=== PATIENT | female | born 1940 | race Caucasian/White ===

== ENCOUNTER 2017-01-23 13:41 | Inpatient (IN) | payer MEDICARE, OTHER ==
[~2017-01-23] VITALS: Ht 160 cm; Wt 97.1 kg
[~2017-01-23 13:41] MED LIST: ALPR0.254 PO; ALPR0.5T PO; ASPI81TA2 PO; ATOR20TA58 PO; BUDE10.2 IH; DILT240C2 PO; DILT240C66 PO; DOCU-27 PO; DONE5TAB33 PO; DOXY100C2 PO; FLUT9.9S NS; FURO20TA3 PO; FURO40TA4 PO; GABA-586 PO; INSU100I13 SQ; INSU100V31 SQ; LEVO500T38 PO; LEVO500T8 PO; LOSA50TA6 PO; MIRT15TA PO; MULT1TAB52 PO; OXYC30TA PO; PANT40TA5 PO; POLY17PO5 PO; POTA10TA10 PO; PROAIR HFA8.5 GM INH; RISP0.5T3 PO; RISP1TAB3 PO; SERT50TA PO; SERT50TA8 PO; TRAZ50TA15 PO; VITA100C8 PO; cogentin PO
--- NOTE | 2017-01-23 15:09 | RAD ---
Portable chest, 01/23/2017: History: Fall Comparison is made to a study from 01/04/2017. The heart is mildly enlarged. The pulmonary vascularity is prominent.. There is now mild parahilar infiltrate on the right. No pleural fluid is seen. The bony structures are unremarkable. IMPRESSION: Mild right parahilar infiltrate most likely representing pulmonary edema due to congestive heart failure. Pneumonia is less likely.
--- NOTE | 2017-01-23 15:10 | EKG ---
[facility] [address] [place] [address] Test Date: 2017-01-23 Test Time: 14:23:25 Pat Name: OZZIE GALEAS Department: Room: Gender: F Education Spec: : 1940 Requested By: ZO BROWN Order Number: [id number] Reading MD: Jaci Alcazar Measurements Intervals [place] Rate: 111 P: 54 WV: 174 QRS: 52 QRSD: 84 T: 87 QT: 306 QTc: 419 Interpretive Statements SINUS TACHYCARDIA QRS(T) CONTOUR ABNORMALITY CONSISTENT WITH SEPTAL INFARCT PROBABLY OLD Electronically Signed On 01-25-2017 20:22:24 CUTTER INSPECTOR by Jaci Alcazar
[2017-01-23] MEDS ORDERED: IV NORMAL SALINE 1000ML BAG 1,000 ML IV ONE (15:15)
[2017-01-23 15:26] LABS: BILIRUBIN,URINE SMALL (NEG); GLUCOSE,URINE NEGATIVE (NEG); NITRITE,URINE NEGATIVE (NEG); PH,URINE 5.5; PROTEIN,URINE NEGATIVE (NEG-TRACE); UROBILINOGEN,URINE 0.2 mg/dL (0.2 mg/dL)
--- NOTE | 2017-01-23 15:33 | EKG ---
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
--- NOTE | 2017-01-23 15:33 | RAD ---
PQRS Compliance Statement: One or more of the following individualized dose reduction techniques were utilized for this examination: 1. Automated exposure control 2. Adjustment of the mA and/or kV according to patient size 3. Use of iterative reconstruction technique CT of the head without contrast, 01/23/2017: History: Fall, altered mental status Comparison is made to a study from 11/21/2016. There are mild unchanged deep white matter lucencies compatible with chronic ischemic change. The ventricles are within normal limits in size for the patient's age. There is no shift of the midline structures. There is no evidence of acute intracranial hemorrhage or mass effect. There is mild mucosal thickening in the right maxillary sinus. IMPRESSION: No acute intracranial abnormality is detected. CT of the cervical spine without contrast, 01/23/2017: Noncontrast scans were obtained with multiplanar reconstructions produced. No acute fracture or dislocation is identified. There is moderate disc space narrowing and marginal spurring at multiple levels in the mid and lower cervical spine. There are moderate hypertrophic degenerative changes involving multiple facet joints bilaterally. The combination of findings is causing borderline narrowing of the central spinal canal at several levels. There is also moderate foraminal encroachment at several levels. There is calcific plaquing at the carotid bifurcations. IMPRESSION: 1. Moderate multilevel degenerative change. 2. No acute bony abnormality is detected.
[2017-01-23 15:34] LABS: BARBITURATES NEG (NEG); BENZODIAZEPINES NEG (NEG); CANNABINOIDS NEG (NEG); COCAINE NEG (NEG); METHADONE NEG (NEG); OPIATES POS (NEG); PHENCYCLIDINE NEG (NEG)
[2017-01-23 15:38] LABS: ETHANOL, URINE NEG (NEG)
[2017-01-23 15:42] LABS: BACTERIA,URINE FEW /HPF (0-FEW); RBC,URINE OCC /HPF (0-2); SQUAMOUS EPITHELIAL CELL,UR MOD /LPF; WBC,URINE >40 /HPF (0-4)
[2017-01-23 15:46] LABS: BASO % 0 % (0-3); EOS % 0 % (0-3); HEMATOCRIT 35.4 % (36.0-47.0); HEMOGLOBIN 11.2 g/dL (12.0-15.5); LYMPH # 0.3 x10^3/uL (1.0-4.8); LYMPH % 3 % (24-48); MEAN CORPUSCULAR HEMOGLOBIN 31 pg (25-35); MEAN CORPUSCULAR HGB CONC 32 g/dL (31-37); MEAN CORPUSCULAR VOLUME 97 fL (79-100); MONO % 9 % (0-9); NEUT % 89 % (31-73); PLATELET COUNT 141 x10^3/uL (140-400); RED BLOOD COUNT 3.65 x10^6/uL (3.50-5.40); RED CELL DISTRIBUTION WIDTH 17.7 % (11.5-14.5)
[2017-01-23 15:53] LABS: HCO3 ABG 27 mmol/L (21-28); PCO2 ABG 49 mmHg (35-46); PH ABG 7.36 (7.35-7.45); PO2 ABG 67 mmHg (65-108); SAT O2 ABG 91 % (92-99)
[2017-01-23 15:55] LABS: INR 1.3 (0.8-1.1); PROTHROMBIN TIME PATIENT 15.8 SEC (11.7-14.0)
[2017-01-23 16:06] LABS: CALCIUM 8.5 mg/dL (8.5-10.1); CREATININE 1.9 mg/dL (0.6-1.0); GFR 25.6; POTASSIUM 5.3 mmol/L (3.5-5.1)
[2017-01-23 16:12] LABS: ALBUMIN 3.1 g/dL (3.4-5.0); ALBUMIN/GLOBULIN RATIO 0.7 (1.0-1.7); TOTAL BILIRUBIN 0.4 mg/dL (0.2-1.0); TOTAL PROTEIN 7.3 g/dL (6.4-8.2)
[2017-01-23 16:20] LABS: CKMB INDEX 1.3 % (0-4); CKMB MASS 3.8 ng/mL (0.0-3.6)
[2017-01-23 16:32] LABS: OBC FLU VALID
[2017-01-23 16:48] LABS: ANISOCYTOSIS SLIGHT; OVALOCYTES FEW; PLT ESTIMATE ADEQUATE (ADEQUATE); POLYCHROMASIA SLIGHT
--- NOTE | 2017-01-23 16:57 | RAD ---
PQRS Compliance Statement: One or more of the following individualized dose reduction techniques were utilized for this examination: 1. Automated exposure control 2. Adjustment of the mA and/or kV according to patient size 3. Use of iterative reconstruction technique CT of the abdomen and pelvis without contrast, 01/23/2017: History: Fall, pain Noncontrast scans were obtained as requested. The heart is enlarged. There are small bilateral pleural effusions. There is mild basilar atelectasis/infiltrate, more so on the right. There are multiple streak artifacts on these scans. The unopacified liver is unremarkable. There is a small radiopacity along the posterior wall of the gallbladder compatible with a gallstone. The pancreas is atrophic. The spleen is of normal size. There is bilateral renal cortical scarring. There is no evidence of hydronephrosis. Both adrenal glands are mildly enlarged. They are of low density. The findings suggests adrenal hyperplasia versus small bilateral adenomas. There is moderate aortoiliac calcific plaquing without evidence of aneurysm. No abdominal or pelvic adenopathy is seen. There are serpiginous vascular structures, probably representing varices, in the prepubic soft tissues. There is a calcification in the left iliac vein. These dilated veins may represent collateral veins due to chronic left iliac venous occlusion. Several sigmoid diverticula are present without evidence of paracolonic inflammation. The small bowel loops are not dilated. No free air is identified in the abdomen or pelvis. There appears to be a trace amount of interloop fluid in the anterior aspect of the pelvis and along the anterior aspect of the liver. Several old rib fractures are noted on the lower right. Moderate multilevel degenerative change is present in the spine. There is a moderate vertebral compression fracture at T9. Sclerotic change within the vertebral body suggests that this is probably old. IMPRESSION: 1. Mild bibasilar atelectasis/infiltrate with a trace amount of bilateral pleural fluid. 2. Tiny amount of free fluid in the abdomen and pelvis. 3. Cholelithiasis. 4. Sigmoid diverticulosis. 5. Anterior pubic region collateral veins in a pattern suggesting chronic left iliac venous occlusion. 6. T9 vertebral compression fracture which is probably old.
[2017-01-23] MEDS ORDERED: FUROSEMIDE 40 MG/4 ML VIAL IVP ONE (17:45)
[2017-01-23] MEDS ORDERED: AZITHRMYCN 500MG IVPB FOR OMNI 250 ML IV ONE (18:00)
[2017-01-23] MEDS ORDERED: CEFTRIAXONE 1GM IVPB FOR OMNI 50 ML IV ONE (18:00)
[2017-01-23 18:31] LABS: MAGNESIUM 2.7 mg/dL (1.8-2.4)
[2017-01-23 18:40] LABS: CHOLESTEROL/HDL RATIO 1.8
[2017-01-23] MEDS ORDERED: LORAZEPAM 2 MG/ML VIAL IV ONE (18:45)
--- NOTE | 2017-01-23 19:47 | PDOC2 ---
YOVANNY WOLFE MEAT PROCESS WORKER 01/23/171946: CARDIAC CONSULT DATE OF CONSULT Date of Consult DATE: 01/23/17 TIME: 1715 REASON FOR CONSULT Reason for Consult: Elevated troponin, CHF REFERRING PHYSICIAN Referring Physician: Miko SOURCE Source: Chart review, Patient (poor historian) HISTORY OF PRESENT ILLNESS HISTORY OF PRESENT ILLNESS This is a 76 yo female admitted for fall and SOA. Initially pt was noted to be confused and after bipap placement, her orientation is better. Pt is currently unreliable with the details of events since she is currently exhausted and presently using a bipap. She was noted to be pale and dusky upon arrival in ED. Currently pt is drowsy but oriented and able to provide me with answers answerable with yes/no. Denies any CP, palpitations. Unable to tell me any dizzy spells in relation to her fall. Unable to note how much opiods she has consumed in the last 24 hours as well as adequacy of her hydration. Family is not available and unable to attest compliance to her medications. She fell at home with no traumatic injuries. There was no notation of passing out. She did get admitted on 08/2016 with fall and CHF. MPI was considered as well but failed to f/u. No notable fever, chills, recent diarrhea or vomiting. PAST MEDICAL HISTORY Past Medical History Cardiovascular: HTN, Hyperlipidemia, CHF, valvular insufficiency Pulmonary: COPD CENTRAL NERVOUS SYSTEM: Dementia GI: Constipation Heme/Onc: Anemia NOS, DVT Hepatobiliary: No pertinent hx Psych: Anxiety Musculoskeletal: low back pain, Osteoarthritis Rheumatologic: No pertinent hx Infectious disease: No pertinent hx ENT: No pertinent hx Renal/: Urinary Incontinence, CKD3 Endocrine: Diabetes (2) Dermatology: No pertinent hx PAST SURGICAL HISTORY Past Surgical History: Hysterectomy FAMILY HISTORY Family History: Coronary Artery Disease (father) SOCIAL HISTORY Smoke: No (quit/ hx of 50 pk/yr) ALCOHOL: none Drugs: None Lives: with Family CURRENT MEDICATIONS CURRENT MEDICATIONS Current Medications Medications (Trade) Dose Ordered Sig/Talita Route PRN Reason Start Time Stop Time Status Last Admin Dose Admin Lorazepam (Ativan) 0.5 mg 1X ONCE IV 01/23/17 18:45 01/23/17 18:46 01/23/17 18:42 ALLERGIES ALLERGIES: Coded Allergies: Penicillins (Verified Allergy, Intermediate, AMS, 09/10/16) aripiprazole (Verified Adverse Reaction, Mild, agitation, 10/28/16) bupropion (Verified Adverse Reaction, Mild, headache, 10/28/16) metformin (Verified Adverse Reaction, Mild, diarrhea, 10/28/16) ROS Review of System limited, pt exhausted, bipap currently in place PHYSICAL EXAM General: Oriented X3, Cooperative, moderate distress HEENT: Atraumatic, Mucous membr. moist/pink Lungs: Other (diminished throughout, bibasilar crackles) Heart: Regular rate, Normal S1, Normal S2, Other (distant heart sounds unable to appreciate idue to bipap as well; S3) Abdomen: Soft, No tenderness Extremities: No cyanosis, Other (2-3+ bilateral LE pitting edema) Skin: No breakdown, No significant lesion Neuro: Sensation intact, Other (utilized closed communication yes/no due to bipap use) Psych/Mental Status: Other (drowsy) MUSCULOSKELETAL: Osteoarthritic changes both hands VITALS VITALS Vital Signs Date Time Temp Pulse Resp B/P Pulse Ox O2 Delivery O2 Flow Rate FiO2 01/23/17 18:31 Nasal Cannula 5.0 01/23/17 17:19 92 01/23/17 17:15 104 28 147/87 01/23/17 13:41 99.4 99.4 LABS Lab: Laboratory Tests Test 01/23/17 15:18 01/23/17 15:35 01/23/17 15:40 01/23/17 15:53 Urine Collection Type Unknown Urine Color Yellow Urine Clarity Clear Urine pH 5.5 Urine Specific [place] 1.020 Urine Protein Negativemg/dL (NEG-TRACE) Urine Glucose (UA) Negativemg/dL (NEG) Urine Ketones (Stick) Negativemg/dL (NEG) Urine Blood Negative (NEG) Urine Nitrite Negative (NEG) Urine Bilirubin Small (NEG) Urine Urobilinogen Dipstick 0.2mg/dL (0.2 mg/dL) Urine Leukocyte Esterase Moderate (NEG) Urine RBC Occ/HPF (0-2) Urine WBC >40/HPF (0-4) Urine Squamous Epithelial Cells Mod/LPF Urine Bacteria Few/HPF (0-FEW) Urine Opiates Screen Pos (NEG) Urine Methadone Screen Neg (NEG) Urine Barbiturates Neg (NEG) Urine Phencyclidine Screen Neg (NEG) Urine Amphetamine/Methamphetamine Neg (NEG) Urine Benzodiazepines Screen Neg (NEG) Urine Cocaine Screen Neg (NEG) Urine Cannabinoids Screen Neg (NEG) Urine Ethyl Alcohol Neg (NEG) White Blood Count 10.0x10^3/uL (4.0-11.0) Red Blood Count 3.65x10^6/uL (3.50-5.40) Hemoglobin 11.2g/dL (12.0-15.5) Hematocrit 35.4% (36.0-47.0) Mean Corpuscular Volume 97fL (79-100) Mean Corpuscular Hemoglobin 31pg (25-35) Mean Corpuscular Hemoglobin Concent 32g/dL (31-37) Red Cell Distribution Width 17.7% (11.5-14.5) Platelet Count 141x10^3/uL (140-400) Neutrophils (%) (Auto) 89% (31-73) Lymphocytes (%) (Auto) 3% (24-48) Monocytes (%) (Auto) 9% (0-9) Eosinophils (%) (Auto) 0% (0-3) Basophils (%) (Auto) 0% (0-3) Neutrophils # (Auto) 8.9x10^3uL (1.8-7.7) Lymphocytes # (Auto) 0.3x10^3/uL (1.0-4.8) Monocytes # (Auto) 0.9x10^3/uL (0.0-1.1) Eosinophils # (Auto) 0.0x10^3/uL (0.0-0.7) Basophils # (Auto) 0.0x10^3/uL (0.0-0.2) Segmented Neutrophils % 74% (35-66) Band Neutrophils % 21% (0-9) Monocytes % 5% (0-10) Platelet Estimate Adequate (ADEQUATE) Large Platelets Occ Polychromasia Slight Basophilic Stippling Present Anisocytosis Slight Ovalocytes Few Prothrombin Time 15.8SEC (11.7-14.0) Prothromb Time International Ratio 1.3 (0.8-1.1) Activated Partial Thromboplast Time 50SEC (24-38) Sodium Level 137mmol/L (136-145) Potassium Level 5.3mmol/L (3.5-5.1) Chloride Level 100mmol/L (98-107) Carbon Dioxide Level 32mmol/L (21-32) Anion Gap 5 (6-14) Blood Urea Nitrogen 43mg/dL (7-20) Creatinine 1.9mg/dL (0.6-1.0) Estimated GFR (Cockcroft-Gault) 25.6 BUN/Creatinine Ratio 23 (6-20) Glucose Level 211mg/dL (70-99) Lactic Acid Level 1.6mmol/L (0.4-2.0) Calcium Level 8.5mg/dL (8.5-10.1) Magnesium Level 2.7mg/dL (1.8-2.4) Total Bilirubin 0.4mg/dL (0.2-1.0) Aspartate Amino Transf (AST/SGOT) 56U/L (15-37) Alanine Aminotransferase (ALT/SGPT) 44U/L (14-59) Alkaline Phosphatase 79U/L (46-116) Creatine Kinase 300U/L (26-192) Creatine Kinase MB (Mass) 3.8ng/mL (0.0-3.6) Creatine Kinase MB Relative Index 1.3% (0-4) Myoglobin 473ng/mL (9-82) Troponin I Quantitative 0.470ng/mL (0.000-0.055) LH-Vxn-I-Type Natriuretic Peptide 51235eq/mL (0-449) Total Protein 7.3g/dL (6.4-8.2) Albumin 3.1g/dL (3.4-5.0) Albumin/Globulin Ratio 0.7 (1.0-1.7) Triglycerides Level 42mg/dL (0-150) Cholesterol Level 113mg/dL (0-200) LDL Cholesterol, Calculated 41mg/dL (0-100) VLDL Cholesterol, Calculated 8mg/dL (0-40) HDL Cholesterol 64mg/dL (40-60) Cholesterol/HDL Ratio 1.8 Thyroid Stimulating Hormone (TSH) 0.453uIU/mL (0.358-3.74) O2 Saturation 91% (92-99) Arterial Blood pH 7.36 (7.35-7.45) Arterial Blood pCO2 at Patient Temp 49mmHg (35-46) Arterial Blood pO2 at Patient Temp 67mmHg (65-108) Arterial Blood HCO3 27mmol/L (21-28) Arterial Blood Base Excess 1mmol/L (-3-3) FiO2 6 lpm nc Influenza Type A Antigen Negative (NEGATIVE) Influenza Type B Antigen Negative (NEGATIVE) ECHOCARDIOGRAM ECHOCARDIOGRAM <Conclusion> The Left Ventricle is borderline dilated. Left ventricle systolic function is normal. The Ejection Fraction is 50-55%. There is no significant aortic valvular stenosis. Doppler and Color Flow revealed no significant aortic regurgitation. Doppler and Color Flow revealed trace mitral valve regurgitation. Doppler and Color Flow revealed mild tricuspid regurgitation. The PA pressure was estimated at 40 mmHg. DATE: 09/11/16 1603 ASSESSMENT/PLAN ASSESSMENT/PLAN 1. Mechanical nontraumatic fall with rhabdomyolysis (multiple falls in the past) : unknown for any syncopal episode or symptoms 2. Metabolic/hypoxic encephalopathy: unknown quantity of opioid/benzo used in the last 24 hours 3. Acute respiratory failure with underlying COPD: opioid contributing 4. MADDY on CKD3 with mild hyperkalemia 5. Acute on chronic diastolic CHF: likely induced by hypoxia and renal insufficiency 6. Elevated troponin: 0.4 initial. EKG sinus tach with no acute changes. CP free. Suspect demand mediated with above conditions 7. HTN: controlled 8. DM2/HLP: controlled 9. Hx of dementia: evaluated by neuro 10/2016 10. Chronic pain with chronic opioid use. 11. Debility Recommendations 1. TSH, lipid panel, Mg, continue to trend troponin 2. TTE 3. Currently on bipap 4. Lasix IV, Continue with IV maintenance therapy 5. Appears to have difficult IV access, PICC? 6. Continue with secondary prevention 7. Will need to discuss with pt regarding aggressive measures vs conservative measures. 8. Multiple hospitalizations with recurrent falls, dementia, multiple chronic conditions, recommend palliative consult to address #7 9. Once above is addressed and pending results of TTE, will consider for ischemic workup in the form of MPI, likely as an outpt. 10. Recommend renal and pulmonary consult. Defer to PCP Problems: LINDA RM MD 01/24/17 1451: CARDIAC CONSULT ALLERGIES ALLERGIES: Coded Allergies: Penicillins (Verified Allergy, Intermediate, AMS, 09/10/16) aripiprazole (Verified Adverse Reaction, Mild, agitation, 10/28/16) bupropion (Verified Adverse Reaction, Mild, headache, 10/28/16) metformin (Verified Adverse Reaction, Mild, diarrhea, 10/28/16) ASSESSMENT/PLAN ASSESSMENT/PLAN Patient seen and examined. Agree with CHORAL TEACHER's assessment and plan. Patient admitted s/p mechanical fall without any syncope. Acute on chronic diastolic heart failure better compensated with diuresis. Mental status improved since admission. Slight troponin level elevation probably secondary to demand ischemia. Recent 2-D echo showed normal LV systolic function. We will consider ischemic workup in the form of stress test as an outpatient. Thank you for your consultation. Problems: YOVANNY WOLFE APRN Jan 23, 2017 19:47 LINDA RM MD Jan 24, 2017 14:51
[2017-01-23 19:50] VITALS: BP 114/67
[2017-01-23] MEDS ORDERED: ALBUTEROL SULFATE 2.5 MG/3 ML NEBU. NEB PRN (20:30)
[2017-01-23] MEDS: GABAPENTIN 300 MG CAPSULE. PO SCH (21:00)
[2017-01-23] MEDS: risperiDONE 1 MG TABLET. PO SCH (21:00)
[2017-01-23] MEDS: ATORVASTATIN CALCIUM 20 MG TABLET PO SCH (21:00)
[2017-01-23] MEDS: MIRTAZAPINE 15 MG TABLET PO SCH (21:00)
[2017-01-23] MEDS: traZODone 50 MG TABLET. PO SCH (21:00)
[2017-01-23] MEDS: DOCUSATE SODIUM 100 MG CAPSULE PO SCH (21:00)
[2017-01-23] MEDS: ALPRAZOLAM 0.5 MG TABLET PO SCH (21:00)
--- NOTE | 2017-01-23 22:08 | ED.ADGEN ---
Past Medical History Past Medical History: Bronchitis, CHF, COPD, Dementia, Diabetes-Type II, High Cholesterol, Hypertension, Renal Disease, Other Additional Past Medical Histor: resp failure; AMS; pulmonary edema; right knee pain Past Surgical History: Hysterectomy Additional Past Surgical Histo: pt unable to Alcohol Use: None Drug Use: None Adult General Chief Complaint Chief Complaint: ALTERED MENTAL STATUS HPI HPI Patient is a 76 year old [woman, history of CHF, COPD, type 2 diabetes mellitus , hypertension, obesity, who presents emergency department via EMS with report of being found lying on the floor by her daughter. C-collar was placed upon arrival to the emergency department, patient noted to be altered, which is answering some questions appropriate, she is slow to respond. Is complaining of pain in her abdomen, denies any chest pain, complaining of some shortness of breath. Patient's daughter is not present in the emergency department, report is available through EMS. No other information provided at this time. Does not have a medication list. Patient noted be hypoxic, in the low 80s on room air, placed on oxygen by EMS, increase to 6 L nasal cannula upon arrival to the ED. Oxygen saturation is in the mid 90s. Patient is noted to have some increased work of breathing. Patient's mentation is improving after administration of oxygen per EMS. Review of Systems Review of Systems Constitutional: Denies fever or chills. [] Eyes: Denies change in visual acuity. [] HENT: Denies nasal congestion or sore throat. [] Respiratory: Complaining of shortness of breath. Cardiovascular: Denies chest pain or edema. [] GI: Denies nausea, vomiting, bloody stools or diarrhea. [Abdominal pain.] : Denies dysuria. [] Musculoskeletal: Denies back pain or joint pain. [] Integument: Denies rash. [] Neurologic: Denies headache, focal weakness or sensory changes. [] Endocrine: Denies polyuria or polydipsia. [] Lymphatic: Denies swollen glands. [] Psychiatric: Denies depression or anxiety. [] Current Medications Current Medications Current Medications Medications (Trade) Dose Ordered Sig/Talita Start Time Stop Time Status Last Admin Dose Admin Sodium Chloride (Iv Sodium Chloride 0.9% 1000ml Bag) 1,000 ml @ 100 mls/hr 1X ONCE 01/23/17 15:15 2/25/17 01:14 01/23/17 15:32 100 MLS/HR Allergies Allergies Allergies Coded Allergies Type Severity Reaction Last Updated Verified Penicillins Allergy Intermediate AMS 09/10/16 Yes aripiprazole Adverse Reaction Mild agitation 10/28/16 Yes bupropion Adverse Reaction Mild headache 10/28/16 Yes metformin Adverse Reaction Mild diarrhea 10/28/16 Yes Physical Exam Physical Exam Constitutional: Well developed, well nourished, ill in appearance, mild respiratory distress, patient is pale, lips are mildly cyanotic. HENT: Normocephalic, atraumatic, bilateral external ears normal, oropharynx moist, no oral exudates, nose normal. [] Eyes: PERRLA, EOMI, conjunctiva normal, no discharge. [] Neck: Normal range of motion, no tenderness, supple, no stridor. [] Cardiovascular:Heart rate regular rhythm, no murmur, S1, S2, tachycardic, no rubs or gallops. Soft heart sounds. [] Lungs & Thorax: Coarse breath sounds noted bilaterally, patient is in mild respiratory distress. Abdomen: Bowel sounds normal, soft, tenderness to palpation suprapubically, and in the lower quadrants, no rebound rigidity or guarding, no masses, no pulsatile masses. [] Skin: Warm, dry, no erythema, no rash. [] Back: No tenderness, no CVA tenderness. [] Extremities: No tenderness, no cyanosis, no clubbing, ROM intact, no edema. Negative Homans sign. [] Neurologic: Awake and alert, is answering questions appropriately although she is slow to respond,, normal motor function, normal sensory function, no focal deficits noted. [] Psychologic: Affect normal, judgement normal, mood normal. [] Current Patient Data Vital Signs Vital Signs Date Time Temp Pulse Resp B/P Pulse Ox O2 Delivery O2 Flow Rate FiO2 01/23/17 17:19 92 BiPAP/CPAP 01/23/17 17:15 104 28 147/87 6 01/23/17 13:41 99.4 99.4 Lab Values Laboratory Tests Test 01/23/17 15:18 01/23/17 15:35 01/23/17 15:40 01/23/17 15:53 Urine Collection Type Unknown Urine Color Yellow Urine Clarity Clear Urine pH 5.5 Urine Specific Hermon 1.020 Urine Protein Negativemg/dL (NEG-TRACE) Urine Glucose (UA) Negativemg/dL (NEG) Urine Ketones (Stick) Negativemg/dL (NEG) Urine Blood Negative (NEG) Urine Nitrite Negative (NEG) Urine Bilirubin Small (NEG) Urine Urobilinogen Dipstick 0.2mg/dL (0.2 mg/dL) Urine Leukocyte Esterase Moderate (NEG) Urine RBC Occ/HPF (0-2) Urine WBC >40/HPF (0-4) Urine Squamous Epithelial Cells Mod/LPF Urine Bacteria Few/HPF (0-FEW) Urine Opiates Screen Pos (NEG) Urine Methadone Screen Neg (NEG) Urine Barbiturates Neg (NEG) Urine Phencyclidine Screen Neg (NEG) Urine Amphetamine/Methamphetamine Neg (NEG) Urine Benzodiazepines Screen Neg (NEG) Urine Cocaine Screen Neg (NEG) Urine Cannabinoids Screen Neg (NEG) Urine Ethyl Alcohol Neg (NEG) White Blood Count 10.0x10^3/uL (4.0-11.0) Red Blood Count 3.65x10^6/uL (3.50-5.40) Hemoglobin 11.2g/dL (12.0-15.5) L Hematocrit 35.4% (36.0-47.0) L Mean Corpuscular Volume 97fL (79-100) Mean Corpuscular Hemoglobin 31pg (25-35) Mean Corpuscular Hemoglobin Concent 32g/dL (31-37) Red Cell Distribution Width 17.7% (11.5-14.5) H Platelet Count 141x10^3/uL (140-400) Neutrophils (%) (Auto) 89% (31-73) H Lymphocytes (%) (Auto) 3% (24-48) L Monocytes (%) (Auto) 9% (0-9) Eosinophils (%) (Auto) 0% (0-3) Basophils (%) (Auto) 0% (0-3) Neutrophils # (Auto) 8.9x10^3uL (1.8-7.7) H Lymphocytes # (Auto) 0.3x10^3/uL (1.0-4.8) L Monocytes # (Auto) 0.9x10^3/uL (0.0-1.1) Eosinophils # (Auto) 0.0x10^3/uL (0.0-0.7) Basophils # (Auto) 0.0x10^3/uL (0.0-0.2) Segmented Neutrophils % 74% (35-66) H Band Neutrophils % 21% (0-9) H Monocytes % 5% (0-10) Platelet Estimate Adequate (ADEQUATE) Large Platelets Occ Polychromasia Slight Basophilic Stippling Present Anisocytosis Slight Ovalocytes Few Prothrombin Time 15.8SEC (11.7-14.0) H Prothrombin Time INR 1.3 (0.8-1.1) H PTT 50SEC (24-38) H Sodium Level 137mmol/L (136-145) Potassium Level 5.3mmol/L (3.5-5.1) H Chloride Level 100mmol/L (98-107) Carbon Dioxide Level 32mmol/L (21-32) Anion Gap 5 (6-14) L Blood Urea Nitrogen 43mg/dL (7-20) H Creatinine 1.9mg/dL (0.6-1.0) H Estimated GFR (Cockcroft-Gault) 25.6 BUN/Creatinine Ratio 23 (6-20) H Glucose Level 211mg/dL (70-99) H Lactic Acid Level 1.6mmol/L (0.4-2.0) Calcium Level 8.5mg/dL (8.5-10.1) Magnesium Level 2.7mg/dL (1.8-2.4) H Total Bilirubin 0.4mg/dL (0.2-1.0) Aspartate Amino Transferase (AST) 56U/L (15-37) H Alanine Aminotransferase (ALT) 44U/L (14-59) Alkaline Phosphatase 79U/L (46-116) Creatine Kinase 300U/L (26-192) H Creatine Kinase MB (Mass) 3.8ng/mL (0.0-3.6) H Creatine Kinase MB Relative Index 1.3% (0-4) Myoglobin 473ng/mL (9-82) H Troponin I Quantitative 0.470ng/mL (0.000-0.055) VB-Omm-U-Type Natriuretic Peptide 67235gn/mL (0-449) H Total Protein 7.3g/dL (6.4-8.2) Albumin 3.1g/dL (3.4-5.0) L Albumin/Globulin Ratio 0.7 (1.0-1.7) L Triglycerides Level 42mg/dL (0-150) Cholesterol Level 113mg/dL (0-200) LDL Cholesterol, Calculated 41mg/dL (0-100) VLDL Cholesterol, Calculated 8mg/dL (0-40) HDL Cholesterol 64mg/dL (40-60) H Cholesterol/HDL Ratio 1.8 Thyroid Stimulating Hormone (TSH) 0.453uIU/mL (0.358-3.74) O2 Saturation 91% (92-99) L Arterial Blood pH 7.36 (7.35-7.45) Arterial Blood pCO2 at Patient Temp 49mmHg (35-46) H Arterial Blood pO2 at Patient Temp 67mmHg (65-108) Arterial Blood HCO3 27mmol/L (21-28) Arterial Blood Base Excess 1mmol/L (-3-3) FiO2 6 lpm nc Influenza Type A Antigen Negative (NEGATIVE) Influenza Type B Antigen Negative (NEGATIVE) Laboratory Tests 01/23/17 15:35 Laboratory Tests 01/23/17 15:35 EKG EKG EC: Sinus tachycardia, heart rate 108 beats/minute, QTC of 416, CO 176, QRS of 86, upright axis, contour normality is noted in the inferior anterior septal leads, does not meet STEMI criteria. As interpreted by me. [] Radiology/Procedures Radiology/Procedures [] [facility] [address], [place] [id number] IMAGING REPORT Signed PATIENT: OZZIE GALEAS ACCOUNT: [id number] : 1940 LOCATION: ER AGE: 76 SEX: F EXAM STATUS: PRE ER ORD. PHYSICIAN: ZO BROWN DO REASON: fall/AMS 11 PROCEDURE: CHEST AP ONLY Portable chest, 01/23/2017: History: Fall Comparison is made to a study from 01/04/2017. The heart is mildly enlarged. The pulmonary vascularity is prominent.. There is now mild parahilar infiltrate on the right. No pleural fluid is seen. The bony structures are unremarkable. IMPRESSION: Mild right parahilar infiltrate most likely representing pulmonary edema due to congestive heart failure. Pneumonia is less likely. DICTATED and SIGNED BY: ABBIE ROJAS MD DATE: 01/23/17 8331 CC: MONAE RUBIO; ZO BROWN DO ~ Course & Med Decision Making Course & Med Decision Making Pertinent Labs and Imaging studies reviewed. (See chart for details) Patient ill-appearing upon arrival, noted to be hypoxic and cyanotic, oxygen increased, patient's mentation improved, she is answering questions appropriately she is slow to respond. Collar placed as stated due to unclear etiology of being found down, with concern for potential injury, CT scan of the head and neck are unremarkable, c-collar was cleared in the ED without issue. Chest x-ray revealed evidence of cardiomegaly and pulmonary edema consistent with CHF, we are attempting to gather additional information patient's family so far been unsuccessful. ABG revealed CO2 of 49, oxygen of 91, pH of 7.35. Patient was initiated on BiPAP, as difficulty remained in maintaining her oxygen saturation, patient tolerating BiPAP, oxygen saturation in the mid 90s, heart rate is improving. Noted to have an elevated troponin, with a proBNP greater than 16,000. Consultation was called by 2 cardiology, Jeffy Elizalde for cardiology evaluate the patient in the ED. Will initiate diuresis, patient received 40 Lasix IV, BiPAP will also assist with fluid shift. CT of abdomen and pelvis did not reveal any evidence of acutely concerning abdominal findings , patient with urine noted to have 40 WBCs, some bacteria, no nitrates noted. However with constellation of symptoms, leukocytosis, we'll cover urine and possible pneumonia, although I believe that this is primarily a CHF exacerbation with hypoxia. Patient's influenza swabs were negative. As above discussed with Dr. Horn of internal medicine, patient accepted to her service as a full admission to the ICU. Dragon Disclaimer Dragon Disclaimer This electronic medical record was generated, in whole or in part, using a voice recognition dictation system. Departure Impression: Primary Impression: CHF (congestive heart failure) Additional Impressions: Hypoxia Urinary tract infection Altered mental status Encephalopathy acute Disposition: 09 ADMITTED INPATIENT Admitting Physician: Other Condition: IMPROVED Problem Qualifiers Primary Impression: CHF (congestive heart failure) Congestive heart failure type: unspecified congestive heart failure type Congestive heart failure chronicity: unspecified congestive heart failure chronicity Qualified Code: I50.9 - Heart failure, unspecified Additional Impressions: Urinary tract infection Urinary tract infection type: acute cystitis Hematuria presence: without hematuria Qualified Code: N30.00 - Acute cystitis without hematuria Altered mental status Altered mental status type: unspecified Qualified Code: R41.82 - Altered mental status, unspecified OZ BROWN DO Jan 23, 2017 22:08
--- NOTE | 2017-01-23 22:33 | ACF ---
Admission Forms Criteria HEART FAILURE Clinical Indications for Admission to Inpatient Care (Place 'X' for any and all applicable criteria): Admission is indicated by ANY ONE of the following(1)(2)(3)(4): [ ]I. Severe electrolyte abnormalities requiring inpatient care(9) [ ]II. Hemodynamic instability [ ]III. Anasarca [ ]IV. Acute cardiac ischemia causing or associated with failure (Also use Angina or Myocardial Infarction as appropriate) [ ]V. Cardiac arrhythmias of immediate concern [ ]. Precipitating cause for acute decompensation (eg, pneumonia, pulmonary embolism) requires inpatient care [X]VII. Pulmonary edema that is very severe (eg, mechanical ventilation needed, imminent or likely, need for 100% oxygen to keep oxygen saturation above 90%) [X]VIII. Inpatient admission required rather than observation care (Also use Heart Failure: Observation Care as appropriate) because of ANY ONE of the following: [ ]a) Pulmonary edema that is severe or worsening as indicated by ALL of the following: [ ]i) New need for oxygen therapy to keep oxygen saturation above 90% (or increased FiO2 need from baseline) [ ]ii) Has not improved sufficiently with emergency department or observation care IV diuretics or other heart failure treatments[C] [ ]b) Cognitive impairment that is severe or persistent [ ]c) Increased creatinine (new on laboratory test) with reduction of more than 50% in estimated glomerular filtration rate from baseline. [ ]d) Acute renal insufficiency (progressively (ongoing) rising creatinine (known from past laboratory test) with reduction of more than 25% in estimated glomerular filtration rate from baseline) [ ]e) Acute peripheral ischemia (eg, pulseless, cool, mottled, or cyanotic extremity) [X]f) Acute renal failure [ ]g) Supplemental O2 or respiratory treatment for >24 hr that are performable only in acute inpatient setting [ ]h) Pulmonary artery catheter monitoring [ ]i) Other condition, treatment or monitoring requiring inpatient admission [ ]IX. Contraindications and/or Inappropriate clinical situations for Observational Care in patients with Heart Failure, when ANY ONE of the following is required: [ ]a) Patient with High risk of cardiac embolism (e.g, patients with previous cardiac embolism, LVEF < 40%, age >75 and patients with prosthetic valve) 18 [ ]b) Patient with Moderate risk including DM patient, CAD and patient aged 65-75 [ ]c) Patient with any change in cardiac biomarker especially troponin should be managed as high risk in an inpatient setting 19 [ ]d) Physician judgement irrespective of ECG and other diagnostic findings 20 [ ]e) Patients with hyponatremia have high risk for mortality and require more extensive care and length of stay 21 [ ]f) Need for large volume diuresis 21 [ ]g) Presence of renal insufficiency or hypotension limiting speed of diuresis 21 [ ]h) Acute cardiac Ischemia in the elderly 21 [ ]i) Patients with a 30 day risk of mortality based on a multidimensional prognostic index (MPI) [J,]21 [ ]X. General contraindications and/or Inappropriate clinical situations for Observational Care in patients with Heart Failure, when ANY ONE of the following is required: [ ]a) Prediction of prolongation of LOS based on ANY ONE of the following may be considered as a contraindication for observational care 2, 3, 4, 5, 6, 7, 8 , 9, 10, 11 [ ]i) Age > 65 yrs. [ ]ii) Patient arriving by ambulance [ ]iii) Patient with high acuity [ ]iv) Patient requiring vital sign monitoring [ ]v) Patient on IV medication [ ]b) Systolic blood pressures 180mmHg 3,12 [ ]c) Patient with altered mental status including delirium and other alteration of consciousness, (3) [ ]d) Patient whose discharge disposition will be to a intermediate home or rehabilitation home should not be managed in Emergency Department Observation Unit. CMS rule requires 3 days hospital stay before such placement.3,13 [ ]e) Patient with failure to thrive due to broad array of etiologies 3,16,17 [ ]f) Inability to ambulate 3,14 Extended stay beyond goal length of stay may be needed for(1)(3)(21)(25): [ ]a) Cardiac ischemia, confirmed or suspected as precipitant [ ]b) Cardiogenic shock or refractory pulmonary edema [ ]c) Acute kidney injury or renal failure [ ]d) Respiratory failure (eg, need for noninvasive or invasive mechanical ventilation) (23) [ ]e) Concomitant pneumonia or significant electrolyte abnormality (eg, severe hyponatremia) [ ]f) Newly diagnosed (new onset) atrial fibrillation [ ]g) Stage IV chronic kidney disease (estimated glomerular filtration rate of less than 30 mL/min/1.73m2 (0.50 mL/sec/1.73m2), and not previously on chronic dialysis The original [facility] content created by [facility] has been revised. The portions of the content which have been revised are identified through the use of italic text or in bold, and [facility] has neither reviewed nor approved the modified material. All other unmodified content is copyright [facility]. Please see references footnoted in the original [facility] edition 2016 Admission Criteria Met?: Yes ANN SANTOS Jan 23, 2017 22:33
--- NOTE | 2017-01-23 23:33 | HP ---
ADMIT DATE: 01/23/2017 CHIEF COMPLAINT: Found down, hypoxia. HISTORY OF PRESENT ILLNESS: The patient is a 76-year-old woman who was found by her daughter lying on the floor at home. She apparently was dusky. EMS was called and she was noted to be significantly hypoxic. In the Emergency Room, she was started on BiPAP with some improvement. Mental status initially had been quite confused. This improved somewhat with BiPAP, but currently the patient is very fatigued, almost somnolent and unable to give details of the events. She, however, denies any chest pain, palpitations. The circumstances of her fall are unknown. PAST MEDICAL HISTORY: CAD, CHF, hypertension, hyperlipidemia, valvular insufficiency, history of DVT, CKD, diabetes mellitus, osteoarthritis, dementia, anemia. FAMILY HISTORY: CAD in father. SOCIAL HISTORY: Lives by herself. Quit smoking after accumulating [id number] history. No alcohol or drug use. ALLERGIES: PENICILLIN, ARIPIPRAZOLE, BUPROPION AND METFORMIN. MEDICATIONS: MAR reconciled with home medications. REVIEW OF SYSTEMS: Positive as per HPI. The patient is unable to relay further details on the rest of organ system review due to BiPAP. PHYSICAL EXAMINATION: VITAL SIGNS: From today show a blood pressure of 128/58, heart rate at 98, respiratory rate at 28, on BiPAP, satting 99%, temperature is 101.9. GENERAL: This is a morbidly obese 76-year-old woman, lethargic on BiPAP, responding with head nods or shaking briefly, falling asleep easily. HEENT: Shows no scleral icterus. NECK: Supple. LUNGS: Fairly clear bilaterally. HEART: Has regular rate and rhythm, slightly tachy. ABDOMEN: Obese, positive bowel sounds, organs could not be palpated. EXTREMITIES: Show trace edema in the ankles. SKIN: Warm, soft and dry without any rash. LABORATORY DATA: CBC with a WBC of 10.0, hemoglobin 11.2, platelets of 141. Differential with 89% neutrophils, which on manual diff split up as 74% segmented and 21% bands. Other pertinent labs show a CK of 300, MB of 3.8 and myoglobin of 473. Initial troponin 0.47 with a proBNP of 16,000+. BUN and creatinine of 43 and 1.9. Electrolytes with a potassium of 5.3, anion gap of 5. Lactate at 1.6. UA with greater than 40 wbc's and a few bacteria. Coags with an INR of 1.3. Serologies for flu A and B are negative. IMAGING STUDIES: Chest x-ray shows mild right perihilar infiltrate, most likely representing pulmonary edema due to congestive heart failure. Pneumonia is less likely. Also had an abdominal CT, which showed essentially no acute abnormalities in the abdomen or pelvis. Does have a T9 old vertebral compression fracture. ASSESSMENT AND PLAN: The patient is a 76-year-old woman with a known coronary artery disease, congestive heart failure, found down with hypoxia, labs and chest x-ray consistent with congestive heart failure. In addition, she appears to be septic, which is most likely secondary to urinary tract infection. 1. For congestive heart failure, she has been given IV Lasix in the Emergency Room. We will continue close monitoring of I's and O's. We will also continue BiPAP for the time being. May require further IV administrations of diuretic. Cardiac consult has been requested. 2. Urinary tract infection. Has been empirically started to be treated with ceftriaxone. We will await culture and sensitivities for narrowing antibiotic spectrum. 3. Although she is somewhat tachycardic at this point, she is maintaining blood pressure well. Although sepsis protocol could be involved, we will try and avoid IV fluids given her underlying congestive heart failure. Monitor closely. 4. The patient carries multiple chronic health issues as well including diabetes, chronic obstructive pulmonary disease, dementia for which all her home medications will be continued. There appears no acute issue from these conditions. KIKO VAZQUEZ MD DR: UR/nts JOB#: [id number] / [id number] MONAE Fuller MD
[2017-01-23 23:40] VITALS: BP 120/60
[2017-01-24 03:00] VITALS: BP 113/68
[2017-01-24] MEDS: BUDESONIDE 0.5 MG/2 ML NEBU NEB SCH ×2 (07:49→20:59)
[2017-01-24] MEDS: ALBUTEROL SULFATE 2.5 MG/3 ML NEBU. NEB SCH ×4 (07:49→20:58)
[2017-01-24 08:00] VITALS: BP 119/49
[2017-01-24] MEDS: ASPIRIN ENTERIC COATED 81 MG TABLET.DR. PO SCH (08:00)
[2017-01-24] MEDS: POTASSIUM CHLORIDE 20 MEQ TABLET.ER. PO SCH (08:00)
[2017-01-24] MEDS: FLUTICASONE 50MCG/NASAL SPRAY 16GM BOTTLE. NS SCH (09:00)
[2017-01-24] MEDS: ALPRAZOLAM 0.5 MG TABLET PO SCH ×3 (09:00→21:00)
[2017-01-24] MEDS: PANTOPRAZOLE 40 MG TABLET. PO SCH (09:20)
[2017-01-24] MEDS: SERTRALINE 50 MG TABLET. PO SCH (09:20)
[2017-01-24] MEDS: DILTIAZEM HCL 240 MG CAP.ER.24H PO SCH (09:21)
[2017-01-24] MEDS: DOCUSATE SODIUM 100 MG CAPSULE PO SCH ×2 (09:21→22:21)
[2017-01-24] MEDS: MULTIVITAMIN with MINERAL TABLET. PO SCH (09:21)
[2017-01-24] MEDS: FUROSEMIDE 40 MG TABLET PO SCH (09:21)
[2017-01-24] MEDS: GABAPENTIN 300 MG CAPSULE. PO SCH ×3 (09:21→22:21)
[2017-01-24] MEDS: risperiDONE 1 MG TABLET. PO SCH ×2 (09:21→22:21)
[2017-01-24] MEDS: ASPIRIN 81 MG TAB.CHEW PO SCH (09:21)
[2017-01-24] MEDS: LOSARTAN POTASSIUM 50 MG TABLET. PO SCH (09:22)
--- NOTE | 2017-01-24 10:59 | PDOC ---
PROGRESS NOTES Chief Complaint Chief Complaint CAD CHF Hypoxia Sepsis UTI DM COPD Dementia History of Present Illness History of Present Illness Pt pleasant A little confused VSS DW RN Vitals Vitals Vital Signs Date Time Temp Pulse Resp B/P Pulse Ox O2 Delivery O2 Flow Rate FiO2 01/24/17 09:22 89 119/49 01/24/17 08:00 Nasal Cannula 3.0 01/24/17 08:00 99.0 16 98 99.0 Physical Exam General: Cooperative, mild distress Heart: Regular rate, Normal S1, Normal S2, Other (distant heart sounds unable to appreciate idue to bipap as well; S3) Lungs: Clear Abdomen: Soft, No tenderness Extremities: No cyanosis, Other (2-3+ bilateral LE pitting edema) Skin: No breakdown, No significant lesion Labs LABS Laboratory Tests Test 01/23/17 15:18 01/23/17 15:35 01/23/17 15:40 01/23/17 15:53 Urine Collection Type Unknown Urine Color Yellow Urine Clarity Clear Urine pH 5.5 Urine Specific [place] 1.020 Urine Protein Negativemg/dL (NEG-TRACE) Urine Glucose (UA) Negativemg/dL (NEG) Urine Ketones (Stick) Negativemg/dL (NEG) Urine Blood Negative (NEG) Urine Nitrite Negative (NEG) Urine Bilirubin Small (NEG) Urine Urobilinogen Dipstick 0.2mg/dL (0.2 mg/dL) Urine Leukocyte Esterase Moderate (NEG) Urine RBC Occ/HPF (0-2) Urine WBC >40/HPF (0-4) Urine Squamous Epithelial Cells Mod/LPF Urine Bacteria Few/HPF (0-FEW) Urine Opiates Screen Pos (NEG) Urine Methadone Screen Neg (NEG) Urine Barbiturates Neg (NEG) Urine Phencyclidine Screen Neg (NEG) Urine Amphetamine/Methamphetamine Neg (NEG) Urine Benzodiazepines Screen Neg (NEG) Urine Cocaine Screen Neg (NEG) Urine Cannabinoids Screen Neg (NEG) Urine Ethyl Alcohol Neg (NEG) White Blood Count 10.0x10^3/uL (4.0-11.0) Red Blood Count 3.65x10^6/uL (3.50-5.40) Hemoglobin 11.2g/dL (12.0-15.5) Hematocrit 35.4% (36.0-47.0) Mean Corpuscular Volume 97fL (79-100) Mean Corpuscular Hemoglobin 31pg (25-35) Mean Corpuscular Hemoglobin Concent 32g/dL (31-37) Red Cell Distribution Width 17.7% (11.5-14.5) Platelet Count 141x10^3/uL (140-400) Neutrophils (%) (Auto) 89% (31-73) Lymphocytes (%) (Auto) 3% (24-48) Monocytes (%) (Auto) 9% (0-9) Eosinophils (%) (Auto) 0% (0-3) Basophils (%) (Auto) 0% (0-3) Neutrophils # (Auto) 8.9x10^3uL (1.8-7.7) Lymphocytes # (Auto) 0.3x10^3/uL (1.0-4.8) Monocytes # (Auto) 0.9x10^3/uL (0.0-1.1) Eosinophils # (Auto) 0.0x10^3/uL (0.0-0.7) Basophils # (Auto) 0.0x10^3/uL (0.0-0.2) Segmented Neutrophils % 74% (35-66) Band Neutrophils % 21% (0-9) Monocytes % 5% (0-10) Platelet Estimate Adequate (ADEQUATE) Large Platelets Occ Polychromasia Slight Basophilic Stippling Present Anisocytosis Slight Ovalocytes Few Prothrombin Time 15.8SEC (11.7-14.0) Prothromb Time International Ratio 1.3 (0.8-1.1) Activated Partial Thromboplast Time 50SEC (24-38) Sodium Level 137mmol/L (136-145) Potassium Level 5.3mmol/L (3.5-5.1) Chloride Level 100mmol/L (98-107) Carbon Dioxide Level 32mmol/L (21-32) Anion Gap 5 (6-14) Blood Urea Nitrogen 43mg/dL (7-20) Creatinine 1.9mg/dL (0.6-1.0) Estimated GFR (Cockcroft-Gault) 25.6 BUN/Creatinine Ratio 23 (6-20) Glucose Level 211mg/dL (70-99) Lactic Acid Level 1.6mmol/L (0.4-2.0) Calcium Level 8.5mg/dL (8.5-10.1) Magnesium Level 2.7mg/dL (1.8-2.4) Total Bilirubin 0.4mg/dL (0.2-1.0) Aspartate Amino Transf (AST/SGOT) 56U/L (15-37) Alanine Aminotransferase (ALT/SGPT) 44U/L (14-59) Alkaline Phosphatase 79U/L (46-116) Creatine Kinase 300U/L (26-192) Creatine Kinase MB (Mass) 3.8ng/mL (0.0-3.6) Creatine Kinase MB Relative Index 1.3% (0-4) Myoglobin 473ng/mL (9-82) Troponin I Quantitative 0.470ng/mL (0.000-0.055) IO-Lky-R-Type Natriuretic Peptide 08602dm/mL (0-449) Total Protein 7.3g/dL (6.4-8.2) Albumin 3.1g/dL (3.4-5.0) Albumin/Globulin Ratio 0.7 (1.0-1.7) Triglycerides Level 42mg/dL (0-150) Cholesterol Level 113mg/dL (0-200) LDL Cholesterol, Calculated 41mg/dL (0-100) VLDL Cholesterol, Calculated 8mg/dL (0-40) HDL Cholesterol 64mg/dL (40-60) Cholesterol/HDL Ratio 1.8 Thyroid Stimulating Hormone (TSH) 0.453uIU/mL (0.358-3.74) O2 Saturation 91% (92-99) Arterial Blood pH 7.36 (7.35-7.45) Arterial Blood pCO2 at Patient Temp 49mmHg (35-46) Arterial Blood pO2 at Patient Temp 67mmHg (65-108) Arterial Blood HCO3 27mmol/L (21-28) Arterial Blood Base Excess 1mmol/L (-3-3) FiO2 6 lpm nc Influenza Type A Antigen Negative (NEGATIVE) Influenza Type B Antigen Negative (NEGATIVE) Test 01/24/17 09:18 Glucose (Fingerstick) 136mg/dL (70-99) Review of Systems Review of Systems unreliable Assessment and Plan Assessmemt and Plan Problems Medical Problems: (1) Altered mental status Status: Acute (2) CHF (congestive heart failure) Status: Acute (3) CHF exacerbation Status: Acute (4) Encephalopathy acute Status: Acute (5) Hypoxia Status: Acute (6) Urinary tract infection Status: Acute CAD CHF Hypoxia Sepsis UTI DM COPD Dementia Plan Diurses IV Antibx Recheck labs PTOT Home meds SNU eval Problems: Comment Review of Relevant I have reviewed the following items juan (where applicable) has been applied. Labs Laboratory Tests Test 01/23/17 15:18 01/23/17 15:35 01/23/17 15:40 01/23/17 15:53 Urine Collection Type Unknown Urine Color Yellow Urine Clarity Clear Urine pH 5.5 Urine Specific [place] 1.020 Urine Protein Negativemg/dL (NEG-TRACE) Urine Glucose (UA) Negativemg/dL (NEG) Urine Ketones (Stick) Negativemg/dL (NEG) Urine Blood Negative (NEG) Urine Nitrite Negative (NEG) Urine Bilirubin Small (NEG) Urine Urobilinogen Dipstick 0.2mg/dL (0.2 mg/dL) Urine Leukocyte Esterase Moderate (NEG) Urine RBC Occ/HPF (0-2) Urine WBC >40/HPF (0-4) Urine Squamous Epithelial Cells Mod/LPF Urine Bacteria Few/HPF (0-FEW) Urine Opiates Screen Pos (NEG) Urine Methadone Screen Neg (NEG) Urine Barbiturates Neg (NEG) Urine Phencyclidine Screen Neg (NEG) Urine Amphetamine/Methamphetamine Neg (NEG) Urine Benzodiazepines Screen Neg (NEG) Urine Cocaine Screen Neg (NEG) Urine Cannabinoids Screen Neg (NEG) Urine Ethyl Alcohol Neg (NEG) White Blood Count 10.0x10^3/uL (4.0-11.0) Red Blood Count 3.65x10^6/uL (3.50-5.40) Hemoglobin 11.2g/dL (12.0-15.5) Hematocrit 35.4% (36.0-47.0) Mean Corpuscular Volume 97fL (79-100) Mean Corpuscular Hemoglobin 31pg (25-35) Mean Corpuscular Hemoglobin Concent 32g/dL (31-37) Red Cell Distribution Width 17.7% (11.5-14.5) Platelet Count 141x10^3/uL (140-400) Neutrophils (%) (Auto) 89% (31-73) Lymphocytes (%) (Auto) 3% (24-48) Monocytes (%) (Auto) 9% (0-9) Eosinophils (%) (Auto) 0% (0-3) Basophils (%) (Auto) 0% (0-3) Neutrophils # (Auto) 8.9x10^3uL (1.8-7.7) Lymphocytes # (Auto) 0.3x10^3/uL (1.0-4.8) Monocytes # (Auto) 0.9x10^3/uL (0.0-1.1) Eosinophils # (Auto) 0.0x10^3/uL (0.0-0.7) Basophils # (Auto) 0.0x10^3/uL (0.0-0.2) Segmented Neutrophils % 74% (35-66) Band Neutrophils % 21% (0-9) Monocytes % 5% (0-10) Platelet Estimate Adequate (ADEQUATE) Large Platelets Occ Polychromasia Slight Basophilic Stippling Present Anisocytosis Slight Ovalocytes Few Prothrombin Time 15.8SEC (11.7-14.0) Prothromb Time International Ratio 1.3 (0.8-1.1) Activated Partial Thromboplast Time 50SEC (24-38) Sodium Level 137mmol/L (136-145) Potassium Level 5.3mmol/L (3.5-5.1) Chloride Level 100mmol/L (98-107) Carbon Dioxide Level 32mmol/L (21-32) Anion Gap 5 (6-14) Blood Urea Nitrogen 43mg/dL (7-20) Creatinine 1.9mg/dL (0.6-1.0) Estimated GFR (Cockcroft-Gault) 25.6 BUN/Creatinine Ratio 23 (6-20) Glucose Level 211mg/dL (70-99) Lactic Acid Level 1.6mmol/L (0.4-2.0) Calcium Level 8.5mg/dL (8.5-10.1) Magnesium Level 2.7mg/dL (1.8-2.4) Total Bilirubin 0.4mg/dL (0.2-1.0) Aspartate Amino Transf (AST/SGOT) 56U/L (15-37) Alanine Aminotransferase (ALT/SGPT) 44U/L (14-59) Alkaline Phosphatase 79U/L (46-116) Creatine Kinase 300U/L (26-192) Creatine Kinase MB (Mass) 3.8ng/mL (0.0-3.6) Creatine Kinase MB Relative Index 1.3% (0-4) Myoglobin 473ng/mL (9-82) Troponin I Quantitative 0.470ng/mL (0.000-0.055) DG-Kbh-P-Type Natriuretic Peptide 50972hq/mL (0-449) Total Protein 7.3g/dL (6.4-8.2) Albumin 3.1g/dL (3.4-5.0) Albumin/Globulin Ratio 0.7 (1.0-1.7) Triglycerides Level 42mg/dL (0-150) Cholesterol Level 113mg/dL (0-200) LDL Cholesterol, Calculated 41mg/dL (0-100) VLDL Cholesterol, Calculated 8mg/dL (0-40) HDL Cholesterol 64mg/dL (40-60) Cholesterol/HDL Ratio 1.8 Thyroid Stimulating Hormone (TSH) 0.453uIU/mL (0.358-3.74) O2 Saturation 91% (92-99) Arterial Blood pH 7.36 (7.35-7.45) Arterial Blood pCO2 at Patient Temp 49mmHg (35-46) Arterial Blood pO2 at Patient Temp 67mmHg (65-108) Arterial Blood HCO3 27mmol/L (21-28) Arterial Blood Base Excess 1mmol/L (-3-3) FiO2 6 lpm nc Influenza Type A Antigen Negative (NEGATIVE) Influenza Type B Antigen Negative (NEGATIVE) Test 01/24/17 09:18 Glucose (Fingerstick) 136mg/dL (70-99) Laboratory Tests Test 01/23/17 15:18 01/23/17 15:35 01/23/17 15:40 01/23/17 15:53 Urine Collection Type Unknown Urine Color Yellow Urine Clarity Clear Urine pH 5.5 Urine Specific [place] 1.020 Urine Protein Negativemg/dL (NEG-TRACE) Urine Glucose (UA) Negativemg/dL (NEG) Urine Ketones (Stick) Negativemg/dL (NEG) Urine Blood Negative (NEG) Urine Nitrite Negative (NEG) Urine Bilirubin Small (NEG) Urine Urobilinogen Dipstick 0.2mg/dL (0.2 mg/dL) Urine Leukocyte Esterase Moderate (NEG) Urine RBC Occ/HPF (0-2) Urine WBC >40/HPF (0-4) Urine Squamous Epithelial Cells Mod/LPF Urine Bacteria Few/HPF (0-FEW) Urine Opiates Screen Pos (NEG) Urine Methadone Screen Neg (NEG) Urine Barbiturates Neg (NEG) Urine Phencyclidine Screen Neg (NEG) Urine Amphetamine/Methamphetamine Neg (NEG) Urine Benzodiazepines Screen Neg (NEG) Urine Cocaine Screen Neg (NEG) Urine Cannabinoids Screen Neg (NEG) Urine Ethyl Alcohol Neg (NEG) White Blood Count 10.0x10^3/uL (4.0-11.0) Red Blood Count 3.65x10^6/uL (3.50-5.40) Hemoglobin 11.2g/dL (12.0-15.5) Hematocrit 35.4% (36.0-47.0) Mean Corpuscular Volume 97fL (79-100) Mean Corpuscular Hemoglobin 31pg (25-35) Mean Corpuscular Hemoglobin Concent 32g/dL (31-37) Red Cell Distribution Width 17.7% (11.5-14.5) Platelet Count 141x10^3/uL (140-400) Neutrophils (%) (Auto) 89% (31-73) Lymphocytes (%) (Auto) 3% (24-48) Monocytes (%) (Auto) 9% (0-9) Eosinophils (%) (Auto) 0% (0-3) Basophils (%) (Auto) 0% (0-3) Neutrophils # (Auto) 8.9x10^3uL (1.8-7.7) Lymphocytes # (Auto) 0.3x10^3/uL (1.0-4.8) Monocytes # (Auto) 0.9x10^3/uL (0.0-1.1) Eosinophils # (Auto) 0.0x10^3/uL (0.0-0.7) Basophils # (Auto) 0.0x10^3/uL (0.0-0.2) Segmented Neutrophils % 74% (35-66) Band Neutrophils % 21% (0-9) Monocytes % 5% (0-10) Platelet Estimate Adequate (ADEQUATE) Large Platelets Occ Polychromasia Slight Basophilic Stippling Present Anisocytosis Slight Ovalocytes Few Prothrombin Time 15.8SEC (11.7-14.0) Prothromb Time International Ratio 1.3 (0.8-1.1) Activated Partial Thromboplast Time 50SEC (24-38) Sodium Level 137mmol/L (136-145) Potassium Level 5.3mmol/L (3.5-5.1) Chloride Level 100mmol/L (98-107) Carbon Dioxide Level 32mmol/L (21-32) Anion Gap 5 (6-14) Blood Urea Nitrogen 43mg/dL (7-20) Creatinine 1.9mg/dL (0.6-1.0) Estimated GFR (Cockcroft-Gault) 25.6 BUN/Creatinine Ratio 23 (6-20) Glucose Level 211mg/dL (70-99) Lactic Acid Level 1.6mmol/L (0.4-2.0) Calcium Level 8.5mg/dL (8.5-10.1) Magnesium Level 2.7mg/dL (1.8-2.4) Total Bilirubin 0.4mg/dL (0.2-1.0) Aspartate Amino Transf (AST/SGOT) 56U/L (15-37) Alanine Aminotransferase (ALT/SGPT) 44U/L (14-59) Alkaline Phosphatase 79U/L (46-116) Creatine Kinase 300U/L (26-192) Creatine Kinase MB (Mass) 3.8ng/mL (0.0-3.6) Creatine Kinase MB Relative Index 1.3% (0-4) Myoglobin 473ng/mL (9-82) Troponin I Quantitative 0.470ng/mL (0.000-0.055) MZ-Vrs-C-Type Natriuretic Peptide 36090ju/mL (0-449) Total Protein 7.3g/dL (6.4-8.2) Albumin 3.1g/dL (3.4-5.0) Albumin/Globulin Ratio 0.7 (1.0-1.7) Triglycerides Level 42mg/dL (0-150) Cholesterol Level 113mg/dL (0-200) LDL Cholesterol, Calculated 41mg/dL (0-100) VLDL Cholesterol, Calculated 8mg/dL (0-40) HDL Cholesterol 64mg/dL (40-60) Cholesterol/HDL Ratio 1.8 Thyroid Stimulating Hormone (TSH) 0.453uIU/mL (0.358-3.74) O2 Saturation 91% (92-99) Arterial Blood pH 7.36 (7.35-7.45) Arterial Blood pCO2 at Patient Temp 49mmHg (35-46) Arterial Blood pO2 at Patient Temp 67mmHg (65-108) Arterial Blood HCO3 27mmol/L (21-28) Arterial Blood Base Excess 1mmol/L (-3-3) FiO2 6 lpm nc Influenza Type A Antigen Negative (NEGATIVE) Influenza Type B Antigen Negative (NEGATIVE) Test 01/24/17 09:18 Glucose (Fingerstick) 136mg/dL (70-99) Medications Current Medications Sodium Chloride (Iv Sodium Chloride 0.9% 1000ml Bag) 1,000 ml @ 100 mls/hr 1X ONCE IV Last administered on 01/23/17 15:32; Start 01/23/17 at 15:15; Stop at 01:14; Status DC Furosemide 40 mg 40 mg 1X ONCE IVP Last administered on 01/23/17 19:10; Start 01/23/17 at 17:45; Stop 01/23/17 at 17:46; Status DC Ceftriaxone Sodium 1 gm/ Sodium Chloride 100 ml @ 200 mls/hr Q24H IV ; Start at 18:00 Azithromycin 500 mg/Sodium Chloride 250 ml @ 250 mls/hr Q24H IV ; Start at 18:00; Stop 01/26/17 at 17:59 Azithromycin 250 ml @ 250 mls/hr 1X ONCE IV Last administered on 01/23/17 21 :39; Start 01/23/17 at 18:00; Stop 01/23/17 at 18:59; Status DC Ceftriaxone Sodium (Rocephin 1gm Ivpb For Omni) 50 ml @ 100 mls/hr 1X ONCE IV Last administered on 01/23/17 19:03; Start 01/23/17 at 18:00; Stop 01/23/17 at 18:29; Status DC Lorazepam (Ativan) 0.5 mg 1X ONCE IV Last administered on 01/23/17 18:42; Start 01/23/17 at 18:45; Stop 01/23/17 at 18:46; Status DC Aspirin (Ecotrin) 81 mg DAILYWBKFT PO ; Start 01/24/17 at 08:00 Alprazolam (Xanax) 0.5 mg TID PO ; Start 01/23/17 at 21:00 Aspirin (Children'S Aspirin) 81 mg DAILY08 PO Last administered on 01/24/17 09 :21; Start 01/24/17 at 08:00 Atorvastatin Calcium (Lipitor) 20 mg QHS PO ; Start 01/23/17 at 21:00 Diltiazem HCl (Cardizem 24hr Cd) 240 mg DAILY PO Last administered on 09:21; Start 01/24/17 at 09:00 Docusate Sodium (Colace) 100 mg BID PO Last administered on 01/24/17 09:21; Start 01/23/17 at 21:00 Furosemide (Lasix) 40 mg DAILY PO Last administered on 01/24/17 09:21; Start 01/24/17 at 09:00 Gabapentin (Neurontin) 300 mg TID PO Last administered on 01/24/17 09:21; Start 01/23/17 at 21:00 Losartan Potassium (Cozaar) 50 mg DAILY PO Last administered on 01/24/17 09:22 ; Start 01/24/17 at 09:00 Mirtazapine (Remeron) 15 mg QHS PO ; Start 01/23/17 at 21:00 Pantoprazole Sodium (Protonix) 40 mg DAILY07 PO Last administered on 01/24/17 09:20; Start 01/24/17 at 07:00 Sertraline HCl (Zoloft) 50 mg DAILY PO Last administered on 01/24/17 09:20; Start 01/24/17 at 09:00 Trazodone HCl (Desyrel) 50 mg QHS PO ; Start 01/23/17 at 21:00 Albuterol Sulfate (Ventolin Neb Soln) 2.5 mg PRN Q6HRS PRN NEB SOA; Start 01/23 at 20:30 Budesonide (Pulmicort) 0.5 mg RTBID NEB Last administered on 01/24/17 07:49; Start 01/24/17 at 08:00 Fluticasone Propionate (Flonase) 2 spray DAILY NS ; Start 01/24/17 at 09:00 Multivitamins/ Calcium (Thera M Plus) 1 tab DAILY PO Last administered on 09:21; Start 01/24/17 at 09:00 Potassium Chloride (Klor-Con) 20 meq DAILYWBKFT PO ; Start 01/24/17 at 08:00 Risperidone (Risperdal) 0.5 mg BID PO Last administered on 01/24/17 09:21; Start 01/23/17 at 21:00 Albuterol Sulfate (Ventolin Neb Soln) 2.5 mg RTQID NEB Last administered on 07:49; Start 01/24/17 at 08:00 Active Scripts Active Reported Levofloxacin 500 Mg Tablet 1 Tab PO DAILY Xanax (Alprazolam) 0.5 Mg Tablet 1 Tab PO TID Vitamin E (Vitamin E (Dl,Tocopheryl Acet)) 100 Unit Capsule 400 Unit PO Symbicort 160-4.5 Mcg Inhaler (Budesonide/Formoterol Fumarate) 10.2 Gm Hfa.aer.ad 2 Puff IH BID Risperidone 0.5 Mg Tablet 1 Tab PO BID Potassium Chloride 10 Meq Tablet.er 20 Meq PO DAILY Multivitamins (Multivitamin) 1 Each Tablet 1 Tab PO DAILY Remeron (Mirtazapine) 15 Mg Tablet 1 Tab PO QHS Lantus Solostar (Insulin Glargine,Hum.rec.anlog) 100 Unit/1 Ml Insuln.pen 40 Unit SQ QHS Gabapentin 300 Mg Capsule 300 Mg PO TID Furosemide 40 Mg Tablet 1 Tab PO DAILY Flonase Allergy Relief (Fluticasone Propionate) 9.9 Ml [place].susp 2 Sprays NS DAILY Colace (Docusate Sodium) 100 Mg Capsule 1 Cap PO BID Cartia Xt (Diltiazem Hcl) 240 Mg Cap.er.24h 240 Mg PO Aspirin 81 Mg Tab.chew 1 Tab PO DAILY Proair Hfa Inhaler (Albuterol Sulfate) 8.5 Gm Hfa.aer.ad 1 Puff INH PRN Q6HRS PRN Atorvastatin Calcium 20 Mg Tablet 1 Tab PO DAILY Trazodone Hcl 50 Mg Tablet 1 Tab PO QHS Pantoprazole Sodium 40 Mg Tablet.dr 1 Tab PO DAILY Sertraline Hcl 50 Mg Tablet 50 Mg PO DAILY Losartan Potassium 50 Mg Tablet 50 Mg PO DAILY Oxycodone Hcl 30 Mg Tablet 2 Tab PO TID Vitals/I & O Vital Sign - Last 24 Hours 01/23/17 01/23/17 01/23/17 01/23/17 13:41 14:00 14:30 15:00 Temp 99.4 99.4 Pulse 111 110 106 111 Resp B/P 142/50 142/50 140/60 148/55 Pulse Ox 85 92 94 93 O2 Delivery Room Air Nasal Cannula Nasal Cannula Nasal Cannula O2 Flow Rate 6 6 6 01/23/17 01/23/17 01/23/17 01/23/17 16:21 16:51 17:15 17:19 Pulse 100 102 104 Resp B/P 134/73 137/61 147/87 Pulse Ox 95 89 83 92 O2 Delivery Nasal Cannula Nasal Cannula Nasal Cannula BiPAP/CPAP O2 Flow Rate 6 6 6 01/23/17 01/23/17 01/23/17 01/23/17 18:15 18:31 19:05 19:15 Temp 101.9 101.9 Pulse 120 98 Resp B/P 133/98 128/58 Pulse Ox 98 100 99 O2 Delivery BiPAP/CPAP Nasal Cannula BiPAP/CPAP BiPAP/CPAP O2 Flow Rate 5.0 01/23/17 01/23/17 01/23/17 01/23/17 19:50 19:50 20:06 21:25 Temp 100.8 100.8 Pulse 101 Resp B/P 114/67 Pulse Ox 100 100 100 O2 Delivery BiPAP/CPAP Bi-pap BiPAP/CPAP BiPAP/CPAP 01/23/17 01/23/17 01/24/17 01/24/17 23:40 23:48 01:15 03:00 Temp 99.5 99.8 99.5 99.8 Pulse 100 98 Resp B/P 120/60 113/68 Pulse Ox 100 100 99 99 O2 Delivery BiPAP/CPAP BiPAP/CPAP BiPAP/CPAP BiPAP/CPAP 01/24/17 01/24/17 01/24/17 01/24/17 03:24 05:10 07:45 08:00 Temp 99.0 99.0 Pulse 86 Resp 16 B/P 119/49 Pulse Ox 100 100 99 98 O2 Delivery BiPAP/CPAP BiPAP/CPAP Nasal Cannula High Flow Nasal Cannula O2 Flow Rate 4.0 3.0 01/24/17 01/24/17 01/24/17 08:00 09:21 09:22 Pulse 89 89 B/P 119/49 119/49 O2 Delivery Nasal Cannula O2 Flow Rate 3.0 Intake and Output 01/23/17 01/23/17 01/24/17 15:00 23:00 07:00 Intake Total 60 ml Output Total 1250 ml Balance -1190 ml ABDULAZIZ KELSEY III DO Jan 24, 2017 10:58
--- NOTE | 2017-01-24 12:32 | EKG ---
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 RI6.01 Unconfirmed report Compared to ECG 01/04/2017 13:03:59 Sinus rhythm no longer present Electronically Signed On 02-02-2017 10:01:33 PATIENT SERVICES CLERK by Tong Garber
[2017-01-24] MEDS: OXYCODONE IR 30 MG TABLET. PO SCH ×2 (16:22→21:00)
[2017-01-24 19:10] VITALS: BP 111/51
[2017-01-24] MEDS: CEFTRIAXONE SODIUM 1 GM in IV NORMAL SALINE 100ML 100 ML IV SCH (19:25)
[2017-01-24] MEDS: AZITHROMYCIN 500 MG in IV NORMAL SALINE 250ML 250 ML IV SCH (20:44)
[2017-01-24] MEDS: traZODone 50 MG TABLET. PO SCH (21:00)
[2017-01-24] MEDS: MIRTAZAPINE 15 MG TABLET PO SCH (22:20)
[2017-01-24] MEDS: ATORVASTATIN CALCIUM 20 MG TABLET PO SCH (22:20)
[2017-01-24] MEDS: INSULIN DETEMIR 300 UNITS/3 ML INSULN.PEN. SQ SCH (22:32)
[2017-01-24 23:19] VITALS: BP 151/65
[2017-01-25] VITALS (7 sets, daily range): BP systolic 116–167; BP diastolic 45–146
[2017-01-25 05:06] LABS: BASO % 1 % (0-3); EOS % 0 % (0-3); HEMATOCRIT 33.6 % (36.0-47.0); HEMOGLOBIN 10.4 g/dL (12.0-15.5); LYMPH # 0.8 x10^3/uL (1.0-4.8); LYMPH % 14 % (24-48); MEAN CORPUSCULAR HEMOGLOBIN 31 pg (25-35); MEAN CORPUSCULAR HGB CONC 31 g/dL (31-37); MEAN CORPUSCULAR VOLUME 98 fL (79-100); MONO % 14 % (0-9); NEUT % 71 % (31-73); PLATELET COUNT 121 x10^3/uL (140-400); RED BLOOD COUNT 3.41 x10^6/uL (3.50-5.40); RED CELL DISTRIBUTION WIDTH 18.4 % (11.5-14.5); WHITE BLOOD COUNT 5.3 x10^3/uL (4.0-11.0)
[2017-01-25 05:21] LABS: CALCIUM 8.2 mg/dL (8.5-10.1); CREATININE 1.4 mg/dL (0.6-1.0); GFR 36.5
[2017-01-25] MEDS: PANTOPRAZOLE 40 MG TABLET. PO SCH (06:11)
[2017-01-25 07:21] LABS: ANISOCYTOSIS SLIGHT; PLT ESTIMATE DECREASED (ADEQUATE)
[2017-01-25 07:23] LABS: HYPOCHROMIA PRESENT; TOXIC GRANULATION PRESENT; TOXIC VACUOLATION PRESENT
[2017-01-25] MEDS: ASPIRIN ENTERIC COATED 81 MG TABLET.DR. PO SCH (08:00)
[2017-01-25] MEDS: ASPIRIN 81 MG TAB.CHEW PO SCH (08:07)
[2017-01-25] MEDS: FUROSEMIDE 40 MG TABLET PO SCH (08:08)
[2017-01-25] MEDS: OXYCODONE IR 30 MG TABLET. PO SCH (08:08)
[2017-01-25] MEDS: DOCUSATE SODIUM 100 MG CAPSULE PO SCH ×2 (08:08→21:01)
[2017-01-25] MEDS: MULTIVITAMIN with MINERAL TABLET. PO SCH (08:08)
[2017-01-25] MEDS: risperiDONE 1 MG TABLET. PO SCH ×2 (08:08→21:00)
[2017-01-25] MEDS: SERTRALINE 50 MG TABLET. PO SCH (08:08)
[2017-01-25] MEDS: GABAPENTIN 300 MG CAPSULE. PO SCH ×3 (08:09→21:00)
[2017-01-25] MEDS: ALPRAZOLAM 0.5 MG TABLET PO SCH (08:09)
[2017-01-25] MEDS: POTASSIUM CHLORIDE 20 MEQ TABLET.ER. PO SCH (08:09)
[2017-01-25] MEDS: DILTIAZEM HCL 240 MG CAP.ER.24H PO SCH (08:09)
[2017-01-25] MEDS: LOSARTAN POTASSIUM 50 MG TABLET. PO SCH (08:10)
[2017-01-25] MEDS: ALBUTEROL SULFATE 2.5 MG/3 ML NEBU. NEB SCH ×4 (08:19→20:24)
[2017-01-25] MEDS: BUDESONIDE 0.5 MG/2 ML NEBU NEB SCH ×2 (08:19→20:24)
[2017-01-25] MEDS: FLUTICASONE 50MCG/NASAL SPRAY 16GM BOTTLE. NS SCH (09:00)
--- NOTE | 2017-01-25 11:19 | PDOC ---
PROGRESS NOTES Chief Complaint Chief Complaint Acute hypoxic respir distress s/p fall ASSESSMENT AND PLAN: 1. CHF exacerbation: diastolic. 2. COPD exacerbation: off BiPAP. on azithro for bronchitis 3. Troponin leak: most likely secondary to above. cardiology following 4. CAD: continue home meds 5. MADDY: prob cardiogenic. improving with diuresis (_2L so far). 6. CKD: suspect close to, or at, baseline currently. monitor 7. UTI : cult NGTD so far. on empiric ceftriax 8. DM: fair control with levemir and ISS. 9. HTN: well controlled on home meds 10. HLD: on statin with good lipid profile 11. Dementia: s/p eval in 10/2016 12. Depression: on mult meds. cont home regimen 13. Encephalopathy: acute, metabolic/hypoxic, ? toxic component from opiods. 14. Chronic pain syndrome: high dose narcotic. wean to lower dose 15. Debility/FTT: prob will needs SNF rehab Vitals Vitals Vital Signs Date Time Temp Pulse Resp B/P Pulse Ox O2 Delivery O2 Flow Rate FiO2 01/25/17 09:35 Nasal Cannula 3.0 01/25/17 08:21 100 01/25/17 08:19 98.1 80 24 167/146 98.1 Physical Exam General: Cooperative, No acute distress, Other (suspect sedated, very sleepy) Heart: Regular rate, Other (distant heart sounds unable to appreciate idue to bipap as well; S3) Lungs: Clear Abdomen: Normal bowel sounds, Soft, No tenderness Extremities: No cyanosis, No edema Skin: No breakdown Labs LABS Laboratory Tests Test 01/24/17 21:14 01/25/17 03:45 01/25/17 07:29 Glucose (Fingerstick) 242mg/dL (70-99) 133mg/dL (70-99) White Blood Count 5.3x10^3/uL (4.0-11.0) Red Blood Count 3.41x10^6/uL (3.50-5.40) Hemoglobin 10.4g/dL (12.0-15.5) Hematocrit 33.6% (36.0-47.0) Mean Corpuscular Volume 98fL (79-100) Mean Corpuscular Hemoglobin 31pg (25-35) Mean Corpuscular Hemoglobin Concent 31g/dL (31-37) Red Cell Distribution Width 18.4% (11.5-14.5) Platelet Count 121x10^3/uL (140-400) Neutrophils (%) (Auto) 71% (31-73) Lymphocytes (%) (Auto) 14% (24-48) Monocytes (%) (Auto) 14% (0-9) Eosinophils (%) (Auto) 0% (0-3) Basophils (%) (Auto) 1% (0-3) Neutrophils # (Auto) 3.7x10^3uL (1.8-7.7) Lymphocytes # (Auto) 0.8x10^3/uL (1.0-4.8) Monocytes # (Auto) 0.8x10^3/uL (0.0-1.1) Eosinophils # (Auto) 0.0x10^3/uL (0.0-0.7) Basophils # (Auto) 0.0x10^3/uL (0.0-0.2) Segmented Neutrophils % 49% (35-66) Band Neutrophils % 33% (0-9) Lymphocytes % 12% (24-48) Monocytes % 6% (0-10) Toxic Granulation Present Toxic Vacuolation Present Platelet Estimate Decreased (ADEQUATE) Hypochromasia Present Anisocytosis Slight Sodium Level 142mmol/L (136-145) Potassium Level 5.0mmol/L (3.5-5.1) Chloride Level 105mmol/L (98-107) Carbon Dioxide Level 35mmol/L (21-32) Anion Gap 2 (6-14) Blood Urea Nitrogen 41mg/dL (7-20) Creatinine 1.4mg/dL (0.6-1.0) Estimated GFR (Cockcroft-Gault) 36.5 Glucose Level 212mg/dL (70-99) Calcium Level 8.2mg/dL (8.5-10.1) Review of Systems Review of Systems sliping in chair. grunting only to questions KIKO VAZQUEZ MD Jan 25, 2017 11:19
[2017-01-25] MEDS: OXYCODONE IR 5 MG TABLET. PO SCH ×2 (13:06→21:53)
[2017-01-25] MEDS: HEPARIN PF for SUB-Q USE 5,000 UNIT/0.5 ML VIAL. SQ SCH ×2 (13:21→22:00)
--- NOTE | 2017-01-25 15:12 | CARD ---
APPROVED REPORT EXAM: Two-dimensional and M-mode echocardiogram with Doppler and color Doppler. Other Information Quality : GoodHR: 76bpm Rhythm : NSR INDICATION CHF, Elevated troponins 2D DIMENSIONS RVDd2.0 (2.9-3.5cm)Left Atrium(2D)5.1 (1.6-4.0cm) IVSd0.9 (0.7-1.1cm)Aortic Root(2D)2.9 (2.0-3.7cm) LVDd5.1 (3.9-5.9cm)LVOT Diameter2.4 (1.8-2.4cm) PWd1.0 (0.7-1.1cm)LVDs3.5 (2.5-4.0cm) FS (%) 31.2 %SV73.4 ml LVEF(%)58.6 (>50%) Aortic Valve AoV Peak Fox.230.5cm/sAoV VTI55.4cm AO Peak GR.21.2mmHgLVOT VTI 23.85cm AO Mean GR.13mmHg Mitral Valve MV E Auytvzbw654.6cm/sMV E Peak Gr.6mmHg MV DECEL [id number] A Ogpqgrhc306.2cm/s MV E Mean Gr.2mmHgE/A Ratio1.2 MV A [id number] TDI Lateral E' P. V9.40cm/sMedial E' P. V6.50cm/s E/Lateral E'12.8E/Medial E'18.6 Tricuspid Valve TR P. [id number]/sRAP [id number] TR Peak Gr.42mmHg Pulmonary Vein S1 Ahuliqlc59.3cm/sS2 Wtuqaiqx91.06cm/s D2 Gjwhtdxv05.1cm/sPVa yhnjulrj02oolv LEFT VENTRICLE The left ventricle is normal size. There is normal left ventricular wall thickness. The left ventricu lar systolic function is normal. The Ejection Fraction is 55-60%. There is normal LV segmental wall m otion. RIGHT VENTRICLE The right ventricle is normal size. There is normal right ventricular wall thickness. The right ventr icular systolic function is normal. ATRIA The left atrium is mildly dilated. The right atrium size is normal. The interatrial septum is intact with no evidence for an atrial septal defect or patent foramen ovale as noted on 2-D or Doppler imagi ng. AORTIC VALVE The aortic valve is moderately sclerotic. Doppler and Color Flow revealed no significant aortic regur gitation. There is no significant aortic valve stenosis. MITRAL VALVE Mitral annular calcification is moderate. The mitral valve leaflets are thickened. There is no eviden ce of mitral valve prolapse. There is no mitral valve stenosis. Doppler and Color Flow revealed trace mitral regurgitation. TRICUSPID VALVE Doppler and Color Flow revealed mild tricuspid regurgitation. The pulmonary artery systolic pressure is estimated at 47 mmHg. There is moderate pulmonary hypertension. PULMONIC VALVE The pulmonary valve is normal in structure and function. Doppler and Color Flow revealed no pulmonic valvular regurgitation. There is no pulmonic valvular stenosis. GREAT VESSELS The aortic root is normal in size. The ascending aorta is normal in size. The pulmonary artery is nor mal. The IVC collapses <50% with inspiration. PERICARDIAL EFFUSION There is no evidence of significant pericardial effusion. Critical Notification Critical Value: No <Conclusion> The left ventricular systolic function is normal. The Ejection Fraction is 55-60%. There is normal LV segmental wall motion. The left atrium is mildly dilated. Trace mitral regurgitation. Mild tricuspid regurgitation. The pulmonary artery systolic pressure is estimated at 47 mmHg. There is moderate pulmonary hypertension. There is no evidence of significant pericardial effusion.
[2017-01-25] MEDS: CEFTRIAXONE SODIUM 1 GM in IV NORMAL SALINE 100ML 100 ML IV SCH (17:14)
[2017-01-25] MEDS: AZITHROMYCIN 500 MG in IV NORMAL SALINE 250ML 250 ML IV SCH (18:04)
[2017-01-25] MEDS: ATORVASTATIN CALCIUM 20 MG TABLET PO SCH (20:59)
[2017-01-25] MEDS ORDERED: INSULIN DETEMIR 300 UNITS/3 ML INSULN.PEN. SQ SCH (21:00)
[2017-01-25] MEDS: traZODone 50 MG TABLET. PO SCH (21:00)
[2017-01-25] MEDS: MIRTAZAPINE 15 MG TABLET PO SCH (21:00)
[2017-01-25] MEDS: INSULIN DETEMIR 300 UNITS/3 ML INSULN.PEN. SQ SCH (21:59)
[2017-01-26 03:45] VITALS: BP 166/67
[2017-01-26 05:24] LABS: BASO % 1 % (0-3); EOS % 1 % (0-3); HEMATOCRIT 33.9 % (36.0-47.0); HEMOGLOBIN 10.8 g/dL (12.0-15.5); LYMPH # 1.2 x10^3/uL (1.0-4.8); LYMPH % 22 % (24-48); MEAN CORPUSCULAR HEMOGLOBIN 30 pg (25-35); MEAN CORPUSCULAR HGB CONC 32 g/dL (31-37); MEAN CORPUSCULAR VOLUME 96 fL (79-100); MONO % 16 % (0-9); NEUT % 61 % (31-73); PLATELET COUNT 138 x10^3/uL (140-400); RED BLOOD COUNT 3.54 x10^6/uL (3.50-5.40); RED CELL DISTRIBUTION WIDTH 18.1 % (11.5-14.5); WHITE BLOOD COUNT 5.4 x10^3/uL (4.0-11.0)
[2017-01-26 05:49] LABS: CALCIUM 8.2 mg/dL (8.5-10.1); CREATININE 1.8 mg/dL (0.6-1.0); GFR 27.3
[2017-01-26 05:52] LABS: POTASSIUM 5.2 mmol/L (3.5-5.1)
[2017-01-26] MEDS: PANTOPRAZOLE 40 MG TABLET. PO SCH (06:13)
[2017-01-26] MEDS: HEPARIN PF for SUB-Q USE 5,000 UNIT/0.5 ML VIAL. SQ SCH ×3 (06:19→22:00)
[2017-01-26] MEDS: ALBUTEROL SULFATE 2.5 MG/3 ML NEBU. NEB SCH ×4 (07:09→19:32)
[2017-01-26] MEDS: BUDESONIDE 0.5 MG/2 ML NEBU NEB SCH ×2 (07:09→19:32)
[2017-01-26 07:30] VITALS: BP 128/50
[2017-01-26] MEDS: ASPIRIN 81 MG TAB.CHEW PO SCH (08:00)
[2017-01-26] MEDS: OXYCODONE IR 5 MG TABLET. PO SCH ×3 (08:03→21:00)
[2017-01-26] MEDS: LOSARTAN POTASSIUM 50 MG TABLET. PO SCH (08:04)
[2017-01-26] MEDS: MULTIVITAMIN with MINERAL TABLET. PO SCH (08:04)
[2017-01-26] MEDS: GABAPENTIN 300 MG CAPSULE. PO SCH ×3 (08:04→21:00)
[2017-01-26] MEDS: SERTRALINE 50 MG TABLET. PO SCH (08:04)
[2017-01-26] MEDS: risperiDONE 1 MG TABLET. PO SCH ×2 (08:05→21:00)
[2017-01-26] MEDS: DILTIAZEM HCL 240 MG CAP.ER.24H PO SCH (08:05)
[2017-01-26] MEDS: POTASSIUM CHLORIDE 20 MEQ TABLET.ER. PO SCH (08:05)
[2017-01-26] MEDS: DOCUSATE SODIUM 100 MG CAPSULE PO SCH ×2 (08:06→21:00)
[2017-01-26] MEDS: FUROSEMIDE 40 MG TABLET PO SCH (08:06)
[2017-01-26] MEDS: ASPIRIN ENTERIC COATED 81 MG TABLET.DR. PO SCH (08:08)
[2017-01-26] MEDS: FLUTICASONE 50MCG/NASAL SPRAY 16GM BOTTLE. NS SCH (09:47)
[2017-01-26 11:12] VITALS: BP 126/51
[2017-01-26 11:52] LABS: HCO3 ABG 35 mmol/L (21-28); PH ABG 7.31 (7.35-7.45); PO2 ABG 92 mmHg (65-108); SAT O2 ABG 96 % (92-99)
--- NOTE | 2017-01-26 11:56 | PDOC ---
CARDIO Progress Notes Date and Time Date of Service 01/26/2017 Time of Evaluation 1130 Subjective Subjective: No Chest Pain, No Palpitations, No Dizziness, Other (drowsy) Vitals Vitals Vital Signs Date Time Temp Pulse Resp B/P Pulse Ox O2 Delivery O2 Flow Rate FiO2 01/26/17 11:22 90 Nasal Cannula 4.0 01/26/17 11:12 97.4 75 18 126/51 97.4 Weight Weight [ ] Input and Output Intake and Output Intake and Output 01/26/17 07:00 Intake Total 668 ml Balance 668 ml Intake Oral 618 ml IV Total 50 ml Laboratory Labs Laboratory Tests Test 01/25/17 11:56 01/25/17 17:00 01/25/17 21:40 01/26/17 04:20 Glucose (Fingerstick) 185mg/dL (70-99) 184mg/dL (70-99) 160mg/dL (70-99) White Blood Count 5.4x10^3/uL (4.0-11.0) Red Blood Count 3.54x10^6/uL (3.50-5.40) Hemoglobin 10.8g/dL (12.0-15.5) Hematocrit 33.9% (36.0-47.0) Mean Corpuscular Volume 96fL (79-100) Mean Corpuscular Hemoglobin 30pg (25-35) Mean Corpuscular Hemoglobin Concent 32g/dL (31-37) Red Cell Distribution Width 18.1% (11.5-14.5) Platelet Count 138x10^3/uL (140-400) Neutrophils (%) (Auto) 61% (31-73) Lymphocytes (%) (Auto) 22% (24-48) Monocytes (%) (Auto) 16% (0-9) Eosinophils (%) (Auto) 1% (0-3) Basophils (%) (Auto) 1% (0-3) Neutrophils # (Auto) 3.3x10^3uL (1.8-7.7) Lymphocytes # (Auto) 1.2x10^3/uL (1.0-4.8) Monocytes # (Auto) 0.8x10^3/uL (0.0-1.1) Eosinophils # (Auto) 0.0x10^3/uL (0.0-0.7) Basophils # (Auto) 0.0x10^3/uL (0.0-0.2) Sodium Level 143mmol/L (136-145) Potassium Level 5.2mmol/L (3.5-5.1) Chloride Level 104mmol/L (98-107) Carbon Dioxide Level 34mmol/L (21-32) Anion Gap 5 (6-14) Blood Urea Nitrogen 45mg/dL (7-20) Creatinine 1.8mg/dL (0.6-1.0) Estimated GFR (Cockcroft-Gault) 27.3 Glucose Level 142mg/dL (70-99) Calcium Level 8.2mg/dL (8.5-10.1) Test 01/26/17 07:26 Glucose (Fingerstick) 135mg/dL (70-99) Microbiology Micro Microbiology 01/23/17 Urine Culture - Final, Complete 01/23/17 Urine Culture Result 1 (DEJA) - Final, Complete Physical Exam HEENT: Neck Supple W Full Motion Chest: Symmetric LUNGS: Other (diffuse crackles; currently on venturi mask; tachypnea) Heart: S1S2, RRR (no signnificant ectopies), murmurs (2/6 systolic murmur to LLS border) Abdomen: Soft N/T Extremities: No Calf Tenderness Neurology: oriented, follow commands, other (drowsy) Assessment Assessment 1. Mechanical nontraumatic fall with rhabdomyolysis (multiple falls in the past) 2. Hypoxic encephalopathy: currently drowsy, tachypneic. opioid use 3. Acute respiratory failure with underlying COPD 4. MADDY on CKD3 with mild hyperkalemia- noted for poor oral hydration 5. Acute on chronic diastolic CHF: likely induced by hypoxia and renal insufficiency. TTE with preserved EF and normal wall motion 6. Elevated troponin: Troponin 0.47. CP free. Suspect demand mediated with above conditions 7. HTN: controlled 8. DM2/HLP: controlled 9. Hx of dementia: evaluated by neuro 10/2016 10. Chronic pain with chronic opioid use. 11. Debility Recommendations 1. Will consider for outpt MPI, no further cardiac workup at this time 2. ABG, PCXR, consult pulmonary 3. Will replace bipap 4. Defer to PCP regarding renal dysfunction 5. Continue with secondary prevention 6. Will need to discuss with pt regarding aggressive measures vs conservative measures. 7. Multiple hospitalizations with recurrent falls, dementia, multiple chronic conditions, recommend palliative consult to address #6 8. Recommend renal consult. Defer to PCP YOVANNY WOLFE APRN Jan 26, 2017 11:56
[2017-01-26 12:01] LABS: PCO2 ABG 71 mmHg (35-46)
--- NOTE | 2017-01-26 13:11 | PDOC ---
PROGRESS NOTES Chief Complaint Chief Complaint Acute hypoxic respir distress s/p fall ASSESSMENT AND PLAN: 1. CHF exacerbation: diastolic. 2. COPD exacerbation: off BiPAP. on azithro for bronchitis 3. Troponin leak: most likely secondary to above. cardiology following 4. CAD: continue home meds 5. MADDY: prob cardiogenic. improving with diuresis (_2L so far). 6. CKD: suspect close to, or at, baseline currently. monitor 7. UTI : cult NGTD so far. on empiric ceftriax 8. DM: fair control with levemir and ISS. 9. HTN: well controlled on home meds 10. HLD: on statin with good lipid profile 11. Dementia: s/p eval in 10/2016 12. Depression: on mult meds. cont home regimen 13. Encephalopathy: acute, metabolic/hypoxic, ? toxic component from opiods. 14. Chronic pain syndrome: high dose narcotic. wean to lower dose 15. Debility/FTT: prob will needs SNF rehab History of Present Illness History of Present Illness Known to me, matilda admits in the past for falls and pain meds causing confusion, drowsiness Very weak, has been to SNU in the past\ cREA 1.8 - around her baseline - on lasix for diastolic heart failure [facility] notes reviewed, planned for ischemic work up as OP PLAn: for SNU consult Otherwise ready for dc on PO lasix and home pain meds Vitals Vitals Vital Signs Date Time Temp Pulse Resp B/P Pulse Ox O2 Delivery O2 Flow Rate FiO2 01/26/17 11:22 90 Nasal Cannula 4.0 01/26/17 11:12 97.4 75 18 126/51 97.4 Physical Exam General: Cooperative, No acute distress, Other (suspect sedated, very sleepy) Heart: Regular rate, Other (distant heart sounds unable to appreciate idue to bipap as well; S3) Lungs: Clear Abdomen: Normal bowel sounds, Soft, No tenderness Extremities: No cyanosis, No edema Skin: No breakdown Labs LABS Laboratory Tests Test 01/25/17 17:00 01/25/17 21:40 01/26/17 04:20 01/26/17 07:26 Glucose (Fingerstick) 184mg/dL (70-99) 160mg/dL (70-99) 135mg/dL (70-99) White Blood Count 5.4x10^3/uL (4.0-11.0) Red Blood Count 3.54x10^6/uL (3.50-5.40) Hemoglobin 10.8g/dL (12.0-15.5) Hematocrit 33.9% (36.0-47.0) Mean Corpuscular Volume 96fL (79-100) Mean Corpuscular Hemoglobin 30pg (25-35) Mean Corpuscular Hemoglobin Concent 32g/dL (31-37) Red Cell Distribution Width 18.1% (11.5-14.5) Platelet Count 138x10^3/uL (140-400) Neutrophils (%) (Auto) 61% (31-73) Lymphocytes (%) (Auto) 22% (24-48) Monocytes (%) (Auto) 16% (0-9) Eosinophils (%) (Auto) 1% (0-3) Basophils (%) (Auto) 1% (0-3) Neutrophils # (Auto) 3.3x10^3uL (1.8-7.7) Lymphocytes # (Auto) 1.2x10^3/uL (1.0-4.8) Monocytes # (Auto) 0.8x10^3/uL (0.0-1.1) Eosinophils # (Auto) 0.0x10^3/uL (0.0-0.7) Basophils # (Auto) 0.0x10^3/uL (0.0-0.2) Sodium Level 143mmol/L (136-145) Potassium Level 5.2mmol/L (3.5-5.1) Chloride Level 104mmol/L (98-107) Carbon Dioxide Level 34mmol/L (21-32) Anion Gap 5 (6-14) Blood Urea Nitrogen 45mg/dL (7-20) Creatinine 1.8mg/dL (0.6-1.0) Estimated GFR (Cockcroft-Gault) 27.3 Glucose Level 142mg/dL (70-99) Calcium Level 8.2mg/dL (8.5-10.1) Test 01/26/17 11:15 01/26/17 11:59 O2 Saturation 96% (92-99) Arterial Blood pH 7.31 (7.35-7.45) Arterial Blood pCO2 at Patient Temp 71mmHg (35-46) Arterial Blood pO2 at Patient Temp 92mmHg (65-108) Arterial Blood HCO3 35mmol/L (21-28) Arterial Blood Base Excess 6mmol/L (-3-3) Glucose (Fingerstick) 188mg/dL (70-99) Review of Systems Review of Systems limited, dementia, drowsiness Assessment and Plan Assessmemt and Plan Problems Medical Problems: (1) Altered mental status Status: Acute (2) CHF (congestive heart failure) Status: Acute (3) CHF exacerbation Status: Acute (4) Encephalopathy acute Status: Acute (5) Hypoxia Status: Acute (6) Urinary tract infection Status: Acute Problems: Comment Review of Relevant I have reviewed the following items juan (where applicable) has been applied. Labs Laboratory Tests Test 01/24/17 21:14 01/25/17 03:45 01/25/17 07:29 01/25/17 11:56 Glucose (Fingerstick) 242mg/dL (70-99) 133mg/dL (70-99) 185mg/dL (70-99) White Blood Count 5.3x10^3/uL (4.0-11.0) Red Blood Count 3.41x10^6/uL (3.50-5.40) Hemoglobin 10.4g/dL (12.0-15.5) Hematocrit 33.6% (36.0-47.0) Mean Corpuscular Volume 98fL (79-100) Mean Corpuscular Hemoglobin 31pg (25-35) Mean Corpuscular Hemoglobin Concent 31g/dL (31-37) Red Cell Distribution Width 18.4% (11.5-14.5) Platelet Count 121x10^3/uL (140-400) Neutrophils (%) (Auto) 71% (31-73) Lymphocytes (%) (Auto) 14% (24-48) Monocytes (%) (Auto) 14% (0-9) Eosinophils (%) (Auto) 0% (0-3) Basophils (%) (Auto) 1% (0-3) Neutrophils # (Auto) 3.7x10^3uL (1.8-7.7) Lymphocytes # (Auto) 0.8x10^3/uL (1.0-4.8) Monocytes # (Auto) 0.8x10^3/uL (0.0-1.1) Eosinophils # (Auto) 0.0x10^3/uL (0.0-0.7) Basophils # (Auto) 0.0x10^3/uL (0.0-0.2) Segmented Neutrophils % 49% (35-66) Band Neutrophils % 33% (0-9) Lymphocytes % 12% (24-48) Monocytes % 6% (0-10) Toxic Granulation Present Toxic Vacuolation Present Platelet Estimate Decreased (ADEQUATE) Hypochromasia Present Anisocytosis Slight Sodium Level 142mmol/L (136-145) Potassium Level 5.0mmol/L (3.5-5.1) Chloride Level 105mmol/L (98-107) Carbon Dioxide Level 35mmol/L (21-32) Anion Gap 2 (6-14) Blood Urea Nitrogen 41mg/dL (7-20) Creatinine 1.4mg/dL (0.6-1.0) Estimated GFR (Cockcroft-Gault) 36.5 Glucose Level 212mg/dL (70-99) Calcium Level 8.2mg/dL (8.5-10.1) Test 01/25/17 17:00 01/25/17 21:40 01/26/17 04:20 01/26/17 07:26 Glucose (Fingerstick) 184mg/dL (70-99) 160mg/dL (70-99) 135mg/dL (70-99) White Blood Count 5.4x10^3/uL (4.0-11.0) Red Blood Count 3.54x10^6/uL (3.50-5.40) Hemoglobin 10.8g/dL (12.0-15.5) Hematocrit 33.9% (36.0-47.0) Mean Corpuscular Volume 96fL (79-100) Mean Corpuscular Hemoglobin 30pg (25-35) Mean Corpuscular Hemoglobin Concent 32g/dL (31-37) Red Cell Distribution Width 18.1% (11.5-14.5) Platelet Count 138x10^3/uL (140-400) Neutrophils (%) (Auto) 61% (31-73) Lymphocytes (%) (Auto) 22% (24-48) Monocytes (%) (Auto) 16% (0-9) Eosinophils (%) (Auto) 1% (0-3) Basophils (%) (Auto) 1% (0-3) Neutrophils # (Auto) 3.3x10^3uL (1.8-7.7) Lymphocytes # (Auto) 1.2x10^3/uL (1.0-4.8) Monocytes # (Auto) 0.8x10^3/uL (0.0-1.1) Eosinophils # (Auto) 0.0x10^3/uL (0.0-0.7) Basophils # (Auto) 0.0x10^3/uL (0.0-0.2) Sodium Level 143mmol/L (136-145) Potassium Level 5.2mmol/L (3.5-5.1) Chloride Level 104mmol/L (98-107) Carbon Dioxide Level 34mmol/L (21-32) Anion Gap 5 (6-14) Blood Urea Nitrogen 45mg/dL (7-20) Creatinine 1.8mg/dL (0.6-1.0) Estimated GFR (Cockcroft-Gault) 27.3 Glucose Level 142mg/dL (70-99) Calcium Level 8.2mg/dL (8.5-10.1) Test 01/26/17 11:15 01/26/17 11:59 O2 Saturation 96% (92-99) Arterial Blood pH 7.31 (7.35-7.45) Arterial Blood pCO2 at Patient Temp 71mmHg (35-46) Arterial Blood pO2 at Patient Temp 92mmHg (65-108) Arterial Blood HCO3 35mmol/L (21-28) Arterial Blood Base Excess 6mmol/L (-3-3) Glucose (Fingerstick) 188mg/dL (70-99) Laboratory Tests Test 01/25/17 17:00 01/25/17 21:40 01/26/17 04:20 01/26/17 07:26 Glucose (Fingerstick) 184mg/dL (70-99) 160mg/dL (70-99) 135mg/dL (70-99) White Blood Count 5.4x10^3/uL (4.0-11.0) Red Blood Count 3.54x10^6/uL (3.50-5.40) Hemoglobin 10.8g/dL (12.0-15.5) Hematocrit 33.9% (36.0-47.0) Mean Corpuscular Volume 96fL (79-100) Mean Corpuscular Hemoglobin 30pg (25-35) Mean Corpuscular Hemoglobin Concent 32g/dL (31-37) Red Cell Distribution Width 18.1% (11.5-14.5) Platelet Count 138x10^3/uL (140-400) Neutrophils (%) (Auto) 61% (31-73) Lymphocytes (%) (Auto) 22% (24-48) Monocytes (%) (Auto) 16% (0-9) Eosinophils (%) (Auto) 1% (0-3) Basophils (%) (Auto) 1% (0-3) Neutrophils # (Auto) 3.3x10^3uL (1.8-7.7) Lymphocytes # (Auto) 1.2x10^3/uL (1.0-4.8) Monocytes # (Auto) 0.8x10^3/uL (0.0-1.1) Eosinophils # (Auto) 0.0x10^3/uL (0.0-0.7) Basophils # (Auto) 0.0x10^3/uL (0.0-0.2) Sodium Level 143mmol/L (136-145) Potassium Level 5.2mmol/L (3.5-5.1) Chloride Level 104mmol/L (98-107) Carbon Dioxide Level 34mmol/L (21-32) Anion Gap 5 (6-14) Blood Urea Nitrogen 45mg/dL (7-20) Creatinine 1.8mg/dL (0.6-1.0) Estimated GFR (Cockcroft-Gault) 27.3 Glucose Level 142mg/dL (70-99) Calcium Level 8.2mg/dL (8.5-10.1) Test 01/26/17 11:15 01/26/17 11:59 O2 Saturation 96% (92-99) Arterial Blood pH 7.31 (7.35-7.45) Arterial Blood pCO2 at Patient Temp 71mmHg (35-46) Arterial Blood pO2 at Patient Temp 92mmHg (65-108) Arterial Blood HCO3 35mmol/L (21-28) Arterial Blood Base Excess 6mmol/L (-3-3) Glucose (Fingerstick) 188mg/dL (70-99) Microbiology 01/23/17 Urine Culture - Final, Complete 01/23/17 Urine Culture Result 1 (DEJA) - Final, Complete Medications Current Medications Sodium Chloride (Iv Sodium Chloride 0.9% 1000ml Bag) 1,000 ml @ 100 mls/hr 1X ONCE IV Last administered on 01/23/17 15:32; Start 01/23/17 at 15:15; Stop at 01:14; Status DC Furosemide 40 mg 40 mg 1X ONCE IVP Last administered on 01/23/17 19:10; Start 01/23/17 at 17:45; Stop 01/23/17 at 17:46; Status DC Ceftriaxone Sodium 1 gm/ Sodium Chloride 100 ml @ 200 mls/hr Q24H IV Last administered on 01/25/17 17:14; Start 01/24/17 at 18:00 Azithromycin 500 mg/Sodium Chloride 250 ml @ 250 mls/hr Q24H IV Last administered on 01/25/17 18:04; Start 01/24/17 at 18:00; Stop 01/26/17 at 17:59 Azithromycin 250 ml @ 250 mls/hr 1X ONCE IV Last administered on 01/23/17 21 :39; Start 01/23/17 at 18:00; Stop 01/23/17 at 18:59; Status DC Ceftriaxone Sodium (Rocephin 1gm Ivpb For Omni) 50 ml @ 100 mls/hr 1X ONCE IV Last administered on 01/23/17 19:03; Start 01/23/17 at 18:00; Stop 01/23/17 at 18:29; Status DC Lorazepam (Ativan) 0.5 mg 1X ONCE IV Last administered on 01/23/17 18:42; Start 01/23/17 at 18:45; Stop 01/23/17 at 18:46; Status DC Aspirin (Ecotrin) 81 mg DAILYWBKFT PO Last administered on 01/26/17 08:08; Start 01/24/17 at 08:00 Alprazolam (Xanax) 0.5 mg TID PO Last administered on 01/25/17 08:09; Start at 21:00; Stop 01/25/17 at 11:14; Status DC Aspirin (Children'S Aspirin) 81 mg DAILY08 PO Last administered on 01/25/17 08 :07; Start 01/24/17 at 08:00; Stop 01/26/17 at 08:05; Status DC Atorvastatin Calcium (Lipitor) 20 mg QHS PO Last administered on 01/25/17 20: 59; Start 01/23/17 at 21:00 Diltiazem HCl (Cardizem 24hr Cd) 240 mg DAILY PO Last administered on 08:05; Start 01/24/17 at 09:00 Docusate Sodium (Colace) 100 mg BID PO Last administered on 01/26/17 08:06; Start 01/23/17 at 21:00 Furosemide (Lasix) 40 mg DAILY PO Last administered on 01/26/17 08:06; Start 01/24/17 at 09:00 Gabapentin (Neurontin) 300 mg TID PO Last administered on 01/26/17 08:04; Start 01/23/17 at 21:00 Losartan Potassium (Cozaar) 50 mg DAILY PO Last administered on 01/26/17 08:04 ; Start 01/24/17 at 09:00 Mirtazapine (Remeron) 15 mg QHS PO Last administered on 01/25/17 21:00; Start 01/23/17 at 21:00 Pantoprazole Sodium (Protonix) 40 mg DAILY07 PO Last administered on 01/26/17 06:13; Start 01/24/17 at 07:00 Sertraline HCl (Zoloft) 50 mg DAILY PO Last administered on 01/26/17 08:04; Start 01/24/17 at 09:00 Trazodone HCl (Desyrel) 50 mg QHS PO ; Start 01/23/17 at 21:00 Albuterol Sulfate (Ventolin Neb Soln) 2.5 mg PRN Q6HRS PRN NEB SOA; Start 01/23 at 20:30 Budesonide (Pulmicort) 0.5 mg RTBID NEB Last administered on 01/26/17 07:09; Start 01/24/17 at 08:00 Fluticasone Propionate (Flonase) 2 spray DAILY NS Last administered on 09:47; Start 01/24/17 at 09:00 Multivitamins/ Calcium (Thera M Plus) 1 tab DAILY PO Last administered on 08:04; Start 01/24/17 at 09:00 Potassium Chloride (Klor-Con) 20 meq DAILYWBKFT PO Last administered on 08:05; Start 01/24/17 at 08:00 Risperidone (Risperdal) 0.5 mg BID PO Last administered on 01/26/17 08:05; Start 01/23/17 at 21:00 Albuterol Sulfate (Ventolin Neb Soln) 2.5 mg RTQID NEB Last administered on 11:08; Start 01/24/17 at 08:00 Oxycodone HCl (Roxicodone) 30 mg TID PO Last administered on 01/25/17 08:08; Start 01/24/17 at 16:07; Stop 01/25/17 at 11:14; Status DC Insulin Detemir (Levemir) 30 units QHS SQ ; Start 01/25/17 at 21:00; Stop at 21:00; Status DC Insulin Detemir (Levemir) 30 units QHS SQ Last administered on 01/25/17 21:59 ; Start 01/24/17 at 22:00 Alprazolam (Xanax) 0.5 mg PRN TID PRN PO ANXIETY; Start 01/25/17 at 11:15 Oxycodone HCl (Roxicodone) 10 mg TID PO Last administered on 01/26/17 08:03; Start 01/25/17 at 14:00 Heparin Sodium (Porcine) 5,000 unit Q8HRS SQ Last administered on 01/26/17 06: 19; Start 01/25/17 at 12:00 Active Scripts Active Reported Levofloxacin 500 Mg Tablet 1 Tab PO DAILY Xanax (Alprazolam) 0.5 Mg Tablet 1 Tab PO TID Vitamin E (Vitamin E (Dl,Tocopheryl Acet)) 100 Unit Capsule 400 Unit PO Symbicort 160-4.5 Mcg Inhaler (Budesonide/Formoterol Fumarate) 10.2 Gm Hfa.aer.ad 2 Puff IH BID Risperidone 0.5 Mg Tablet 1 Tab PO BID Potassium Chloride 10 Meq Tablet.er 20 Meq PO DAILY Multivitamins (Multivitamin) 1 Each Tablet 1 Tab PO DAILY Remeron (Mirtazapine) 15 Mg Tablet 1 Tab PO QHS Lantus Solostar (Insulin Glargine,Hum.rec.anlog) 100 Unit/1 Ml Insuln.pen 40 Unit SQ QHS Gabapentin 300 Mg Capsule 300 Mg PO TID Furosemide 40 Mg Tablet 1 Tab PO DAILY Flonase Allergy Relief (Fluticasone Propionate) 9.9 Ml [place].susp 2 Sprays NS DAILY Colace (Docusate Sodium) 100 Mg Capsule 1 Cap PO BID Cartia Xt (Diltiazem Hcl) 240 Mg Cap.er.24h 240 Mg PO Aspirin 81 Mg Tab.chew 1 Tab PO DAILY Proair Hfa Inhaler (Albuterol Sulfate) 8.5 Gm Hfa.aer.ad 1 Puff INH PRN Q6HRS PRN Atorvastatin Calcium 20 Mg Tablet 1 Tab PO DAILY Trazodone Hcl 50 Mg Tablet 1 Tab PO QHS Pantoprazole Sodium 40 Mg Tablet.dr 1 Tab PO DAILY Sertraline Hcl 50 Mg Tablet 50 Mg PO DAILY Losartan Potassium 50 Mg Tablet 50 Mg PO DAILY Oxycodone Hcl 30 Mg Tablet 2 Tab PO TID Vitals/I & O Vital Sign - Last 24 Hours 01/25/17 01/25/17 01/25/17 01/25/17 13:30 15:00 15:50 19:15 Temp 97.8 98.1 97.8 98.1 Pulse 65 71 Resp 16 18 B/P 132/50 116/56 Pulse Ox 97 98 O2 Delivery Nasal Cannula Nasal Cannula Nasal Cannula O2 Flow Rate 4.0 4.0 4.0 01/25/17 01/25/17 01/25/17 01/25/17 20:00 20:24 21:53 23:20 Temp 98.4 98.4 Pulse 75 Resp 21 B/P 128/66 Pulse Ox 89 100 O2 Delivery Nasal Cannula Nasal Cannula Nasal Cannula BiPAP/CPAP O2 Flow Rate 5.0 4.0 5.0 01/25/17 01/26/17 01/26/17 01/26/17 23:20 00:56 03:25 03:45 Pulse Ox 100 O2 Delivery BiPAP/CPAP BiPAP/CPAP BiPAP/CPAP Nasal Cannula O2 Flow Rate 4.0 01/26/17 01/26/17 01/26/17 01/26/17 03:45 07:12 07:13 07:30 Temp 98.8 98.8 98.8 98.8 Pulse 71 72 Resp 20 16 B/P 166/67 128/50 Pulse Ox 90 90 99 O2 Delivery BiPAP/CPAP Nasal Cannula Nasal Cannula BiPAP/CPAP O2 Flow Rate 4.0 4.0 4.0 01/26/17 01/26/17 01/26/17 01/26/17 08:00 08:03 08:04 08:05 Pulse 72 72 B/P 128/50 128/50 Pulse Ox 99 O2 Delivery Nasal Cannula Nasal Cannula O2 Flow Rate 4.0 4.0 01/26/17 01/26/17 01/26/17 09:48 11:12 11:22 Temp 97.4 97.4 Pulse 75 Resp 18 B/P 126/51 Pulse Ox 99 97 90 O2 Delivery Nasal Cannula BiPAP/CPAP Nasal Cannula O2 Flow Rate 4.0 4.0 4.0 Intake and Output 01/25/17 01/25/17 01/26/17 15:00 23:00 07:00 Intake Total 168 ml 500 ml Balance 168 ml 500 ml TANNA HUERTAS MD Jan 26, 2017 13:11
--- NOTE | 2017-01-26 14:37 | PDOC ---
Provider Note Provider Note dictated respiratory failure CHF see orders for BIPAP DARÍO HI MD Jan 26, 2017 14:37
[2017-01-26] MEDS ORDERED: FUROSEMIDE 40 MG/4 ML VIAL IVP ONE (14:45)
[2017-01-26 15:06] VITALS: BP 136/52
--- NOTE | 2017-01-26 15:19 | RAD ---
Portable chest, 2017: History: Dyspnea Comparison is made to a study from 01/23/2017. The heart is mildly enlarged. There is persistent mild right parahilar infiltrate. Previous studies have suggested underlying mild chronic interstitial opacities in the lungs. There is slight blunting of the lateral costophrenic angles compatible with a small amount of pleural fluid. IMPRESSION: 1. Mild unchanged right parahilar infiltrates suggesting pneumonia or mild pulmonary edema superimposed upon mild bilateral chronic interstitial opacities. 2. Small bilateral pleural effusions.
--- NOTE | 2017-01-26 15:25 | CONS ---
DATE OF CONSULTATION: ATTENDING PHYSICIAN: Dr. Horn. REASON FOR CONSULTATION: Respiratory failure. HISTORY OF PRESENT ILLNESS: The patient is a 76-year-old female who has been a smoker for 40 years before quitting more than 10-15 years ago. She was brought into the hospital with confusion. The patient was appeared to be tired, fatigued. She has mild cough. No chest pain. She has increasing leg edema. I have been consulted today due to abnormal arterial blood gases. Her ABGs showed a pH of 7.31, pCO2 of 71 and a pO2 of 92 on 6 liters. This was a change from a previous ABGs. Her chest x-ray shows persistent and mildly progressive interstitial edema. Influenza screen is negative. The patient also has renal insufficiency. She appears to be weak, but able to answer questions. No history of deep vein thrombosis or pulmonary embolism. PAST MEDICAL HISTORY: Significant for hypertension, hyperlipidemia, diastolic congestive heart failure and secondary pulmonary hypertension, COPD, dementia, constipation, low back pain. Urinary incontinence, CKD stage 3. PAST SURGICAL HISTORY: Hysterectomy. FAMILY HISTORY: Coronary artery disease. ALLERGIES: PENICILLIN, ARIPIPRAZOLE, BUPROPION AND METFORMIN. MEDICATIONS: All reviewed as listed in the MRAD including antibiotics, furosemide and Pulmicort. REVIEW OF SYSTEMS: A 10-point system was obtained. Pertinent positives discussed in my history of present illness, otherwise noncontributory. All systems that were negative were reviewed as well. SOCIAL HISTORY: Smoked for 40 years before quitting. PHYSICAL EXAMINATION: GENERAL: She appears to be weak. Lethargic, but able to follow commands. VITAL SIGNS: Blood pressure 126/51, afebrile, pulse ox 90% on ____ liters. HEENT: Sclerae nonicteric. NECK: Supple. LUNGS: Crackles posteriorly. CARDIOVASCULAR: Regular ____. ABDOMEN: Soft. EXTREMITIES: 2+ pitting edema bilaterally. LABORATORY DATA: Reviewed. ____. White cell count 5.4, hemoglobin 10.8, platelets are 138. IMPRESSION: 1. Acute on chronic hypercapnic respiratory failure related to ongoing congestive heart failure. 2. Abnormal chest x-ray persistent and mildly progressive bilateral interstitial infiltrates related to acute diastolic heart failure. 3. Underlying chronic obstructive pulmonary disease with mild exacerbation, triggered by congestive heart failure. 4. Suspected underlying obesity hypoventilation syndrome. 5. Chronic kidney disease stage 3. RECOMMENDATIONS: 1. Discussed with the entire family. At this time, we will place her on BiPAP and avoid hyperoxia. 2. She will benefit from an extra IV Lasix. 3. If no response to chest x-ray or diuresis, we will do a noncontrast CT chest. 4. Follow ABGs in next few hours to see an improvement with BiPAP. 5. Improve nutritional status. Albumin level is 3.1. 6. Discussed with Cardiology and discussed with the patient's family. We will follow along with you. Continue with present bronchodilators. DARÍO HI MD DR: FREDA/ziyad JOB#: [id number] / [id number]
[2017-01-26 17:28] LABS: HCO3 ABG 30 mmol/L (21-28); PCO2 ABG 56 mmHg (35-46); PH ABG 7.35 (7.35-7.45); PO2 ABG 54 mmHg (65-108); SAT O2 ABG 87 % (92-99)
[2017-01-26 17:31] LABS: FIO2 ABG 30
[2017-01-26] MEDS: CEFTRIAXONE SODIUM 1 GM in IV NORMAL SALINE 100ML 100 ML IV SCH (18:32)
[2017-01-26 19:00] VITALS: BP 157/42
[2017-01-26] MEDS: MIRTAZAPINE 15 MG TABLET PO SCH (21:00)
[2017-01-26] MEDS: traZODone 50 MG TABLET. PO SCH (21:00)
[2017-01-26] MEDS: ATORVASTATIN CALCIUM 20 MG TABLET PO SCH (21:00)
[2017-01-26] MEDS: INSULIN DETEMIR 300 UNITS/3 ML INSULN.PEN. SQ SCH (21:59)
[2017-01-26 23:00] VITALS: BP 140/148
[2017-01-27] VITALS (7 sets, daily range): BP systolic 117–154; BP diastolic 42–65
[2017-01-27] MEDS: PANTOPRAZOLE 40 MG TABLET. PO SCH (05:54)
[2017-01-27] MEDS: HEPARIN PF for SUB-Q USE 5,000 UNIT/0.5 ML VIAL. SQ SCH ×3 (06:03→21:07)
[2017-01-27 06:57] LABS: BASO % 0 % (0-3); EOS % 1 % (0-3); HEMATOCRIT 33.3 % (36.0-47.0); HEMOGLOBIN 10.5 g/dL (12.0-15.5); LYMPH % 21 % (24-48); MEAN CORPUSCULAR HEMOGLOBIN 30 pg (25-35); MEAN CORPUSCULAR HGB CONC 32 g/dL (31-37); MEAN CORPUSCULAR VOLUME 96 fL (79-100); MONO % 13 % (0-9); NEUT % 66 % (31-73); PLATELET COUNT 128 x10^3/uL (140-400); RED BLOOD COUNT 3.46 x10^6/uL (3.50-5.40); RED CELL DISTRIBUTION WIDTH 17.7 % (11.5-14.5)
[2017-01-27 07:09] LABS: CALCIUM 8.2 mg/dL (8.5-10.1); CREATININE 1.4 mg/dL (0.6-1.0); GFR 36.5
[2017-01-27] MEDS: BUDESONIDE 0.5 MG/2 ML NEBU NEB SCH ×2 (07:29→19:21)
[2017-01-27] MEDS: ALBUTEROL SULFATE 2.5 MG/3 ML NEBU. NEB SCH ×4 (07:29→19:21)
[2017-01-27] MEDS: MULTIVITAMIN with MINERAL TABLET. PO SCH (07:43)
[2017-01-27] MEDS: DOCUSATE SODIUM 100 MG CAPSULE PO SCH ×2 (07:46→20:56)
[2017-01-27] MEDS: risperiDONE 1 MG TABLET. PO SCH ×2 (07:47→20:57)
[2017-01-27] MEDS: POTASSIUM CHLORIDE 20 MEQ TABLET.ER. PO SCH (07:47)
[2017-01-27] MEDS: LOSARTAN POTASSIUM 50 MG TABLET. PO SCH (07:48)
[2017-01-27] MEDS: DILTIAZEM HCL 240 MG CAP.ER.24H PO SCH (07:48)
[2017-01-27] MEDS: FUROSEMIDE 40 MG TABLET PO SCH (07:49)
[2017-01-27] MEDS: GABAPENTIN 300 MG CAPSULE. PO SCH ×3 (07:49→20:56)
[2017-01-27] MEDS: SERTRALINE 50 MG TABLET. PO SCH (07:49)
[2017-01-27] MEDS: OXYCODONE IR 5 MG TABLET. PO SCH ×3 (07:49→20:56)
[2017-01-27] MEDS: ASPIRIN ENTERIC COATED 81 MG TABLET.DR. PO SCH (07:49)
[2017-01-27] MEDS: FLUTICASONE 50MCG/NASAL SPRAY 16GM BOTTLE. NS SCH (07:50)
--- NOTE | 2017-01-27 09:32 | PDOC ---
CARDIO Progress Notes Date and Time Date of Service 01/27/2017 Time of Evaluation 0915 Subjective Subjective: No Chest Pain, No Palpitations, No Dizziness, Other (wanting to go home) Vitals Vitals Vital Signs Date Time Temp Pulse Resp B/P Pulse Ox O2 Delivery O2 Flow Rate FiO2 01/27/17 07:58 Nasal Cannula 4.0 01/27/17 07:49 96 01/27/17 07:48 84 152/54 01/27/17 07:00 99.6 24 99.6 Weight Weight [ ] Input and Output Intake and Output Intake and Output 01/27/17 07:00 Intake Total 920 ml Output Total 2275 ml Balance -1355 ml Intake Oral 920 ml Output Urine Total 2275 ml Laboratory Labs Laboratory Tests Test 01/26/17 11:15 01/26/17 11:59 01/26/17 17:20 01/26/17 17:37 O2 Saturation 96% (92-99) 87% (92-99) Arterial Blood pH 7.31 (7.35-7.45) 7.35 (7.35-7.45) Arterial Blood pCO2 at Patient Temp 71mmHg (35-46) 56mmHg (35-46) Arterial Blood pO2 at Patient Temp 92mmHg (65-108) 54mmHg (65-108) Arterial Blood HCO3 35mmol/L (21-28) 30mmol/L (21-28) Arterial Blood Base Excess 6mmol/L (-3-3) 3mmol/L (-3-3) Glucose (Fingerstick) 188mg/dL (70-99) 222mg/dL (70-99) FiO2 30 Test 01/26/17 21:48 01/27/17 05:50 01/27/17 07:29 Glucose (Fingerstick) 185mg/dL (70-99) 105mg/dL (70-99) White Blood Count 5.0x10^3/uL (4.0-11.0) Red Blood Count 3.46x10^6/uL (3.50-5.40) Hemoglobin 10.5g/dL (12.0-15.5) Hematocrit 33.3% (36.0-47.0) Mean Corpuscular Volume 96fL (79-100) Mean Corpuscular Hemoglobin 30pg (25-35) Mean Corpuscular Hemoglobin Concent 32g/dL (31-37) Red Cell Distribution Width 17.7% (11.5-14.5) Platelet Count 128x10^3/uL (140-400) Neutrophils (%) (Auto) 66% (31-73) Lymphocytes (%) (Auto) 21% (24-48) Monocytes (%) (Auto) 13% (0-9) Eosinophils (%) (Auto) 1% (0-3) Basophils (%) (Auto) 0% (0-3) Neutrophils # (Auto) 3.3x10^3uL (1.8-7.7) Lymphocytes # (Auto) 1.0x10^3/uL (1.0-4.8) Monocytes # (Auto) 0.6x10^3/uL (0.0-1.1) Eosinophils # (Auto) 0.0x10^3/uL (0.0-0.7) Basophils # (Auto) 0.0x10^3/uL (0.0-0.2) Sodium Level 143mmol/L (136-145) Potassium Level 5.0mmol/L (3.5-5.1) Chloride Level 103mmol/L (98-107) Carbon Dioxide Level 34mmol/L (21-32) Anion Gap 6 (6-14) Blood Urea Nitrogen 42mg/dL (7-20) Creatinine 1.4mg/dL (0.6-1.0) Estimated GFR (Cockcroft-Gault) 36.5 Glucose Level 121mg/dL (70-99) Calcium Level 8.2mg/dL (8.5-10.1) Microbiology Micro Microbiology 01/23/17 Urine Culture - Final, Complete 01/23/17 Urine Culture Result 1 (DEJA) - Final, Complete Physical Exam HEENT: Neck Supple W Full Motion Chest: Symmetric LUNGS: Other (diffuse crackles) Heart: S1S2, RRR (no signnificant ectopies), murmurs (2/6 systolic murmur to LLS border) Abdomen: Soft N/T Extremities: No Calf Tenderness, Other (1+ bilateral LE pitting edema) Neurology: alert, oriented, follow commands Assessment Assessment 1. Mechanical nontraumatic fall with rhabdomyolysis (multiple falls in the past) 2. Hypoxic encephalopathy: mentation better 3. Acute respiratory failure with underlying COPD: SOA better, off bipap 4. MADDY on CKD3 with mild hyperkalemia: improved. 5. Acute on chronic diastolic CHF: likely induced by hypoxia and renal insufficiency. TTE with preserved EF and normal wall motion 6. Elevated troponin: Troponin 0.47. CP free. Suspect demand mediated with above conditions 7. HTN: controlled 8. DM2/HLP: controlled 9. Hx of dementia: evaluated by neuro 10/2016 10. Chronic pain with chronic opioid use. 11. Debility Recommendations 1. Will consider for outpt MPI, no further cardiac workup at this time 2. PCXR, continue with diuretic therapy 3. Bipap PRN 4. Defer to PCP regarding renal dysfunction 5. Continue with secondary prevention 6. Palliative consult pending to discuss conservative vs aggressive measures. YOVANNY WOLFE APRN Jan 27, 2017 09:32
--- NOTE | 2017-01-27 10:03 | PDOC ---
PULMONARY PROGRESS NOTES Subjective pt feels better wants to go home Vitals Vital Signs Date Time Temp Pulse Resp B/P Pulse Ox O2 Delivery O2 Flow Rate FiO2 01/27/17 07:58 Nasal Cannula 4.0 01/27/17 07:49 96 01/27/17 07:48 84 152/54 01/27/17 07:00 99.6 24 99.6 General: Alert Lungs: Crackles Cardiovascular: S1, S2 Abdomen: Soft Neuro Exam: Alert Extremities: Other Skin: Warm Labs Laboratory Tests Test 01/25/17 11:56 01/25/17 17:00 01/25/17 21:40 01/26/17 04:20 Glucose (Fingerstick) 185mg/dL (70-99) 184mg/dL (70-99) 160mg/dL (70-99) White Blood Count 5.4x10^3/uL (4.0-11.0) Red Blood Count 3.54x10^6/uL (3.50-5.40) Hemoglobin 10.8g/dL (12.0-15.5) Hematocrit 33.9% (36.0-47.0) Mean Corpuscular Volume 96fL (79-100) Mean Corpuscular Hemoglobin 30pg (25-35) Mean Corpuscular Hemoglobin Concent 32g/dL (31-37) Red Cell Distribution Width 18.1% (11.5-14.5) Platelet Count 138x10^3/uL (140-400) Neutrophils (%) (Auto) 61% (31-73) Lymphocytes (%) (Auto) 22% (24-48) Monocytes (%) (Auto) 16% (0-9) Eosinophils (%) (Auto) 1% (0-3) Basophils (%) (Auto) 1% (0-3) Neutrophils # (Auto) 3.3x10^3uL (1.8-7.7) Lymphocytes # (Auto) 1.2x10^3/uL (1.0-4.8) Monocytes # (Auto) 0.8x10^3/uL (0.0-1.1) Eosinophils # (Auto) 0.0x10^3/uL (0.0-0.7) Basophils # (Auto) 0.0x10^3/uL (0.0-0.2) Sodium Level 143mmol/L (136-145) Potassium Level 5.2mmol/L (3.5-5.1) Chloride Level 104mmol/L (98-107) Carbon Dioxide Level 34mmol/L (21-32) Anion Gap 5 (6-14) Blood Urea Nitrogen 45mg/dL (7-20) Creatinine 1.8mg/dL (0.6-1.0) Estimated GFR (Cockcroft-Gault) 27.3 Glucose Level 142mg/dL (70-99) Calcium Level 8.2mg/dL (8.5-10.1) Test 01/26/17 07:26 01/26/17 11:15 01/26/17 11:59 01/26/17 17:20 Glucose (Fingerstick) 135mg/dL (70-99) 188mg/dL (70-99) O2 Saturation 96% (92-99) 87% (92-99) Arterial Blood pH 7.31 (7.35-7.45) 7.35 (7.35-7.45) Arterial Blood pCO2 at Patient Temp 71mmHg (35-46) 56mmHg (35-46) Arterial Blood pO2 at Patient Temp 92mmHg (65-108) 54mmHg (65-108) Arterial Blood HCO3 35mmol/L (21-28) 30mmol/L (21-28) Arterial Blood Base Excess 6mmol/L (-3-3) 3mmol/L (-3-3) FiO2 30 Test 01/26/17 17:37 01/26/17 21:48 01/27/17 05:50 01/27/17 07:29 Glucose (Fingerstick) 222mg/dL (70-99) 185mg/dL (70-99) 105mg/dL (70-99) White Blood Count 5.0x10^3/uL (4.0-11.0) Red Blood Count 3.46x10^6/uL (3.50-5.40) Hemoglobin 10.5g/dL (12.0-15.5) Hematocrit 33.3% (36.0-47.0) Mean Corpuscular Volume 96fL (79-100) Mean Corpuscular Hemoglobin 30pg (25-35) Mean Corpuscular Hemoglobin Concent 32g/dL (31-37) Red Cell Distribution Width 17.7% (11.5-14.5) Platelet Count 128x10^3/uL (140-400) Neutrophils (%) (Auto) 66% (31-73) Lymphocytes (%) (Auto) 21% (24-48) Monocytes (%) (Auto) 13% (0-9) Eosinophils (%) (Auto) 1% (0-3) Basophils (%) (Auto) 0% (0-3) Neutrophils # (Auto) 3.3x10^3uL (1.8-7.7) Lymphocytes # (Auto) 1.0x10^3/uL (1.0-4.8) Monocytes # (Auto) 0.6x10^3/uL (0.0-1.1) Eosinophils # (Auto) 0.0x10^3/uL (0.0-0.7) Basophils # (Auto) 0.0x10^3/uL (0.0-0.2) Sodium Level 143mmol/L (136-145) Potassium Level 5.0mmol/L (3.5-5.1) Chloride Level 103mmol/L (98-107) Carbon Dioxide Level 34mmol/L (21-32) Anion Gap 6 (6-14) Blood Urea Nitrogen 42mg/dL (7-20) Creatinine 1.4mg/dL (0.6-1.0) Estimated GFR (Cockcroft-Gault) 36.5 Glucose Level 121mg/dL (70-99) Calcium Level 8.2mg/dL (8.5-10.1) Magnesium Level 2.3mg/dL (1.8-2.4) Laboratory Tests Test 01/26/17 11:15 01/26/17 11:59 01/26/17 17:20 01/26/17 17:37 O2 Saturation 96% (92-99) 87% (92-99) Arterial Blood pH 7.31 (7.35-7.45) 7.35 (7.35-7.45) Arterial Blood pCO2 at Patient Temp 71mmHg (35-46) 56mmHg (35-46) Arterial Blood pO2 at Patient Temp 92mmHg (65-108) 54mmHg (65-108) Arterial Blood HCO3 35mmol/L (21-28) 30mmol/L (21-28) Arterial Blood Base Excess 6mmol/L (-3-3) 3mmol/L (-3-3) Glucose (Fingerstick) 188mg/dL (70-99) 222mg/dL (70-99) FiO2 30 Test 01/26/17 21:48 01/27/17 05:50 01/27/17 07:29 Glucose (Fingerstick) 185mg/dL (70-99) 105mg/dL (70-99) White Blood Count 5.0x10^3/uL (4.0-11.0) Red Blood Count 3.46x10^6/uL (3.50-5.40) Hemoglobin 10.5g/dL (12.0-15.5) Hematocrit 33.3% (36.0-47.0) Mean Corpuscular Volume 96fL (79-100) Mean Corpuscular Hemoglobin 30pg (25-35) Mean Corpuscular Hemoglobin Concent 32g/dL (31-37) Red Cell Distribution Width 17.7% (11.5-14.5) Platelet Count 128x10^3/uL (140-400) Neutrophils (%) (Auto) 66% (31-73) Lymphocytes (%) (Auto) 21% (24-48) Monocytes (%) (Auto) 13% (0-9) Eosinophils (%) (Auto) 1% (0-3) Basophils (%) (Auto) 0% (0-3) Neutrophils # (Auto) 3.3x10^3uL (1.8-7.7) Lymphocytes # (Auto) 1.0x10^3/uL (1.0-4.8) Monocytes # (Auto) 0.6x10^3/uL (0.0-1.1) Eosinophils # (Auto) 0.0x10^3/uL (0.0-0.7) Basophils # (Auto) 0.0x10^3/uL (0.0-0.2) Sodium Level 143mmol/L (136-145) Potassium Level 5.0mmol/L (3.5-5.1) Chloride Level 103mmol/L (98-107) Carbon Dioxide Level 34mmol/L (21-32) Anion Gap 6 (6-14) Blood Urea Nitrogen 42mg/dL (7-20) Creatinine 1.4mg/dL (0.6-1.0) Estimated GFR (Cockcroft-Gault) 36.5 Glucose Level 121mg/dL (70-99) Calcium Level 8.2mg/dL (8.5-10.1) Magnesium Level 2.3mg/dL (1.8-2.4) Medications Active Scripts Medications Dose Route/Sig Days Date Category Levofloxacin 500 Mg Tablet 1 Tab PO DAILY 01/05/17 Reported Xanax (Alprazolam) 0.5 Mg Tablet 1 Tab PO TID 10/27/16 Reported Vitamin E (Vitamin E (Dl,Tocopheryl Acet)) 100 Unit Capsule 400 Unit PO 09/10/16 Reported Symbicort 160-4.5 Mcg Inhaler (Budesonide/Formoterol Fumarate) 10.2 Gm Hfa.aer.ad 2 Puff IH BID 09/10/16 Reported Risperidone 0.5 Mg Tablet 1 Tab PO BID 09/10/16 Reported Potassium Chloride 10 Meq Tablet.er 20 Meq PO DAILY 09/10/16 Reported Multivitamins (Multivitamin) 1 Each Tablet 1 Tab PO DAILY 09/10/16 Reported Remeron (Mirtazapine) 15 Mg Tablet 1 Tab PO QHS 09/10/16 Reported Lantus Solostar (Insulin Glargine,Hum.rec.anlog) 100 Unit/1 Ml Insuln.pen 40 Unit SQ QHS 09/10/16 Reported Gabapentin 300 Mg Capsule 300 Mg PO TID 09/10/16 Reported Furosemide 40 Mg Tablet 1 Tab PO DAILY 09/10/16 Reported Flonase Allergy Relief (Fluticasone Propionate) 9.9 Ml [place].susp 2 Sprays NS DAILY 09/10/16 Reported Colace (Docusate Sodium) 100 Mg Capsule 1 Cap PO BID 09/10/16 Reported Cartia Xt (Diltiazem Hcl) 240 Mg Cap.er.24h 240 Mg PO 09/10/16 Reported Aspirin 81 Mg Tab.chew 1 Tab PO DAILY 09/10/16 Reported Proair Hfa Inhaler (Albuterol Sulfate) 8.5 Gm Hfa.aer.ad 1 Puff INH PRN Q6HRS PRN 09/10/16 Reported Atorvastatin Calcium 20 Mg Tablet 1 Tab PO DAILY 09/10/16 Reported Trazodone Hcl 50 Mg Tablet 1 Tab PO QHS 09/10/16 Reported Pantoprazole Sodium 40 Mg Tablet.dr 1 Tab PO DAILY 09/10/16 Reported Sertraline Hcl 50 Mg Tablet 50 Mg PO DAILY 09/10/16 Reported Losartan Potassium 50 Mg Tablet 50 Mg PO DAILY 09/10/16 Reported Oxycodone Hcl 30 Mg Tablet 2 Tab PO TID 09/10/16 Reported Impression . 1. Acute on chronic hypercapnic respiratory failure related to ongoing congestive heart failure. 2. Abnormal chest x-ray persistent and mildly progressive bilateral interstitial infiltrates related to acute diastolic heart failure. 3. Underlying chronic obstructive pulmonary disease with mild exacerbation, triggered by congestive heart failure. 4. Suspected underlying obesity hypoventilation syndrome. 5. Chronic kidney disease stage 3. 6. Mild Malnutrition Plan . 1. PRN BIPAP 2. diurese 3. cxr reviewed improved 4. ABG noted after biapap 5. dietitian consult for malnutrition LICHA BURNS MD Jan 27, 2017 10:03
--- NOTE | 2017-01-27 10:33 | PDOC ---
PROGRESS NOTES Chief Complaint Chief Complaint Acute hypoxic hypercapneic respi failure FAll ASSESSMENT AND PLAN: 1. CHF exacerbation: diastolic. 2. COPD exacerbation: off BiPAP. on azithro for bronchitis 3. Troponin leak: most likely secondary to above. cardiology following 4. CAD: continue home meds 5. MADDY: prob cardiogenic. improving with diuresis (_2L so far). 6. CKD: suspect close to, or at, baseline currently. monitor 7. UTI : cult NGTD so far. on empiric ceftriax 8. DM: fair control with levemir and ISS. 9. HTN: well controlled on home meds 10. HLD: on statin with good lipid profile 11. Dementia: s/p eval in 10/2016 12. Depression: on mult meds. cont home regimen 13. Encephalopathy: acute, metabolic/hypoxic, ? toxic component from opiods. 14. Chronic pain syndrome: high dose narcotic. wean to lower dose 15. Debility/FTT: prob will needs SNF rehab History of Present Illness History of Present Illness Known to me, matilda admits in the past for falls and pain meds causing confusion, drowsiness Very weak, has been to SNU in the past\\ cREA 1.8 - around her baseline - on lasix for diastolic heart failure CArds notes reviewed, planned for ischemic work up as OP Lethargic Claims not eating much Constantly removing BIPAP ABG today, Co2 50s, O2 50s dw her CNR and DNI, She answers that no CPR, no shocks but she did not give me a "NO" answer on intubation PLAn: Consult palliative NPO for now SEVERINO looney DNR (partial code) lena RN nutrition consult -poor po Vitals Vitals Vital Signs Date Time Temp Pulse Resp B/P Pulse Ox O2 Delivery O2 Flow Rate FiO2 01/27/17 07:58 Nasal Cannula 4.0 01/27/17 07:49 96 01/27/17 07:48 84 152/54 01/27/17 07:00 99.6 24 99.6 Physical Exam General: Cooperative, No acute distress, Other (suspect sedated, very sleepy) Heart: Regular rate, Other (distant heart sounds unable to appreciate idue to bipap as well; S3) Lungs: Clear Abdomen: Normal bowel sounds, Soft, No tenderness Extremities: No cyanosis, No edema Skin: No breakdown Labs LABS Laboratory Tests Test 01/26/17 11:15 01/26/17 11:59 01/26/17 17:20 01/26/17 17:37 O2 Saturation 96% (92-99) 87% (92-99) Arterial Blood pH 7.31 (7.35-7.45) 7.35 (7.35-7.45) Arterial Blood pCO2 at Patient Temp 71mmHg (35-46) 56mmHg (35-46) Arterial Blood pO2 at Patient Temp 92mmHg (65-108) 54mmHg (65-108) Arterial Blood HCO3 35mmol/L (21-28) 30mmol/L (21-28) Arterial Blood Base Excess 6mmol/L (-3-3) 3mmol/L (-3-3) Glucose (Fingerstick) 188mg/dL (70-99) 222mg/dL (70-99) FiO2 30 Test 01/26/17 21:48 01/27/17 05:50 01/27/17 07:29 Glucose (Fingerstick) 185mg/dL (70-99) 105mg/dL (70-99) White Blood Count 5.0x10^3/uL (4.0-11.0) Red Blood Count 3.46x10^6/uL (3.50-5.40) Hemoglobin 10.5g/dL (12.0-15.5) Hematocrit 33.3% (36.0-47.0) Mean Corpuscular Volume 96fL (79-100) Mean Corpuscular Hemoglobin 30pg (25-35) Mean Corpuscular Hemoglobin Concent 32g/dL (31-37) Red Cell Distribution Width 17.7% (11.5-14.5) Platelet Count 128x10^3/uL (140-400) Neutrophils (%) (Auto) 66% (31-73) Lymphocytes (%) (Auto) 21% (24-48) Monocytes (%) (Auto) 13% (0-9) Eosinophils (%) (Auto) 1% (0-3) Basophils (%) (Auto) 0% (0-3) Neutrophils # (Auto) 3.3x10^3uL (1.8-7.7) Lymphocytes # (Auto) 1.0x10^3/uL (1.0-4.8) Monocytes # (Auto) 0.6x10^3/uL (0.0-1.1) Eosinophils # (Auto) 0.0x10^3/uL (0.0-0.7) Basophils # (Auto) 0.0x10^3/uL (0.0-0.2) Sodium Level 143mmol/L (136-145) Potassium Level 5.0mmol/L (3.5-5.1) Chloride Level 103mmol/L (98-107) Carbon Dioxide Level 34mmol/L (21-32) Anion Gap 6 (6-14) Blood Urea Nitrogen 42mg/dL (7-20) Creatinine 1.4mg/dL (0.6-1.0) Estimated GFR (Cockcroft-Gault) 36.5 Glucose Level 121mg/dL (70-99) Calcium Level 8.2mg/dL (8.5-10.1) Magnesium Level 2.3mg/dL (1.8-2.4) Review of Systems Review of Systems lethargic Assessment and Plan Assessmemt and Plan Problems Medical Problems: (1) Altered mental status Status: Acute (2) CHF (congestive heart failure) Status: Acute (3) CHF exacerbation Status: Acute (4) Encephalopathy acute Status: Acute (5) Hypoxia Status: Acute (6) Urinary tract infection Status: Acute Problems: Comment Review of Relevant I have reviewed the following items juan (where applicable) has been applied. Labs Laboratory Tests Test 01/25/17 11:56 01/25/17 17:00 01/25/17 21:40 01/26/17 04:20 Glucose (Fingerstick) 185mg/dL (70-99) 184mg/dL (70-99) 160mg/dL (70-99) White Blood Count 5.4x10^3/uL (4.0-11.0) Red Blood Count 3.54x10^6/uL (3.50-5.40) Hemoglobin 10.8g/dL (12.0-15.5) Hematocrit 33.9% (36.0-47.0) Mean Corpuscular Volume 96fL (79-100) Mean Corpuscular Hemoglobin 30pg (25-35) Mean Corpuscular Hemoglobin Concent 32g/dL (31-37) Red Cell Distribution Width 18.1% (11.5-14.5) Platelet Count 138x10^3/uL (140-400) Neutrophils (%) (Auto) 61% (31-73) Lymphocytes (%) (Auto) 22% (24-48) Monocytes (%) (Auto) 16% (0-9) Eosinophils (%) (Auto) 1% (0-3) Basophils (%) (Auto) 1% (0-3) Neutrophils # (Auto) 3.3x10^3uL (1.8-7.7) Lymphocytes # (Auto) 1.2x10^3/uL (1.0-4.8) Monocytes # (Auto) 0.8x10^3/uL (0.0-1.1) Eosinophils # (Auto) 0.0x10^3/uL (0.0-0.7) Basophils # (Auto) 0.0x10^3/uL (0.0-0.2) Sodium Level 143mmol/L (136-145) Potassium Level 5.2mmol/L (3.5-5.1) Chloride Level 104mmol/L (98-107) Carbon Dioxide Level 34mmol/L (21-32) Anion Gap 5 (6-14) Blood Urea Nitrogen 45mg/dL (7-20) Creatinine 1.8mg/dL (0.6-1.0) Estimated GFR (Cockcroft-Gault) 27.3 Glucose Level 142mg/dL (70-99) Calcium Level 8.2mg/dL (8.5-10.1) Test 01/26/17 07:26 01/26/17 11:15 01/26/17 11:59 01/26/17 17:20 Glucose (Fingerstick) 135mg/dL (70-99) 188mg/dL (70-99) O2 Saturation 96% (92-99) 87% (92-99) Arterial Blood pH 7.31 (7.35-7.45) 7.35 (7.35-7.45) Arterial Blood pCO2 at Patient Temp 71mmHg (35-46) 56mmHg (35-46) Arterial Blood pO2 at Patient Temp 92mmHg (65-108) 54mmHg (65-108) Arterial Blood HCO3 35mmol/L (21-28) 30mmol/L (21-28) Arterial Blood Base Excess 6mmol/L (-3-3) 3mmol/L (-3-3) FiO2 30 Test 01/26/17 17:37 01/26/17 21:48 01/27/17 05:50 01/27/17 07:29 Glucose (Fingerstick) 222mg/dL (70-99) 185mg/dL (70-99) 105mg/dL (70-99) White Blood Count 5.0x10^3/uL (4.0-11.0) Red Blood Count 3.46x10^6/uL (3.50-5.40) Hemoglobin 10.5g/dL (12.0-15.5) Hematocrit 33.3% (36.0-47.0) Mean Corpuscular Volume 96fL (79-100) Mean Corpuscular Hemoglobin 30pg (25-35) Mean Corpuscular Hemoglobin Concent 32g/dL (31-37) Red Cell Distribution Width 17.7% (11.5-14.5) Platelet Count 128x10^3/uL (140-400) Neutrophils (%) (Auto) 66% (31-73) Lymphocytes (%) (Auto) 21% (24-48) Monocytes (%) (Auto) 13% (0-9) Eosinophils (%) (Auto) 1% (0-3) Basophils (%) (Auto) 0% (0-3) Neutrophils # (Auto) 3.3x10^3uL (1.8-7.7) Lymphocytes # (Auto) 1.0x10^3/uL (1.0-4.8) Monocytes # (Auto) 0.6x10^3/uL (0.0-1.1) Eosinophils # (Auto) 0.0x10^3/uL (0.0-0.7) Basophils # (Auto) 0.0x10^3/uL (0.0-0.2) Sodium Level 143mmol/L (136-145) Potassium Level 5.0mmol/L (3.5-5.1) Chloride Level 103mmol/L (98-107) Carbon Dioxide Level 34mmol/L (21-32) Anion Gap 6 (6-14) Blood Urea Nitrogen 42mg/dL (7-20) Creatinine 1.4mg/dL (0.6-1.0) Estimated GFR (Cockcroft-Gault) 36.5 Glucose Level 121mg/dL (70-99) Calcium Level 8.2mg/dL (8.5-10.1) Magnesium Level 2.3mg/dL (1.8-2.4) Laboratory Tests Test 01/26/17 11:15 01/26/17 11:59 01/26/17 17:20 01/26/17 17:37 O2 Saturation 96% (92-99) 87% (92-99) Arterial Blood pH 7.31 (7.35-7.45) 7.35 (7.35-7.45) Arterial Blood pCO2 at Patient Temp 71mmHg (35-46) 56mmHg (35-46) Arterial Blood pO2 at Patient Temp 92mmHg (65-108) 54mmHg (65-108) Arterial Blood HCO3 35mmol/L (21-28) 30mmol/L (21-28) Arterial Blood Base Excess 6mmol/L (-3-3) 3mmol/L (-3-3) Glucose (Fingerstick) 188mg/dL (70-99) 222mg/dL (70-99) FiO2 30 Test 01/26/17 21:48 01/27/17 05:50 01/27/17 07:29 Glucose (Fingerstick) 185mg/dL (70-99) 105mg/dL (70-99) White Blood Count 5.0x10^3/uL (4.0-11.0) Red Blood Count 3.46x10^6/uL (3.50-5.40) Hemoglobin 10.5g/dL (12.0-15.5) Hematocrit 33.3% (36.0-47.0) Mean Corpuscular Volume 96fL (79-100) Mean Corpuscular Hemoglobin 30pg (25-35) Mean Corpuscular Hemoglobin Concent 32g/dL (31-37) Red Cell Distribution Width 17.7% (11.5-14.5) Platelet Count 128x10^3/uL (140-400) Neutrophils (%) (Auto) 66% (31-73) Lymphocytes (%) (Auto) 21% (24-48) Monocytes (%) (Auto) 13% (0-9) Eosinophils (%) (Auto) 1% (0-3) Basophils (%) (Auto) 0% (0-3) Neutrophils # (Auto) 3.3x10^3uL (1.8-7.7) Lymphocytes # (Auto) 1.0x10^3/uL (1.0-4.8) Monocytes # (Auto) 0.6x10^3/uL (0.0-1.1) Eosinophils # (Auto) 0.0x10^3/uL (0.0-0.7) Basophils # (Auto) 0.0x10^3/uL (0.0-0.2) Sodium Level 143mmol/L (136-145) Potassium Level 5.0mmol/L (3.5-5.1) Chloride Level 103mmol/L (98-107) Carbon Dioxide Level 34mmol/L (21-32) Anion Gap 6 (6-14) Blood Urea Nitrogen 42mg/dL (7-20) Creatinine 1.4mg/dL (0.6-1.0) Estimated GFR (Cockcroft-Gault) 36.5 Glucose Level 121mg/dL (70-99) Calcium Level 8.2mg/dL (8.5-10.1) Magnesium Level 2.3mg/dL (1.8-2.4) Microbiology 01/23/17 Urine Culture - Final, Complete 01/23/17 Urine Culture Result 1 (DEJA) - Final, Complete Medications Current Medications Sodium Chloride (Iv Sodium Chloride 0.9% 1000ml Bag) 1,000 ml @ 100 mls/hr 1X ONCE IV Last administered on 01/23/17 15:32; Start 01/23/17 at 15:15; Stop at 01:14; Status DC Furosemide 40 mg 40 mg 1X ONCE IVP Last administered on 01/23/17 19:10; Start 01/23/17 at 17:45; Stop 01/23/17 at 17:46; Status DC Ceftriaxone Sodium 1 gm/ Sodium Chloride 100 ml @ 200 mls/hr Q24H IV Last administered on 01/26/17 18:32; Start 01/24/17 at 18:00 Azithromycin 500 mg/Sodium Chloride 250 ml @ 250 mls/hr Q24H IV Last administered on 01/25/17 18:04; Start 01/24/17 at 18:00; Stop 01/26/17 at 17:59 ; Status DC Azithromycin 250 ml @ 250 mls/hr 1X ONCE IV Last administered on 01/23/17 21 :39; Start 01/23/17 at 18:00; Stop 01/23/17 at 18:59; Status DC Ceftriaxone Sodium (Rocephin 1gm Ivpb For Omni) 50 ml @ 100 mls/hr 1X ONCE IV Last administered on 01/23/17 19:03; Start 01/23/17 at 18:00; Stop 01/23/17 at 18:29; Status DC Lorazepam (Ativan) 0.5 mg 1X ONCE IV Last administered on 01/23/17 18:42; Start 01/23/17 at 18:45; Stop 01/23/17 at 18:46; Status DC Aspirin (Ecotrin) 81 mg DAILYWBKFT PO Last administered on 01/27/17 07:49; Start 01/24/17 at 08:00 Alprazolam (Xanax) 0.5 mg TID PO Last administered on 01/25/17 08:09; Start at 21:00; Stop 01/25/17 at 11:14; Status DC Aspirin (Children'S Aspirin) 81 mg DAILY08 PO Last administered on 01/25/17 08 :07; Start 01/24/17 at 08:00; Stop 01/26/17 at 08:05; Status DC Atorvastatin Calcium (Lipitor) 20 mg QHS PO Last administered on 01/25/17 20: 59; Start 01/23/17 at 21:00 Diltiazem HCl (Cardizem 24hr Cd) 240 mg DAILY PO Last administered on 07:48; Start 01/24/17 at 09:00 Docusate Sodium (Colace) 100 mg BID PO Last administered on 01/27/17 07:46; Start 01/23/17 at 21:00 Furosemide (Lasix) 40 mg DAILY PO Last administered on 01/27/17 07:49; Start 01/24/17 at 09:00 Gabapentin (Neurontin) 300 mg TID PO Last administered on 01/27/17 07:49; Start 01/23/17 at 21:00 Losartan Potassium (Cozaar) 50 mg DAILY PO Last administered on 01/27/17 07:48 ; Start 01/24/17 at 09:00 Mirtazapine (Remeron) 15 mg QHS PO Last administered on 01/25/17 21:00; Start 01/23/17 at 21:00 Pantoprazole Sodium (Protonix) 40 mg DAILY07 PO Last administered on 01/27/17 05:54; Start 01/24/17 at 07:00 Sertraline HCl (Zoloft) 50 mg DAILY PO Last administered on 01/27/17 07:49; Start 01/24/17 at 09:00 Trazodone HCl (Desyrel) 50 mg QHS PO ; Start 01/23/17 at 21:00 Albuterol Sulfate (Ventolin Neb Soln) 2.5 mg PRN Q6HRS PRN NEB SOA; Start 01/23 at 20:30 Budesonide (Pulmicort) 0.5 mg RTBID NEB Last administered on 01/27/17 07:29; Start 01/24/17 at 08:00 Fluticasone Propionate (Flonase) 2 spray DAILY NS Last administered on 07:50; Start 01/24/17 at 09:00 Multivitamins/ Calcium (Thera M Plus) 1 tab DAILY PO Last administered on 07:43; Start 01/24/17 at 09:00 Potassium Chloride (Klor-Con) 20 meq DAILYWBKFT PO Last administered on 07:47; Start 01/24/17 at 08:00 Risperidone (Risperdal) 0.5 mg BID PO Last administered on 01/27/17 07:47; Start 01/23/17 at 21:00 Albuterol Sulfate (Ventolin Neb Soln) 2.5 mg RTQID NEB Last administered on 07:29; Start 01/24/17 at 08:00 Oxycodone HCl (Roxicodone) 30 mg TID PO Last administered on 01/25/17 08:08; Start 01/24/17 at 16:07; Stop 01/25/17 at 11:14; Status DC Insulin Detemir (Levemir) 30 units QHS SQ ; Start 01/25/17 at 21:00; Stop at 21:00; Status DC Insulin Detemir (Levemir) 30 units QHS SQ Last administered on 01/26/17 21:59 ; Start 01/24/17 at 22:00 Alprazolam (Xanax) 0.5 mg PRN TID PRN PO ANXIETY; Start 01/25/17 at 11:15 Oxycodone HCl (Roxicodone) 10 mg TID PO Last administered on 01/27/17 07:49; Start 01/25/17 at 14:00 Heparin Sodium (Porcine) 5,000 unit Q8HRS SQ Last administered on 01/27/17 06: 03; Start 01/25/17 at 12:00 Furosemide (Lasix) 40 mg 1X ONCE IVP Last administered on 01/26/17 15:18; Start 01/26/17 at 14:45; Stop 01/26/17 at 14:46; Status DC Active Scripts Active Reported Levofloxacin 500 Mg Tablet 1 Tab PO DAILY Xanax (Alprazolam) 0.5 Mg Tablet 1 Tab PO TID Vitamin E (Vitamin E (Dl,Tocopheryl Acet)) 100 Unit Capsule 400 Unit PO Symbicort 160-4.5 Mcg Inhaler (Budesonide/Formoterol Fumarate) 10.2 Gm Hfa.aer.ad 2 Puff IH BID Risperidone 0.5 Mg Tablet 1 Tab PO BID Potassium Chloride 10 Meq Tablet.er 20 Meq PO DAILY Multivitamins (Multivitamin) 1 Each Tablet 1 Tab PO DAILY Remeron (Mirtazapine) 15 Mg Tablet 1 Tab PO QHS Lantus Solostar (Insulin Glargine,Hum.rec.anlog) 100 Unit/1 Ml Insuln.pen 40 Unit SQ QHS Gabapentin 300 Mg Capsule 300 Mg PO TID Furosemide 40 Mg Tablet 1 Tab PO DAILY Flonase Allergy Relief (Fluticasone Propionate) 9.9 Ml [place].susp 2 Sprays NS DAILY Colace (Docusate Sodium) 100 Mg Capsule 1 Cap PO BID Cartia Xt (Diltiazem Hcl) 240 Mg Cap.er.24h 240 Mg PO Aspirin 81 Mg Tab.chew 1 Tab PO DAILY Proair Hfa Inhaler (Albuterol Sulfate) 8.5 Gm Hfa.aer.ad 1 Puff INH PRN Q6HRS PRN Atorvastatin Calcium 20 Mg Tablet 1 Tab PO DAILY Trazodone Hcl 50 Mg Tablet 1 Tab PO QHS Pantoprazole Sodium 40 Mg Tablet.dr 1 Tab PO DAILY Sertraline Hcl 50 Mg Tablet 50 Mg PO DAILY Losartan Potassium 50 Mg Tablet 50 Mg PO DAILY Oxycodone Hcl 30 Mg Tablet 2 Tab PO TID Vitals/I & O Vital Sign - Last 24 Hours 01/26/17 01/26/17 01/26/17 01/26/17 11:12 11:22 12:42 14:30 Temp 97.4 97.4 Pulse 75 Resp 18 B/P 126/51 Pulse Ox 97 90 90 O2 Delivery BiPAP/CPAP Nasal Cannula BiPAP/CPAP Nasal Cannula O2 Flow Rate 4.0 4.0 4.0 01/26/17 01/26/17 01/26/17 01/26/17 15:06 15:27 15:40 19:00 Temp 98.5 99.5 98.5 99.5 Pulse 66 73 Resp 18 18 B/P 136/52 157/42 Pulse Ox 98 9 9 98 O2 Delivery BiPAP/CPAP BiPAP/CPAP Nasal Cannula Room Air O2 Flow Rate 4.0 4.0 01/26/17 01/26/17 01/26/17 01/27/17 19:33 20:05 23:00 03:00 Temp 97.9 99.5 97.9 99.5 Pulse 78 78 Resp 16 20 B/P 140/148 140/42 Pulse Ox 91 96 97 O2 Delivery Nasal Cannula Nasal Cannula Room Air O2 Flow Rate 4.0 4.0 01/27/17 01/27/17 01/27/17 01/27/17 04:33 07:00 07:29 07:48 Temp 99.5 99.6 99.5 99.6 Pulse 80 84 84 Resp 20 24 B/P 140/42 152/54 152/54 Pulse Ox 96 96 96 O2 Delivery Nasal Cannula Nasal Cannula O2 Flow Rate 4.0 4.0 01/27/17 01/27/17 01/27/17 07:48 07:49 07:58 Pulse 84 B/P 152/54 Pulse Ox 96 O2 Delivery Nasal Cannula Nasal Cannula O2 Flow Rate 4.0 4.0 Intake and Output 01/26/17 01/26/17 01/27/17 15:00 23:00 07:00 Intake Total 200 ml 720 ml 0 ml Output Total 1575 ml 700 ml Balance 200 ml -855 ml -700 ml TANNA HUERTAS MD Jan 27, 2017 10:32
--- NOTE | 2017-01-27 10:38 | RAD ---
Exam performed: One view chest. History: Shortness of breath and cough, history of CHF. Date of service: 01/27/17. Comparison: 01/26/17. Single AP upright portable view chest findings: Heart size is mildly enlarged. The pulmonary vascularity is congested. Improving perihilar infiltrates. Ongoing prominent interstitial markings are redemonstrated, likely chronic. There is mild blunting of the left costophrenic angle with minimal blunting of the right consistent with small left and trace right pleural effusion. Impression: Cardiomegaly with improving perihilar opacities likely improvement in CHF or infiltrates. Small left and trace right pleural effusion.
[2017-01-27] MEDS ORDERED: FUROSEMIDE 40 MG/4 ML VIAL IVP ONE (12:00)
--- NOTE | 2017-01-27 12:39 | PDOC2 ---
PALLIATIVE CARE Palliative Care Note Palliative Care Consult requested by Dr. Alvarado to address goals of care Diagnosis: CHF-diastolic failure; UTI; dementia History of COPD, DM Patient awakens with verbal stimulation. Unable to carry conversation or answer questions Attempted to reach daughter Marialuisa. Message to return call. Attempted to reach Daughter. Spoke with granddaughter Toyin [phone]) Requested family meeting with her Marialuisa--her mother regarding discharge plan for Tai--grandfather and with Ainsley grandmother. Toyin will give message to her mother. MARÍA ORTIZ Jan 27, 2017 12:39
[2017-01-27] MEDS: CEFTRIAXONE SODIUM 1 GM in IV NORMAL SALINE 100ML 100 ML IV SCH (19:10)
[2017-01-27] MEDS: MIRTAZAPINE 15 MG TABLET PO SCH (20:56)
[2017-01-27] MEDS: traZODone 50 MG TABLET. PO SCH (20:56)
[2017-01-27] MEDS: ATORVASTATIN CALCIUM 20 MG TABLET PO SCH (20:57)
[2017-01-27] MEDS: INSULIN DETEMIR 300 UNITS/3 ML INSULN.PEN. SQ SCH (21:08)
[2017-01-28 02:55] VITALS: BP 150/73
[2017-01-28] MEDS: ALPRAZOLAM 0.5 MG TABLET PO PRN (03:22)
[2017-01-28 04:33] LABS: BASO # 0.1 x10^3/uL (0.0-0.2); BASO % 1 % (0-3); EOS % 1 % (0-3); HEMATOCRIT 40.5 % (36.0-47.0); HEMOGLOBIN 12.6 g/dL (12.0-15.5); LYMPH # 0.8 x10^3/uL (1.0-4.8); LYMPH % 10 % (24-48); MEAN CORPUSCULAR HEMOGLOBIN 30 pg (25-35); MEAN CORPUSCULAR HGB CONC 31 g/dL (31-37); MEAN CORPUSCULAR VOLUME 97 fL (79-100); MONO % 7 % (0-9); NEUT % 82 % (31-73); PLATELET COUNT 128 x10^3/uL (140-400); RED BLOOD COUNT 4.18 x10^6/uL (3.50-5.40); RED CELL DISTRIBUTION WIDTH 17.6 % (11.5-14.5)
[2017-01-28 04:59] LABS: CALCIUM 8.9 mg/dL (8.5-10.1); CREATININE 1.3 mg/dL (0.6-1.0); GFR 39.7; POTASSIUM 4.7 mmol/L (3.5-5.1)
[2017-01-28] MEDS: HEPARIN PF for SUB-Q USE 5,000 UNIT/0.5 ML VIAL. SQ SCH ×3 (06:03→21:58)
[2017-01-28 07:15] VITALS: BP 187/80
[2017-01-28] MEDS: ALBUTEROL SULFATE 2.5 MG/3 ML NEBU. NEB SCH ×4 (07:21→19:06)
[2017-01-28] MEDS: BUDESONIDE 0.5 MG/2 ML NEBU NEB SCH ×2 (07:21→19:06)
[2017-01-28] MEDS: CEFPODOXIME PROXETIL 100 MG TABLET PO SCH ×2 (08:23→21:39)
[2017-01-28] MEDS: LOSARTAN POTASSIUM 50 MG TABLET. PO SCH (08:23)
[2017-01-28] MEDS: ASPIRIN ENTERIC COATED 81 MG TABLET.DR. PO SCH (08:24)
[2017-01-28] MEDS: DILTIAZEM HCL 240 MG CAP.ER.24H PO SCH (08:24)
[2017-01-28] MEDS: FUROSEMIDE 40 MG TABLET PO SCH (08:24)
[2017-01-28] MEDS: GABAPENTIN 300 MG CAPSULE. PO SCH ×3 (08:24→21:40)
[2017-01-28] MEDS: risperiDONE 1 MG TABLET. PO SCH ×2 (08:24→21:40)
[2017-01-28] MEDS: PANTOPRAZOLE 40 MG TABLET. PO SCH (08:24)
[2017-01-28] MEDS: MULTIVITAMIN with MINERAL TABLET. PO SCH (08:25)
[2017-01-28] MEDS: FLUTICASONE 50MCG/NASAL SPRAY 16GM BOTTLE. NS SCH (08:25)
[2017-01-28] MEDS: POTASSIUM CHLORIDE 20 MEQ TABLET.ER. PO SCH (08:25)
[2017-01-28] MEDS: DOCUSATE SODIUM 100 MG CAPSULE PO SCH ×2 (08:25→21:40)
[2017-01-28] MEDS: SERTRALINE 50 MG TABLET. PO SCH (08:25)
[2017-01-28] MEDS: OXYCODONE IR 5 MG TABLET. PO SCH ×3 (08:28→21:44)
[2017-01-28] MEDS ORDERED: LABETALOL 20 MG/4 ML DISP.SYRIN. IVP PRN (08:45)
--- NOTE | 2017-01-28 10:31 | PDOC ---
PROGRESS NOTES Chief Complaint Chief Complaint Acute hypoxic hypercapneic respi failure FAll ASSESSMENT AND PLAN: 1. CHF exacerbation: diastolic. 2. COPD exacerbation: off BiPAP. on azithro for bronchitis 3. Troponin leak: most likely secondary to above. cardiology following 4. CAD: continue home meds 5. MADDY: prob cardiogenic. improving with diuresis (_2L so far). 6. CKD: suspect close to, or at, baseline currently. monitor 7. UTI : cult NGTD so far. on empiric ceftriax 8. DM: fair control with levemir and ISS. 9. HTN: well controlled on home meds 10. HLD: on statin with good lipid profile 11. Dementia: s/p eval in 10/2016 12. Depression: on mult meds. cont home regimen 13. Encephalopathy: acute, metabolic/hypoxic, ? toxic component from opiods. 14. Chronic pain syndrome: high dose narcotic. wean to lower dose 15. Debility/FTT: prob will needs SNF rehab History of Present Illness History of Present Illness Known to me, matilda admits in the past for falls and pain meds causing confusion, drowsiness Very weak, has been to SNU in the past\\ cREA 1.8 - around her baseline - on lasix for diastolic heart failure CArds notes reviewed, planned for ischemic work up as OP Lethargic Claims not eating much Constantly removing BIPAP ABG today, Co2 50s, O2 50s dw her CNR and DNI, She answers that no CPR, no shocks but she did not give me a "NO" answer on intubation STONE RUBBER evaluated - downgraded to dysphagia BS running high BP high PLAn: palliative on - meet today with dtr Dysphagia diet PLanned for gorge hassan- accepted BIPAP prn per pulmo DNR (partial code) Inc levemir to 40 qhs Add SSI Start novolog 10 TID nutrition consult -poor po Add labetolol prn Start clonidine PO Vitals Vitals Vital Signs Date Time Temp Pulse Resp B/P Pulse Ox O2 Delivery O2 Flow Rate FiO2 01/28/17 08:28 97 Nasal Cannula 4.0 01/28/17 08:24 105 187/80 01/28/17 07:15 98.4 20 98.4 Physical Exam General: Cooperative, No acute distress, Other (suspect sedated, very sleepy) Heart: Regular rate, Other (distant heart sounds unable to appreciate idue to bipap as well; S3) Lungs: Crackles Abdomen: Normal bowel sounds, Soft, No tenderness Extremities: No cyanosis, No edema Skin: No breakdown Labs LABS Laboratory Tests Test 01/27/17 11:33 01/27/17 17:31 01/27/17 21:00 01/28/17 03:35 Glucose (Fingerstick) 221mg/dL (70-99) 246mg/dL (70-99) 177mg/dL (70-99) White Blood Count 8.0x10^3/uL (4.0-11.0) Red Blood Count 4.18x10^6/uL (3.50-5.40) Hemoglobin 12.6g/dL (12.0-15.5) Hematocrit 40.5% (36.0-47.0) Mean Corpuscular Volume 97fL (79-100) Mean Corpuscular Hemoglobin 30pg (25-35) Mean Corpuscular Hemoglobin Concent 31g/dL (31-37) Red Cell Distribution Width 17.6% (11.5-14.5) Platelet Count 128x10^3/uL (140-400) Neutrophils (%) (Auto) 82% (31-73) Lymphocytes (%) (Auto) 10% (24-48) Monocytes (%) (Auto) 7% (0-9) Eosinophils (%) (Auto) 1% (0-3) Basophils (%) (Auto) 1% (0-3) Neutrophils # (Auto) 6.5x10^3uL (1.8-7.7) Lymphocytes # (Auto) 0.8x10^3/uL (1.0-4.8) Monocytes # (Auto) 0.5x10^3/uL (0.0-1.1) Eosinophils # (Auto) 0.1x10^3/uL (0.0-0.7) Basophils # (Auto) 0.1x10^3/uL (0.0-0.2) Sodium Level 141mmol/L (136-145) Potassium Level 4.7mmol/L (3.5-5.1) Chloride Level 101mmol/L (98-107) Carbon Dioxide Level 33mmol/L (21-32) Anion Gap 7 (6-14) Blood Urea Nitrogen 40mg/dL (7-20) Creatinine 1.3mg/dL (0.6-1.0) Estimated GFR (Cockcroft-Gault) 39.7 Glucose Level 216mg/dL (70-99) Calcium Level 8.9mg/dL (8.5-10.1) Test 01/28/17 07:15 Glucose (Fingerstick) 194mg/dL (70-99) Review of Systems Review of Systems lethargic Assessment and Plan Assessmemt and Plan Problems Medical Problems: (1) Altered mental status Status: Acute (2) CHF (congestive heart failure) Status: Acute (3) CHF exacerbation Status: Acute (4) Encephalopathy acute Status: Acute (5) Hypoxia Status: Acute (6) Urinary tract infection Status: Acute Problems: Comment Review of Relevant I have reviewed the following items juan (where applicable) has been applied. Labs Laboratory Tests Test 01/26/17 11:15 01/26/17 11:59 01/26/17 17:20 01/26/17 17:37 O2 Saturation 96% (92-99) 87% (92-99) Arterial Blood pH 7.31 (7.35-7.45) 7.35 (7.35-7.45) Arterial Blood pCO2 at Patient Temp 71mmHg (35-46) 56mmHg (35-46) Arterial Blood pO2 at Patient Temp 92mmHg (65-108) 54mmHg (65-108) Arterial Blood HCO3 35mmol/L (21-28) 30mmol/L (21-28) Arterial Blood Base Excess 6mmol/L (-3-3) 3mmol/L (-3-3) Glucose (Fingerstick) 188mg/dL (70-99) 222mg/dL (70-99) FiO2 30 Test 01/26/17 21:48 01/27/17 05:50 01/27/17 07:29 01/27/17 11:33 Glucose (Fingerstick) 185mg/dL (70-99) 105mg/dL (70-99) 221mg/dL (70-99) White Blood Count 5.0x10^3/uL (4.0-11.0) Red Blood Count 3.46x10^6/uL (3.50-5.40) Hemoglobin 10.5g/dL (12.0-15.5) Hematocrit 33.3% (36.0-47.0) Mean Corpuscular Volume 96fL (79-100) Mean Corpuscular Hemoglobin 30pg (25-35) Mean Corpuscular Hemoglobin Concent 32g/dL (31-37) Red Cell Distribution Width 17.7% (11.5-14.5) Platelet Count 128x10^3/uL (140-400) Neutrophils (%) (Auto) 66% (31-73) Lymphocytes (%) (Auto) 21% (24-48) Monocytes (%) (Auto) 13% (0-9) Eosinophils (%) (Auto) 1% (0-3) Basophils (%) (Auto) 0% (0-3) Neutrophils # (Auto) 3.3x10^3uL (1.8-7.7) Lymphocytes # (Auto) 1.0x10^3/uL (1.0-4.8) Monocytes # (Auto) 0.6x10^3/uL (0.0-1.1) Eosinophils # (Auto) 0.0x10^3/uL (0.0-0.7) Basophils # (Auto) 0.0x10^3/uL (0.0-0.2) Sodium Level 143mmol/L (136-145) Potassium Level 5.0mmol/L (3.5-5.1) Chloride Level 103mmol/L (98-107) Carbon Dioxide Level 34mmol/L (21-32) Anion Gap 6 (6-14) Blood Urea Nitrogen 42mg/dL (7-20) Creatinine 1.4mg/dL (0.6-1.0) Estimated GFR (Cockcroft-Gault) 36.5 Glucose Level 121mg/dL (70-99) Calcium Level 8.2mg/dL (8.5-10.1) Magnesium Level 2.3mg/dL (1.8-2.4) Test 01/27/17 17:31 01/27/17 21:00 01/28/17 03:35 01/28/17 07:15 Glucose (Fingerstick) 246mg/dL (70-99) 177mg/dL (70-99) 194mg/dL (70-99) White Blood Count 8.0x10^3/uL (4.0-11.0) Red Blood Count 4.18x10^6/uL (3.50-5.40) Hemoglobin 12.6g/dL (12.0-15.5) Hematocrit 40.5% (36.0-47.0) Mean Corpuscular Volume 97fL (79-100) Mean Corpuscular Hemoglobin 30pg (25-35) Mean Corpuscular Hemoglobin Concent 31g/dL (31-37) Red Cell Distribution Width 17.6% (11.5-14.5) Platelet Count 128x10^3/uL (140-400) Neutrophils (%) (Auto) 82% (31-73) Lymphocytes (%) (Auto) 10% (24-48) Monocytes (%) (Auto) 7% (0-9) Eosinophils (%) (Auto) 1% (0-3) Basophils (%) (Auto) 1% (0-3) Neutrophils # (Auto) 6.5x10^3uL (1.8-7.7) Lymphocytes # (Auto) 0.8x10^3/uL (1.0-4.8) Monocytes # (Auto) 0.5x10^3/uL (0.0-1.1) Eosinophils # (Auto) 0.1x10^3/uL (0.0-0.7) Basophils # (Auto) 0.1x10^3/uL (0.0-0.2) Sodium Level 141mmol/L (136-145) Potassium Level 4.7mmol/L (3.5-5.1) Chloride Level 101mmol/L (98-107) Carbon Dioxide Level 33mmol/L (21-32) Anion Gap 7 (6-14) Blood Urea Nitrogen 40mg/dL (7-20) Creatinine 1.3mg/dL (0.6-1.0) Estimated GFR (Cockcroft-Gault) 39.7 Glucose Level 216mg/dL (70-99) Calcium Level 8.9mg/dL (8.5-10.1) Laboratory Tests Test 01/27/17 11:33 01/27/17 17:31 01/27/17 21:00 01/28/17 03:35 Glucose (Fingerstick) 221mg/dL (70-99) 246mg/dL (70-99) 177mg/dL (70-99) White Blood Count 8.0x10^3/uL (4.0-11.0) Red Blood Count 4.18x10^6/uL (3.50-5.40) Hemoglobin 12.6g/dL (12.0-15.5) Hematocrit 40.5% (36.0-47.0) Mean Corpuscular Volume 97fL (79-100) Mean Corpuscular Hemoglobin 30pg (25-35) Mean Corpuscular Hemoglobin Concent 31g/dL (31-37) Red Cell Distribution Width 17.6% (11.5-14.5) Platelet Count 128x10^3/uL (140-400) Neutrophils (%) (Auto) 82% (31-73) Lymphocytes (%) (Auto) 10% (24-48) Monocytes (%) (Auto) 7% (0-9) Eosinophils (%) (Auto) 1% (0-3) Basophils (%) (Auto) 1% (0-3) Neutrophils # (Auto) 6.5x10^3uL (1.8-7.7) Lymphocytes # (Auto) 0.8x10^3/uL (1.0-4.8) Monocytes # (Auto) 0.5x10^3/uL (0.0-1.1) Eosinophils # (Auto) 0.1x10^3/uL (0.0-0.7) Basophils # (Auto) 0.1x10^3/uL (0.0-0.2) Sodium Level 141mmol/L (136-145) Potassium Level 4.7mmol/L (3.5-5.1) Chloride Level 101mmol/L (98-107) Carbon Dioxide Level 33mmol/L (21-32) Anion Gap 7 (6-14) Blood Urea Nitrogen 40mg/dL (7-20) Creatinine 1.3mg/dL (0.6-1.0) Estimated GFR (Cockcroft-Gault) 39.7 Glucose Level 216mg/dL (70-99) Calcium Level 8.9mg/dL (8.5-10.1) Test 01/28/17 07:15 Glucose (Fingerstick) 194mg/dL (70-99) Microbiology 01/23/17 Urine Culture - Final, Complete 01/23/17 Urine Culture Result 1 (DEJA) - Final, Complete Medications Current Medications Sodium Chloride (Iv Sodium Chloride 0.9% 1000ml Bag) 1,000 ml @ 100 mls/hr 1X ONCE IV Last administered on 01/23/17 15:32; Start 01/23/17 at 15:15; Stop at 01:14; Status DC Furosemide 40 mg 40 mg 1X ONCE IVP Last administered on 01/23/17 19:10; Start 01/23/17 at 17:45; Stop 01/23/17 at 17:46; Status DC Ceftriaxone Sodium 1 gm/ Sodium Chloride 100 ml @ 200 mls/hr Q24H IV Last administered on 01/27/17 19:10; Start 01/24/17 at 18:00; Stop 01/27/17 at 23:00 ; Status DC Azithromycin 500 mg/Sodium Chloride 250 ml @ 250 mls/hr Q24H IV Last administered on 01/25/17 18:04; Start 01/24/17 at 18:00; Stop 01/26/17 at 17:59 ; Status DC Azithromycin 250 ml @ 250 mls/hr 1X ONCE IV Last administered on 01/23/17 21 :39; Start 01/23/17 at 18:00; Stop 01/23/17 at 18:59; Status DC Ceftriaxone Sodium (Rocephin 1gm Ivpb For Omni) 50 ml @ 100 mls/hr 1X ONCE IV Last administered on 01/23/17 19:03; Start 01/23/17 at 18:00; Stop 01/23/17 at 18:29; Status DC Lorazepam (Ativan) 0.5 mg 1X ONCE IV Last administered on 01/23/17 18:42; Start 01/23/17 at 18:45; Stop 01/23/17 at 18:46; Status DC Aspirin (Ecotrin) 81 mg DAILYWBKFT PO Last administered on 01/28/17 08:24; Start 01/24/17 at 08:00 Alprazolam (Xanax) 0.5 mg TID PO Last administered on 01/25/17 08:09; Start at 21:00; Stop 01/25/17 at 11:14; Status DC Aspirin (Children'S Aspirin) 81 mg DAILY08 PO Last administered on 01/25/17 08 :07; Start 01/24/17 at 08:00; Stop 01/26/17 at 08:05; Status DC Atorvastatin Calcium (Lipitor) 20 mg QHS PO Last administered on 01/27/17 20: 57; Start 01/23/17 at 21:00 Diltiazem HCl (Cardizem 24hr Cd) 240 mg DAILY PO Last administered on 01/28/17 08:24; Start 01/24/17 at 09:00 Docusate Sodium (Colace) 100 mg BID PO Last administered on 01/28/17 08:25; Start 01/23/17 at 21:00 Furosemide (Lasix) 40 mg DAILY PO Last administered on 01/28/17 08:24; Start at 09:00 Gabapentin (Neurontin) 300 mg TID PO Last administered on 01/28/17 08:24; Start 01/23/17 at 21:00 Losartan Potassium (Cozaar) 50 mg DAILY PO Last administered on 01/28/17 08:23 ; Start 01/24/17 at 09:00 Mirtazapine (Remeron) 15 mg QHS PO Last administered on 01/27/17 20:56; Start 01/23/17 at 21:00 Pantoprazole Sodium (Protonix) 40 mg DAILY07 PO Last administered on 01/28/17 08:24; Start 01/24/17 at 07:00 Sertraline HCl (Zoloft) 50 mg DAILY PO Last administered on 01/28/17 08:25; Start 01/24/17 at 09:00 Trazodone HCl (Desyrel) 50 mg QHS PO Last administered on 01/27/17 20:56; Start 01/23/17 at 21:00 Albuterol Sulfate (Ventolin Neb Soln) 2.5 mg PRN Q6HRS PRN NEB SOA Last administered on 01/28/17 03:50; Start 01/23/17 at 20:30 Budesonide (Pulmicort) 0.5 mg RTBID NEB Last administered on 01/28/17 07:21; Start 01/24/17 at 08:00 Fluticasone Propionate (Flonase) 2 spray DAILY NS Last administered on 08:25; Start 01/24/17 at 09:00 Multivitamins/ Calcium (Thera M Plus) 1 tab DAILY PO Last administered on 08:25; Start 01/24/17 at 09:00 Potassium Chloride (Klor-Con) 20 meq DAILYWBKFT PO Last administered on 08:25; Start 01/24/17 at 08:00 Risperidone (Risperdal) 0.5 mg BID PO Last administered on 01/28/17 08:24; Start 01/23/17 at 21:00 Albuterol Sulfate (Ventolin Neb Soln) 2.5 mg RTQID NEB Last administered on 01/28 07:21; Start 01/24/17 at 08:00 Oxycodone HCl (Roxicodone) 30 mg TID PO Last administered on 01/25/17 08:08; Start 01/24/17 at 16:07; Stop 01/25/17 at 11:14; Status DC Insulin Detemir (Levemir) 30 units QHS SQ ; Start 01/25/17 at 21:00; Stop at 21:00; Status DC Insulin Detemir (Levemir) 30 units QHS SQ Last administered on 01/27/17 21:08 ; Start 01/24/17 at 22:00; Stop 01/28/17 at 08:49; Status DC Alprazolam (Xanax) 0.5 mg PRN TID PRN PO ANXIETY Last administered on 01/28/17 03:22; Start 01/25/17 at 11:15 Oxycodone HCl (Roxicodone) 10 mg TID PO Last administered on 01/28/17 08:28; Start 01/25/17 at 14:00 Heparin Sodium (Porcine) 5,000 unit Q8HRS SQ Last administered on 01/28/17 06: 03; Start 01/25/17 at 12:00 Furosemide (Lasix) 40 mg 1X ONCE IVP Last administered on 01/26/17 15:18; Start 01/26/17 at 14:45; Stop 01/26/17 at 14:46; Status DC Furosemide (Lasix) 40 mg 1X ONCE IVP Last administered on 01/27/17t 12:57; Start 01/27/17 at 12:00; Stop 01/27/17 at 12:01; Status DC Cefpodoxime Proxetil (Vantin) 200 mg BID PO Last administered on 01/28/17 08:23 ; Start 01/28/17 at 09:00 Labetalol HCl (Normodyne) 20 mg PRN Q2HR PRN IVP HYPERTENSION, SEE COMMENTS; Start 01/28/17 at 08:45 Clonidine HCl (Catapres) 0.1 mg Q8HRS PO ; Start 01/28/17 at 09:00 Insulin Detemir (Levemir) 40 units QHS SQ ; Start 01/28/17 at 21:00 Insulin Aspart (Novolog) 0-9 UNITS TIDWMEALS SQ ; Start 01/28/17 at 12:00 Dextrose 12.5 gm PRN Q15MIN PRN IV SEE COMMENTS; Start 01/28/17 at 09:00 Insulin Aspart (Novolog) 10 units TIDAC SQ ; Start 01/28/17 at 11:30 Active Scripts Active Reported Levofloxacin 500 Mg Tablet 1 Tab PO DAILY Xanax (Alprazolam) 0.5 Mg Tablet 1 Tab PO TID Vitamin E (Vitamin E (Dl,Tocopheryl Acet)) 100 Unit Capsule 400 Unit PO Symbicort 160-4.5 Mcg Inhaler (Budesonide/Formoterol Fumarate) 10.2 Gm Hfa.aer.ad 2 Puff IH BID Risperidone 0.5 Mg Tablet 1 Tab PO BID Potassium Chloride 10 Meq Tablet.er 20 Meq PO DAILY Multivitamins (Multivitamin) 1 Each Tablet 1 Tab PO DAILY Remeron (Mirtazapine) 15 Mg Tablet 1 Tab PO QHS Lantus Solostar (Insulin Glargine,Hum.rec.anlog) 100 Unit/1 Ml Insuln.pen 40 Unit SQ QHS Gabapentin 300 Mg Capsule 300 Mg PO TID Furosemide 40 Mg Tablet 1 Tab PO DAILY Flonase Allergy Relief (Fluticasone Propionate) 9.9 Ml [place].susp 2 Sprays NS DAILY Colace (Docusate Sodium) 100 Mg Capsule 1 Cap PO BID Cartia Xt (Diltiazem Hcl) 240 Mg Cap.er.24h 240 Mg PO Aspirin 81 Mg Tab.chew 1 Tab PO DAILY Proair Hfa Inhaler (Albuterol Sulfate) 8.5 Gm Hfa.aer.ad 1 Puff INH PRN Q6HRS PRN Atorvastatin Calcium 20 Mg Tablet 1 Tab PO DAILY Trazodone Hcl 50 Mg Tablet 1 Tab PO QHS Pantoprazole Sodium 40 Mg Tablet.dr 1 Tab PO DAILY Sertraline Hcl 50 Mg Tablet 50 Mg PO DAILY Losartan Potassium 50 Mg Tablet 50 Mg PO DAILY Oxycodone Hcl 30 Mg Tablet 2 Tab PO TID Vitals/I & O Vital Sign - Last 24 Hours 01/27/17 01/27/17 01/27/17 01/27/17 11:00 11:21 14:06 15:00 Temp 98.9 99.0 98.9 99.0 Pulse 76 73 Resp 16 20 B/P 117/54 150/52 Pulse Ox 100 100 99 O2 Delivery Nasal Cannula Nasal Cannula Nasal Cannula Nasal Cannula O2 Flow Rate 4.0 4.0 4.0 4.0 01/27/17 01/27/17 01/27/17 01/27/17 15:10 15:24 19:00 19:24 Temp 97.5 97.5 Pulse 74 Resp 18 B/P 154/65 Pulse Ox 100 99 98 O2 Delivery Nasal Cannula Nasal Cannula Nasal Cannula Nasal Cannula O2 Flow Rate 4.0 4.0 4.0 4.0 01/27/17 01/27/17 01/27/17 01/28/17 19:24 20:15 23:00 02:55 Temp 97.9 99.2 97.9 99.2 Pulse 63 92 Resp 12 20 B/P 123/42 150/73 Pulse Ox 98 100 95 O2 Delivery Nasal Cannula Nasal Cannula Nasal Cannula Nasal Cannula O2 Flow Rate 4.0 4.0 4.0 4.0 01/28/17 01/28/17 01/28/17 01/28/17 03:50 07:15 07:21 08:23 Temp 98.4 98.4 Pulse 105 105 Resp 20 B/P 187/80 187/80 Pulse Ox 94 94 97 O2 Delivery Nasal Cannula Nasal Cannula Nasal Cannula O2 Flow Rate 4.0 4.0 4.0 01/28/17 01/28/17 08:24 08:28 Pulse 105 B/P 187/80 Pulse Ox 97 O2 Delivery Nasal Cannula O2 Flow Rate 4.0 Intake and Output 01/27/17 01/27/17 01/28/17 15:00 23:00 07:00 Intake Total 220 ml Output Total 550 ml 850 ml Balance -330 ml -850 ml TANNA HUERTAS MD Jan 28, 2017 10:31
[2017-01-28] MEDS: CLONIDINE HCL 0.1 MG TABLET PO SCH ×3 (10:56→21:42)
--- NOTE | 2017-01-28 10:57 | PDOC ---
YOVANNY WOLFE [employer]CH[employer]ER CLEANER 01/28/17 1057: CARDIO Progress Notes Date and Time Date of Service 01/28/2017 Time of Evaluation 1130 Subjective Subjective: No Chest Pain, No shortness of breath, No Palpitations, No Dizziness Vitals Vitals Vital Signs Date Time Temp Pulse Resp B/P Pulse Ox O2 Delivery O2 Flow Rate FiO2 01/28/17 08:28 97 Nasal Cannula 4.0 01/28/17 08:24 105 187/80 01/28/17 07:15 98.4 20 98.4 Weight Weight [ ] Input and Output Intake and Output Intake and Output 01/28/17 07:00 Intake Total 220 ml Output Total 1400 ml Balance -1180 ml Intake Oral 220 ml Output Urine Total 1400 ml # Voids 3 # Bowel Movements 3 Laboratory Labs Laboratory Tests Test 01/27/17 11:33 01/27/17 17:31 01/27/17 21:00 01/28/17 03:35 Glucose (Fingerstick) 221mg/dL (70-99) 246mg/dL (70-99) 177mg/dL (70-99) White Blood Count 8.0x10^3/uL (4.0-11.0) Red Blood Count 4.18x10^6/uL (3.50-5.40) Hemoglobin 12.6g/dL (12.0-15.5) Hematocrit 40.5% (36.0-47.0) Mean Corpuscular Volume 97fL (79-100) Mean Corpuscular Hemoglobin 30pg (25-35) Mean Corpuscular Hemoglobin Concent 31g/dL (31-37) Red Cell Distribution Width 17.6% (11.5-14.5) Platelet Count 128x10^3/uL (140-400) Neutrophils (%) (Auto) 82% (31-73) Lymphocytes (%) (Auto) 10% (24-48) Monocytes (%) (Auto) 7% (0-9) Eosinophils (%) (Auto) 1% (0-3) Basophils (%) (Auto) 1% (0-3) Neutrophils # (Auto) 6.5x10^3uL (1.8-7.7) Lymphocytes # (Auto) 0.8x10^3/uL (1.0-4.8) Monocytes # (Auto) 0.5x10^3/uL (0.0-1.1) Eosinophils # (Auto) 0.1x10^3/uL (0.0-0.7) Basophils # (Auto) 0.1x10^3/uL (0.0-0.2) Sodium Level 141mmol/L (136-145) Potassium Level 4.7mmol/L (3.5-5.1) Chloride Level 101mmol/L (98-107) Carbon Dioxide Level 33mmol/L (21-32) Anion Gap 7 (6-14) Blood Urea Nitrogen 40mg/dL (7-20) Creatinine 1.3mg/dL (0.6-1.0) Estimated GFR (Cockcroft-Gault) 39.7 Glucose Level 216mg/dL (70-99) Calcium Level 8.9mg/dL (8.5-10.1) Test 01/28/17 07:15 Glucose (Fingerstick) 194mg/dL (70-99) Microbiology Micro Microbiology 01/23/17 Urine Culture - Final, Complete 01/23/17 Urine Culture Result 1 (DEJA) - Final, Complete Physical Exam HEENT: Neck Supple W Full Motion Chest: Symmetric LUNGS: Other (diffuse crackles) Heart: S1S2, RRR (no signnificant ectopies), murmurs (2/6 systolic murmur to LLS border) Abdomen: Soft N/T Extremities: No Calf Tenderness, Other (trace LE edema) Neurology: alert, oriented, follow commands Assessment Assessment 1. Mechanical nontraumatic fall with rhabdomyolysis (multiple falls in the past) 2. Hypoxic encephalopathy: mentation better 3. Acute respiratory failure with underlying COPD: SOA better, off bipap 4. MADDY on CKD3 with mild hyperkalemia: improved. Cr back to her baseline. 5. Acute on chronic diastolic CHF: better compensated 6. Elevated troponin: Troponin 0.47. CP free. Likely demand mediated as above concurrent conditions. 7. HTN: controlled 8. DM2/HLP: controlled 9. Hx of dementia: evaluated by neuro 10/2016 10. Chronic pain with chronic opioid use. 11. Debility Recommendations 1. TTE preserved EF normal wall motion. Will consider for outpt MPI, no further cardiac workup at this time 2. Continue with po lasix, secondary prevention. Increase cardizem 3. Bipap PRN 4. Defer to PCP regarding renal dysfunction 5. Continue with secondary prevention 6. Now DNR with partial code 7. Follow up in office in 2-3 weeks. Pls call if any questions 8. If going home, then would recommend home health specializing in CHF. LINDA RM MD 01/29/17 0836: CARDIO Progress Notes Assessment Assessment Patient seen and examined 01/28/17. Agree with SUBASSEMBLER's assessment and plan. Acute respiratory failure improved and she is presently off BiPAP. Acute on chronic diastolic heart failure better compensated. We will plan for ischemic evaluation with stress test as an outpatient. Follow up with our office in 2-4 weeks. YOVANNY WOLFE APRN Jan 28, 2017 10:57 LINDA RM MD Jan 29, 2017 08:36
[2017-01-28 11:06] VITALS: BP 144/45
[2017-01-28] MEDS ORDERED: ACETAMINOPHEN 325 MG TABLET. PO PRN (11:15)
[2017-01-28] MEDS: DILTIAZEM HCL 300 MG CAP.ER.24H PO SCH (11:44)
--- NOTE | 2017-01-28 11:59 | PDOC2 ---
PALLIATIVE CARE Palliative Care Note Palliative Care Spoke with Marialuisa about goals and discharge plan. Patient alert with intermittent episodes of outbursts and confusion. Patient has been accepted at SNU. Marialuisa understands Ainsley may not progress well and hospice may be an option after SNU. Outside the Hospital DNR/DNI signed. Leia DOWNEY will assist with discharge plans. MARÍA ORTIZ Jan 28, 2017 11:59
[2017-01-28] MEDS: INSULIN ASPART 300 UNITS/3 ML INSULN.PEN SQ SCH ×4 (12:00→18:03)
[2017-01-28 15:04] VITALS: BP 97/26
--- NOTE | 2017-01-28 16:36 | PDOC2 ---
PALLIATIVE CARE Palliative Care Note Palliative Care Patient sitting up in chair--more alert this afternoon Visiting with daughter Lulu Francisco ([phone]) Lulu states she was notified by Brandon --patient's grandson-that her mother was in the hospital. Was not aware of this until this afternoon. Usually patient's Tai keeps her informed. Brain however is seriously ill Patient gave permission to update Lulu about her medical condition. Also states that she would want Lulu to make decisions if she could not--Tai has done this in the past. Lulu Maryam [phone] [place], [place] [address] MARÍA ORTIZ Jan 28, 2017 16:36
--- NOTE | 2017-01-28 17:08 | PDOC ---
PULMONARY PROGRESS NOTES Subjective pat not more soa does not want BIPAP Vitals Vital Signs Date Time Temp Pulse Resp B/P Pulse Ox O2 Delivery O2 Flow Rate FiO2 01/28/17 16:03 94 Nasal Cannula 3.0 01/28/17 15:04 100.0 77 20 97/26 100.0 General: Alert Lungs: Crackles Cardiovascular: S1, S2 Abdomen: Soft Neuro Exam: Alert Extremities: Other Skin: Warm Labs Laboratory Tests Test 01/26/17 17:20 01/26/17 17:37 01/26/17 21:48 01/27/17 05:50 O2 Saturation 87% (92-99) Arterial Blood pH 7.35 (7.35-7.45) Arterial Blood pCO2 at Patient Temp 56mmHg (35-46) Arterial Blood pO2 at Patient Temp 54mmHg (65-108) Arterial Blood HCO3 30mmol/L (21-28) Arterial Blood Base Excess 3mmol/L (-3-3) FiO2 30 Glucose (Fingerstick) 222mg/dL (70-99) 185mg/dL (70-99) White Blood Count 5.0x10^3/uL (4.0-11.0) Red Blood Count 3.46x10^6/uL (3.50-5.40) Hemoglobin 10.5g/dL (12.0-15.5) Hematocrit 33.3% (36.0-47.0) Mean Corpuscular Volume 96fL (79-100) Mean Corpuscular Hemoglobin 30pg (25-35) Mean Corpuscular Hemoglobin Concent 32g/dL (31-37) Red Cell Distribution Width 17.7% (11.5-14.5) Platelet Count 128x10^3/uL (140-400) Neutrophils (%) (Auto) 66% (31-73) Lymphocytes (%) (Auto) 21% (24-48) Monocytes (%) (Auto) 13% (0-9) Eosinophils (%) (Auto) 1% (0-3) Basophils (%) (Auto) 0% (0-3) Neutrophils # (Auto) 3.3x10^3uL (1.8-7.7) Lymphocytes # (Auto) 1.0x10^3/uL (1.0-4.8) Monocytes # (Auto) 0.6x10^3/uL (0.0-1.1) Eosinophils # (Auto) 0.0x10^3/uL (0.0-0.7) Basophils # (Auto) 0.0x10^3/uL (0.0-0.2) Sodium Level 143mmol/L (136-145) Potassium Level 5.0mmol/L (3.5-5.1) Chloride Level 103mmol/L (98-107) Carbon Dioxide Level 34mmol/L (21-32) Anion Gap 6 (6-14) Blood Urea Nitrogen 42mg/dL (7-20) Creatinine 1.4mg/dL (0.6-1.0) Estimated GFR (Cockcroft-Gault) 36.5 Glucose Level 121mg/dL (70-99) Calcium Level 8.2mg/dL (8.5-10.1) Magnesium Level 2.3mg/dL (1.8-2.4) Test 01/27/17 07:29 01/27/17 11:33 01/27/17 17:31 01/27/17 21:00 Glucose (Fingerstick) 105mg/dL (70-99) 221mg/dL (70-99) 246mg/dL (70-99) 177mg/dL (70-99) Test 01/28/17 03:35 01/28/17 07:15 01/28/17 11:45 01/28/17 16:44 White Blood Count 8.0x10^3/uL (4.0-11.0) Red Blood Count 4.18x10^6/uL (3.50-5.40) Hemoglobin 12.6g/dL (12.0-15.5) Hematocrit 40.5% (36.0-47.0) Mean Corpuscular Volume 97fL (79-100) Mean Corpuscular Hemoglobin 30pg (25-35) Mean Corpuscular Hemoglobin Concent 31g/dL (31-37) Red Cell Distribution Width 17.6% (11.5-14.5) Platelet Count 128x10^3/uL (140-400) Neutrophils (%) (Auto) 82% (31-73) Lymphocytes (%) (Auto) 10% (24-48) Monocytes (%) (Auto) 7% (0-9) Eosinophils (%) (Auto) 1% (0-3) Basophils (%) (Auto) 1% (0-3) Neutrophils # (Auto) 6.5x10^3uL (1.8-7.7) Lymphocytes # (Auto) 0.8x10^3/uL (1.0-4.8) Monocytes # (Auto) 0.5x10^3/uL (0.0-1.1) Eosinophils # (Auto) 0.1x10^3/uL (0.0-0.7) Basophils # (Auto) 0.1x10^3/uL (0.0-0.2) Sodium Level 141mmol/L (136-145) Potassium Level 4.7mmol/L (3.5-5.1) Chloride Level 101mmol/L (98-107) Carbon Dioxide Level 33mmol/L (21-32) Anion Gap 7 (6-14) Blood Urea Nitrogen 40mg/dL (7-20) Creatinine 1.3mg/dL (0.6-1.0) Estimated GFR (Cockcroft-Gault) 39.7 Glucose Level 216mg/dL (70-99) Calcium Level 8.9mg/dL (8.5-10.1) Glucose (Fingerstick) 194mg/dL (70-99) 247mg/dL (70-99) 179mg/dL (70-99) Laboratory Tests Test 01/27/17 17:31 01/27/17 21:00 01/28/17 03:35 01/28/17 07:15 Glucose (Fingerstick) 246mg/dL (70-99) 177mg/dL (70-99) 194mg/dL (70-99) White Blood Count 8.0x10^3/uL (4.0-11.0) Red Blood Count 4.18x10^6/uL (3.50-5.40) Hemoglobin 12.6g/dL (12.0-15.5) Hematocrit 40.5% (36.0-47.0) Mean Corpuscular Volume 97fL (79-100) Mean Corpuscular Hemoglobin 30pg (25-35) Mean Corpuscular Hemoglobin Concent 31g/dL (31-37) Red Cell Distribution Width 17.6% (11.5-14.5) Platelet Count 128x10^3/uL (140-400) Neutrophils (%) (Auto) 82% (31-73) Lymphocytes (%) (Auto) 10% (24-48) Monocytes (%) (Auto) 7% (0-9) Eosinophils (%) (Auto) 1% (0-3) Basophils (%) (Auto) 1% (0-3) Neutrophils # (Auto) 6.5x10^3uL (1.8-7.7) Lymphocytes # (Auto) 0.8x10^3/uL (1.0-4.8) Monocytes # (Auto) 0.5x10^3/uL (0.0-1.1) Eosinophils # (Auto) 0.1x10^3/uL (0.0-0.7) Basophils # (Auto) 0.1x10^3/uL (0.0-0.2) Sodium Level 141mmol/L (136-145) Potassium Level 4.7mmol/L (3.5-5.1) Chloride Level 101mmol/L (98-107) Carbon Dioxide Level 33mmol/L (21-32) Anion Gap 7 (6-14) Blood Urea Nitrogen 40mg/dL (7-20) Creatinine 1.3mg/dL (0.6-1.0) Estimated GFR (Cockcroft-Gault) 39.7 Glucose Level 216mg/dL (70-99) Calcium Level 8.9mg/dL (8.5-10.1) Test 01/28/17 11:45 01/28/17 16:44 Glucose (Fingerstick) 247mg/dL (70-99) 179mg/dL (70-99) Medications Active Scripts Medications Dose Route/Sig Days Date Category Levofloxacin 500 Mg Tablet 1 Tab PO DAILY 01/05/17 Reported Xanax (Alprazolam) 0.5 Mg Tablet 1 Tab PO TID 10/27/16 Reported Vitamin E (Vitamin E (Dl,Tocopheryl Acet)) 100 Unit Capsule 400 Unit PO 09/10/16 Reported Symbicort 160-4.5 Mcg Inhaler (Budesonide/Formoterol Fumarate) 10.2 Gm Hfa.aer.ad 2 Puff IH BID 09/10/16 Reported Risperidone 0.5 Mg Tablet 1 Tab PO BID 09/10/16 Reported Potassium Chloride 10 Meq Tablet.er 20 Meq PO DAILY 09/10/16 Reported Multivitamins (Multivitamin) 1 Each Tablet 1 Tab PO DAILY 09/10/16 Reported Remeron (Mirtazapine) 15 Mg Tablet 1 Tab PO QHS 09/10/16 Reported Lantus Solostar (Insulin Glargine,Hum.rec.anlog) 100 Unit/1 Ml Insuln.pen 40 Unit SQ QHS 09/10/16 Reported Gabapentin 300 Mg Capsule 300 Mg PO TID 09/10/16 Reported Furosemide 40 Mg Tablet 1 Tab PO DAILY 09/10/16 Reported Flonase Allergy Relief (Fluticasone Propionate) 9.9 Ml [place].susp 2 Sprays NS DAILY 09/10/16 Reported Colace (Docusate Sodium) 100 Mg Capsule 1 Cap PO BID 09/10/16 Reported Cartia Xt (Diltiazem Hcl) 240 Mg Cap.er.24h 240 Mg PO 09/10/16 Reported Aspirin 81 Mg Tab.chew 1 Tab PO DAILY 09/10/16 Reported Proair Hfa Inhaler (Albuterol Sulfate) 8.5 Gm Hfa.aer.ad 1 Puff INH PRN Q6HRS PRN 09/10/16 Reported Atorvastatin Calcium 20 Mg Tablet 1 Tab PO DAILY 09/10/16 Reported Trazodone Hcl 50 Mg Tablet 1 Tab PO QHS 09/10/16 Reported Pantoprazole Sodium 40 Mg Tablet.dr 1 Tab PO DAILY 09/10/16 Reported Sertraline Hcl 50 Mg Tablet 50 Mg PO DAILY 09/10/16 Reported Losartan Potassium 50 Mg Tablet 50 Mg PO DAILY 09/10/16 Reported Oxycodone Hcl 30 Mg Tablet 2 Tab PO TID 09/10/16 Reported Impression . 1. Acute on chronic hypercapnic respiratory failure related to ongoing congestive heart failure. 2. Abnormal chest x-ray persistent and mildly progressive bilateral interstitial infiltrates related to acute diastolic heart failure. 3. Underlying chronic obstructive pulmonary disease with mild exacerbation, triggered by congestive heart failure. 4. Suspected underlying obesity hypoventilation syndrome. 5. Chronic kidney disease stage 3. 6. Mild Malnutrition Plan . extra lasix 1. PRN BIPAP 2. diurese 3. follow palliative input 4. ABG noted after biapap 5. dietitian consult for malnutrition LICHA BURNS MD Jan 28, 2017 17:08
[2017-01-28] MEDS ORDERED: FUROSEMIDE 40 MG/4 ML VIAL IVP ONE (17:30)
[2017-01-28 19:45] VITALS: BP 107/55
[2017-01-28] MEDS: traZODone 50 MG TABLET. PO SCH (21:00)
[2017-01-28] MEDS: MIRTAZAPINE 15 MG TABLET PO SCH (21:40)
[2017-01-28] MEDS: ATORVASTATIN CALCIUM 20 MG TABLET PO SCH (21:40)
[2017-01-28] MEDS: INSULIN DETEMIR 300 UNITS/3 ML INSULN.PEN. SQ SCH (21:58)
[2017-01-28 23:25] VITALS: BP 95/31
[2017-01-29] MEDS: ALPRAZOLAM 0.5 MG TABLET PO PRN ×3 (02:52→17:48)
[2017-01-29 02:59] VITALS: BP 106/38
[2017-01-29 04:41] LABS: BASO % 0 % (0-3); EOS % 1 % (0-3); HEMATOCRIT 30.1 % (36.0-47.0); HEMOGLOBIN 9.7 g/dL (12.0-15.5); LYMPH # 1.5 x10^3/uL (1.0-4.8); LYMPH % 18 % (24-48); MEAN CORPUSCULAR HEMOGLOBIN 30 pg (25-35); MEAN CORPUSCULAR HGB CONC 32 g/dL (31-37); MEAN CORPUSCULAR VOLUME 93 fL (79-100); MONO % 9 % (0-9); NEUT % 72 % (31-73); PLATELET COUNT 120 x10^3/uL (140-400); RED BLOOD COUNT 3.23 x10^6/uL (3.50-5.40); RED CELL DISTRIBUTION WIDTH 17.2 % (11.5-14.5); WHITE BLOOD COUNT 8.5 x10^3/uL (4.0-11.0)
[2017-01-29 04:56] LABS: CALCIUM 8.6 mg/dL (8.5-10.1); CREATININE 1.8 mg/dL (0.6-1.0); GFR 27.3; POTASSIUM 4.4 mmol/L (3.5-5.1)
[2017-01-29] MEDS: CLONIDINE HCL 0.1 MG TABLET PO SCH ×2 (06:00→21:50)
[2017-01-29] MEDS: PANTOPRAZOLE 40 MG TABLET. PO SCH (06:23)
[2017-01-29] MEDS: HEPARIN PF for SUB-Q USE 5,000 UNIT/0.5 ML VIAL. SQ SCH ×3 (06:23→22:13)
[2017-01-29] MEDS: DEXTROSE 50% 25 GM / 50ML DISP.SYRIN. IV PRN ×2 (07:14→12:31)
[2017-01-29 07:20] VITALS: BP 108/40
[2017-01-29] MEDS: INSULIN ASPART 300 UNITS/3 ML INSULN.PEN SQ SCH ×6 (07:30→17:00)
[2017-01-29] MEDS: ALBUTEROL SULFATE 2.5 MG/3 ML NEBU. NEB SCH ×4 (07:49→20:43)
[2017-01-29] MEDS: BUDESONIDE 0.5 MG/2 ML NEBU NEB SCH ×2 (07:49→20:43)
[2017-01-29] MEDS ORDERED: FUROSEMIDE 40 MG TABLET PO SCH (09:00)
[2017-01-29] MEDS: OXYCODONE IR 5 MG TABLET. PO SCH (09:00)
--- NOTE | 2017-01-29 09:26 | RAD ---
Exam performed: One view chest. History: CHF, fever. Date of service: 01/29/17. Comparison: 01/27/17 Single AP upright portable view chest findings: Mild cardiomegaly and central vascular congestion is noted. Coarse prominent interstitial markings are somewhat accentuated. There is a small left and tiny right pleural effusion. No pneumothorax. Impression: Cardiomegaly with central vascular congestion and prominent interstitial markings. The findings are stable since yesterday's study. Small left and trace right pleural effusion
[2017-01-29] MEDS ORDERED: traZODone 50 MG TABLET. PO PRN (09:45)
[2017-01-29] MEDS: risperiDONE 1 MG TABLET. PO SCH ×2 (10:26→21:48)
[2017-01-29] MEDS: CEFPODOXIME PROXETIL 100 MG TABLET PO SCH ×2 (10:27→21:48)
[2017-01-29] MEDS: OXYCODONE IR 5 MG TABLET. PO PRN ×2 (10:28→17:48)
[2017-01-29] MEDS: MULTIVITAMIN with MINERAL TABLET. PO SCH (10:28)
[2017-01-29] MEDS: POTASSIUM CHLORIDE 20 MEQ TABLET.ER. PO SCH (10:28)
[2017-01-29] MEDS: DILTIAZEM HCL 300 MG CAP.ER.24H PO SCH (10:29)
[2017-01-29] MEDS: DOCUSATE SODIUM 100 MG CAPSULE PO SCH ×2 (10:29→21:48)
[2017-01-29] MEDS: SERTRALINE 50 MG TABLET. PO SCH (10:29)
[2017-01-29] MEDS: ASPIRIN ENTERIC COATED 81 MG TABLET.DR. PO SCH (10:29)
[2017-01-29] MEDS: GABAPENTIN 300 MG CAPSULE. PO SCH ×3 (10:29→21:48)
--- NOTE | 2017-01-29 10:29 | PDOC3 ---
Discharge Summary Visit Information Date of Admission: Jan 23, 2017 Date of Discharge: Jan 29, 2017 Admitting Diagnosis Comment: ASSESSMENT AND PLAN: 1. CHF exacerbation: diastolic. 2. COPD exacerbation: intolerant to BiPAP. 3. Troponin leak: 4. CAD: 5. MADDY: resolved 6. CKD: 7. UTI : hx 8. DM: 9. HTN: 10. HLD: 11. Dementia: s/p eval in 10/2016 12. Depression: on mult meds. cont home regimen 13. Encephalopathy: acute, on chronic 14. Chronic pain syndrome: 15. Debility/FTT Final Diagnosis Problems Medical Problems: (1) Acute respiratory failure Status: Acute (2) Altered mental status Status: Acute (3) CHF (congestive heart failure) Status: Acute (4) CHF exacerbation Status: Acute (5) Encephalopathy acute Status: Acute (6) Hypoxia Status: Acute (7) Urinary tract infection Status: Acute Brief Hospital Course Allergies Allergies Coded Allergies Type Severity Reaction Last Updated Verified Penicillins Allergy Intermediate AMS 09/10/16 Yes aripiprazole Adverse Reaction Mild agitation 10/28/16 Yes bupropion Adverse Reaction Mild headache 10/28/16 Yes metformin Adverse Reaction Mild diarrhea 10/28/16 Yes Vital Signs Vital Signs Date Time Temp Pulse Resp B/P Pulse Ox O2 Delivery O2 Flow Rate FiO2 01/29/17 08:00 Nasal Cannula 4.0 01/29/17 07:52 100 01/29/17 07:20 97.8 53 14 108/40 97.8 Lab Results Laboratory Tests Test 01/27/17 11:33 01/27/17 17:31 01/27/17 21:00 01/28/17 03:35 Glucose (Fingerstick) 221mg/dL (70-99) 246mg/dL (70-99) 177mg/dL (70-99) White Blood Count 8.0x10^3/uL (4.0-11.0) Red Blood Count 4.18x10^6/uL (3.50-5.40) Hemoglobin 12.6g/dL (12.0-15.5) Hematocrit 40.5% (36.0-47.0) Mean Corpuscular Volume 97fL (79-100) Mean Corpuscular Hemoglobin 30pg (25-35) Mean Corpuscular Hemoglobin Concent 31g/dL (31-37) Red Cell Distribution Width 17.6% (11.5-14.5) Platelet Count 128x10^3/uL (140-400) Neutrophils (%) (Auto) 82% (31-73) Lymphocytes (%) (Auto) 10% (24-48) Monocytes (%) (Auto) 7% (0-9) Eosinophils (%) (Auto) 1% (0-3) Basophils (%) (Auto) 1% (0-3) Neutrophils # (Auto) 6.5x10^3uL (1.8-7.7) Lymphocytes # (Auto) 0.8x10^3/uL (1.0-4.8) Monocytes # (Auto) 0.5x10^3/uL (0.0-1.1) Eosinophils # (Auto) 0.1x10^3/uL (0.0-0.7) Basophils # (Auto) 0.1x10^3/uL (0.0-0.2) Sodium Level 141mmol/L (136-145) Potassium Level 4.7mmol/L (3.5-5.1) Chloride Level 101mmol/L (98-107) Carbon Dioxide Level 33mmol/L (21-32) Anion Gap 7 (6-14) Blood Urea Nitrogen 40mg/dL (7-20) Creatinine 1.3mg/dL (0.6-1.0) Estimated GFR (Cockcroft-Gault) 39.7 Glucose Level 216mg/dL (70-99) Calcium Level 8.9mg/dL (8.5-10.1) Test 01/28/17 07:15 01/28/17 11:45 01/28/17 16:44 01/28/17 20:42 Glucose (Fingerstick) 194mg/dL (70-99) 247mg/dL (70-99) 179mg/dL (70-99) 141mg/dL (70-99) Test 01/29/17 04:01 01/29/17 07:04 01/29/17 07:44 White Blood Count 8.5x10^3/uL (4.0-11.0) Red Blood Count 3.23x10^6/uL (3.50-5.40) Hemoglobin 9.7g/dL (12.0-15.5) Hematocrit 30.1% (36.0-47.0) Mean Corpuscular Volume 93fL (79-100) Mean Corpuscular Hemoglobin 30pg (25-35) Mean Corpuscular Hemoglobin Concent 32g/dL (31-37) Red Cell Distribution Width 17.2% (11.5-14.5) Platelet Count 120x10^3/uL (140-400) Neutrophils (%) (Auto) 72% (31-73) Lymphocytes (%) (Auto) 18% (24-48) Monocytes (%) (Auto) 9% (0-9) Eosinophils (%) (Auto) 1% (0-3) Basophils (%) (Auto) 0% (0-3) Neutrophils # (Auto) 6.1x10^3uL (1.8-7.7) Lymphocytes # (Auto) 1.5x10^3/uL (1.0-4.8) Monocytes # (Auto) 0.7x10^3/uL (0.0-1.1) Eosinophils # (Auto) 0.1x10^3/uL (0.0-0.7) Basophils # (Auto) 0.0x10^3/uL (0.0-0.2) Sodium Level 141mmol/L (136-145) Potassium Level 4.4mmol/L (3.5-5.1) Chloride Level 103mmol/L (98-107) Carbon Dioxide Level 35mmol/L (21-32) Anion Gap 3 (6-14) Blood Urea Nitrogen 44mg/dL (7-20) Creatinine 1.8mg/dL (0.6-1.0) Estimated GFR (Cockcroft-Gault) 27.3 Glucose Level 58mg/dL (70-99) Calcium Level 8.6mg/dL (8.5-10.1) Glucose (Fingerstick) 45mg/dL (70-99) 93mg/dL (70-99) Laboratory Tests Test 01/28/17 11:45 01/28/17 16:44 01/28/17 20:42 01/29/17 04:01 Glucose (Fingerstick) 247mg/dL (70-99) 179mg/dL (70-99) 141mg/dL (70-99) White Blood Count 8.5x10^3/uL (4.0-11.0) Red Blood Count 3.23x10^6/uL (3.50-5.40) Hemoglobin 9.7g/dL (12.0-15.5) Hematocrit 30.1% (36.0-47.0) Mean Corpuscular Volume 93fL (79-100) Mean Corpuscular Hemoglobin 30pg (25-35) Mean Corpuscular Hemoglobin Concent 32g/dL (31-37) Red Cell Distribution Width 17.2% (11.5-14.5) Platelet Count 120x10^3/uL (140-400) Neutrophils (%) (Auto) 72% (31-73) Lymphocytes (%) (Auto) 18% (24-48) Monocytes (%) (Auto) 9% (0-9) Eosinophils (%) (Auto) 1% (0-3) Basophils (%) (Auto) 0% (0-3) Neutrophils # (Auto) 6.1x10^3uL (1.8-7.7) Lymphocytes # (Auto) 1.5x10^3/uL (1.0-4.8) Monocytes # (Auto) 0.7x10^3/uL (0.0-1.1) Eosinophils # (Auto) 0.1x10^3/uL (0.0-0.7) Basophils # (Auto) 0.0x10^3/uL (0.0-0.2) Sodium Level 141mmol/L (136-145) Potassium Level 4.4mmol/L (3.5-5.1) Chloride Level 103mmol/L (98-107) Carbon Dioxide Level 35mmol/L (21-32) Anion Gap 3 (6-14) Blood Urea Nitrogen 44mg/dL (7-20) Creatinine 1.8mg/dL (0.6-1.0) Estimated GFR (Cockcroft-Gault) 27.3 Glucose Level 58mg/dL (70-99) Calcium Level 8.6mg/dL (8.5-10.1) Test 01/29/17 07:04 01/29/17 07:44 Glucose (Fingerstick) 45mg/dL (70-99) 93mg/dL (70-99) Brief Hospital Course Ms. Romero is a 76 old female known to me from prev admits of encephalopathy from pain meds, or COPD or CHF exacerbation, WOuld have some MADDY etc, SHe needed BIPAP in this stay. Medically ready for snu, (actually is hospice candidate maybe), but unfortunately just today in house and she needs to go home for now for the before going to SNU, Dw CAse mx, SW and RN and pt herself Pt seen and examined MAR done Adjusted meds to make some sedating meds prn instead of scheduled. SOme bP meds also have been adjusted Dc tome 34 mins>? 50% counseling Discharge Information Condition at Discharge: Improved, Stable Disposition/Orders: Other (snu) Scheduled Alprazolam (Xanax) 1 TAB PO TID (Reported) Aspirin (Aspirin) 1 TAB PO DAILY (Reported) Atorvastatin Calcium (Atorvastatin Calcium) 1 TAB PO DAILY (Reported) Budesonide/Formoterol Fumarate (Symbicort 160-4.5 Mcg Inhaler) 2 PUFF IH BID ( Reported) Docusate Sodium (Colace) 1 CAP PO BID (Reported) Fluticasone Propionate (Flonase Allergy Relief) 2 SPRAYS NS DAILY (Reported) Furosemide (Furosemide) 1 TAB PO DAILY (Reported) Gabapentin (Gabapentin) 300 MG PO TID (Reported) Insulin Glargine,Hum.rec.anlog (Lantus Solostar) 40 UNIT SQ QHS (Reported) Levofloxacin (Levofloxacin) 1 TAB PO DAILY (Reported) Losartan Potassium (Losartan Potassium) 50 MG PO DAILY (Reported) Mirtazapine (Remeron) 1 TAB PO QHS (Reported) Multivitamin (Multivitamins) 1 TAB PO DAILY (Reported) Oxycodone Hcl (Oxycodone Hcl) 2 TAB PO TID (Reported) Pantoprazole Sodium (Pantoprazole Sodium) 1 TAB PO DAILY (Reported) Potassium Chloride (Potassium Chloride) 20 MEQ PO DAILY (Reported) Risperidone (Risperidone) 1 TAB PO BID (Reported) Sertraline Hcl (Sertraline Hcl) 50 MG PO DAILY (Reported) Trazodone Hcl (Trazodone Hcl) 1 TAB PO QHS (Reported) Scheduled PRN Albuterol Sulfate (Proair Hfa Inhaler) 1 PUFF INH PRN Q6HRS PRN PRN SHORTNESS OF BREATH (Reported) Miscellaneous Medications Diltiazem Hcl (Cartia Xt) 240 MG PO (Reported) Vitamin E (Dl,Tocopheryl Acet) (Vitamin E) 400 UNIT PO (Reported) TANNA HUERTAS MD Jan 29, 2017 10:29
[2017-01-29] MEDS: LOSARTAN POTASSIUM 50 MG TABLET. PO SCH (10:30)
[2017-01-29] MEDS: FLUTICASONE 50MCG/NASAL SPRAY 16GM BOTTLE. NS SCH (10:32)
[2017-01-29 10:52] VITALS: BP 131/51
--- NOTE | 2017-01-29 11:46 | PDOC ---
CARDIO Progress Notes Date and Time Date of Service 01/29/2017 Time of Evaluation 1115 Subjective Subjective: No Chest Pain, No Palpitations, No Dizziness, Other (mild SOA, crying depressed about yesterdays passing of spouse) Vitals Vitals Vital Signs Date Time Temp Pulse Resp B/P Pulse Ox O2 Delivery O2 Flow Rate FiO2 01/29/17 10:52 97.6 70 17 131/51 100 Nasal Cannula 4.0 97.6 Weight Weight [ ] Input and Output Intake and Output Intake and Output 01/29/17 07:00 Intake Total 630 ml Balance 630 ml Intake Oral 630 ml # Voids 5 # Bowel Movements 2 Laboratory Labs Laboratory Tests Test 01/28/17 11:45 01/28/17 16:44 01/28/17 20:42 01/29/17 04:01 Glucose (Fingerstick) 247mg/dL (70-99) 179mg/dL (70-99) 141mg/dL (70-99) White Blood Count 8.5x10^3/uL (4.0-11.0) Red Blood Count 3.23x10^6/uL (3.50-5.40) Hemoglobin 9.7g/dL (12.0-15.5) Hematocrit 30.1% (36.0-47.0) Mean Corpuscular Volume 93fL (79-100) Mean Corpuscular Hemoglobin 30pg (25-35) Mean Corpuscular Hemoglobin Concent 32g/dL (31-37) Red Cell Distribution Width 17.2% (11.5-14.5) Platelet Count 120x10^3/uL (140-400) Neutrophils (%) (Auto) 72% (31-73) Lymphocytes (%) (Auto) 18% (24-48) Monocytes (%) (Auto) 9% (0-9) Eosinophils (%) (Auto) 1% (0-3) Basophils (%) (Auto) 0% (0-3) Neutrophils # (Auto) 6.1x10^3uL (1.8-7.7) Lymphocytes # (Auto) 1.5x10^3/uL (1.0-4.8) Monocytes # (Auto) 0.7x10^3/uL (0.0-1.1) Eosinophils # (Auto) 0.1x10^3/uL (0.0-0.7) Basophils # (Auto) 0.0x10^3/uL (0.0-0.2) Sodium Level 141mmol/L (136-145) Potassium Level 4.4mmol/L (3.5-5.1) Chloride Level 103mmol/L (98-107) Carbon Dioxide Level 35mmol/L (21-32) Anion Gap 3 (6-14) Blood Urea Nitrogen 44mg/dL (7-20) Creatinine 1.8mg/dL (0.6-1.0) Estimated GFR (Cockcroft-Gault) 27.3 Glucose Level 58mg/dL (70-99) Calcium Level 8.6mg/dL (8.5-10.1) Test 01/29/17 07:04 01/29/17 07:44 Glucose (Fingerstick) 45mg/dL (70-99) 93mg/dL (70-99) Microbiology Micro Microbiology 01/23/17 Urine Culture - Final, Complete 01/23/17 Urine Culture Result 1 (DEJA) - Final, Complete Physical Exam HEENT: Neck Supple W Full Motion Chest: Symmetric LUNGS: Other (diffuse crackles) Heart: S1S2, RRR (no signnificant ectopies), murmurs (2/6 systolic murmur to LLS border) Abdomen: Soft N/T Extremities: No Calf Tenderness, Other (1+ LE edema) Neurology: alert, oriented, follow commands Assessment Assessment 1. Mechanical nontraumatic fall with rhabdomyolysis (multiple falls in the past) 2. Hypoxic encephalopathy: resolved 3. Acute respiratory failure with underlying COPD: mild SOA 4. MADDY on CKD3 5. Acute on chronic diastolic CHF: refractory 6. Elevated troponin: Troponin 0.47. CP free. Likely demand mediated as above concurrent conditions. 7. HTN: controlled 8. DM2/HLP: hypoglycemia this am 9. Hx of dementia: evaluated by neuro 10/2016 10. Chronic pain with chronic opioid use. 11. Debility/deconditioning 12. Grief/Depression: spouse yesterday Recommendations 1. TTE preserved EF normal wall motion. Will consider for outpt MPI, no further cardiac workup at this time 2. PCXR. Restart routine IV lasix. Add zaroxylyn 3. Bipap PRN 4. Verbalized does not want any further treatment, family unable to provide succinct decision going forward. Palliative on board. Will cancel DC to SNU at this time, till further decision is made hospice vs continued treatment. 5. Continue with secondary prevention 6. Now DNR with partial code 7. Avoid tight BG control YOVANNY WOLFE TIRE GROOVER Jan 29, 2017 11:46
[2017-01-29] MEDS ORDERED: FUROSEMIDE 40 MG/4 ML VIAL IVP ONE (12:00)
[2017-01-29] MEDS: METOLAZONE 2.5 MG TABLET PO SCH (12:31)
[2017-01-29 14:42] VITALS: BP 149/62
[2017-01-29] MEDS ORDERED: CLONIDINE HCL 0.1 MG TABLET PO SCH (16:00)
--- NOTE | 2017-01-29 16:46 | PDOC2 ---
PALLIATIVE CARE Palliative Care Note Palliative Care Met with patient. More alert today. Acknowledged me by calling name as I entered the room. Remembers our conversations yesterday with her daughter Lulu. Confirmed that she would want Collete to make decisions about her health if she could not. States she and her had advanced care planning done and this information is in 3 ring binder. This was done by a platform operations director for both of us. She would like Lulu and Yecenia Hester to make decisions if she can not. Spoke with Marialuisa patient's step -daughter. She will try to come to hospital today. Will bring information about Advanced Directive --power of insurance defense attorney for health care and financial power of insurance defense attorney for [place]. Spoke with Lulu. Plan to meet with Collete tomorrow and other family members if available Patient wants to keep doing aggressive care for now. Does not want resuscitation or be put on life support machines if it gets that bad. Will continue to follow and support. MARÍA ORTIZ Jan 29, 2017 16:46
--- NOTE | 2017-01-29 18:14 | PDOC ---
PULMONARY PROGRESS NOTES Subjective pt not more soa wants to go home Vitals Vital Signs Date Time Temp Pulse Resp B/P Pulse Ox O2 Delivery O2 Flow Rate FiO2 01/29/17 17:48 94 Nasal Cannula 4.0 01/29/17 14:42 97.5 78 18 149/62 97.5 General: Alert Lungs: Crackles Cardiovascular: S1, S2 Abdomen: Soft Neuro Exam: Alert Extremities: Other Skin: Warm Labs Laboratory Tests Test 01/27/17 21:00 01/28/17 03:35 01/28/17 07:15 01/28/17 11:45 Glucose (Fingerstick) 177mg/dL (70-99) 194mg/dL (70-99) 247mg/dL (70-99) White Blood Count 8.0x10^3/uL (4.0-11.0) Red Blood Count 4.18x10^6/uL (3.50-5.40) Hemoglobin 12.6g/dL (12.0-15.5) Hematocrit 40.5% (36.0-47.0) Mean Corpuscular Volume 97fL (79-100) Mean Corpuscular Hemoglobin 30pg (25-35) Mean Corpuscular Hemoglobin Concent 31g/dL (31-37) Red Cell Distribution Width 17.6% (11.5-14.5) Platelet Count 128x10^3/uL (140-400) Neutrophils (%) (Auto) 82% (31-73) Lymphocytes (%) (Auto) 10% (24-48) Monocytes (%) (Auto) 7% (0-9) Eosinophils (%) (Auto) 1% (0-3) Basophils (%) (Auto) 1% (0-3) Neutrophils # (Auto) 6.5x10^3uL (1.8-7.7) Lymphocytes # (Auto) 0.8x10^3/uL (1.0-4.8) Monocytes # (Auto) 0.5x10^3/uL (0.0-1.1) Eosinophils # (Auto) 0.1x10^3/uL (0.0-0.7) Basophils # (Auto) 0.1x10^3/uL (0.0-0.2) Sodium Level 141mmol/L (136-145) Potassium Level 4.7mmol/L (3.5-5.1) Chloride Level 101mmol/L (98-107) Carbon Dioxide Level 33mmol/L (21-32) Anion Gap 7 (6-14) Blood Urea Nitrogen 40mg/dL (7-20) Creatinine 1.3mg/dL (0.6-1.0) Estimated GFR (Cockcroft-Gault) 39.7 Glucose Level 216mg/dL (70-99) Calcium Level 8.9mg/dL (8.5-10.1) Test 01/28/17 16:44 01/28/17 20:42 01/29/17 04:01 01/29/17 07:04 Glucose (Fingerstick) 179mg/dL (70-99) 141mg/dL (70-99) 45mg/dL (70-99) White Blood Count 8.5x10^3/uL (4.0-11.0) Red Blood Count 3.23x10^6/uL (3.50-5.40) Hemoglobin 9.7g/dL (12.0-15.5) Hematocrit 30.1% (36.0-47.0) Mean Corpuscular Volume 93fL (79-100) Mean Corpuscular Hemoglobin 30pg (25-35) Mean Corpuscular Hemoglobin Concent 32g/dL (31-37) Red Cell Distribution Width 17.2% (11.5-14.5) Platelet Count 120x10^3/uL (140-400) Neutrophils (%) (Auto) 72% (31-73) Lymphocytes (%) (Auto) 18% (24-48) Monocytes (%) (Auto) 9% (0-9) Eosinophils (%) (Auto) 1% (0-3) Basophils (%) (Auto) 0% (0-3) Neutrophils # (Auto) 6.1x10^3uL (1.8-7.7) Lymphocytes # (Auto) 1.5x10^3/uL (1.0-4.8) Monocytes # (Auto) 0.7x10^3/uL (0.0-1.1) Eosinophils # (Auto) 0.1x10^3/uL (0.0-0.7) Basophils # (Auto) 0.0x10^3/uL (0.0-0.2) Sodium Level 141mmol/L (136-145) Potassium Level 4.4mmol/L (3.5-5.1) Chloride Level 103mmol/L (98-107) Carbon Dioxide Level 35mmol/L (21-32) Anion Gap 3 (6-14) Blood Urea Nitrogen 44mg/dL (7-20) Creatinine 1.8mg/dL (0.6-1.0) Estimated GFR (Cockcroft-Gault) 27.3 Glucose Level 58mg/dL (70-99) Calcium Level 8.6mg/dL (8.5-10.1) Test 01/29/17 07:44 01/29/17 12:00 01/29/17 16:20 Glucose (Fingerstick) 93mg/dL (70-99) 55mg/dL (70-99) 210mg/dL (70-99) Laboratory Tests Test 01/28/17 20:42 01/29/17 04:01 01/29/17 07:04 01/29/17 07:44 Glucose (Fingerstick) 141mg/dL (70-99) 45mg/dL (70-99) 93mg/dL (70-99) White Blood Count 8.5x10^3/uL (4.0-11.0) Red Blood Count 3.23x10^6/uL (3.50-5.40) Hemoglobin 9.7g/dL (12.0-15.5) Hematocrit 30.1% (36.0-47.0) Mean Corpuscular Volume 93fL (79-100) Mean Corpuscular Hemoglobin 30pg (25-35) Mean Corpuscular Hemoglobin Concent 32g/dL (31-37) Red Cell Distribution Width 17.2% (11.5-14.5) Platelet Count 120x10^3/uL (140-400) Neutrophils (%) (Auto) 72% (31-73) Lymphocytes (%) (Auto) 18% (24-48) Monocytes (%) (Auto) 9% (0-9) Eosinophils (%) (Auto) 1% (0-3) Basophils (%) (Auto) 0% (0-3) Neutrophils # (Auto) 6.1x10^3uL (1.8-7.7) Lymphocytes # (Auto) 1.5x10^3/uL (1.0-4.8) Monocytes # (Auto) 0.7x10^3/uL (0.0-1.1) Eosinophils # (Auto) 0.1x10^3/uL (0.0-0.7) Basophils # (Auto) 0.0x10^3/uL (0.0-0.2) Sodium Level 141mmol/L (136-145) Potassium Level 4.4mmol/L (3.5-5.1) Chloride Level 103mmol/L (98-107) Carbon Dioxide Level 35mmol/L (21-32) Anion Gap 3 (6-14) Blood Urea Nitrogen 44mg/dL (7-20) Creatinine 1.8mg/dL (0.6-1.0) Estimated GFR (Cockcroft-Gault) 27.3 Glucose Level 58mg/dL (70-99) Calcium Level 8.6mg/dL (8.5-10.1) Test 01/29/17 12:00 01/29/17 16:20 Glucose (Fingerstick) 55mg/dL (70-99) 210mg/dL (70-99) Medications Active Scripts Medications Dose Route/Sig Days Date Category Levofloxacin 500 Mg Tablet 1 Tab PO DAILY 01/05/17 Reported Xanax (Alprazolam) 0.5 Mg Tablet 1 Tab PO TID 10/27/16 Reported Vitamin E (Vitamin E (Dl,Tocopheryl Acet)) 100 Unit Capsule 400 Unit PO 09/10/16 Reported Symbicort 160-4.5 Mcg Inhaler (Budesonide/Formoterol Fumarate) 10.2 Gm Hfa.aer.ad 2 Puff IH BID 09/10/16 Reported Risperidone 0.5 Mg Tablet 1 Tab PO BID 09/10/16 Reported Potassium Chloride 10 Meq Tablet.er 20 Meq PO DAILY 09/10/16 Reported Multivitamins (Multivitamin) 1 Each Tablet 1 Tab PO DAILY 09/10/16 Reported Remeron (Mirtazapine) 15 Mg Tablet 1 Tab PO QHS 09/10/16 Reported Lantus Solostar (Insulin Glargine,Hum.rec.anlog) 100 Unit/1 Ml Insuln.pen 40 Unit SQ QHS 09/10/16 Reported Gabapentin 300 Mg Capsule 300 Mg PO TID 09/10/16 Reported Furosemide 40 Mg Tablet 1 Tab PO DAILY 09/10/16 Reported Flonase Allergy Relief (Fluticasone Propionate) 9.9 Ml [place].susp 2 Sprays NS DAILY 09/10/16 Reported Colace (Docusate Sodium) 100 Mg Capsule 1 Cap PO BID 09/10/16 Reported Cartia Xt (Diltiazem Hcl) 240 Mg Cap.er.24h 240 Mg PO 09/10/16 Reported Aspirin 81 Mg Tab.chew 1 Tab PO DAILY 09/10/16 Reported Proair Hfa Inhaler (Albuterol Sulfate) 8.5 Gm Hfa.aer.ad 1 Puff INH PRN Q6HRS PRN 09/10/16 Reported Atorvastatin Calcium 20 Mg Tablet 1 Tab PO DAILY 09/10/16 Reported Trazodone Hcl 50 Mg Tablet 1 Tab PO QHS 09/10/16 Reported Pantoprazole Sodium 40 Mg Tablet.dr 1 Tab PO DAILY 09/10/16 Reported Sertraline Hcl 50 Mg Tablet 50 Mg PO DAILY 09/10/16 Reported Losartan Potassium 50 Mg Tablet 50 Mg PO DAILY 09/10/16 Reported Oxycodone Hcl 30 Mg Tablet 2 Tab PO TID 09/10/16 Reported Impression . 1. Acute on chronic hypercapnic respiratory failure related to ongoing congestive heart failure. 2. Abnormal chest x-ray persistent and mildly progressive bilateral interstitial infiltrates related to acute diastolic heart failure. 3. Underlying chronic obstructive pulmonary disease with mild exacerbation, triggered by congestive heart failure. 4. Suspected underlying obesity hypoventilation syndrome. 5. Chronic kidney disease stage 3. 6. Mild Malnutrition Plan . extra lasix yesterday cxr no change ok to transfer in am if continue to improve does not like LICHA Dominique MD Jan 29, 2017 18:14
[2017-01-29 19:00] VITALS: BP 147/54
[2017-01-29] MEDS: ATORVASTATIN CALCIUM 20 MG TABLET PO SCH (21:48)
[2017-01-29] MEDS: MIRTAZAPINE 15 MG TABLET PO SCH (21:48)
[2017-01-29] MEDS: INSULIN DETEMIR 300 UNITS/3 ML INSULN.PEN. SQ SCH (21:59)
[2017-01-29 23:00] VITALS: BP 126/47
[2017-01-30 03:08] VITALS: BP 143/98
[2017-01-30 04:32] LABS: BASO % 0 % (0-3); EOS % 2 % (0-3); HEMATOCRIT 30.3 % (36.0-47.0); HEMOGLOBIN 9.6 g/dL (12.0-15.5); LYMPH # 1.4 x10^3/uL (1.0-4.8); LYMPH % 21 % (24-48); MEAN CORPUSCULAR HEMOGLOBIN 30 pg (25-35); MEAN CORPUSCULAR HGB CONC 32 g/dL (31-37); MEAN CORPUSCULAR VOLUME 96 fL (79-100); MONO % 9 % (0-9); NEUT % 68 % (31-73); PLATELET COUNT 108 x10^3/uL (140-400); RED BLOOD COUNT 3.17 x10^6/uL (3.50-5.40); RED CELL DISTRIBUTION WIDTH 17.3 % (11.5-14.5); WHITE BLOOD COUNT 6.5 x10^3/uL (4.0-11.0)
[2017-01-30 04:48] LABS: CREATININE 1.4 mg/dL (0.6-1.0); GFR 36.5; POTASSIUM 4.5 mmol/L (3.5-5.1)
[2017-01-30] MEDS: PANTOPRAZOLE 40 MG TABLET. PO SCH (06:23)
[2017-01-30] MEDS: HEPARIN PF for SUB-Q USE 5,000 UNIT/0.5 ML VIAL. SQ SCH (06:33)
[2017-01-30] MEDS: ALBUTEROL SULFATE 2.5 MG/3 ML NEBU. NEB SCH ×2 (06:54→11:09)
[2017-01-30] MEDS: BUDESONIDE 0.5 MG/2 ML NEBU NEB SCH (06:54)
[2017-01-30 07:00] VITALS: BP 131/59
[2017-01-30] MEDS: INSULIN ASPART 300 UNITS/3 ML INSULN.PEN SQ SCH (08:00)
[2017-01-30] MEDS: CEFPODOXIME PROXETIL 100 MG TABLET PO SCH (09:13)
[2017-01-30] MEDS: ASPIRIN ENTERIC COATED 81 MG TABLET.DR. PO SCH (09:13)
[2017-01-30] MEDS: DOCUSATE SODIUM 100 MG CAPSULE PO SCH (09:14)
[2017-01-30] MEDS: MULTIVITAMIN with MINERAL TABLET. PO SCH (09:14)
[2017-01-30] MEDS: SERTRALINE 50 MG TABLET. PO SCH (09:14)
[2017-01-30] MEDS: GABAPENTIN 300 MG CAPSULE. PO SCH (09:14)
[2017-01-30] MEDS: CLONIDINE HCL 0.1 MG TABLET PO SCH (09:14)
[2017-01-30] MEDS: POTASSIUM CHLORIDE 20 MEQ TABLET.ER. PO SCH (09:14)
[2017-01-30 09:15] VITALS: BP 131/59
[2017-01-30] MEDS: risperiDONE 1 MG TABLET. PO SCH (09:15)
[2017-01-30] MEDS: METOLAZONE 2.5 MG TABLET PO SCH (09:15)
[2017-01-30] MEDS: LOSARTAN POTASSIUM 50 MG TABLET. PO SCH (09:15)
[2017-01-30] MEDS: DILTIAZEM HCL 300 MG CAP.ER.24H PO SCH (09:15)
[2017-01-30] MEDS: FLUTICASONE 50MCG/NASAL SPRAY 16GM BOTTLE. NS SCH (09:16)
--- NOTE | 2017-01-30 09:58 | PDOC ---
CARDIO Progress Notes Date and Time Date of Service 01/30/2017 Time of Evaluation 0940 Subjective Subjective: No Chest Pain, No shortness of breath, No Palpitations, No Dizziness, Other (wants to go home) Vitals Vitals Vital Signs Date Time Temp Pulse Resp B/P Pulse Ox O2 Delivery O2 Flow Rate FiO2 01/30/17 09:15 62 131/59 01/30/17 07:00 98.9 22 95 Nasal Cannula 98.9 01/30/17 06:54 4.0 Weight Weight [ ] Input and Output Intake and Output Intake and Output 01/30/17 07:00 Intake Total 340 ml Balance 340 ml Intake Oral 340 ml # Voids 7 # Bowel Movements 1 Laboratory Labs Laboratory Tests Test 01/29/17 12:00 01/29/17 16:20 01/29/17 21:47 01/30/17 03:39 Glucose (Fingerstick) 55mg/dL (70-99) 210mg/dL (70-99) 185mg/dL (70-99) White Blood Count 6.5x10^3/uL (4.0-11.0) Red Blood Count 3.17x10^6/uL (3.50-5.40) Hemoglobin 9.6g/dL (12.0-15.5) Hematocrit 30.3% (36.0-47.0) Mean Corpuscular Volume 96fL (79-100) Mean Corpuscular Hemoglobin 30pg (25-35) Mean Corpuscular Hemoglobin Concent 32g/dL (31-37) Red Cell Distribution Width 17.3% (11.5-14.5) Platelet Count 108x10^3/uL (140-400) Neutrophils (%) (Auto) 68% (31-73) Lymphocytes (%) (Auto) 21% (24-48) Monocytes (%) (Auto) 9% (0-9) Eosinophils (%) (Auto) 2% (0-3) Basophils (%) (Auto) 0% (0-3) Neutrophils # (Auto) 4.5x10^3uL (1.8-7.7) Lymphocytes # (Auto) 1.4x10^3/uL (1.0-4.8) Monocytes # (Auto) 0.6x10^3/uL (0.0-1.1) Eosinophils # (Auto) 0.1x10^3/uL (0.0-0.7) Basophils # (Auto) 0.0x10^3/uL (0.0-0.2) Sodium Level 141mmol/L (136-145) Potassium Level 4.5mmol/L (3.5-5.1) Chloride Level 103mmol/L (98-107) Carbon Dioxide Level 36mmol/L (21-32) Anion Gap 2 (6-14) Blood Urea Nitrogen 44mg/dL (7-20) Creatinine 1.4mg/dL (0.6-1.0) Estimated GFR (Cockcroft-Gault) 36.5 Glucose Level 149mg/dL (70-99) Calcium Level 9.0mg/dL (8.5-10.1) Test 01/30/17 07:40 Glucose (Fingerstick) 107mg/dL (70-99) Microbiology Micro Microbiology 01/28/17 Blood Culture - Preliminary, Resulted NO GROWTH AFTER 1 DAY 01/23/17 Urine Culture - Final, Complete 01/23/17 Urine Culture Result 1 (DEJA) - Final, Complete Physical Exam HEENT: Neck Supple W Full Motion Chest: Symmetric LUNGS: Other (bibasilar crackles) Heart: S1S2, RRR (no signnificant ectopies), murmurs (2/6 systolic murmur to LLS border) Abdomen: Soft N/T Extremities: No Calf Tenderness, Other (1+ LE edema) Neurology: alert, oriented, follow commands Assessment Assessment 1. Mechanical nontraumatic fall with rhabdomyolysis (multiple falls in the past) 2. Hypoxic encephalopathy: resolved 3. COPD 4. MADDY on CKD3: improved 5. Acute on chronic diastolic CHF: better 6. Elevated troponin: Troponin 0.47. CP free. Likely demand mediated as above concurrent conditions. 7. HTN: controlled 8. DM2/HLP 9. Hx of dementia: evaluated by neuro 10/2016 10. Chronic pain with chronic opioid use. 11. Debility/deconditioning 12. Grief/Depression: spouse 2 days ago Recommendations 1. TTE preserved EF normal wall motion. Will plan for outpt MPI pending pt/ family decision 2. Lasix IV x1 today then start on bumex po. Continue on zaroxylyn. 3. Bipap PRN 4. Again verbalized does not want any further treatment and wants to go home and not SNU. Awaiting DPOA/daughter and palliative communication regarding treatment going forward 5. Continue with secondary prevention 6. DNR with partial code 7. Avoid tight BG control 8. Appointment in our office in 2-3 weeks pending outcome of treatment decision YOVNANY WOLFE APRN Jan 30, 2017 09:58
[2017-01-30] MEDS ORDERED: FUROSEMIDE 40 MG/4 ML VIAL IVP ONE (10:30)
[2017-01-30] MEDS: ALPRAZOLAM 0.5 MG TABLET PO PRN (10:48)
--- NOTE | 2017-01-30 11:17 | PDOC ---
Provider Note Provider Note dc summ done NO change in meds For dc today EVents yesterday noted - dc was cancelled yesterday Able to proceed today Pt wants to go home, respi status stable TANNA HUERTAS MD Jan 30, 2017 11:17
[2017-01-30] MEDS ORDERED: FUROSEMIDE 40 MG/4 ML VIAL IVP SCH (12:00)
[2017-01-30] MEDS ORDERED: INSULIN DETEMIR 300 UNITS/3 ML INSULN.PEN. SQ SCH (21:00)
[2017-01-31] MEDS ORDERED: BUMETANIDE 1 MG TABLET PO SCH (09:00)
== END 2017-01-30 13:25 | DRG 871 ==
LOC: ER 13:41 → 1 WEST ICU 17:40 → 6 SOUTH 01-24 10:30
PROVIDERS: ADMIT Internal Medicine Hematology & Oncology; ATTEND Internal Medicine Hematology & Oncology
PROC: 5A09457 Assistance with Respiratory Ventilation, 24-96 Consecutive Hours, Continuous Positive Airway Pressure (ICD-10-PCS; principal; 2017-01-26)
DX: A41.9 Sepsis, unspecified organism (principal); I50.33 Acute on chronic diastolic (congestive) heart failure; J96.21 Acute and chronic respiratory failure with hypoxia; J96.22 Acute and chronic respiratory failure with hypercapnia; E44.1 Mild protein-calorie malnutrition; G93.1 Anoxic brain damage, not elsewhere classified; J44.1 Chronic obstructive pulmonary disease with (acute) exacerbation; N17.9 Acute kidney failure, unspecified; N39.0 Urinary tract infection, site not specified; I13.0 Hypertensive heart and chronic kidney disease with heart failure and stage 1 through stage 4 chronic kidney disease, or unspecified chronic kidney disease; M62.82 Rhabdomyolysis; E11.22 Type 2 diabetes mellitus with diabetic chronic kidney disease; E11.649 Type 2 diabetes mellitus with hypoglycemia without coma; E78.00 Pure hypercholesterolemia, unspecified; E78.5 Hyperlipidemia, unspecified; E87.5 Hyperkalemia; F03.90 Unspecified dementia, unspecified severity, without behavioral disturbance, psychotic disturbance, mood disturbance, and anxiety; F32.9 Major depressive disorder, single episode, unspecified; G89.4 Chronic pain syndrome; I25.10 Atherosclerotic heart disease of native coronary artery without angina pectoris; I27.2 Other secondary pulmonary hypertension; N18.3 Chronic kidney disease, stage 3 (moderate); R62.7 Adult failure to thrive; R13.10 Dysphagia, unspecified; W19.XXXA Unspecified fall, initial encounter; E66.9 Obesity, unspecified; F41.9 Anxiety disorder, unspecified; K59.00 Constipation, unspecified; M19.90 Unspecified osteoarthritis, unspecified site; Y92.009 Unspecified place in unspecified non-institutional (private) residence as the place of occurrence of the external cause; Y93.89 Activity, other specified; Z90.710 Acquired absence of both cervix and uterus; Y99.8 Other external cause status; Z79.891 Long term (current) use of opiate analgesic; Z82.49 Family history of ischemic heart disease and other diseases of the circulatory system; Z86.718 Personal history of other venous thrombosis and embolism; Z87.891 Personal history of nicotine dependence; Z88.0 Allergy status to penicillin; Z88.8 Allergy status to other drugs, medicaments and biological substances; Z79.899 Other long term (current) drug therapy; Z68.37 Body mass index [BMI] 37.0-37.9, adult
CPT/HCPCS: 36415; 36600; 51702; 70450; 71010; 72125; 74176; 80048; 80053; 80061; 81001; 82553; 82805; 82947; 83605; 83735; 83874; 83880; 84443; 84484; 85007; 85027; 85610; 85730; 87040; 87086; 87641; 87804; 93005; 93306; 94250; 94640; 94660; 94760; 96374; 96375; G0481; J0456; J0690; J0696; J1815; J1940; J2060; J7030; J7042; J7050; 92526; 92610; 97116; 97530; 97535; 99285-25

== ENCOUNTER 2017-06-04 17:40 | Inpatient (IN) | payer MEDICARE, OTHER ==
[~2017-06-04] VITALS: Ht 165.1 cm; Wt 88.0 kg
[~2017-06-04 17:40] MED LIST changes: +ASPI-630 PO; -ASPI81TA2 PO; +DOCU-109 PO; -DOCU-27 PO; -DONE5TAB33 PO; +DONE5TAB56 PO; -LEVO500T38 PO; +LEVO500T59 PO; +POLY17PO29 PO; -POLY17PO5 PO; -POTA10TA10 PO; +POTA10TA12 PO
[2017-06-04] MEDS ORDERED: HYDROmorphone 2 MG/ML VIAL IV ONE ×3 (18:30→23:00)
[2017-06-04 18:31] LABS: BASO # 0.1 x10^3/uL (0.0-0.2); BASO % 1 % (0-3); EOS % 3 % (0-3); HEMATOCRIT 35.1 % (36.0-47.0); HEMOGLOBIN 11.4 g/dL (12.0-15.5); LYMPH # 1.8 x10^3/uL (1.0-4.8); LYMPH % 20 % (24-48); MEAN CORPUSCULAR HEMOGLOBIN 31 pg (25-35); MEAN CORPUSCULAR HGB CONC 33 g/dL (31-37); MEAN CORPUSCULAR VOLUME 96 fL (79-100); MONO % 10 % (0-9); NEUT % 67 % (31-73); PLATELET COUNT 158 x10^3/uL (140-400); RED BLOOD COUNT 3.66 x10^6/uL (3.50-5.40); RED CELL DISTRIBUTION WIDTH 16.1 % (11.5-14.5); WHITE BLOOD COUNT 8.8 x10^3/uL (4.0-11.0)
[2017-06-04 18:44] LABS: CALCIUM 8.7 mg/dL (8.5-10.1); CREATININE 1.1 mg/dL (0.6-1.0); GFR 48.2; POTASSIUM 3.9 mmol/L (3.5-5.1)
[2017-06-04 18:49] LABS: ALBUMIN/GLOBULIN RATIO 0.7 (1.0-1.7); TOTAL BILIRUBIN 0.2 mg/dL (0.2-1.0); TOTAL PROTEIN 7.6 g/dL (6.4-8.2)
--- NOTE | 2017-06-04 20:49 | PHYS DOC ---
Past Medical History Past Medical History: Bronchitis, CHF, COPD, Dementia, Diabetes-Type II, High Cholesterol, Hypertension, Renal Disease, Other Additional Past Medical Histor: resp failure; AMS; pulmonary edema; right knee pain Past Surgical History: Hysterectomy Additional Past Surgical Histo: pt unable to Alcohol Use: None Drug Use: None Adult General Chief Complaint Chief Complaint: MECHANICAL FALL HPI HPI Right shoulder injury. Patient states she lost her balance at home fell and injured her right shoulder. She is unable to range of motion it since the fall. No head injury or neck pain. No chest pain or shortness of breath. Patient denies any hip or pelvis injury. No other complaints or prodromal symptoms Review of Systems Review of Systems Constitutional: Denies fever or chills [] Eyes: Denies change in visual acuity, redness, or eye pain [] HENT: Denies nasal congestion or sore throat [] Respiratory: Denies cough or shortness of breath [] Cardiovascular: No additional information not addressed in HPI [] GI: Denies abdominal pain, nausea, vomiting, bloody stools or diarrhea [] : Denies dysuria or hematuria [] Musculoskeletal: Denies back pain or joint pain [] Integument: Denies rash or skin lesions [] Neurologic: Denies headache, focal weakness or sensory changes [] Endocrine: Denies polyuria or polydipsia [] Current Medications Current Medications Current Medications Medications (Trade) Dose Ordered Sig/Talita Start Time Stop Time Status Last Admin Dose Admin Hydromorphone HCl (Dilaudid) 1 mg 1X ONCE 06/04/17 19:45 06/04/17 19:46 DC 06/04/17 19:47 1 MG Allergies Allergies Allergies Coded Allergies Type Severity Reaction Last Updated Verified Penicillins Allergy Intermediate AMS 09/10/16 Yes aripiprazole Adverse Reaction Mild agitation 10/28/16 Yes bupropion Adverse Reaction Mild headache 10/28/16 Yes metformin Adverse Reaction Mild diarrhea 10/28/16 Yes Physical Exam Physical Exam Alert chronically weak appearing female no acute distress. Bony tenderness of the right shoulder with soft compartments distally neurovascularly intact right upper extremity. Range of motion limited by severe pain with movement Constitutional: Well developed, well nourished, no acute distress, non-toxic appearance. [] HENT: Normocephalic, atraumatic, bilateral external ears normal, oropharynx moist, no oral exudates, nose normal. [] Eyes: PERRLA, EOMI, conjunctiva normal, no discharge. [] Neck: Normal range of motion, no tenderness, supple, no stridor. [] Cardiovascular:Heart rate regular rhythm, no murmur [] Lungs & Thorax: Bilateral breath sounds clear to auscultation [] Abdomen: Bowel sounds normal, soft, no tenderness, no masses, no pulsatile masses. [] Skin: Warm, dry, no erythema, no rash. [] Back: No tenderness, no CVA tenderness. [] Extremities: No tenderness, no cyanosis, no clubbing, ROM intact, no edema. [] Neurologic: Alert and oriented X 3, normal motor function, normal sensory function, no focal deficits noted. [] Psychologic: Affect normal, judgement normal, mood normal. [] Current Patient Data Vital Signs Vital Signs Date Time Temp Pulse Resp B/P (MAP) Pulse Ox O2 Delivery O2 Flow Rate FiO2 06/04/17 21:00 77 146/67 (93) 96 Room Air 06/04/17 19:47 20 06/04/17 17:40 98.4 98.4 Lab Values Laboratory Tests Test 06/04/17 18:25 White Blood Count 8.8 x10^3/uL (4.0-11.0) Red Blood Count 3.66 x10^6/uL (3.50-5.40) Hemoglobin 11.4 g/dL (12.0-15.5) L Hematocrit 35.1 % (36.0-47.0) L Mean Corpuscular Volume 96 fL (79-100) Mean Corpuscular Hemoglobin 31 pg (25-35) Mean Corpuscular Hemoglobin Concent 33 g/dL (31-37) Red Cell Distribution Width 16.1 % (11.5-14.5) H Platelet Count 158 x10^3/uL (140-400) Neutrophils (%) (Auto) 67 % (31-73) Lymphocytes (%) (Auto) 20 % (24-48) L Monocytes (%) (Auto) 10 % (0-9) H Eosinophils (%) (Auto) 3 % (0-3) Basophils (%) (Auto) 1 % (0-3) Neutrophils # (Auto) 5.9 x10^3uL (1.8-7.7) Lymphocytes # (Auto) 1.8 x10^3/uL (1.0-4.8) Monocytes # (Auto) 0.8 x10^3/uL (0.0-1.1) Eosinophils # (Auto) 0.2 x10^3/uL (0.0-0.7) Basophils # (Auto) 0.1 x10^3/uL (0.0-0.2) Sodium Level 142 mmol/L (136-145) Potassium Level 3.9 mmol/L (3.5-5.1) Chloride Level 104 mmol/L (98-107) Carbon Dioxide Level 32 mmol/L (21-32) Anion Gap 6 (6-14) Blood Urea Nitrogen 13 mg/dL (7-20) Creatinine 1.1 mg/dL (0.6-1.0) H Estimated GFR (Cockcroft-Gault) 48.2 BUN/Creatinine Ratio 12 (6-20) Glucose Level 151 mg/dL (70-99) H Calcium Level 8.7 mg/dL (8.5-10.1) Total Bilirubin 0.2 mg/dL (0.2-1.0) Aspartate Amino Transferase (AST) 41 U/L (15-37) H Alanine Aminotransferase (ALT) 47 U/L (14-59) Alkaline Phosphatase 96 U/L (46-116) Troponin I Quantitative < 0.017 ng/mL (0.000-0.055) Total Protein 7.6 g/dL (6.4-8.2) Albumin 3.0 g/dL (3.4-5.0) L Albumin/Globulin Ratio 0.7 (1.0-1.7) L Laboratory Tests 06/04/17 18:25 Laboratory Tests 06/04/17 18:25 EKG EKG Normal sinus rhythm at 66 and normal axis no STEMI [] Radiology/Procedures Radiology/Procedures Chest x-ray with chronic changes no acute disease proximal humerus fracture displaced. Interpreted by me Right humerus fracture with transverse fracture of the proximal right humerus 100% displaced interpreted by me Course & Med Decision Making Course & Med Decision Making Pertinent Labs and Imaging studies reviewed. (See chart for details) Signs and symptoms consistent with right humerus fracture confirmed by x-ray. Case discussed with orthopedic surgeon Dr. Song who is aware of the history and findings and agrees with consultation and provision of orthopedic care. Case discussed with Dr. Luna hospitalist power tong operator who is aware of history and findings and agrees with inpatient admission to his service with orthopedic consultation [] Estefaniaon Disclaimer Dragon Disclaimer This electronic medical record was generated, in whole or in part, using a voice recognition dictation system. Departure Departure Impression: Primary Impression: Right humeral fracture Disposition: ADMITTED INPATIENT Condition: STABLE Referrals: MONAE RUBIO (PCP) SALMA REGALADO MD Jun 04, 2017 20:49
[2017-06-04 21:27] LABS: BILIRUBIN,URINE NEGATIVE (NEG); GLUCOSE,URINE NEGATIVE (NEG); NITRITE,URINE NEGATIVE (NEG); PROTEIN,URINE NEGATIVE (NEG-TRACE); UROBILINOGEN,URINE 0.2 mg/dL (0.2 mg/dL)
[2017-06-04 21:37] LABS: BACTERIA,URINE 0 /HPF (0-FEW); RBC,URINE 0 /HPF (0-2); SQUAMOUS EPITHELIAL CELL,UR MOD /LPF; WBC,URINE OCC /HPF (0-4)
[2017-06-04] MEDS: MORPHINE SULFATE 2 MG/ML DISP.SYRIN. IV PRN (21:46)
--- NOTE | 2017-06-04 22:06 | PDOC1 ---
History and Physical Date of Admission Date of Admission DATE: 06/04/17 TIME: 22:03 Identification/Chief Complaint Chief Complaint fall with arm pain Problems: History of Present Illness History of Present Illness Elderly w female well known to us. She fell at home. She is known to take too many of her narcotics in the recent past! Presents to ER and is discovered to have a severe cominuted fracture of the R humerous MILADY RN and ER Doc Pt seen and examined Chart reviewed Plan is admit with consult to Dr Collado Dictation is broken Total time 36 minutes Past Medical History Cardiovascular: HTN, Hyperlipidemia Pulmonary: COPD CENTRAL NERVOUS SYSTEM: Dementia GI: Constipation Heme/Onc: Anemia NOS Hepatobiliary: No pertinent hx Psych: Anxiety Musculoskeletal: low back pain, Osteoarthritis Rheumatologic: No pertinent hx Infectious disease: No pertinent hx Renal/: Urinary Incontinence Endocrine: Diabetes Past Surgical History Past Surgical History: Hysterectomy Family History Family History: Coronary Artery Disease Social History ALCOHOL: none Drugs: None Current Medications Current Medications Current Medications Hydromorphone HCl (Dilaudid) 0.5 mg 1X ONCE IV Last administered on 06/04/17 18:32; Start 06/04/17 at 18:30; Stop 06/04/17 at 18:31; Status DC Hydromorphone HCl (Dilaudid) 1 mg 1X ONCE IV Last administered on 06/04/17 19: 47; Start 06/04/17 at 19:45; Stop 06/04/17 at 19:46; Status DC Morphine Sulfate 2 mg PRN Q2HR PRN IV SEVERE PAIN Last administered on 21:46; Start 06/04/17 at 21:15; Stop 06/05/17 at 21:14 Active Scripts Active Reported Levofloxacin 500 Mg Tablet 1 Tab PO DAILY Vitamin E (Vitamin E (Dl,Tocopheryl Acet)) 100 Unit Capsule 400 Unit PO Symbicort 160-4.5 Mcg Inhaler (Budesonide/Formoterol Fumarate) 10.2 Gm Hfa.aer.ad 2 Puff IH BID Risperidone 0.5 Mg Tablet 1 Tab PO BID Potassium Chloride 10 Meq Tablet.er 20 Meq PO DAILY Multivitamins (Multivitamin) 1 Each Tablet 1 Tab PO DAILY Remeron (Mirtazapine) 15 Mg Tablet 1 Tab PO QHS Lantus Solostar (Insulin Glargine,Hum.rec.anlog) 100 Unit/1 Ml Insuln.pen 40 Unit SQ QHS Gabapentin 300 Mg Capsule 300 Mg PO TID Furosemide 40 Mg Tablet 1 Tab PO DAILY Flonase Allergy Relief (Fluticasone Propionate) 9.9 Ml [place].susp 2 Sprays NS DAILY Colace (Docusate Sodium) 100 Mg Capsule 1 Cap PO BID Cartia Xt (Diltiazem Hcl) 240 Mg Cap.er.24h 240 Mg PO Aspirin 81 Mg Tab.chew 1 Tab PO DAILY Proair Hfa Inhaler (Albuterol Sulfate) 8.5 Gm Hfa.aer.ad 1 Puff INH PRN Q6HRS PRN Atorvastatin Calcium 20 Mg Tablet 1 Tab PO DAILY Trazodone Hcl 50 Mg Tablet 1 Tab PO QHS Pantoprazole Sodium 40 Mg Tablet.dr 1 Tab PO DAILY Sertraline Hcl 50 Mg Tablet 50 Mg PO DAILY Losartan Potassium 50 Mg Tablet 50 Mg PO DAILY Allergies Allergies: Coded Allergies: Penicillins (Verified Allergy, Intermediate, AMS, 09/10/16) aripiprazole (Verified Adverse Reaction, Mild, agitation, 10/28/16) bupropion (Verified Adverse Reaction, Mild, headache, 10/28/16) metformin (Verified Adverse Reaction, Mild, diarrhea, 10/28/16) Vitals Vitals Vital Signs Date Time Temp Pulse Resp B/P (MAP) Pulse Ox O2 Delivery O2 Flow Rate FiO2 06/04/17 21:46 20 Room Air 06/04/17 21:00 77 146/67 (93) 96 06/04/17 17:40 98.4 98.4 Labs Labs Laboratory Tests Test 06/04/17 18:25 06/04/17 21:20 White Blood Count 8.8 x10^3/uL (4.0-11.0) Red Blood Count 3.66 x10^6/uL (3.50-5.40) Hemoglobin 11.4 g/dL (12.0-15.5) Hematocrit 35.1 % (36.0-47.0) Mean Corpuscular Volume 96 fL (79-100) Mean Corpuscular Hemoglobin 31 pg (25-35) Mean Corpuscular Hemoglobin Concent 33 g/dL (31-37) Red Cell Distribution Width 16.1 % (11.5-14.5) Platelet Count 158 x10^3/uL (140-400) Neutrophils (%) (Auto) 67 % (31-73) Lymphocytes (%) (Auto) 20 % (24-48) Monocytes (%) (Auto) 10 % (0-9) Eosinophils (%) (Auto) 3 % (0-3) Basophils (%) (Auto) 1 % (0-3) Neutrophils # (Auto) 5.9 x10^3uL (1.8-7.7) Lymphocytes # (Auto) 1.8 x10^3/uL (1.0-4.8) Monocytes # (Auto) 0.8 x10^3/uL (0.0-1.1) Eosinophils # (Auto) 0.2 x10^3/uL (0.0-0.7) Basophils # (Auto) 0.1 x10^3/uL (0.0-0.2) Sodium Level 142 mmol/L (136-145) Potassium Level 3.9 mmol/L (3.5-5.1) Chloride Level 104 mmol/L (98-107) Carbon Dioxide Level 32 mmol/L (21-32) Anion Gap 6 (6-14) Blood Urea Nitrogen 13 mg/dL (7-20) Creatinine 1.1 mg/dL (0.6-1.0) Estimated GFR (Cockcroft-Gault) 48.2 BUN/Creatinine Ratio 12 (6-20) Glucose Level 151 mg/dL (70-99) Calcium Level 8.7 mg/dL (8.5-10.1) Total Bilirubin 0.2 mg/dL (0.2-1.0) Aspartate Amino Transf (AST/SGOT) 41 U/L (15-37) Alanine Aminotransferase (ALT/SGPT) 47 U/L (14-59) Alkaline Phosphatase 96 U/L (46-116) Troponin I Quantitative < 0.017 ng/mL (0.000-0.055) Total Protein 7.6 g/dL (6.4-8.2) Albumin 3.0 g/dL (3.4-5.0) Albumin/Globulin Ratio 0.7 (1.0-1.7) Urine Color Yellow Urine Clarity Cloudy Urine pH 5.0 Urine Specific [place] 1.020 Urine Protein Negative mg/dL (NEG-TRACE) Urine Glucose (UA) Negative mg/dL (NEG) Urine Ketones (Stick) Negative mg/dL (NEG) Urine Blood Negative (NEG) Urine Nitrite Negative (NEG) Urine Bilirubin Negative (NEG) Urine Urobilinogen Dipstick 0.2 mg/dL (0.2 mg/dL) Urine Leukocyte Esterase Trace (NEG) Urine RBC 0 /HPF (0-2) Urine WBC Occ /HPF (0-4) Urine Squamous Epithelial Cells Mod /LPF Urine Amorphous Sediment Present /HPF Urine Bacteria 0 /HPF (0-FEW) Laboratory Tests Test 06/04/17 18:25 06/04/17 21:20 White Blood Count 8.8 x10^3/uL (4.0-11.0) Red Blood Count 3.66 x10^6/uL (3.50-5.40) Hemoglobin 11.4 g/dL (12.0-15.5) Hematocrit 35.1 % (36.0-47.0) Mean Corpuscular Volume 96 fL (79-100) Mean Corpuscular Hemoglobin 31 pg (25-35) Mean Corpuscular Hemoglobin Concent 33 g/dL (31-37) Red Cell Distribution Width 16.1 % (11.5-14.5) Platelet Count 158 x10^3/uL (140-400) Neutrophils (%) (Auto) 67 % (31-73) Lymphocytes (%) (Auto) 20 % (24-48) Monocytes (%) (Auto) 10 % (0-9) Eosinophils (%) (Auto) 3 % (0-3) Basophils (%) (Auto) 1 % (0-3) Neutrophils # (Auto) 5.9 x10^3uL (1.8-7.7) Lymphocytes # (Auto) 1.8 x10^3/uL (1.0-4.8) Monocytes # (Auto) 0.8 x10^3/uL (0.0-1.1) Eosinophils # (Auto) 0.2 x10^3/uL (0.0-0.7) Basophils # (Auto) 0.1 x10^3/uL (0.0-0.2) Sodium Level 142 mmol/L (136-145) Potassium Level 3.9 mmol/L (3.5-5.1) Chloride Level 104 mmol/L (98-107) Carbon Dioxide Level 32 mmol/L (21-32) Anion Gap 6 (6-14) Blood Urea Nitrogen 13 mg/dL (7-20) Creatinine 1.1 mg/dL (0.6-1.0) Estimated GFR (Cockcroft-Gault) 48.2 BUN/Creatinine Ratio 12 (6-20) Glucose Level 151 mg/dL (70-99) Calcium Level 8.7 mg/dL (8.5-10.1) Total Bilirubin 0.2 mg/dL (0.2-1.0) Aspartate Amino Transf (AST/SGOT) 41 U/L (15-37) Alanine Aminotransferase (ALT/SGPT) 47 U/L (14-59) Alkaline Phosphatase 96 U/L (46-116) Troponin I Quantitative < 0.017 ng/mL (0.000-0.055) Total Protein 7.6 g/dL (6.4-8.2) Albumin 3.0 g/dL (3.4-5.0) Albumin/Globulin Ratio 0.7 (1.0-1.7) Urine Color Yellow Urine Clarity Cloudy Urine pH 5.0 Urine Specific [place] 1.020 Urine Protein Negative mg/dL (NEG-TRACE) Urine Glucose (UA) Negative mg/dL (NEG) Urine Ketones (Stick) Negative mg/dL (NEG) Urine Blood Negative (NEG) Urine Nitrite Negative (NEG) Urine Bilirubin Negative (NEG) Urine Urobilinogen Dipstick 0.2 mg/dL (0.2 mg/dL) Urine Leukocyte Esterase Trace (NEG) Urine RBC 0 /HPF (0-2) Urine WBC Occ /HPF (0-4) Urine Squamous Epithelial Cells Mod /LPF Urine Amorphous Sediment Present /HPF Urine Bacteria 0 /HPF (0-FEW) VTE Prophylaxis Ordered VTE Prophylaxis Devices: No VTE Pharmacological Prophylaxi: Yes ABDULAZIZ KELSEY III DO Jun 04, 2017 22:06
[2017-06-04 23:35] VITALS: BP 122/58
[2017-06-05] MEDS ORDERED: PNEUMOCOCCAL VAX SCREEN BY RX. MC PRN (01:45)
--- NOTE | 2017-06-05 02:49 | ACF ---
Admission Forms Criteria MUSCULOSKELETAL DISEASE GRG Clinical Indications for Admission to Inpatient Care (Place 'X' for any and all applicable criteria): Hospital admission is needed for appropriate care of the patient because of 1 or more of the following: [X]I. Fracture, dislocation, or other musculoskeletal injury requiring inpatient care(medical) as indicated by 1 or more of the following(4)(5)(6)(7) [ ]a) Vertebral fracture requiring observation for instability or neurologic compromise (8) [ ]b) Compartment syndrome (proven or cannot be ruled out during observation level of care) (9) [ ]c) Limb-threatening injury [ ]d) Major injury requiring inpatient stabilization such as traction initiation or external fixation before internal fixation or closure of complex or open fracture [X]e) Major injury requiring inpatient treatment after emergency or observation level care (as appropriate) [ ]f) Severe pain requiring acute inpatient management [ ]g) Injury with suspicion of abuse or neglect (eg., child, dependent elderly) [ ]II. Newly diagnosed or suspected bone, joint, or orthopedic device infection (e.g., osteomyelitis, septic arthritis) needing 1 or more of the following(1)(2)(3) [ ]a) IV antibiotics that cannot be initiated in other than inpatient setting (e.g., patient too unstable or home infusion not available) [ ]b) Device removal or replacement [ ]c) Bone or soft tissue debridement [ ]d) Joint drainage (drain placement or repetitive aspirations) [ ]III. Severe rheumatologic disease (e.g., systemic lupus erythematosus, rheumatoid arthritis) with complications or comorbidities (Also use Optimal Recovery Care Criteria or General Recovery Criteria as appropriate on the basis of predominant condition), including 1 or more of the following( 10)(11)(12)(13) [ ]a) Severe infection (e.g., PAN CLEANER infection, sepsis) (14) [ ]b) Respiratory complications, including 1 or more of the following : [ ]i) Pleural effusion with respiratory compromise [ ]ii) Pulmonary hypertension with congestive failure [ ]iii) Respiratory failure [ ]iv) Pulmonary hemorrhage (15) [ ]c) Hematologic disease, including 1 or more of the following: [ ]i) Coagulopathy with bleeding [ ]ii) Thrombosis with hypercoagulable state [ ]iii) Thrombotic thrombocytopenic purpura [ ]d) Cerebritis with seizures, psychosis, or other severe abnormalities [ ]e) Vertebral destruction with monitoring needed for cervical myelopathy& possible respiratory compromise [ ]f) Exacerbation that requires inpatient treatment (e.g., intravenous immunosuppression) (16) [ ]g) Acute renal failure [ ]h) Cerebritis with seizures, psychosis, Altered mental status, or other neurologic abnormalities [ ]i) Pericardial effusion with tamponade [ ]j) Vertebral destruction, with monitoring needed for cervical myelopathy and possible respiratory compromise [ ]IV. Severe vasculitis with complications or comorbidities (Also use Optimal Recovery Care Criteria General Recovery Criteria as appropriate on the basis of predominant condition), including 1 or more of the following(11)(12)(17)(18)(19)(20) [ ]a) Exacerbation that requires inpatient treatment (e.g., intravenous immunosuppression) (19)(21) [ ]b) Pulmonary hemorrhage (15) [ ]c) PAN CLEANER vasculitis with seizures, psychosis, Altered mental status that is severe or persistent, or other severe abnormalities (22) [ ]d) Cerebral infarction [ ]e) Gastrointestinal ischemia [ ]f) Gangrene or threatened amputation [ ]g) Renal failure (16) [ ]h) Other significant complications of vasculitis ( eg., tissue or organ ischemia, organ dysfunction ) [ ]V. Severe myopathy as indicated by 1 or more of the following (28)(29) [ ]a) New onset of airway compromise or inability to swallow [ ]b) Respiratory deterioration with observation needed for impending respiratory failure [ ]c) Exacerbation that requires inpatient treatment (e.g., intravenous immunosuppression) [ ]. Severe crystal gout (arthropathy) indicated by 1 or more of the following (23)(24) [ ]a) Severe pain requiring acute inpatient management [ ]b) Exacerbation that requires inpatient treatment (e.g., intravenous treatment) [ ]VII.Rhabdomyolysis and 1 or more of the following (25)(26)(27) [ ]a) Acute renal failure [ ]b) Need for intravenous hydration after emergency or observation level care (as appropriate) [ ]c) Inability to maintain oral hydration [ ]d) Change in mental status [ ]e) Electrolyte abnormality that remains after emergency or observation level care (as appropriate) [ ]VIII Post amputation complication, as indicated by ANY ONE of the following [ ]a) Infection [ ]b) Dehiscence [ ]c) Myodesis failure [ ]IX. Severe pain requiring acute inpatient management due to musculoskeletal condition [ ]X. Musculoskeletal Disease and ALL of the following: [ ]a) Symptom or finding for which emergency and observation care have failed or are not considered appropriate (Use General Criteria: Observation Care as appropriate) [ ]b) Presence of ANY ONE of the following [ ]i) A General Admission Criteria [ ]ii) A Pediatric General Admission Criteria The original [facility] [employer] content created by [email or web address] has been revised. The portions of the content which have been revised are identified through the use of italic text or in bold, and [facility] has neither reviewed nor approved the modified material. All other unmodified content is copyright [email or web address]. Please see references footnoted in the original [email or web address] edition 2016 Admission Criteria Met?: Yes BRIDGET HARRIS Jun 05, 2017 02:49
[2017-06-05 03:00] VITALS: BP 111/50
--- NOTE | 2017-06-05 06:09 | EKG ---
[facility] [address] [place] [address] Test Date: 2017-06-04 Test Time: 18:56:48 Pat Name: OZZIE GALEAS Department: Room: Gender: F [employer]: : [id number] Requested By: SALMA REGALADO Order Number: [id number] Reading MD: Measurements Intervals [place] Rate: 66 P: 47 IN: 178 QRS: 22 QRSD: 84 T: 35 QT: 408 QTc: 429 Interpretive Statements SINUS RHYTHM QRS(T) CONTOUR ABNORMALITY CONSISTENT WITH ANTEROSEPTAL INFARCT PROBABLY OLD RI6.01 Unconfirmed report No previous ECG available for comparison
[2017-06-05 07:00] VITALS: BP 116/41
[2017-06-05] MEDS: PANTOPRAZOLE 40 MG TABLET.DR. PO SCH (07:30)
--- NOTE | 2017-06-05 08:28 | PDOC ---
PROGRESS NOTES Chief Complaint Chief Complaint 1. Severe comminuted fracture of the R humerus 2. HTN 3. HLP 4. COPD 5. Dementia 6. Falll risk 7. OA 8. DM type 2 9. Urinary incontinence 10. Depression History of Present Illness History of Present Illness pt is resting comfortably in bed this morning, he states his pain is being managed well and has minimal pain in his leg currently, she denies any complaints Vitals Vitals Vital Signs Date Time Temp Pulse Resp B/P (MAP) Pulse Ox O2 Delivery O2 Flow Rate FiO2 06/05/17 07:00 100.4 89 16 116/41 (66) 100 Nasal Cannula 2.0 100.4 Physical Exam General: Alert, Oriented X3, Cooperative, No acute distress Heart: Regular rate, No murmurs Lungs: Clear, Other (no wheezes or crackles) Abdomen: Normal bowel sounds, Soft, No tenderness Extremities: No clubbing, No cyanosis, No edema Skin: No rashes, No breakdown, Other (injury site on R humerus bandaged, no drainage) Labs LABS Laboratory Tests Test 06/04/17 18:25 06/04/17 21:20 06/05/17 07:55 White Blood Count 8.8 x10^3/uL (4.0-11.0) Red Blood Count 3.66 x10^6/uL (3.50-5.40) Hemoglobin 11.4 g/dL (12.0-15.5) Hematocrit 35.1 % (36.0-47.0) Mean Corpuscular Volume 96 fL (79-100) Mean Corpuscular Hemoglobin 31 pg (25-35) Mean Corpuscular Hemoglobin Concent 33 g/dL (31-37) Red Cell Distribution Width 16.1 % (11.5-14.5) Platelet Count 158 x10^3/uL (140-400) Neutrophils (%) (Auto) 67 % (31-73) Lymphocytes (%) (Auto) 20 % (24-48) Monocytes (%) (Auto) 10 % (0-9) Eosinophils (%) (Auto) 3 % (0-3) Basophils (%) (Auto) 1 % (0-3) Neutrophils # (Auto) 5.9 x10^3uL (1.8-7.7) Lymphocytes # (Auto) 1.8 x10^3/uL (1.0-4.8) Monocytes # (Auto) 0.8 x10^3/uL (0.0-1.1) Eosinophils # (Auto) 0.2 x10^3/uL (0.0-0.7) Basophils # (Auto) 0.1 x10^3/uL (0.0-0.2) Sodium Level 142 mmol/L (136-145) Potassium Level 3.9 mmol/L (3.5-5.1) Chloride Level 104 mmol/L (98-107) Carbon Dioxide Level 32 mmol/L (21-32) Anion Gap 6 (6-14) Blood Urea Nitrogen 13 mg/dL (7-20) Creatinine 1.1 mg/dL (0.6-1.0) Estimated GFR (Cockcroft-Gault) 48.2 BUN/Creatinine Ratio 12 (6-20) Glucose Level 151 mg/dL (70-99) Calcium Level 8.7 mg/dL (8.5-10.1) Total Bilirubin 0.2 mg/dL (0.2-1.0) Aspartate Amino Transf (AST/SGOT) 41 U/L (15-37) Alanine Aminotransferase (ALT/SGPT) 47 U/L (14-59) Alkaline Phosphatase 96 U/L (46-116) Troponin I Quantitative < 0.017 ng/mL (0.000-0.055) Total Protein 7.6 g/dL (6.4-8.2) Albumin 3.0 g/dL (3.4-5.0) Albumin/Globulin Ratio 0.7 (1.0-1.7) Urine Color Yellow Urine Clarity Cloudy Urine pH 5.0 Urine Specific [place] 1.020 Urine Protein Negative mg/dL (NEG-TRACE) Urine Glucose (UA) Negative mg/dL (NEG) Urine Ketones (Stick) Negative mg/dL (NEG) Urine Blood Negative (NEG) Urine Nitrite Negative (NEG) Urine Bilirubin Negative (NEG) Urine Urobilinogen Dipstick 0.2 mg/dL (0.2 mg/dL) Urine Leukocyte Esterase Trace (NEG) Urine RBC 0 /HPF (0-2) Urine WBC Occ /HPF (0-4) Urine Squamous Epithelial Cells Mod /LPF Urine Amorphous Sediment Present /HPF Urine Bacteria 0 /HPF (0-FEW) Glucose (Fingerstick) 195 mg/dL (70-99) Review of Systems Review of Systems denies nausea, vomiting, or BELLO Assessment and Plan Assessmemt and Plan Assessment 1. Severe comminuted fracture of the R humerus 2. HTN 3. HLP 4. COPD 5. Dementia 6. Falll risk 7. OA 8. DM type 2 9. Urinary incontinence 10. Depression Plan 1. Await ortho rec for R humerus fracture 2. Appreciate subspecialty input 3. Pain management with morphine 4. Recheck labs and vitals tomorrow 5. Discussed plan of care with nursing 6. PT/OT 7. Appreciate subspecialty input 8. Cont home meds 9. Reviewed imaging: CXR showed no acute process, UE XR showed acute displaced fracture of the proximal right humerus. Problems: Comment Review of Relevant I have reviewed the following items juan (where applicable) has been applied. Labs Laboratory Tests Test 06/04/17 18:25 06/04/17 21:20 06/05/17 07:55 White Blood Count 8.8 x10^3/uL (4.0-11.0) Red Blood Count 3.66 x10^6/uL (3.50-5.40) Hemoglobin 11.4 g/dL (12.0-15.5) Hematocrit 35.1 % (36.0-47.0) Mean Corpuscular Volume 96 fL (79-100) Mean Corpuscular Hemoglobin 31 pg (25-35) Mean Corpuscular Hemoglobin Concent 33 g/dL (31-37) Red Cell Distribution Width 16.1 % (11.5-14.5) Platelet Count 158 x10^3/uL (140-400) Neutrophils (%) (Auto) 67 % (31-73) Lymphocytes (%) (Auto) 20 % (24-48) Monocytes (%) (Auto) 10 % (0-9) Eosinophils (%) (Auto) 3 % (0-3) Basophils (%) (Auto) 1 % (0-3) Neutrophils # (Auto) 5.9 x10^3uL (1.8-7.7) Lymphocytes # (Auto) 1.8 x10^3/uL (1.0-4.8) Monocytes # (Auto) 0.8 x10^3/uL (0.0-1.1) Eosinophils # (Auto) 0.2 x10^3/uL (0.0-0.7) Basophils # (Auto) 0.1 x10^3/uL (0.0-0.2) Sodium Level 142 mmol/L (136-145) Potassium Level 3.9 mmol/L (3.5-5.1) Chloride Level 104 mmol/L (98-107) Carbon Dioxide Level 32 mmol/L (21-32) Anion Gap 6 (6-14) Blood Urea Nitrogen 13 mg/dL (7-20) Creatinine 1.1 mg/dL (0.6-1.0) Estimated GFR (Cockcroft-Gault) 48.2 BUN/Creatinine Ratio 12 (6-20) Glucose Level 151 mg/dL (70-99) Calcium Level 8.7 mg/dL (8.5-10.1) Total Bilirubin 0.2 mg/dL (0.2-1.0) Aspartate Amino Transf (AST/SGOT) 41 U/L (15-37) Alanine Aminotransferase (ALT/SGPT) 47 U/L (14-59) Alkaline Phosphatase 96 U/L (46-116) Troponin I Quantitative < 0.017 ng/mL (0.000-0.055) Total Protein 7.6 g/dL (6.4-8.2) Albumin 3.0 g/dL (3.4-5.0) Albumin/Globulin Ratio 0.7 (1.0-1.7) Urine Color Yellow Urine Clarity Cloudy Urine pH 5.0 Urine Specific [place] 1.020 Urine Protein Negative mg/dL (NEG-TRACE) Urine Glucose (UA) Negative mg/dL (NEG) Urine Ketones (Stick) Negative mg/dL (NEG) Urine Blood Negative (NEG) Urine Nitrite Negative (NEG) Urine Bilirubin Negative (NEG) Urine Urobilinogen Dipstick 0.2 mg/dL (0.2 mg/dL) Urine Leukocyte Esterase Trace (NEG) Urine RBC 0 /HPF (0-2) Urine WBC Occ /HPF (0-4) Urine Squamous Epithelial Cells Mod /LPF Urine Amorphous Sediment Present /HPF Urine Bacteria 0 /HPF (0-FEW) Glucose (Fingerstick) 195 mg/dL (70-99) Laboratory Tests Test 06/04/17 18:25 06/04/17 21:20 06/05/17 07:55 White Blood Count 8.8 x10^3/uL (4.0-11.0) Red Blood Count 3.66 x10^6/uL (3.50-5.40) Hemoglobin 11.4 g/dL (12.0-15.5) Hematocrit 35.1 % (36.0-47.0) Mean Corpuscular Volume 96 fL (79-100) Mean Corpuscular Hemoglobin 31 pg (25-35) Mean Corpuscular Hemoglobin Concent 33 g/dL (31-37) Red Cell Distribution Width 16.1 % (11.5-14.5) Platelet Count 158 x10^3/uL (140-400) Neutrophils (%) (Auto) 67 % (31-73) Lymphocytes (%) (Auto) 20 % (24-48) Monocytes (%) (Auto) 10 % (0-9) Eosinophils (%) (Auto) 3 % (0-3) Basophils (%) (Auto) 1 % (0-3) Neutrophils # (Auto) 5.9 x10^3uL (1.8-7.7) Lymphocytes # (Auto) 1.8 x10^3/uL (1.0-4.8) Monocytes # (Auto) 0.8 x10^3/uL (0.0-1.1) Eosinophils # (Auto) 0.2 x10^3/uL (0.0-0.7) Basophils # (Auto) 0.1 x10^3/uL (0.0-0.2) Sodium Level 142 mmol/L (136-145) Potassium Level 3.9 mmol/L (3.5-5.1) Chloride Level 104 mmol/L (98-107) Carbon Dioxide Level 32 mmol/L (21-32) Anion Gap 6 (6-14) Blood Urea Nitrogen 13 mg/dL (7-20) Creatinine 1.1 mg/dL (0.6-1.0) Estimated GFR (Cockcroft-Gault) 48.2 BUN/Creatinine Ratio 12 (6-20) Glucose Level 151 mg/dL (70-99) Calcium Level 8.7 mg/dL (8.5-10.1) Total Bilirubin 0.2 mg/dL (0.2-1.0) Aspartate Amino Transf (AST/SGOT) 41 U/L (15-37) Alanine Aminotransferase (ALT/SGPT) 47 U/L (14-59) Alkaline Phosphatase 96 U/L (46-116) Troponin I Quantitative < 0.017 ng/mL (0.000-0.055) Total Protein 7.6 g/dL (6.4-8.2) Albumin 3.0 g/dL (3.4-5.0) Albumin/Globulin Ratio 0.7 (1.0-1.7) Urine Color Yellow Urine Clarity Cloudy Urine pH 5.0 Urine Specific [place] 1.020 Urine Protein Negative mg/dL (NEG-TRACE) Urine Glucose (UA) Negative mg/dL (NEG) Urine Ketones (Stick) Negative mg/dL (NEG) Urine Blood Negative (NEG) Urine Nitrite Negative (NEG) Urine Bilirubin Negative (NEG) Urine Urobilinogen Dipstick 0.2 mg/dL (0.2 mg/dL) Urine Leukocyte Esterase Trace (NEG) Urine RBC 0 /HPF (0-2) Urine WBC Occ /HPF (0-4) Urine Squamous Epithelial Cells Mod /LPF Urine Amorphous Sediment Present /HPF Urine Bacteria 0 /HPF (0-FEW) Glucose (Fingerstick) 195 mg/dL (70-99) Medications Current Medications Hydromorphone HCl (Dilaudid) 0.5 mg 1X ONCE IV Last administered on 06/04/17 18:32; Start 06/04/17 at 18:30; Stop 06/04/17 at 18:31; Status DC Hydromorphone HCl (Dilaudid) 1 mg 1X ONCE IV Last administered on 06/04/17 19: 47; Start 06/04/17 at 19:45; Stop 06/04/17 at 19:46; Status DC Morphine Sulfate 2 mg PRN Q2HR PRN IV SEVERE PAIN Last administered on 21:46; Start 06/04/17 at 21:15; Stop 06/05/17 at 21:14 Aspirin (Children'S Aspirin) 81 mg DAILY PO ; Start 06/05/17 at 09:00 Atorvastatin Calcium (Lipitor) 20 mg QHS PO ; Start 06/05/17 at 21:00 Diltiazem HCl (Cardizem 24hr Cd) 240 mg DAILY PO ; Start 06/05/17 at 09:00 Docusate Sodium (Colace) 100 mg BID PO ; Start 06/05/17 at 09:00 Furosemide (Lasix) 40 mg DAILY PO ; Start 06/05/17 at 09:00 Levofloxacin (Levaquin) 500 mg DAILY PO ; Start 06/05/17 at 09:00; Status UNV Losartan Potassium (Cozaar) 50 mg DAILY PO ; Start 06/05/17 at 09:00 Mirtazapine (Remeron) 15 mg QHS PO ; Start 06/05/17 at 21:00 Pantoprazole Sodium (Protonix) 40 mg DAILYAC PO ; Start 06/05/17 at 07:30 Potassium Chloride (Klor-Con) 20 meq DAILY PO ; Start 06/05/17 at 09:00 Sertraline HCl (Zoloft) 50 mg DAILY PO ; Start 06/05/17 at 09:00 Trazodone HCl (Desyrel) 50 mg QHS PO ; Start 06/05/17 at 21:00 Hydromorphone HCl (Dilaudid) 1 mg 1X ONCE IV Last administered on 06/04/17t 22: 57; Start 06/04/17 at 23:00; Stop 06/04/17 at 23:01; Status DC Pneumococcal Polyvalent Vaccine (Do NOT chart on this placeholder) 1 each PRN DAILY PRN [facility] UNABLE TO RESPOND; Start 06/05/17 at 01:45 Active Scripts Active Reported Levofloxacin 500 Mg Tablet 1 Tab PO DAILY Vitamin E (Vitamin E (Dl,Tocopheryl Acet)) 100 Unit Capsule 400 Unit PO Symbicort 160-4.5 Mcg Inhaler (Budesonide/Formoterol Fumarate) 10.2 Gm Hfa.aer.ad 2 Puff IH BID Risperidone 0.5 Mg Tablet 1 Tab PO BID Potassium Chloride 10 Meq Tablet.er 20 Meq PO DAILY Multivitamins (Multivitamin) 1 Each Tablet 1 Tab PO DAILY Remeron (Mirtazapine) 15 Mg Tablet 1 Tab PO QHS Lantus Solostar (Insulin Glargine,Hum.rec.anlog) 100 Unit/1 Ml Insuln.pen 40 Unit SQ QHS Gabapentin 300 Mg Capsule 300 Mg PO TID Furosemide 40 Mg Tablet 1 Tab PO DAILY Flonase Allergy Relief (Fluticasone Propionate) 9.9 Ml [place].susp 2 Sprays NS DAILY Colace (Docusate Sodium) 100 Mg Capsule 1 Cap PO BID Cartia Xt (Diltiazem Hcl) 240 Mg Cap.er.24h 240 Mg PO Aspirin 81 Mg Tab.chew 1 Tab PO DAILY Proair Hfa Inhaler (Albuterol Sulfate) 8.5 Gm Hfa.aer.ad 1 Puff INH PRN Q6HRS PRN Atorvastatin Calcium 20 Mg Tablet 1 Tab PO DAILY Trazodone Hcl 50 Mg Tablet 1 Tab PO QHS Pantoprazole Sodium 40 Mg Tablet.dr 1 Tab PO DAILY Sertraline Hcl 50 Mg Tablet 50 Mg PO DAILY Losartan Potassium 50 Mg Tablet 50 Mg PO DAILY Vitals/I & O Vital Sign - Last 24 Hours 06/04/17 06/04/17 06/04/17 06/04/17 17:40 18:30 19:00 19:30 Temp 98.4 98.4 Pulse 78 76 74 71 Resp 22 B/P (MAP) 161/74 (103) 149/69 (95) 160/71 (100) 155/68 (97) Pulse Ox 98 96 95 96 O2 Delivery Room Air Room Air Room Air Room Air 06/04/17 06/04/17 06/04/17 06/04/17 19:47 20:00 20:30 21:00 Pulse 76 74 77 Resp 20 B/P (MAP) 175/74 (107) 153/67 (95) 146/67 (93) Pulse Ox 96 98 96 O2 Delivery Room Air Room Air Room Air Room Air 06/04/17 06/04/17 06/04/17 06/04/17 21:30 21:46 22:00 22:30 Pulse 79 84 83 Resp 20 B/P (MAP) 158/68 (98) 160/67 (98) 138/60 (86) Pulse Ox 98 94 93 O2 Delivery Room Air Room Air Room Air Room Air 06/04/17 06/04/17 06/04/17 06/04/17 22:57 23:00 23:35 23:35 Pulse 67 Resp 22 18 18 B/P (MAP) 161/73 (102) Pulse Ox 98 94 94 O2 Delivery Room Air Room Air Room Air Room Air 06/04/17 06/04/17 06/05/17 06/05/17 23:35 23:45 03:00 07:00 Temp 97.5 98.6 100.4 97.5 98.6 100.4 Pulse 86 95 89 Resp 20 20 16 B/P (MAP) 122/58 (79) 111/50 (70) 116/41 (66) Pulse Ox 99 89 100 O2 Delivery Room Air Room Air Room Air Nasal Cannula O2 Flow Rate 2.0 Intake and Output 06/04/17 06/04/17 06/05/17 15:00 23:00 07:00 Intake Total 0 ml Output Total 0 ml Balance 0 ml ABDULAZIZ KELSEY III DO Jun 05, 2017 08:28
--- NOTE | 2017-06-05 08:37 | RAD ---
Portable chest, 06/04/2017: History: Malaise Comparison is made to a study from 04/04/2017. The heart is mildly enlarged. There is calcific plaquing of the aorta. The pulmonary vascularity is normal. No pulmonary infiltrates are seen. There is no evidence of pleural fluid. There is a new right humeral neck fracture, as described on the current humeral radiographs. IMPRESSION: 1. Mild cardiomegaly and aortic atherosclerosis. 2. No acute cardiopulmonary abnormality is detected.
[2017-06-05] MEDS: FUROSEMIDE 40 MG TABLET. PO SCH (09:00)
[2017-06-05] MEDS: ASPIRIN CHEWABLE 81 MG TABLET. PO SCH (09:00)
[2017-06-05] MEDS: LOSARTAN POTASSIUM 50 MG TABLET. PO SCH (09:00)
[2017-06-05] MEDS: SERTRALINE 50 MG TABLET. PO SCH (09:00)
[2017-06-05] MEDS: POTASSIUM CHLORIDE 10 MEQ TABLET.ER. PO SCH (09:00)
[2017-06-05] MEDS: DOCUSATE SODIUM 100 MG CAPSULE. PO SCH ×2 (09:00→20:42)
--- NOTE | 2017-06-05 09:11 | RAD ---
Right humerus, 2 views, 06/04/2017: History: Fall There is a fracture of the proximal right humerus involving the humeral neck. The fracture is comminuted. There is moderate medial displacement of the major distal fracture fragment. The distal humerus is unremarkable. IMPRESSION: Acute displaced fracture of the proximal right humerus. Note: The findings were called to personnel in the [facility] ER at 9:08 AM on 06/05/2017.
[2017-06-05] MEDS: MORPHINE SULFATE 2 MG/ML DISP.SYRIN. IV PRN ×4 (10:27→20:42)
[2017-06-05 11:00] VITALS: BP 130/45
--- NOTE | 2017-06-05 13:16 | PDOC ---
ORTHO PROGRESS NOTES Vitals Vital Signs Date Time Temp Pulse Resp B/P (MAP) Pulse Ox O2 Delivery O2 Flow Rate FiO2 06/05/17 12:39 21 92 Nasal Cannula 2.0 06/05/17 11:00 100.1 93 130/45 (73) 100.1 Labs Laboratory Tests Test 06/04/17 18:25 06/04/17 21:20 06/05/17 07:55 06/05/17 11:02 White Blood Count 8.8 x10^3/uL (4.0-11.0) Red Blood Count 3.66 x10^6/uL (3.50-5.40) Hemoglobin 11.4 g/dL (12.0-15.5) Hematocrit 35.1 % (36.0-47.0) Mean Corpuscular Volume 96 fL (79-100) Mean Corpuscular Hemoglobin 31 pg (25-35) Mean Corpuscular Hemoglobin Concent 33 g/dL (31-37) Red Cell Distribution Width 16.1 % (11.5-14.5) Platelet Count 158 x10^3/uL (140-400) Neutrophils (%) (Auto) 67 % (31-73) Lymphocytes (%) (Auto) 20 % (24-48) Monocytes (%) (Auto) 10 % (0-9) Eosinophils (%) (Auto) 3 % (0-3) Basophils (%) (Auto) 1 % (0-3) Neutrophils # (Auto) 5.9 x10^3uL (1.8-7.7) Lymphocytes # (Auto) 1.8 x10^3/uL (1.0-4.8) Monocytes # (Auto) 0.8 x10^3/uL (0.0-1.1) Eosinophils # (Auto) 0.2 x10^3/uL (0.0-0.7) Basophils # (Auto) 0.1 x10^3/uL (0.0-0.2) Sodium Level 142 mmol/L (136-145) Potassium Level 3.9 mmol/L (3.5-5.1) Chloride Level 104 mmol/L (98-107) Carbon Dioxide Level 32 mmol/L (21-32) Anion Gap 6 (6-14) Blood Urea Nitrogen 13 mg/dL (7-20) Creatinine 1.1 mg/dL (0.6-1.0) Estimated GFR (Cockcroft-Gault) 48.2 BUN/Creatinine Ratio 12 (6-20) Glucose Level 151 mg/dL (70-99) Calcium Level 8.7 mg/dL (8.5-10.1) Total Bilirubin 0.2 mg/dL (0.2-1.0) Aspartate Amino Transf (AST/SGOT) 41 U/L (15-37) Alanine Aminotransferase (ALT/SGPT) 47 U/L (14-59) Alkaline Phosphatase 96 U/L (46-116) Troponin I Quantitative < 0.017 ng/mL (0.000-0.055) Total Protein 7.6 g/dL (6.4-8.2) Albumin 3.0 g/dL (3.4-5.0) Albumin/Globulin Ratio 0.7 (1.0-1.7) Urine Color Yellow Urine Clarity Cloudy Urine pH 5.0 Urine Specific [place] 1.020 Urine Protein Negative mg/dL (NEG-TRACE) Urine Glucose (UA) Negative mg/dL (NEG) Urine Ketones (Stick) Negative mg/dL (NEG) Urine Blood Negative (NEG) Urine Nitrite Negative (NEG) Urine Bilirubin Negative (NEG) Urine Urobilinogen Dipstick 0.2 mg/dL (0.2 mg/dL) Urine Leukocyte Esterase Trace (NEG) Urine RBC 0 /HPF (0-2) Urine WBC Occ /HPF (0-4) Urine Squamous Epithelial Cells Mod /LPF Urine Amorphous Sediment Present /HPF Urine Bacteria 0 /HPF (0-FEW) Glucose (Fingerstick) 195 mg/dL (70-99) 176 mg/dL (70-99) Laboratory Tests Test 06/04/17 18:25 06/04/17 21:20 06/05/17 07:55 06/05/17 11:02 White Blood Count 8.8 x10^3/uL (4.0-11.0) Red Blood Count 3.66 x10^6/uL (3.50-5.40) Hemoglobin 11.4 g/dL (12.0-15.5) Hematocrit 35.1 % (36.0-47.0) Mean Corpuscular Volume 96 fL (79-100) Mean Corpuscular Hemoglobin 31 pg (25-35) Mean Corpuscular Hemoglobin Concent 33 g/dL (31-37) Red Cell Distribution Width 16.1 % (11.5-14.5) Platelet Count 158 x10^3/uL (140-400) Neutrophils (%) (Auto) 67 % (31-73) Lymphocytes (%) (Auto) 20 % (24-48) Monocytes (%) (Auto) 10 % (0-9) Eosinophils (%) (Auto) 3 % (0-3) Basophils (%) (Auto) 1 % (0-3) Neutrophils # (Auto) 5.9 x10^3uL (1.8-7.7) Lymphocytes # (Auto) 1.8 x10^3/uL (1.0-4.8) Monocytes # (Auto) 0.8 x10^3/uL (0.0-1.1) Eosinophils # (Auto) 0.2 x10^3/uL (0.0-0.7) Basophils # (Auto) 0.1 x10^3/uL (0.0-0.2) Sodium Level 142 mmol/L (136-145) Potassium Level 3.9 mmol/L (3.5-5.1) Chloride Level 104 mmol/L (98-107) Carbon Dioxide Level 32 mmol/L (21-32) Anion Gap 6 (6-14) Blood Urea Nitrogen 13 mg/dL (7-20) Creatinine 1.1 mg/dL (0.6-1.0) Estimated GFR (Cockcroft-Gault) 48.2 BUN/Creatinine Ratio 12 (6-20) Glucose Level 151 mg/dL (70-99) Calcium Level 8.7 mg/dL (8.5-10.1) Total Bilirubin 0.2 mg/dL (0.2-1.0) Aspartate Amino Transf (AST/SGOT) 41 U/L (15-37) Alanine Aminotransferase (ALT/SGPT) 47 U/L (14-59) Alkaline Phosphatase 96 U/L (46-116) Troponin I Quantitative < 0.017 ng/mL (0.000-0.055) Total Protein 7.6 g/dL (6.4-8.2) Albumin 3.0 g/dL (3.4-5.0) Albumin/Globulin Ratio 0.7 (1.0-1.7) Urine Color Yellow Urine Clarity Cloudy Urine pH 5.0 Urine Specific [place] 1.020 Urine Protein Negative mg/dL (NEG-TRACE) Urine Glucose (UA) Negative mg/dL (NEG) Urine Ketones (Stick) Negative mg/dL (NEG) Urine Blood Negative (NEG) Urine Nitrite Negative (NEG) Urine Bilirubin Negative (NEG) Urine Urobilinogen Dipstick 0.2 mg/dL (0.2 mg/dL) Urine Leukocyte Esterase Trace (NEG) Urine RBC 0 /HPF (0-2) Urine WBC Occ /HPF (0-4) Urine Squamous Epithelial Cells Mod /LPF Urine Amorphous Sediment Present /HPF Urine Bacteria 0 /HPF (0-FEW) Glucose (Fingerstick) 195 mg/dL (70-99) 176 mg/dL (70-99) Assessment and Plan Patient seen OR tomorrow at 8am NPO at FOUZIA HERNDON II, MD Jun 05, 2017 13:16
--- NOTE | 2017-06-05 14:55 | RAD ---
CT of the right shoulder without contrast, 06/05/2017: History: Fall, shoulder fracture There is a comminuted fracture of the proximal humerus centered at the level of the humeral neck. At this level there is moderate medial displacement of the major distal fracture fragment. There is mild impaction. Fracture lines extend superiorly to involve the lateral and anterior aspects of the humeral head. No shoulder dislocation is evident. No scapular or clavicular fracture is seen. There are mild degenerative changes at the AC joint with periarticular calcifications. There is an associated shoulder joint effusion. There is moderate streaky subcutaneous edema IMPRESSION: Comminuted, displaced fracture of the proximal right humeral neck/head as described above. PQRS Compliance Statement: One or more of the following individualized dose reduction techniques were utilized for this examination: 1. Automated exposure control 2. Adjustment of the mA and/or kV according to patient size 3. Use of iterative reconstruction technique
[2017-06-05 15:00] VITALS: BP 112/46
--- NOTE | 2017-06-05 16:53 | PDOC2 ---
CONSULT Date of Consult Date of Consult DATE: 06/05/17 TIME: 16:45 Reason for Consult Reason for Consult: PRE OP EVALUATION Referring Physician Referring Physician: DR KELSEY Source Source: Patient History of Present Illness Reason for Visit: PT SMOKED QUIT SOME TIME AGO NO RECENT ACCORD NO RECENT ADMISSION FOR PNEUMONIA DOES NOT WEAR 02 AT HOME SLIPPED OUT OF CHAIR SUFFERED R HUMERAL FX OR IN AM Past Medical History Cardiovascular: HTN, Hyperlipidemia Pulmonary: COPD CENTRAL NERVOUS SYSTEM: Dementia GI: Constipation Heme/Onc: Anemia NOS Hepatobiliary: No pertinent hx Psych: Anxiety Musculoskeletal: low back pain, Osteoarthritis Rheumatologic: No pertinent hx Infectious disease: No pertinent hx Renal/: Urinary Incontinence Endocrine: Diabetes Past Surgical History Past Surgical History: Hysterectomy Family History Family History: Coronary Artery Disease Social History ALCOHOL: none Drugs: None Lives: with Family Current Medications Current Medications Current Medications Hydromorphone HCl (Dilaudid) 0.5 mg 1X ONCE IV Last administered on 06/04/17 18:32; Start 06/04/17 at 18:30; Stop 06/04/17 at 18:31; Status DC Hydromorphone HCl (Dilaudid) 1 mg 1X ONCE IV Last administered on 06/04/17 19: 47; Start 06/04/17 at 19:45; Stop 06/04/17 at 19:46; Status DC Morphine Sulfate 2 mg PRN Q2HR PRN IV SEVERE PAIN Last administered on 16:32; Start 06/04/17 at 21:15; Stop 06/05/17 at 21:14 Aspirin (Children'S Aspirin) 81 mg DAILY PO ; Start 06/05/17 at 09:00 Atorvastatin Calcium (Lipitor) 20 mg QHS PO ; Start 06/05/17 at 21:00 Diltiazem HCl (Cardizem 24hr Cd) 240 mg DAILY PO ; Start 06/05/17 at 09:00 Docusate Sodium (Colace) 100 mg BID PO ; Start 06/05/17 at 09:00 Furosemide (Lasix) 40 mg DAILY PO ; Start 06/05/17 at 09:00 Levofloxacin (Levaquin) 500 mg DAILY PO ; Start 06/05/17 at 09:00; Status UNV Losartan Potassium (Cozaar) 50 mg DAILY PO ; Start 06/05/17 at 09:00 Mirtazapine (Remeron) 15 mg QHS PO ; Start 06/05/17 at 21:00 Pantoprazole Sodium (Protonix) 40 mg DAILYAC PO ; Start 06/05/17 at 07:30 Potassium Chloride (Klor-Con) 20 meq DAILY PO ; Start 06/05/17 at 09:00 Sertraline HCl (Zoloft) 50 mg DAILY PO ; Start 06/05/17 at 09:00 Trazodone HCl (Desyrel) 50 mg QHS PO ; Start 06/05/17 at 21:00 Hydromorphone HCl (Dilaudid) 1 mg 1X ONCE IV Last administered on 06/04/17t 22: 57; Start 06/04/17 at 23:00; Stop 06/04/17 at 23:01; Status DC Pneumococcal Polyvalent Vaccine (Do NOT chart on this placeholder) 1 each PRN DAILY PRN [facility] UNABLE TO RESPOND; Start 06/05/17 at 01:45; Status Cancel Clindamycin Phosphate 50 ml @ 100 mls/hr 1X ONCE IV ; Start 06/06/17 at 07:30; Stop 06/06/17 at 07:59 Active Scripts Active Reported Levofloxacin 500 Mg Tablet 1 Tab PO DAILY Vitamin E (Vitamin E (Dl,Tocopheryl Acet)) 100 Unit Capsule 400 Unit PO Symbicort 160-4.5 Mcg Inhaler (Budesonide/Formoterol Fumarate) 10.2 Gm Hfa.aer.ad 2 Puff IH BID Risperidone 0.5 Mg Tablet 1 Tab PO BID Potassium Chloride 10 Meq Tablet.er 20 Meq PO DAILY Multivitamins (Multivitamin) 1 Each Tablet 1 Tab PO DAILY Remeron (Mirtazapine) 15 Mg Tablet 1 Tab PO QHS Lantus Solostar (Insulin Glargine,Hum.rec.anlog) 100 Unit/1 Ml Insuln.pen 40 Unit SQ QHS Gabapentin 300 Mg Capsule 300 Mg PO TID Furosemide 40 Mg Tablet 1 Tab PO DAILY Flonase Allergy Relief (Fluticasone Propionate) 9.9 Ml [place].susp 2 Sprays NS DAILY Colace (Docusate Sodium) 100 Mg Capsule 1 Cap PO BID Cartia Xt (Diltiazem Hcl) 240 Mg Cap.er.24h 240 Mg PO Aspirin 81 Mg Tab.chew 1 Tab PO DAILY Proair Hfa Inhaler (Albuterol Sulfate) 8.5 Gm Hfa.aer.ad 1 Puff INH PRN Q6HRS PRN Atorvastatin Calcium 20 Mg Tablet 1 Tab PO DAILY Trazodone Hcl 50 Mg Tablet 1 Tab PO QHS Pantoprazole Sodium 40 Mg Tablet.dr 1 Tab PO DAILY Sertraline Hcl 50 Mg Tablet 50 Mg PO DAILY Losartan Potassium 50 Mg Tablet 50 Mg PO DAILY Allergies Allergies: Coded Allergies: Penicillins (Verified Allergy, Intermediate, AMS, 09/10/16) aripiprazole (Verified Adverse Reaction, Mild, agitation, 10/28/16) bupropion (Verified Adverse Reaction, Mild, headache, 10/28/16) metformin (Verified Adverse Reaction, Mild, diarrhea, 10/28/16) Physical Exam General: Alert, No acute distress HEENT: EOMI Heart: Regular rate, Normal S1, Normal S2, No murmurs Abdomen: Normal bowel sounds, Soft, No tenderness Extremities: No clubbing, No cyanosis, No edema Skin: No rashes, No breakdown Neuro: Normal gait, Other (AWAKE AND ALERT FOLLLOPWS COMMANDS) Psych/Mental Status: Mental status NL Vitals VITALS Vital Signs Date Time Temp Pulse Resp B/P (MAP) Pulse Ox O2 Delivery O2 Flow Rate FiO2 06/05/17 16:32 20 93 Nasal Cannula 2.0 06/05/17 15:00 99.0 94 112/46 (68) 99.0 Labs Labs Laboratory Tests Test 06/04/17 18:25 06/04/17 21:20 06/05/17 07:55 06/05/17 11:02 White Blood Count 8.8 x10^3/uL (4.0-11.0) Red Blood Count 3.66 x10^6/uL (3.50-5.40) Hemoglobin 11.4 g/dL (12.0-15.5) Hematocrit 35.1 % (36.0-47.0) Mean Corpuscular Volume 96 fL (79-100) Mean Corpuscular Hemoglobin 31 pg (25-35) Mean Corpuscular Hemoglobin Concent 33 g/dL (31-37) Red Cell Distribution Width 16.1 % (11.5-14.5) Platelet Count 158 x10^3/uL (140-400) Neutrophils (%) (Auto) 67 % (31-73) Lymphocytes (%) (Auto) 20 % (24-48) Monocytes (%) (Auto) 10 % (0-9) Eosinophils (%) (Auto) 3 % (0-3) Basophils (%) (Auto) 1 % (0-3) Neutrophils # (Auto) 5.9 x10^3uL (1.8-7.7) Lymphocytes # (Auto) 1.8 x10^3/uL (1.0-4.8) Monocytes # (Auto) 0.8 x10^3/uL (0.0-1.1) Eosinophils # (Auto) 0.2 x10^3/uL (0.0-0.7) Basophils # (Auto) 0.1 x10^3/uL (0.0-0.2) Sodium Level 142 mmol/L (136-145) Potassium Level 3.9 mmol/L (3.5-5.1) Chloride Level 104 mmol/L (98-107) Carbon Dioxide Level 32 mmol/L (21-32) Anion Gap 6 (6-14) Blood Urea Nitrogen 13 mg/dL (7-20) Creatinine 1.1 mg/dL (0.6-1.0) Estimated GFR (Cockcroft-Gault) 48.2 BUN/Creatinine Ratio 12 (6-20) Glucose Level 151 mg/dL (70-99) Calcium Level 8.7 mg/dL (8.5-10.1) Total Bilirubin 0.2 mg/dL (0.2-1.0) Aspartate Amino Transf (AST/SGOT) 41 U/L (15-37) Alanine Aminotransferase (ALT/SGPT) 47 U/L (14-59) Alkaline Phosphatase 96 U/L (46-116) Troponin I Quantitative < 0.017 ng/mL (0.000-0.055) Total Protein 7.6 g/dL (6.4-8.2) Albumin 3.0 g/dL (3.4-5.0) Albumin/Globulin Ratio 0.7 (1.0-1.7) Urine Color Yellow Urine Clarity Cloudy Urine pH 5.0 Urine Specific [place] 1.020 Urine Protein Negative mg/dL (NEG-TRACE) Urine Glucose (UA) Negative mg/dL (NEG) Urine Ketones (Stick) Negative mg/dL (NEG) Urine Blood Negative (NEG) Urine Nitrite Negative (NEG) Urine Bilirubin Negative (NEG) Urine Urobilinogen Dipstick 0.2 mg/dL (0.2 mg/dL) Urine Leukocyte Esterase Trace (NEG) Urine RBC 0 /HPF (0-2) Urine WBC Occ /HPF (0-4) Urine Squamous Epithelial Cells Mod /LPF Urine Amorphous Sediment Present /HPF Urine Bacteria 0 /HPF (0-FEW) Glucose (Fingerstick) 195 mg/dL (70-99) 176 mg/dL (70-99) Test 06/05/17 16:15 Glucose (Fingerstick) 199 mg/dL (70-99) Laboratory Tests Test 06/04/17 18:25 06/04/17 21:20 06/05/17 07:55 06/05/17 11:02 White Blood Count 8.8 x10^3/uL (4.0-11.0) Red Blood Count 3.66 x10^6/uL (3.50-5.40) Hemoglobin 11.4 g/dL (12.0-15.5) Hematocrit 35.1 % (36.0-47.0) Mean Corpuscular Volume 96 fL (79-100) Mean Corpuscular Hemoglobin 31 pg (25-35) Mean Corpuscular Hemoglobin Concent 33 g/dL (31-37) Red Cell Distribution Width 16.1 % (11.5-14.5) Platelet Count 158 x10^3/uL (140-400) Neutrophils (%) (Auto) 67 % (31-73) Lymphocytes (%) (Auto) 20 % (24-48) Monocytes (%) (Auto) 10 % (0-9) Eosinophils (%) (Auto) 3 % (0-3) Basophils (%) (Auto) 1 % (0-3) Neutrophils # (Auto) 5.9 x10^3uL (1.8-7.7) Lymphocytes # (Auto) 1.8 x10^3/uL (1.0-4.8) Monocytes # (Auto) 0.8 x10^3/uL (0.0-1.1) Eosinophils # (Auto) 0.2 x10^3/uL (0.0-0.7) Basophils # (Auto) 0.1 x10^3/uL (0.0-0.2) Sodium Level 142 mmol/L (136-145) Potassium Level 3.9 mmol/L (3.5-5.1) Chloride Level 104 mmol/L (98-107) Carbon Dioxide Level 32 mmol/L (21-32) Anion Gap 6 (6-14) Blood Urea Nitrogen 13 mg/dL (7-20) Creatinine 1.1 mg/dL (0.6-1.0) Estimated GFR (Cockcroft-Gault) 48.2 BUN/Creatinine Ratio 12 (6-20) Glucose Level 151 mg/dL (70-99) Calcium Level 8.7 mg/dL (8.5-10.1) Total Bilirubin 0.2 mg/dL (0.2-1.0) Aspartate Amino Transf (AST/SGOT) 41 U/L (15-37) Alanine Aminotransferase (ALT/SGPT) 47 U/L (14-59) Alkaline Phosphatase 96 U/L (46-116) Troponin I Quantitative < 0.017 ng/mL (0.000-0.055) Total Protein 7.6 g/dL (6.4-8.2) Albumin 3.0 g/dL (3.4-5.0) Albumin/Globulin Ratio 0.7 (1.0-1.7) Urine Color Yellow Urine Clarity Cloudy Urine pH 5.0 Urine Specific [place] 1.020 Urine Protein Negative mg/dL (NEG-TRACE) Urine Glucose (UA) Negative mg/dL (NEG) Urine Ketones (Stick) Negative mg/dL (NEG) Urine Blood Negative (NEG) Urine Nitrite Negative (NEG) Urine Bilirubin Negative (NEG) Urine Urobilinogen Dipstick 0.2 mg/dL (0.2 mg/dL) Urine Leukocyte Esterase Trace (NEG) Urine RBC 0 /HPF (0-2) Urine WBC Occ /HPF (0-4) Urine Squamous Epithelial Cells Mod /LPF Urine Amorphous Sediment Present /HPF Urine Bacteria 0 /HPF (0-FEW) Glucose (Fingerstick) 195 mg/dL (70-99) 176 mg/dL (70-99) Test 06/05/17 16:15 Glucose (Fingerstick) 199 mg/dL (70-99) Assessment/Plan Assessment/Plan CHRONIC RESP FAILURE COPD TOBACCO DEPENDENCE IN REMISSION FALL FRACTURE OF R HUMERUS PLAN OK TO OR IN AM PAIN MANAGEMENT AGGRESSIVE PULMONARY HYGIENE IS NEBS CXR REVIEWED NO INFILTRATES LICHA BURNS MD Jun 05, 2017 16:53
[2017-06-05] MEDS ORDERED: ALBUTEROL SULFATE 2.5 MG/3 ML NEBU. NEB PRN (17:00)
[2017-06-05 19:39] VITALS: BP 134/62
[2017-06-05] MEDS: ALBUTEROL SULFATE 2.5 MG/3 ML NEBU. NEB SCH (20:07)
--- NOTE | 2017-06-05 20:32 | PDOC2 ---
CONSULT Date of Consult Date of Consult DATE: 06/05/17 TIME: 20:29 Reason for Consult Reason for Consult: Right proximal humerus fracture Referring Physician Referring Physician: Cheryl Identification/Chief Complaint Chief Complaint Right shoulder pain Problems: History of Present Illness Reason for Visit: Patient is a 76-year-old female who fell, ground level fall without preceding symptoms and landed onto her right upper extremity. She had immediate onset of pain and was brought into the emergency department where radiographs revealed a proximal humerus fracture. She is complaining of a lot of pain all around her shoulder. She tells me the pain radiates down her arm. It is worse with any movement. The pain meds and immobilizer have been helping a little bit. She denies pain elsewhere. Past Medical History Cardiovascular: HTN, Hyperlipidemia Pulmonary: COPD CENTRAL NERVOUS SYSTEM: Dementia GI: Constipation Heme/Onc: Anemia NOS Hepatobiliary: No pertinent hx Psych: Anxiety Musculoskeletal: low back pain, Osteoarthritis Rheumatologic: No pertinent hx Infectious disease: No pertinent hx Renal/: Urinary Incontinence Endocrine: Diabetes Past Surgical History Past Surgical History: Hysterectomy Family History Family History: Coronary Artery Disease Social History ALCOHOL: none Drugs: None Lives: with Family Current Medications Current Medications Current Medications Hydromorphone HCl (Dilaudid) 0.5 mg 1X ONCE IV Last administered on 06/04/17 18:32; Start 06/04/17 at 18:30; Stop 06/04/17 at 18:31; Status DC Hydromorphone HCl (Dilaudid) 1 mg 1X ONCE IV Last administered on 06/04/17 19: 47; Start 06/04/17 at 19:45; Stop 06/04/17 at 19:46; Status DC Morphine Sulfate 2 mg PRN Q2HR PRN IV SEVERE PAIN Last administered on 16:32; Start 06/04/17 at 21:15; Stop 06/05/17 at 21:14 Aspirin (Children'S Aspirin) 81 mg DAILY PO ; Start 06/05/17 at 09:00 Atorvastatin Calcium (Lipitor) 20 mg QHS PO ; Start 06/05/17 at 21:00 Diltiazem HCl (Cardizem 24hr Cd) 240 mg DAILY PO ; Start 06/05/17 at 09:00 Docusate Sodium (Colace) 100 mg BID PO ; Start 06/05/17 at 09:00 Furosemide (Lasix) 40 mg DAILY PO ; Start 06/05/17 at 09:00 Levofloxacin (Levaquin) 500 mg DAILY PO ; Start 06/05/17 at 09:00; Status UNV Losartan Potassium (Cozaar) 50 mg DAILY PO ; Start 06/05/17 at 09:00 Mirtazapine (Remeron) 15 mg QHS PO ; Start 06/05/17 at 21:00 Pantoprazole Sodium (Protonix) 40 mg DAILYAC PO ; Start 06/05/17 at 07:30 Potassium Chloride (Klor-Con) 20 meq DAILY PO ; Start 06/05/17 at 09:00 Sertraline HCl (Zoloft) 50 mg DAILY PO ; Start 06/05/17 at 09:00 Trazodone HCl (Desyrel) 50 mg QHS PO ; Start 06/05/17 at 21:00 Hydromorphone HCl (Dilaudid) 1 mg 1X ONCE IV Last administered on 06/04/17 22: 57; Start 06/04/17 at 23:00; Stop 06/04/17 at 23:01; Status DC Pneumococcal Polyvalent Vaccine (Do NOT chart on this placeholder) 1 each PRN DAILY PRN [facility] UNABLE TO RESPOND; Start 06/05/17 at 01:45; Status Cancel Clindamycin Phosphate 50 ml @ 100 mls/hr 1X ONCE IV ; Start 06/06/17 at 07:30; Stop 06/06/17 at 07:59 Albuterol Sulfate (Ventolin Neb Soln) 2.5 mg RTQID NEB Last administered on 06/05 20:07; Start 06/05/17 at 17:00 Albuterol Sulfate (Ventolin Neb Soln) 2.5 mg PRN Q2HR PRN NEB DYSPNEA; Start at 17:00 Ondansetron HCl (Zofran) 4 mg PRN Q6HRS PRN IV NAUSEA/VOMITING; Start 06/06/17 at 07:00; Stop 06/07/17 at 06:59 Fentanyl Citrate (Fentanyl 2ml Vial) 25 mcg PRN Q5MIN PRN IV MILD PAIN; Start 06/06/17 at 07:00; Stop 06/07/17 at 06:59 Fentanyl Citrate (Fentanyl 2ml Vial) 50 mcg PRN Q5MIN PRN IV MODERATE PAIN; Start 06/06/17 at 07:00; Stop 06/07/17 at 06:59 Morphine Sulfate 1 mg PRN Q10MIN PRN IV SEVERE PAIN; Start 06/06/17 at 07:00; Stop 06/07/17 at 06:59 Ringer's Solution 1,000 ml @ 30 mls/hr Q24H IV ; Start 06/06/17 at 07:00; Stop 06/06/17 at 18:59 Lidocaine HCl 2 ml PRN 1X PRN ID PRIOR TO IV START; Start 06/06/17 at 07:00; Stop 06/07/17 at 06:59 Hydromorphone HCl (Dilaudid) 0.5 mg PRN Q10MIN PRN IV SEV PAIN, Second choice; Start 06/06/17 at 07:00; Stop 06/07/17 at 06:59 Prochlorperazine Edisylate (Compazine) 5 mg PACU PRN PRN IV NAUSEA, MRX1; Start 06/06/17 at 07:00; Stop 06/07/17 at 06:59 Active Scripts Active Reported Levofloxacin 500 Mg Tablet 1 Tab PO DAILY Vitamin E (Vitamin E (Dl,Tocopheryl Acet)) 100 Unit Capsule 400 Unit PO Symbicort 160-4.5 Mcg Inhaler (Budesonide/Formoterol Fumarate) 10.2 Gm Hfa.aer.ad 2 Puff IH BID Risperidone 0.5 Mg Tablet 1 Tab PO BID Potassium Chloride 10 Meq Tablet.er 20 Meq PO DAILY Multivitamins (Multivitamin) 1 Each Tablet 1 Tab PO DAILY Remeron (Mirtazapine) 15 Mg Tablet 1 Tab PO QHS Lantus Solostar (Insulin Glargine,Hum.rec.anlog) 100 Unit/1 Ml Insuln.pen 40 Unit SQ QHS Gabapentin 300 Mg Capsule 300 Mg PO TID Furosemide 40 Mg Tablet 1 Tab PO DAILY Flonase Allergy Relief (Fluticasone Propionate) 9.9 Ml [place].susp 2 Sprays NS DAILY Colace (Docusate Sodium) 100 Mg Capsule 1 Cap PO BID Cartia Xt (Diltiazem Hcl) 240 Mg Cap.er.24h 240 Mg PO Aspirin 81 Mg Tab.chew 1 Tab PO DAILY Proair Hfa Inhaler (Albuterol Sulfate) 8.5 Gm Hfa.aer.ad 1 Puff INH PRN Q6HRS PRN Atorvastatin Calcium 20 Mg Tablet 1 Tab PO DAILY Trazodone Hcl 50 Mg Tablet 1 Tab PO QHS Pantoprazole Sodium 40 Mg Tablet.dr 1 Tab PO DAILY Sertraline Hcl 50 Mg Tablet 50 Mg PO DAILY Losartan Potassium 50 Mg Tablet 50 Mg PO DAILY Allergies Allergies: Coded Allergies: Penicillins (Verified Allergy, Intermediate, AMS, 09/10/16) aripiprazole (Verified Adverse Reaction, Mild, agitation, 10/28/16) bupropion (Verified Adverse Reaction, Mild, headache, 10/28/16) metformin (Verified Adverse Reaction, Mild, diarrhea, 10/28/16) ROS General: No: Chills, Night Sweats, Fatigue, Malaise, Appetite, Other PSYCHOLOGICAL ROS: No: Anxiety, Behavioral Disorder, Concentration difficultie , Decreased libido, Depression, Disorientation, Hallucinations, Hostility, Irritablity, Memory difficulties, Mood Swings, Obsessive thoughts, Physical abuse, Sexual abuse, Sleep disturbances, Suicidal ideation, Other Eyes: No Blurry vision, No Decreased vision, No Double vision, No Dry eyes, No Excessive tearing, No Eye Pain, No Itchy Eyes, No Loss of vision, No Photophobia , No Scotomata, No Uses contacts, No Uses glasses, No Other HEENT: No: Heacaches, Visual Changes, Hearing change, Nasal congestion, Nasal discharge, Oral lesions, Sinus pain, Sore Throat, Epistaxis, Sneezing, Snoring, Tinnitus, Vertigo, Vocal changes, Other ALLERGY AND IMMUNOLOGY: No: Hives, Insect Bite Sensitivity, Itchy/Watery Eyes, Nasal Congestion, Post Nasal Drip, Seasonal Allergies, Other Respiratory: YES: Cough, Wheezing Cardiovascular: No Chest Pain, No Palpitations, No Orthopnea, No Paroxysmal Noc. Dyspnea, No Edema, No Lt Headedness, No Other Gastrointestinal: No Nausea, No Vomiting, No Abdominal Pain, No Diarrhea, No Constipation, No Melena, No Hematochezia, No Other Musculoskeletal: Yes Joint Swelling, Yes Pain In: (right shoulder) Neurological: No Behavorial Changes, No Bowel/Bladder ControlChng, No Confusion , No Dizziness, No Gait Disturbance, No Headaches, No Impaired Coord/balance, No Memory Loss, No Numbness/Tingling, No Seizures, No Speech Problems, No Tremors, No Visual Changes, No Weakness, No Other Physical Exam General: Alert, Oriented X3 HEENT: Atraumatic, EOMI Lungs: Other (respirations unlabored with symmetric chest rise) Heart: Regular rate, Other (radial pulse 2+) Abdomen: Normal bowel sounds Extremities: No clubbing, No cyanosis Skin: No breakdown Neuro: Strength at 5/5 X4 ext, Sensation intact MUSCULOSKELETAL: Other (she has fullness about her right shoulder girdle. Tender to palpation around this area. No tenderness at her elbow. She can wiggle all of her fingers, she does not cooperate with a full motor and sensation exam at this time.) Vitals VITALS Vital Signs Date Time Temp Pulse Resp B/P (MAP) Pulse Ox O2 Delivery O2 Flow Rate FiO2 06/05/17 20:08 93 Nasal Cannula 3.0 06/05/17 19:39 99.7 90 16 134/62 (86) 99.7 Labs Labs Laboratory Tests Test 06/04/17 18:25 06/04/17 21:20 06/05/17 07:55 06/05/17 11:02 White Blood Count 8.8 x10^3/uL (4.0-11.0) Red Blood Count 3.66 x10^6/uL (3.50-5.40) Hemoglobin 11.4 g/dL (12.0-15.5) Hematocrit 35.1 % (36.0-47.0) Mean Corpuscular Volume 96 fL (79-100) Mean Corpuscular Hemoglobin 31 pg (25-35) Mean Corpuscular Hemoglobin Concent 33 g/dL (31-37) Red Cell Distribution Width 16.1 % (11.5-14.5) Platelet Count 158 x10^3/uL (140-400) Neutrophils (%) (Auto) 67 % (31-73) Lymphocytes (%) (Auto) 20 % (24-48) Monocytes (%) (Auto) 10 % (0-9) Eosinophils (%) (Auto) 3 % (0-3) Basophils (%) (Auto) 1 % (0-3) Neutrophils # (Auto) 5.9 x10^3uL (1.8-7.7) Lymphocytes # (Auto) 1.8 x10^3/uL (1.0-4.8) Monocytes # (Auto) 0.8 x10^3/uL (0.0-1.1) Eosinophils # (Auto) 0.2 x10^3/uL (0.0-0.7) Basophils # (Auto) 0.1 x10^3/uL (0.0-0.2) Sodium Level 142 mmol/L (136-145) Potassium Level 3.9 mmol/L (3.5-5.1) Chloride Level 104 mmol/L (98-107) Carbon Dioxide Level 32 mmol/L (21-32) Anion Gap 6 (6-14) Blood Urea Nitrogen 13 mg/dL (7-20) Creatinine 1.1 mg/dL (0.6-1.0) Estimated GFR (Cockcroft-Gault) 48.2 BUN/Creatinine Ratio 12 (6-20) Glucose Level 151 mg/dL (70-99) Calcium Level 8.7 mg/dL (8.5-10.1) Total Bilirubin 0.2 mg/dL (0.2-1.0) Aspartate Amino Transf (AST/SGOT) 41 U/L (15-37) Alanine Aminotransferase (ALT/SGPT) 47 U/L (14-59) Alkaline Phosphatase 96 U/L (46-116) Troponin I Quantitative < 0.017 ng/mL (0.000-0.055) Total Protein 7.6 g/dL (6.4-8.2) Albumin 3.0 g/dL (3.4-5.0) Albumin/Globulin Ratio 0.7 (1.0-1.7) Urine Color Yellow Urine Clarity Cloudy Urine pH 5.0 Urine Specific [place] 1.020 Urine Protein Negative mg/dL (NEG-TRACE) Urine Glucose (UA) Negative mg/dL (NEG) Urine Ketones (Stick) Negative mg/dL (NEG) Urine Blood Negative (NEG) Urine Nitrite Negative (NEG) Urine Bilirubin Negative (NEG) Urine Urobilinogen Dipstick 0.2 mg/dL (0.2 mg/dL) Urine Leukocyte Esterase Trace (NEG) Urine RBC 0 /HPF (0-2) Urine WBC Occ /HPF (0-4) Urine Squamous Epithelial Cells Mod /LPF Urine Amorphous Sediment Present /HPF Urine Bacteria 0 /HPF (0-FEW) Glucose (Fingerstick) 195 mg/dL (70-99) 176 mg/dL (70-99) Test 06/05/17 16:15 Glucose (Fingerstick) 199 mg/dL (70-99) Laboratory Tests Test 06/04/17 21:20 06/05/17 07:55 06/05/17 11:02 06/05/17 16:15 Urine Color Yellow Urine Clarity Cloudy Urine pH 5.0 Urine Specific [place] 1.020 Urine Protein Negative mg/dL (NEG-TRACE) Urine Glucose (UA) Negative mg/dL (NEG) Urine Ketones (Stick) Negative mg/dL (NEG) Urine Blood Negative (NEG) Urine Nitrite Negative (NEG) Urine Bilirubin Negative (NEG) Urine Urobilinogen Dipstick 0.2 mg/dL (0.2 mg/dL) Urine Leukocyte Esterase Trace (NEG) Urine RBC 0 /HPF (0-2) Urine WBC Occ /HPF (0-4) Urine Squamous Epithelial Cells Mod /LPF Urine Amorphous Sediment Present /HPF Urine Bacteria 0 /HPF (0-FEW) Glucose (Fingerstick) 195 mg/dL (70-99) 176 mg/dL (70-99) 199 mg/dL (70-99) Images Images Radiographs are interpreted by myself. Report was also reviewed. She has a displaced 2 part proximal humerus fracture Assessment/Plan Assessment/Plan I did discuss the risks, benefits, alternatives to proceeding with operative treatment of her proximal humerus fracture. We will plan on surgical intervention in the morning. FOUZIA MCDOWELL II, MD Jun 05, 2017 20:32
[2017-06-05] MEDS: ATORVASTATIN CALCIUM 20 MG TABLET PO SCH (20:42)
[2017-06-05] MEDS: traZODone 50 MG TABLET. PO SCH (20:42)
[2017-06-05] MEDS: MIRTAZAPINE 15 MG TABLET PO SCH (20:43)
[2017-06-05 23:21] VITALS: BP 141/62
[2017-06-06] VITALS (13 sets, daily range): BP systolic 132–179; BP diastolic 47–80
[2017-06-06 04:17] LABS: BASO # 0.1 x10^3/uL (0.0-0.2); BASO % 1 % (0-3); EOS % 2 % (0-3); HEMATOCRIT 32.2 % (36.0-47.0); HEMOGLOBIN 10.5 g/dL (12.0-15.5); LYMPH # 1.7 x10^3/uL (1.0-4.8); LYMPH % 19 % (24-48); MEAN CORPUSCULAR HEMOGLOBIN 32 pg (25-35); MEAN CORPUSCULAR HGB CONC 33 g/dL (31-37); MEAN CORPUSCULAR VOLUME 96 fL (79-100); MONO % 13 % (0-9); NEUT % 65 % (31-73); PLATELET COUNT 133 x10^3/uL (140-400); RED BLOOD COUNT 3.34 x10^6/uL (3.50-5.40); WHITE BLOOD COUNT 8.9 x10^3/uL (4.0-11.0)
[2017-06-06 04:27] LABS: CALCIUM 7.7 mg/dL (8.5-10.1); GFR 53.8; POTASSIUM 4.2 mmol/L (3.5-5.1)
[2017-06-06] MEDS ORDERED: MORPHINE SULFATE 2 MG/ML DISP.SYRIN. IV PRN (07:00)
[2017-06-06] MEDS ORDERED: ONDANSETRON PF 4 MG/2 ML VIAL. IV PRN (07:00)
[2017-06-06] MEDS ORDERED: PROCHLORPERAZINE 10 MG/2 ML VIAL. IV PRN (07:00)
[2017-06-06] MEDS ORDERED: HYDROmorphone 2 MG/ML VIAL IV PRN (07:00)
[2017-06-06] MEDS ORDERED: IV RINGERS,LACTATED 1000ML 1,000 ML IV SCH (07:00)
[2017-06-06] MEDS ORDERED: fentaNYL PF VIAL 100 MCG/2 ML VIAL IV PRN (07:00)
[2017-06-06] MEDS ORDERED: LIDOCAINE 1% 1 ML SYRINGE. ID PRN (07:00)
[2017-06-06] MEDS: ALBUTEROL SULFATE 2.5 MG/3 ML NEBU. NEB SCH ×4 (07:02→20:07)
[2017-06-06] MEDS ORDERED: CLINDAMYCIN 900MG PREMIX 50 ML IV ONE (07:30)
[2017-06-06] MEDS: PANTOPRAZOLE 40 MG TABLET.DR. PO SCH (07:30)
[2017-06-06] MEDS ORDERED: BUPIVACAINE MPF 0.5% 30 ML VIAL. ONE (07:31)
[2017-06-06] MEDS ORDERED: LIDOCAINE 1% PF 30 ML VIAL. ONE (07:31)
[2017-06-06] MEDS ORDERED: DEXAMETHASONE SOD PHOS 20 MG/5 ML VIAL. ONE (07:54)
[2017-06-06] MEDS ORDERED: PROPOFOL 20 ML IV ONE (07:54)
[2017-06-06] MEDS ORDERED: fentaNYL PF VIAL 250 MCG/5 ML VIAL ONE (07:55)
[2017-06-06] MEDS ORDERED: MIDAZOLAM HCL/PF 2 MG/2 ML VIAL. ONE (07:55)
[2017-06-06] MEDS ORDERED: ROCURONIUM 100 MG/10 ML VIAL. ONE (07:55)
--- NOTE | 2017-06-06 08:07 | PDOC4 ---
Operative Note Operative Note Date of surgery: 06/06/2017 Surgeon: Florentino Mcdowell MD Preoperative diagnosis displaced 2 part proximal humerus fracture Postoperative diagnosis: Same Procedure performed: Closed reduction and intramedullary nailing of right proximal humerus fracture Components inserted: Ricketts and nephew 8 x 16 TriGen proximal bent humeral nail with interlocking screws Blood loss: 150 mL Anesthesia Gen. and local Consultations: None Reason for procedure: Ainsley is a very pleasant 76-year-old female who had a fall and was seen in our emergency department and admitted for care of her injury. Please see my consult note for further details. Her and I had a discussion of the risk benefits alternatives and she elected proceed with surgery. Next Description of procedure patient was greeted in the preoperative area by myself. Correct extremity was verified. She was taken back to the operative suite and antibiotics were started and out. Once in the OR she was transferred gently supine to the OR table and had successful induction with general anesthesia. We then sat her up in a beachchair position and maintained her C- spine in a neutral position. She was secured to the bed. She had a large pad under her legs. We then proceeded to prep and drape right upper extremity and shoulder girdle in her usual sterile fashion and conducted a standard preoperative timeout. Ioban was used at the periphery of the drapes. Prior to prepping and draping I did manipulate her arm and bring in C-arm to confirm that a good reduction would be obtainable. After prepping and draping I marked her surface anatomy including a juan on her arm 5 cm below the tip of her acromion. After this I palpated for the anterior middle thirds of her deltoid as well as I was able to consider and body habitus. I then made a approximately 6 cm incision off the anterolateral edge of her acromion and identified the deltoid raphae after blunt dissection. I then used electrocautery and blunt dissection to dissect the deltoid apart at this level and placed my Gelpi retractor deep to the deltoid. I excised bursal tissue. I then brought the arm into extension at the shoulder and identified the rotator interval and incised this with a scalpel initially followed by my tenotomies. I then brought in C- arm to localize my starting point using biplanar fluoroscopy. I then advanced the guidepin down again under biplanar fluoroscopic guidance. After this I used the entry reamer. I then placed my guidewire confirming intramedullary position. I then reamed to 8 mm. I then attached the nail to the insertion handle and gently impacted the nail in position of the guidewire confirming appropriate depth under biplanar fluoroscopic imaging and direct visualization. I then placed the posterior lateral screw trocar again skin, incised skin in accordance with this and bluntly dissected the level of bone. I then it fully seated my trocar and drilled and placed corresponding screw. I then repeated this for my lateral screw, both of these were above the 5 cm line I had made. I then place an anterior screw as well and a distal interlocking screw. I then took the arm through rotation under live fluoroscopy and felt that my first screw I placed, the posterolateral one, was too long so I backed it out and treated out for another one. Her fracture site was stable to gentle rotation. After place, screws and take wrist moving the insertion handle I took my final images and was happy with hardware alignment in fracture position. She tolerated this well. I then irrigated out the joint through my interval split as well as the subdeltoid plane. Then irrigated out the interlocking screw holes as well. I then closed the interlocking screw holes within inverted interrupted 20 followed by reji. My rotator interval was closed with simple interrupted 2-0 Ethibond. The deltoid raphae was closed with running 0 Vicryl. I then used inverted interrupted over the deeper subcutaneous tissue and inverted interrupted 2-0 Vicryl for the more superficial subcutaneous tissue. [place] were used for skin. Prior to comp she wound closure all culture reports correct 2. No competitions. At the conclusion of the surgery I injected 20 mL of a local anesthetic mixture into the pierce-incisional area. The arm was cleansed and dried and sterile dressings were applied. Her arms and placed in a sling. She was later supine and transferred supine to the hospital bed. She was then taken to PACU stable like space condition. Postop plan is to start gentle physical therapy, nonweightbearing. She will remain in the sling. She will receive antibiotic prophylaxis. FLORENTINO MCDOWELL II, MD Jun 06, 2017 08:07
[2017-06-06] MEDS: POTASSIUM CHLORIDE 10 MEQ TABLET.ER. PO SCH ×2 (09:00→17:01)
[2017-06-06] MEDS: ASPIRIN CHEWABLE 81 MG TABLET. PO SCH (09:00)
[2017-06-06] MEDS: SERTRALINE 50 MG TABLET. PO SCH ×2 (09:00→17:00)
[2017-06-06] MEDS: DOCUSATE SODIUM 100 MG CAPSULE. PO SCH ×2 (09:00→17:00)
[2017-06-06] MEDS ORDERED: GLYCOPYRROLATE 1 MG/5 ML VIAL. ONE (10:04)
[2017-06-06] MEDS ORDERED: NEOSTIGMINE METHYLSULFATE 5 MG/5 ML SYRINGE. ONE (10:04)
[2017-06-06] MEDS: fentaNYL PF VIAL 100 MCG/2 ML VIAL IV PRN ×2 (11:29→11:36)
[2017-06-06] MEDS ORDERED: INSULIN ASPART 100 UNIT/ML 10ML VIAL. SQ ONE (12:00)
[2017-06-06] MEDS: MORPHINE SULFATE 2 MG/ML DISP.SYRIN. IV PRN ×4 (13:08→20:02)
--- NOTE | 2017-06-06 15:25 | PDOC ---
PULMONARY PROGRESS NOTES Subjective PT FEELS BETTER NO PAIN NO INCREASE SOA Vitals Vital Signs Date Time Temp Pulse Resp B/P (MAP) Pulse Ox O2 Delivery O2 Flow Rate FiO2 06/06/17 14:43 95 Nasal Cannula 3.0 06/06/17 13:08 22 06/06/17 11:32 96 148/61 06/06/17 11:15 98.9 98.9 General: Alert Lungs: Clear, Other (no wheezes or crackles) Cardiovascular: S1, S2 Abdomen: Soft Neuro Exam: Alert Extremities: No Edema, Other (SURGERY RU EXT) Labs Laboratory Tests Test 06/04/17 18:25 06/04/17 21:20 06/05/17 07:55 06/05/17 11:02 White Blood Count 8.8 x10^3/uL (4.0-11.0) Red Blood Count 3.66 x10^6/uL (3.50-5.40) Hemoglobin 11.4 g/dL (12.0-15.5) Hematocrit 35.1 % (36.0-47.0) Mean Corpuscular Volume 96 fL (79-100) Mean Corpuscular Hemoglobin 31 pg (25-35) Mean Corpuscular Hemoglobin Concent 33 g/dL (31-37) Red Cell Distribution Width 16.1 % (11.5-14.5) Platelet Count 158 x10^3/uL (140-400) Neutrophils (%) (Auto) 67 % (31-73) Lymphocytes (%) (Auto) 20 % (24-48) Monocytes (%) (Auto) 10 % (0-9) Eosinophils (%) (Auto) 3 % (0-3) Basophils (%) (Auto) 1 % (0-3) Neutrophils # (Auto) 5.9 x10^3uL (1.8-7.7) Lymphocytes # (Auto) 1.8 x10^3/uL (1.0-4.8) Monocytes # (Auto) 0.8 x10^3/uL (0.0-1.1) Eosinophils # (Auto) 0.2 x10^3/uL (0.0-0.7) Basophils # (Auto) 0.1 x10^3/uL (0.0-0.2) Sodium Level 142 mmol/L (136-145) Potassium Level 3.9 mmol/L (3.5-5.1) Chloride Level 104 mmol/L (98-107) Carbon Dioxide Level 32 mmol/L (21-32) Anion Gap 6 (6-14) Blood Urea Nitrogen 13 mg/dL (7-20) Creatinine 1.1 mg/dL (0.6-1.0) Estimated GFR (Cockcroft-Gault) 48.2 BUN/Creatinine Ratio 12 (6-20) Glucose Level 151 mg/dL (70-99) Calcium Level 8.7 mg/dL (8.5-10.1) Total Bilirubin 0.2 mg/dL (0.2-1.0) Aspartate Amino Transf (AST/SGOT) 41 U/L (15-37) Alanine Aminotransferase (ALT/SGPT) 47 U/L (14-59) Alkaline Phosphatase 96 U/L (46-116) Troponin I Quantitative < 0.017 ng/mL (0.000-0.055) Total Protein 7.6 g/dL (6.4-8.2) Albumin 3.0 g/dL (3.4-5.0) Albumin/Globulin Ratio 0.7 (1.0-1.7) Urine Color Yellow Urine Clarity Cloudy Urine pH 5.0 Urine Specific [place] 1.020 Urine Protein Negative mg/dL (NEG-TRACE) Urine Glucose (UA) Negative mg/dL (NEG) Urine Ketones (Stick) Negative mg/dL (NEG) Urine Blood Negative (NEG) Urine Nitrite Negative (NEG) Urine Bilirubin Negative (NEG) Urine Urobilinogen Dipstick 0.2 mg/dL (0.2 mg/dL) Urine Leukocyte Esterase Trace (NEG) Urine RBC 0 /HPF (0-2) Urine WBC Occ /HPF (0-4) Urine Squamous Epithelial Cells Mod /LPF Urine Amorphous Sediment Present /HPF Urine Bacteria 0 /HPF (0-FEW) Glucose (Fingerstick) 195 mg/dL (70-99) 176 mg/dL (70-99) Test 06/05/17 16:15 06/05/17 20:39 06/06/17 03:55 06/06/17 07:11 Glucose (Fingerstick) 199 mg/dL (70-99) 228 mg/dL (70-99) 188 mg/dL (70-99) White Blood Count 8.9 x10^3/uL (4.0-11.0) Red Blood Count 3.34 x10^6/uL (3.50-5.40) Hemoglobin 10.5 g/dL (12.0-15.5) Hematocrit 32.2 % (36.0-47.0) Mean Corpuscular Volume 96 fL (79-100) Mean Corpuscular Hemoglobin 32 pg (25-35) Mean Corpuscular Hemoglobin Concent 33 g/dL (31-37) Red Cell Distribution Width 16.0 % (11.5-14.5) Platelet Count 133 x10^3/uL (140-400) Neutrophils (%) (Auto) 65 % (31-73) Lymphocytes (%) (Auto) 19 % (24-48) Monocytes (%) (Auto) 13 % (0-9) Eosinophils (%) (Auto) 2 % (0-3) Basophils (%) (Auto) 1 % (0-3) Neutrophils # (Auto) 5.8 x10^3uL (1.8-7.7) Lymphocytes # (Auto) 1.7 x10^3/uL (1.0-4.8) Monocytes # (Auto) 1.2 x10^3/uL (0.0-1.1) Eosinophils # (Auto) 0.1 x10^3/uL (0.0-0.7) Basophils # (Auto) 0.1 x10^3/uL (0.0-0.2) Sodium Level 142 mmol/L (136-145) Potassium Level 4.2 mmol/L (3.5-5.1) Chloride Level 105 mmol/L (98-107) Carbon Dioxide Level 34 mmol/L (21-32) Anion Gap 3 (6-14) Blood Urea Nitrogen 16 mg/dL (7-20) Creatinine 1.0 mg/dL (0.6-1.0) Estimated GFR (Cockcroft-Gault) 53.8 Glucose Level 202 mg/dL (70-99) Calcium Level 7.7 mg/dL (8.5-10.1) Test 06/06/17 10:53 06/06/17 12:10 Glucose (Fingerstick) 224 mg/dL (70-99) 258 mg/dL (70-99) Laboratory Tests Test 06/05/17 16:15 7/7/17 20:39 06/06/17 03:55 06/06/17 07:11 Glucose (Fingerstick) 199 mg/dL (70-99) 228 mg/dL (70-99) 188 mg/dL (70-99) White Blood Count 8.9 x10^3/uL (4.0-11.0) Red Blood Count 3.34 x10^6/uL (3.50-5.40) Hemoglobin 10.5 g/dL (12.0-15.5) Hematocrit 32.2 % (36.0-47.0) Mean Corpuscular Volume 96 fL (79-100) Mean Corpuscular Hemoglobin 32 pg (25-35) Mean Corpuscular Hemoglobin Concent 33 g/dL (31-37) Red Cell Distribution Width 16.0 % (11.5-14.5) Platelet Count 133 x10^3/uL (140-400) Neutrophils (%) (Auto) 65 % (31-73) Lymphocytes (%) (Auto) 19 % (24-48) Monocytes (%) (Auto) 13 % (0-9) Eosinophils (%) (Auto) 2 % (0-3) Basophils (%) (Auto) 1 % (0-3) Neutrophils # (Auto) 5.8 x10^3uL (1.8-7.7) Lymphocytes # (Auto) 1.7 x10^3/uL (1.0-4.8) Monocytes # (Auto) 1.2 x10^3/uL (0.0-1.1) Eosinophils # (Auto) 0.1 x10^3/uL (0.0-0.7) Basophils # (Auto) 0.1 x10^3/uL (0.0-0.2) Sodium Level 142 mmol/L (136-145) Potassium Level 4.2 mmol/L (3.5-5.1) Chloride Level 105 mmol/L (98-107) Carbon Dioxide Level 34 mmol/L (21-32) Anion Gap 3 (6-14) Blood Urea Nitrogen 16 mg/dL (7-20) Creatinine 1.0 mg/dL (0.6-1.0) Estimated GFR (Cockcroft-Gault) 53.8 Glucose Level 202 mg/dL (70-99) Calcium Level 7.7 mg/dL (8.5-10.1) Test 06/06/17 10:53 06/06/17 12:10 Glucose (Fingerstick) 224 mg/dL (70-99) 258 mg/dL (70-99) Medications Active Scripts Medications Dose Route/Sig Max Daily Dose Days Date Category Levofloxacin 500 Mg Tablet 1 Tab PO DAILY 01/05/17 Reported Vitamin E (Vitamin E (Dl,Tocopheryl Acet)) 100 Unit Capsule 400 Unit PO 09/10/16 Reported Symbicort 160-4.5 Mcg Inhaler (Budesonide/Formoterol Fumarate) 10.2 Gm Hfa.aer.ad 2 Puff IH BID 09/10/16 Reported Risperidone 0.5 Mg Tablet 1 Tab PO BID 09/10/16 Reported Potassium Chloride 10 Meq Tablet.er 20 Meq PO DAILY 09/10/16 Reported Multivitamins (Multivitamin) 1 Each Tablet 1 Tab PO DAILY 09/10/16 Reported Remeron (Mirtazapine) 15 Mg Tablet 1 Tab PO QHS 09/10/16 Reported Lantus Solostar (Insulin Glargine,Hum.rec.anlog) 100 Unit/1 Ml Insuln.pen 40 Unit SQ QHS 09/10/16 Reported Gabapentin 300 Mg Capsule 300 Mg PO TID 09/10/16 Reported Furosemide 40 Mg Tablet 1 Tab PO DAILY 09/10/16 Reported Flonase Allergy Relief (Fluticasone Propionate) 9.9 Ml [place].susp 2 Sprays NS DAILY 09/10/16 Reported Colace (Docusate Sodium) 100 Mg Capsule 1 Cap PO BID 09/10/16 Reported Cartia Xt (Diltiazem Hcl) 240 Mg Cap.er.24h 240 Mg PO 09/10/16 Reported Aspirin 81 Mg Tab.chew 1 Tab PO DAILY 09/10/16 Reported Proair Hfa Inhaler (Albuterol Sulfate) 8.5 Gm Hfa.aer.ad 1 Puff INH PRN Q6HRS PRN 09/10/16 Reported Atorvastatin Calcium 20 Mg Tablet 1 Tab PO DAILY 09/10/16 Reported Trazodone Hcl 50 Mg Tablet 1 Tab PO QHS 09/10/16 Reported Pantoprazole Sodium 40 Mg Tablet.dr 1 Tab PO DAILY 09/10/16 Reported Sertraline Hcl 50 Mg Tablet 50 Mg PO DAILY 09/10/16 Reported Losartan Potassium 50 Mg Tablet 50 Mg PO DAILY 09/10/16 Reported Impression . 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 CONTINUE THE SAME PAIN MANAGEMENT AGGRESSIVE PULMONARY HYGIENE IS NEBS CXR REVIEWED NO INFILTRATES LICHA BURNS MD Jun 06, 2017 15:25
[2017-06-06] MEDS ORDERED: DEXTROSE 50% 25 GM / 50ML DISP.SYRIN. IV PRN (16:00)
[2017-06-06] MEDS: CLINDAMYCIN 900MG PREMIX 50 ML IV SCH ×2 (16:53→23:53)
[2017-06-06] MEDS: LOSARTAN POTASSIUM 50 MG TABLET. PO SCH (17:00)
[2017-06-06] MEDS: FUROSEMIDE 40 MG TABLET. PO SCH (17:01)
[2017-06-06] MEDS: INSULIN ASPART 300 UNITS/3 ML INSULN.PEN SQ SCH (17:33)
--- NOTE | 2017-06-06 19:37 | PDOC ---
PROGRESS NOTES Chief Complaint Chief Complaint 1. Severe comminuted fracture of the R humerus 2. HTN 3. HLP 4. COPD 5. Dementia 6. Falll risk 7. OA 8. DM type 2 9. Urinary incontinence 10. Depression History of Present Illness History of Present Illness Moaning. ?Pain? DW RN Had surgery this am Vitals Vitals Vital Signs Date Time Temp Pulse Resp B/P (MAP) Pulse Ox O2 Delivery O2 Flow Rate FiO2 06/06/17 18:38 22 Nasal Cannula 3.0 06/06/17 17:01 107 170/68 06/06/17 15:33 89 06/06/17 11:15 98.9 98.9 Physical Exam General: Alert, Oriented X3 Heart: Regular rate, Other (radial pulse 2+) Lungs: Clear, Other (no wheezes or crackles) Abdomen: Normal bowel sounds Extremities: No clubbing, No cyanosis Skin: No breakdown Labs LABS Laboratory Tests Test 06/05/17 20:39 06/06/17 03:55 06/06/17 07:11 06/06/17 10:53 Glucose (Fingerstick) 228 mg/dL (70-99) 188 mg/dL (70-99) 224 mg/dL (70-99) White Blood Count 8.9 x10^3/uL (4.0-11.0) Red Blood Count 3.34 x10^6/uL (3.50-5.40) Hemoglobin 10.5 g/dL (12.0-15.5) Hematocrit 32.2 % (36.0-47.0) Mean Corpuscular Volume 96 fL (79-100) Mean Corpuscular Hemoglobin 32 pg (25-35) Mean Corpuscular Hemoglobin Concent 33 g/dL (31-37) Red Cell Distribution Width 16.0 % (11.5-14.5) Platelet Count 133 x10^3/uL (140-400) Neutrophils (%) (Auto) 65 % (31-73) Lymphocytes (%) (Auto) 19 % (24-48) Monocytes (%) (Auto) 13 % (0-9) Eosinophils (%) (Auto) 2 % (0-3) Basophils (%) (Auto) 1 % (0-3) Neutrophils # (Auto) 5.8 x10^3uL (1.8-7.7) Lymphocytes # (Auto) 1.7 x10^3/uL (1.0-4.8) Monocytes # (Auto) 1.2 x10^3/uL (0.0-1.1) Eosinophils # (Auto) 0.1 x10^3/uL (0.0-0.7) Basophils # (Auto) 0.1 x10^3/uL (0.0-0.2) Sodium Level 142 mmol/L (136-145) Potassium Level 4.2 mmol/L (3.5-5.1) Chloride Level 105 mmol/L (98-107) Carbon Dioxide Level 34 mmol/L (21-32) Anion Gap 3 (6-14) Blood Urea Nitrogen 16 mg/dL (7-20) Creatinine 1.0 mg/dL (0.6-1.0) Estimated GFR (Cockcroft-Gault) 53.8 Glucose Level 202 mg/dL (70-99) Calcium Level 7.7 mg/dL (8.5-10.1) Test 06/06/17 12:10 06/06/17 16:55 Glucose (Fingerstick) 258 mg/dL (70-99) 221 mg/dL (70-99) Review of Systems Review of Systems unreliable Assessment and Plan Assessmemt and Plan 0. POD #1 R arm ORIF 1. Severe comminuted fracture of the R humerus 2. HTN 3. HLP 4. COPD 5. Dementia 6. Falll risk 7. OA 8. DM type 2 9. Urinary incontinence 10. Depression Plan Added flexeril Increased MSO4 Wound care PTOT Labs Home meds SNU eval Problems: Comment Review of Relevant I have reviewed the following items juan (where applicable) has been applied. Labs Laboratory Tests Test 06/04/17 21:20 06/05/17 07:55 06/05/17 11:02 06/05/17 16:15 Urine Color Yellow Urine Clarity Cloudy Urine pH 5.0 Urine Specific [place] 1.020 Urine Protein Negative mg/dL (NEG-TRACE) Urine Glucose (UA) Negative mg/dL (NEG) Urine Ketones (Stick) Negative mg/dL (NEG) Urine Blood Negative (NEG) Urine Nitrite Negative (NEG) Urine Bilirubin Negative (NEG) Urine Urobilinogen Dipstick 0.2 mg/dL (0.2 mg/dL) Urine Leukocyte Esterase Trace (NEG) Urine RBC 0 /HPF (0-2) Urine WBC Occ /HPF (0-4) Urine Squamous Epithelial Cells Mod /LPF Urine Amorphous Sediment Present /HPF Urine Bacteria 0 /HPF (0-FEW) Glucose (Fingerstick) 195 mg/dL (70-99) 176 mg/dL (70-99) 199 mg/dL (70-99) Test 06/05/17 20:39 06/06/17 03:55 06/06/17 07:11 06/06/17 10:53 Glucose (Fingerstick) 228 mg/dL (70-99) 188 mg/dL (70-99) 224 mg/dL (70-99) White Blood Count 8.9 x10^3/uL (4.0-11.0) Red Blood Count 3.34 x10^6/uL (3.50-5.40) Hemoglobin 10.5 g/dL (12.0-15.5) Hematocrit 32.2 % (36.0-47.0) Mean Corpuscular Volume 96 fL (79-100) Mean Corpuscular Hemoglobin 32 pg (25-35) Mean Corpuscular Hemoglobin Concent 33 g/dL (31-37) Red Cell Distribution Width 16.0 % (11.5-14.5) Platelet Count 133 x10^3/uL (140-400) Neutrophils (%) (Auto) 65 % (31-73) Lymphocytes (%) (Auto) 19 % (24-48) Monocytes (%) (Auto) 13 % (0-9) Eosinophils (%) (Auto) 2 % (0-3) Basophils (%) (Auto) 1 % (0-3) Neutrophils # (Auto) 5.8 x10^3uL (1.8-7.7) Lymphocytes # (Auto) 1.7 x10^3/uL (1.0-4.8) Monocytes # (Auto) 1.2 x10^3/uL (0.0-1.1) Eosinophils # (Auto) 0.1 x10^3/uL (0.0-0.7) Basophils # (Auto) 0.1 x10^3/uL (0.0-0.2) Sodium Level 142 mmol/L (136-145) Potassium Level 4.2 mmol/L (3.5-5.1) Chloride Level 105 mmol/L (98-107) Carbon Dioxide Level 34 mmol/L (21-32) Anion Gap 3 (6-14) Blood Urea Nitrogen 16 mg/dL (7-20) Creatinine 1.0 mg/dL (0.6-1.0) Estimated GFR (Cockcroft-Gault) 53.8 Glucose Level 202 mg/dL (70-99) Calcium Level 7.7 mg/dL (8.5-10.1) Test 06/06/17 12:10 06/06/17 16:55 Glucose (Fingerstick) 258 mg/dL (70-99) 221 mg/dL (70-99) Laboratory Tests Test 06/05/17 20:39 06/06/17 03:55 06/06/17 07:11 06/06/17 10:53 Glucose (Fingerstick) 228 mg/dL (70-99) 188 mg/dL (70-99) 224 mg/dL (70-99) White Blood Count 8.9 x10^3/uL (4.0-11.0) Red Blood Count 3.34 x10^6/uL (3.50-5.40) Hemoglobin 10.5 g/dL (12.0-15.5) Hematocrit 32.2 % (36.0-47.0) Mean Corpuscular Volume 96 fL (79-100) Mean Corpuscular Hemoglobin 32 pg (25-35) Mean Corpuscular Hemoglobin Concent 33 g/dL (31-37) Red Cell Distribution Width 16.0 % (11.5-14.5) Platelet Count 133 x10^3/uL (140-400) Neutrophils (%) (Auto) 65 % (31-73) Lymphocytes (%) (Auto) 19 % (24-48) Monocytes (%) (Auto) 13 % (0-9) Eosinophils (%) (Auto) 2 % (0-3) Basophils (%) (Auto) 1 % (0-3) Neutrophils # (Auto) 5.8 x10^3uL (1.8-7.7) Lymphocytes # (Auto) 1.7 x10^3/uL (1.0-4.8) Monocytes # (Auto) 1.2 x10^3/uL (0.0-1.1) Eosinophils # (Auto) 0.1 x10^3/uL (0.0-0.7) Basophils # (Auto) 0.1 x10^3/uL (0.0-0.2) Sodium Level 142 mmol/L (136-145) Potassium Level 4.2 mmol/L (3.5-5.1) Chloride Level 105 mmol/L (98-107) Carbon Dioxide Level 34 mmol/L (21-32) Anion Gap 3 (6-14) Blood Urea Nitrogen 16 mg/dL (7-20) Creatinine 1.0 mg/dL (0.6-1.0) Estimated GFR (Cockcroft-Gault) 53.8 Glucose Level 202 mg/dL (70-99) Calcium Level 7.7 mg/dL (8.5-10.1) Test 06/06/17 12:10 06/06/17 16:55 Glucose (Fingerstick) 258 mg/dL (70-99) 221 mg/dL (70-99) Medications Current Medications Hydromorphone HCl (Dilaudid) 0.5 mg 1X ONCE IV Last administered on 06/04/17 18:32; Start 06/04/17 at 18:30; Stop 06/04/17 at 18:31; Status DC Hydromorphone HCl (Dilaudid) 1 mg 1X ONCE IV Last administered on 06/04/17 19: 47; Start 06/04/17 at 19:45; Stop 06/04/17 at 19:46; Status DC Morphine Sulfate 2 mg PRN Q2HR PRN IV SEVERE PAIN Last administered on 20:42; Start 06/04/17 at 21:15; Stop 06/05/17 at 21:14; Status DC Aspirin (Children'S Aspirin) 81 mg DAILY PO ; Start 06/05/17 at 09:00 Atorvastatin Calcium (Lipitor) 20 mg QHS PO Last administered on 06/05/17 20:42 ; Start 06/05/17 at 21:00 Diltiazem HCl (Cardizem 24hr Cd) 240 mg DAILY PO Last administered on 06/06/17 17:01; Start 06/05/17 at 09:00 Docusate Sodium (Colace) 100 mg BID PO Last administered on 06/06/17 17:00; Start 06/05/17 at 09:00 Furosemide (Lasix) 40 mg DAILY PO Last administered on 06/06/17 17:01; Start at 09:00 Levofloxacin (Levaquin) 500 mg DAILY PO ; Start 06/05/17 at 09:00; Status UNV Losartan Potassium (Cozaar) 50 mg DAILY PO Last administered on 06/06/17 17:00 ; Start 06/05/17 at 09:00 Mirtazapine (Remeron) 15 mg QHS PO Last administered on 06/05/17 20:43; Start 06/05/17 at 21:00 Pantoprazole Sodium (Protonix) 40 mg DAILYAC PO ; Start 06/05/17 at 07:30 Potassium Chloride (Klor-Con) 20 meq DAILY PO ; Start 06/05/17 at 09:00 Sertraline HCl (Zoloft) 50 mg DAILY PO ; Start 06/05/17 at 09:00 Trazodone HCl (Desyrel) 50 mg QHS PO Last administered on 06/05/17 20:42; Start 06/05/17 at 21:00 Hydromorphone HCl (Dilaudid) 1 mg 1X ONCE IV Last administered on 06/04/17 22: 57; Start 06/04/17 at 23:00; Stop 06/04/17 at 23:01; Status DC Pneumococcal Polyvalent Vaccine (Do NOT chart on this placeholder) 1 each PRN DAILY PRN [facility] UNABLE TO RESPOND; Start 06/05/17 at 01:45; Status Cancel Clindamycin Phosphate 50 ml @ 100 mls/hr 1X ONCE IV Last administered on 08:44; Start 06/06/17 at 07:30; Stop 06/06/17 at 07:59; Status DC Albuterol Sulfate (Ventolin Neb Soln) 2.5 mg RTQID NEB Last administered on 06/06 14:43; Start 06/05/17 at 17:00 Albuterol Sulfate (Ventolin Neb Soln) 2.5 mg PRN Q2HR PRN NEB DYSPNEA Last administered on 06/06/17 10:48; Start 06/05/17 at 17:00 Ondansetron HCl (Zofran) 4 mg PRN Q6HRS PRN IV NAUSEA/VOMITING; Start 06/06/17 at 07:00; Stop 06/06/17 at 18:00; Status DC Fentanyl Citrate (Fentanyl 2ml Vial) 25 mcg PRN Q5MIN PRN IV MILD PAIN Last administered on 06/06/17 11:36; Start 06/06/17 at 07:00; Stop 06/06/17 at 18:00; Status DC Fentanyl Citrate (Fentanyl 2ml Vial) 50 mcg PRN Q5MIN PRN IV MODERATE PAIN; Start 06/06/17 at 07:00; Stop 06/06/17 at 18:00; Status DC Morphine Sulfate 1 mg PRN Q10MIN PRN IV SEVERE PAIN; Start 06/06/17 at 07:00; Stop 06/06/17 at 18:00; Status DC Ringer's Solution 1,000 ml @ 30 mls/hr Q24H IV ; Start 06/06/17 at 07:00; Stop 06/06/17 at 18:59; Status DC Lidocaine HCl 2 ml PRN 1X PRN ID PRIOR TO IV START; Start 06/06/17 at 07:00; Stop 06/06/17 at 18:00; Status DC Hydromorphone HCl (Dilaudid) 0.5 mg PRN Q10MIN PRN IV SEV PAIN, Second choice; Start 06/06/17 at 07:00; Stop 06/06/17 at 18:00; Status DC Prochlorperazine Edisylate (Compazine) 5 mg PACU PRN PRN IV NAUSEA, MRX1; Start 06/06/17 at 07:00; Stop 06/06/17 at 18:00; Status DC Morphine Sulfate 2 mg PRN Q2HR PRN IV PAIN Last administered on 06/06/17 18:38 ; Start 06/05/17 at 21:30 Lidocaine HCl 30 ml STK-MED ONCE .ROUTE Last administered on 06/06/17 09:06; Start 06/06/17 at 07:31; Stop 06/06/17 at 07:32; Status DC Bupivacaine HCl (Sensorcaine Mpf 0.5%) 30 ml STK-MED ONCE .ROUTE Last administered on 06/06/17 09:06; Start 06/06/17 at 07:31; Stop 06/06/17 at 07:32; Status DC Dexamethasone Sodium Phosphate (Decadron) 20 mg STK-MED ONCE .ROUTE ; Start 06/06 at 07:54; Stop 06/06/17 at 07:55; Status DC Propofol 20 ml @ As Directed STK-MED ONCE IV ; Start 06/06/17 at 07:54; Stop 06/06 at 07:55; Status DC Midazolam HCl (Versed) 2 mg STK-MED ONCE .ROUTE ; Start 06/06/17 at 07:55; Stop 06/06/17 at 07:56; Status DC Fentanyl Citrate (Fentanyl 5ml Vial) 250 mcg STK-MED ONCE .ROUTE ; Start at 07:55; Stop 06/06/17 at 07:56; Status DC Rocuronium [place]ul[place] (Zemuron) 100 mg STK-MED ONCE .ROUTE ; Start 06/06/17 at 07:55 ; Stop 06/06/17 at 07:56; Status DC Glycopyrrolate (Robinul) 1 mg STK-MED ONCE .ROUTE ; Start 06/06/17 at 10:04; Stop 06/06/17 at 10:05; Status DC Neostigmine Methylsulfate 5 mg STK-MED ONCE .ROUTE ; Start 06/06/17 at 10:04; Stop 06/06/17 at 10:05; Status DC Clindamycin Phosphate 50 ml @ 100 mls/hr Q8H IV Last administered on 06/06/17 16:53; Start 06/06/17 at 16:00 Insulin Aspart (NovoLOG VIAL) 6 unit 1X ONCE SQ Last administered on 06/06/17 11:53; Start 06/06/17 at 12:00; Stop 06/06/17 at 12:01; Status DC Insulin Detemir (Levemir) 24 units QHS SQ ; Start 06/06/17 at 21:00 Insulin Aspart (NovoLOG) 0-7 UNITS TIDWMEALS SQ Last administered on 06/06/17 17:33; Start 06/06/17 at 17:00 Dextrose (Dextrose 50%-Water Syringe) 12.5 gm PRN Q15MIN PRN IV SEE COMMENTS; Start 06/06/17 at 16:00 Active Scripts Active Reported Levofloxacin 500 Mg Tablet 1 Tab PO DAILY Vitamin E (Vitamin E (Dl,Tocopheryl Acet)) 100 Unit Capsule 400 Unit PO Symbicort 160-4.5 Mcg Inhaler (Budesonide/Formoterol Fumarate) 10.2 Gm Hfa.aer.ad 2 Puff IH BID Risperidone 0.5 Mg Tablet 1 Tab PO BID Potassium Chloride 10 Meq Tablet.er 20 Meq PO DAILY Multivitamins (Multivitamin) 1 Each Tablet 1 Tab PO DAILY Remeron (Mirtazapine) 15 Mg Tablet 1 Tab PO QHS Lantus Solostar (Insulin Glargine,Hum.rec.anlog) 100 Unit/1 Ml Insuln.pen 40 Unit SQ QHS Gabapentin 300 Mg Capsule 300 Mg PO TID Furosemide 40 Mg Tablet 1 Tab PO DAILY Flonase Allergy Relief (Fluticasone Propionate) 9.9 Ml [place].susp 2 Sprays NS DAILY Colace (Docusate Sodium) 100 Mg Capsule 1 Cap PO BID Cartia Xt (Diltiazem Hcl) 240 Mg Cap.er.24h 240 Mg PO Aspirin 81 Mg Tab.chew 1 Tab PO DAILY Proair Hfa Inhaler (Albuterol Sulfate) 8.5 Gm Hfa.aer.ad 1 Puff INH PRN Q6HRS PRN Atorvastatin Calcium 20 Mg Tablet 1 Tab PO DAILY Trazodone Hcl 50 Mg Tablet 1 Tab PO QHS Pantoprazole Sodium 40 Mg Tablet.dr 1 Tab PO DAILY Sertraline Hcl 50 Mg Tablet 50 Mg PO DAILY Losartan Potassium 50 Mg Tablet 50 Mg PO DAILY Vitals/I & O Vital Sign - Last 24 Hours 06/05/17 06/05/17 06/05/17 06/05/17 19:39 20:00 20:08 20:42 Temp 99.7 99.7 Pulse 90 Resp 16 B/P (MAP) 134/62 (86) Pulse Ox 90 93 O2 Delivery Room Air Nasal Cannula Nasal Cannula Room Air O2 Flow Rate 3.0 3.0 06/05/17 06/05/17 06/06/17 06/06/17 21:12 23:21 03:19 07:00 Temp 99.3 100.0 100.1 99.3 100.0 100.1 Pulse 96 92 102 Resp 18 18 18 22 B/P (MAP) 141/62 (88) 132/47 (75) 143/58 (86) Pulse Ox 98 98 96 O2 Delivery Room Air Nasal Cannula Nasal Cannula Nasal Cannula O2 Flow Rate 2.0 7/8/17 7/8/17 7/8/17 7/8/17 07:11 08:00 10:29 10:40 Temp 100.0 100.0 Pulse 100 Resp 8 B/P (MAP) 153/71 Pulse Ox 92 88 O2 Delivery Nasal Cannula Nasal Cannula Simple Mask Mask O2 Flow Rate 3.0 3.0 8 8 06/06/17 06/06/17 06/06/17 06/06/17 10:47 11:02 11:15 11:29 Temp 98.9 98.9 Pulse 101 98 98 Resp 12 12 10 10 B/P (MAP) 145/53 148/60 151/61 Pulse Ox 99 98 99 O2 Delivery Nasal Cannula Nasal Cannula Nasal Cannula Nasal Cannula O2 Flow Rate 2 2 2.0 06/06/17 06/06/17 06/06/17 06/06/17 11:32 11:32 11:36 12:06 Pulse 96 Resp 12 10 18 B/P (MAP) 148/61 Pulse Ox 100 2 O2 Delivery Nasal Cannula Nasal Cannula Nasal Cannula Nasal Cannula O2 Flow Rate 2 2 3.0 06/06/17 06/06/17 06/06/17 06/06/17 12:06 12:18 12:33 12:48 Pulse 100 98 99 101 Resp B/P (MAP) 160/66 (97) 147/66 (93) 156/66 (96) 169/67 (101) Pulse Ox 96 93 91 93 O2 Delivery Nasal Cannula Nasal Cannula Nasal Cannula Nasal Cannula O2 Flow Rate 3.0 3.0 3.0 3.0 06/06/17 06/06/17 06/06/17 06/06/17 13:03 13:08 13:33 13:38 Pulse 102 101 Resp 20 B/P (MAP) 163/68 (99) 167/74 (105) Pulse Ox 93 97 O2 Delivery Nasal Cannula Nasal Cannula Nasal Cannula Nasal Cannula O2 Flow Rate 3.0 3.0 3.0 3.0 06/06/17 06/06/17 06/06/17 06/06/17 14:03 14:33 14:43 15:33 Pulse 99 102 107 Resp B/P (MAP) 173/70 (104) 166/78 (107) 170/68 (102) Pulse Ox 94 96 95 89 O2 Delivery Nasal Cannula Nasal Cannula Nasal Cannula Nasal Cannula O2 Flow Rate 3.0 3.0 3.0 3.0 06/06/17 06/06/17 06/06/17 06/06/17 16:59 17:00 17:01 18:38 Pulse 107 107 Resp 22 22 B/P (MAP) 170/68 170/68 O2 Delivery Nasal Cannula Nasal Cannula O2 Flow Rate 3.0 3.0 Intake and Output 06/05/17 06/05/17 06/06/17 15:00 23:00 07:00 Intake Total 0 ml Balance 0 ml ABDULAZIZ KELSEY III DO Jun 06, 2017 19:37
[2017-06-06] MEDS ORDERED: CYCLOBENZAPRINE 10 MG TABLET. PO PRN (19:45)
[2017-06-06] MEDS ORDERED: INSULIN DETEMIR 300 UNITS/3 ML INSULN.PEN. SQ SCH (21:00)
[2017-06-06] MEDS: MIRTAZAPINE 15 MG TABLET PO SCH (21:19)
[2017-06-06] MEDS: traZODone 50 MG TABLET. PO SCH (21:19)
[2017-06-06] MEDS: ATORVASTATIN CALCIUM 20 MG TABLET PO SCH (21:19)
[2017-06-06] MEDS: ACETAMINOPHEN 325 MG TABLET. PO PRN (23:53)
[2017-06-06] MEDS: MORPHINE SULFATE 4 MG/ML DISP.SYRIN. IV PRN (23:54)
[2017-06-07 02:05] VITALS: BP 124/61
[2017-06-07 04:39] LABS: BASO # 0.1 x10^3/uL (0.0-0.2); BASO % 1 % (0-3); EOS % 0 % (0-3); HEMATOCRIT 32.5 % (36.0-47.0); HEMOGLOBIN 10.6 g/dL (12.0-15.5); LYMPH # 1.4 x10^3/uL (1.0-4.8); LYMPH % 12 % (24-48); MEAN CORPUSCULAR HEMOGLOBIN 31 pg (25-35); MEAN CORPUSCULAR HGB CONC 33 g/dL (31-37); MEAN CORPUSCULAR VOLUME 96 fL (79-100); MONO % 11 % (0-9); NEUT % 77 % (31-73); PLATELET COUNT 140 x10^3/uL (140-400); RED BLOOD COUNT 3.38 x10^6/uL (3.50-5.40); WHITE BLOOD COUNT 11.4 x10^3/uL (4.0-11.0)
[2017-06-07] MEDS ORDERED: IBUPROFEN 400 MG TABLET. PO ONE (05:00)
[2017-06-07 05:41] LABS: CALCIUM 7.8 mg/dL (8.5-10.1); CREATININE 1.4 mg/dL (0.6-1.0); GFR 36.5; POTASSIUM 4.2 mmol/L (3.5-5.1)
[2017-06-07 07:00] VITALS: BP 110/54
[2017-06-07] MEDS: ALBUTEROL SULFATE 2.5 MG/3 ML NEBU. NEB SCH ×4 (07:10→19:52)
[2017-06-07] MEDS: INSULIN ASPART 300 UNITS/3 ML INSULN.PEN SQ SCH ×3 (08:00→18:11)
[2017-06-07] MEDS: CLINDAMYCIN 900MG PREMIX 50 ML IV SCH (08:00)
--- NOTE | 2017-06-07 08:35 | PDOC ---
Infectious Disease Note Subjective Subjective History of Present Illness Reason for Visit: Patient is a 76-year-old female who fell, ground level fall without preceding symptoms and landed onto her right upper extremity. She had immediate onset of pain and was brought into the emergency department where radiographs revealed a proximal humerus fracture. She is now s/p repair on 06/06 and had a fever over night Past Medical History Cardiovascular: HTN, Hyperlipidemia Pulmonary: COPD CENTRAL NERVOUS SYSTEM: Dementia GI: Constipation Heme/Onc: Anemia NOS Hepatobiliary: No pertinent hx Psych: Anxiety Musculoskeletal: low back pain, Osteoarthritis Rheumatologic: No pertinent hx Infectious disease: No pertinent hx Renal/: Urinary Incontinence Endocrine: Diabetes Past Surgical History Past Surgical History: Hysterectomy Family History Family History: Coronary Artery Disease Social History ALCOHOL: none Drugs: None Lives: with Family ROS ROS Unobtainable Vital Sign Vital Signs Vital Signs Date Time Temp Pulse Resp B/P (MAP) Pulse Ox O2 Delivery O2 Flow Rate FiO2 06/07/17 07:12 98 Nasal Cannula 3.0 06/07/17 07:00 98.7 96 22 110/54 (72) 98.7 Physical Exam PHYSICAL EXAM GENERAL: NAD, Alert HEENT: PERRL, OC/OP NECK: Supple, no JVD, no LN LUNGS: Clear HEART: S1S2, no gallop, no murmur ABD: Soft, NT, no organomegaly, no rebound EXT: No edema, no cyanosis 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, 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 x 3, no focal neurologic deficit SKIN: No rash IV: ok Labs Lab Laboratory Tests Test 06/06/17 10:53 06/06/17 12:10 06/06/17 16:55 06/06/17 20:38 Glucose (Fingerstick) 224 mg/dL (70-99) 258 mg/dL (70-99) 221 mg/dL (70-99) 258 mg/dL (70-99) Test 06/07/17 04:00 06/07/17 06:00 06/07/17 07:21 White Blood Count 11.4 x10^3/uL (4.0-11.0) Red Blood Count 3.38 x10^6/uL (3.50-5.40) Hemoglobin 10.6 g/dL (12.0-15.5) Hematocrit 32.5 % (36.0-47.0) Mean Corpuscular Volume 96 fL (79-100) Mean Corpuscular Hemoglobin 31 pg (25-35) Mean Corpuscular Hemoglobin Concent 33 g/dL (31-37) Red Cell Distribution Width 16.0 % (11.5-14.5) Platelet Count 140 x10^3/uL (140-400) Neutrophils (%) (Auto) 77 % (31-73) Lymphocytes (%) (Auto) 12 % (24-48) Monocytes (%) (Auto) 11 % (0-9) Eosinophils (%) (Auto) 0 % (0-3) Basophils (%) (Auto) 1 % (0-3) Neutrophils # (Auto) 8.7 x10^3uL (1.8-7.7) Lymphocytes # (Auto) 1.4 x10^3/uL (1.0-4.8) Monocytes # (Auto) 1.2 x10^3/uL (0.0-1.1) Eosinophils # (Auto) 0.0 x10^3/uL (0.0-0.7) Basophils # (Auto) 0.1 x10^3/uL (0.0-0.2) Sodium Level 138 mmol/L (136-145) Potassium Level 4.2 mmol/L (3.5-5.1) Chloride Level 101 mmol/L (98-107) Carbon Dioxide Level 31 mmol/L (21-32) Anion Gap 6 (6-14) Blood Urea Nitrogen 22 mg/dL (7-20) Creatinine 1.4 mg/dL (0.6-1.0) Estimated GFR (Cockcroft-Gault) 36.5 Glucose Level 293 mg/dL (70-99) Calcium Level 7.8 mg/dL (8.5-10.1) Lactic Acid Level 1.0 mmol/L (0.4-2.0) Glucose (Fingerstick) 276 mg/dL (70-99) Objective Assessment Fever Leukocytosis Encephalopathy - ? Fever/meds MADDY Right humerous fracture S/p Procedure performed: Closed reduction and intramedullary nailing of right proximal humerus fracture 06/06 PCN allergy - ? reaction Plan Plan of Care Urine clean at admit - unlikely source F/u blood cults Dose Meropenem/Zyvox (Avoid Vanc with MADDY) CXR labs in am Notes reviewed D/w DEBO Victoria MD Jun 07, 2017 08:34
--- NOTE | 2017-06-07 09:50 | PDOC ---
ORTHO PROGRESS NOTES Subjective Febrile, drowsy Vitals Vital Signs Date Time Temp Pulse Resp B/P (MAP) Pulse Ox O2 Delivery O2 Flow Rate FiO2 06/07/17 07:12 98 Nasal Cannula 3.0 06/07/17 07:00 98.7 96 22 110/54 (72) 98.7 Labs Laboratory Tests Test 06/05/17 11:02 06/05/17 16:15 06/05/17 20:39 06/06/17 03:55 Glucose (Fingerstick) 176 mg/dL (70-99) 199 mg/dL (70-99) 228 mg/dL (70-99) White Blood Count 8.9 x10^3/uL (4.0-11.0) Red Blood Count 3.34 x10^6/uL (3.50-5.40) Hemoglobin 10.5 g/dL (12.0-15.5) Hematocrit 32.2 % (36.0-47.0) Mean Corpuscular Volume 96 fL (79-100) Mean Corpuscular Hemoglobin 32 pg (25-35) Mean Corpuscular Hemoglobin Concent 33 g/dL (31-37) Red Cell Distribution Width 16.0 % (11.5-14.5) Platelet Count 133 x10^3/uL (140-400) Neutrophils (%) (Auto) 65 % (31-73) Lymphocytes (%) (Auto) 19 % (24-48) Monocytes (%) (Auto) 13 % (0-9) Eosinophils (%) (Auto) 2 % (0-3) Basophils (%) (Auto) 1 % (0-3) Neutrophils # (Auto) 5.8 x10^3uL (1.8-7.7) Lymphocytes # (Auto) 1.7 x10^3/uL (1.0-4.8) Monocytes # (Auto) 1.2 x10^3/uL (0.0-1.1) Eosinophils # (Auto) 0.1 x10^3/uL (0.0-0.7) Basophils # (Auto) 0.1 x10^3/uL (0.0-0.2) Sodium Level 142 mmol/L (136-145) Potassium Level 4.2 mmol/L (3.5-5.1) Chloride Level 105 mmol/L (98-107) Carbon Dioxide Level 34 mmol/L (21-32) Anion Gap 3 (6-14) Blood Urea Nitrogen 16 mg/dL (7-20) Creatinine 1.0 mg/dL (0.6-1.0) Estimated GFR (Cockcroft-Gault) 53.8 Glucose Level 202 mg/dL (70-99) Calcium Level 7.7 mg/dL (8.5-10.1) Test 06/06/17 07:11 06/06/17 10:53 06/06/17 12:10 06/06/17 16:55 Glucose (Fingerstick) 188 mg/dL (70-99) 224 mg/dL (70-99) 258 mg/dL (70-99) 221 mg/dL (70-99) Test 06/06/17 20:38 06/07/17 04:00 06/07/17 06:00 06/07/17 07:21 Glucose (Fingerstick) 258 mg/dL (70-99) 276 mg/dL (70-99) White Blood Count 11.4 x10^3/uL (4.0-11.0) Red Blood Count 3.38 x10^6/uL (3.50-5.40) Hemoglobin 10.6 g/dL (12.0-15.5) Hematocrit 32.5 % (36.0-47.0) Mean Corpuscular Volume 96 fL (79-100) Mean Corpuscular Hemoglobin 31 pg (25-35) Mean Corpuscular Hemoglobin Concent 33 g/dL (31-37) Red Cell Distribution Width 16.0 % (11.5-14.5) Platelet Count 140 x10^3/uL (140-400) Neutrophils (%) (Auto) 77 % (31-73) Lymphocytes (%) (Auto) 12 % (24-48) Monocytes (%) (Auto) 11 % (0-9) Eosinophils (%) (Auto) 0 % (0-3) Basophils (%) (Auto) 1 % (0-3) Neutrophils # (Auto) 8.7 x10^3uL (1.8-7.7) Lymphocytes # (Auto) 1.4 x10^3/uL (1.0-4.8) Monocytes # (Auto) 1.2 x10^3/uL (0.0-1.1) Eosinophils # (Auto) 0.0 x10^3/uL (0.0-0.7) Basophils # (Auto) 0.1 x10^3/uL (0.0-0.2) Sodium Level 138 mmol/L (136-145) Potassium Level 4.2 mmol/L (3.5-5.1) Chloride Level 101 mmol/L (98-107) Carbon Dioxide Level 31 mmol/L (21-32) Anion Gap 6 (6-14) Blood Urea Nitrogen 22 mg/dL (7-20) Creatinine 1.4 mg/dL (0.6-1.0) Estimated GFR (Cockcroft-Gault) 36.5 Glucose Level 293 mg/dL (70-99) Calcium Level 7.8 mg/dL (8.5-10.1) Lactic Acid Level 1.0 mmol/L (0.4-2.0) Laboratory Tests Test 06/06/17 10:53 06/06/17 12:10 06/06/17 16:55 06/06/17 20:38 Glucose (Fingerstick) 224 mg/dL (70-99) 258 mg/dL (70-99) 221 mg/dL (70-99) 258 mg/dL (70-99) Test 06/07/17 04:00 06/07/17 06:00 06/07/17 07:21 White Blood Count 11.4 x10^3/uL (4.0-11.0) Red Blood Count 3.38 x10^6/uL (3.50-5.40) Hemoglobin 10.6 g/dL (12.0-15.5) Hematocrit 32.5 % (36.0-47.0) Mean Corpuscular Volume 96 fL (79-100) Mean Corpuscular Hemoglobin 31 pg (25-35) Mean Corpuscular Hemoglobin Concent 33 g/dL (31-37) Red Cell Distribution Width 16.0 % (11.5-14.5) Platelet Count 140 x10^3/uL (140-400) Neutrophils (%) (Auto) 77 % (31-73) Lymphocytes (%) (Auto) 12 % (24-48) Monocytes (%) (Auto) 11 % (0-9) Eosinophils (%) (Auto) 0 % (0-3) Basophils (%) (Auto) 1 % (0-3) Neutrophils # (Auto) 8.7 x10^3uL (1.8-7.7) Lymphocytes # (Auto) 1.4 x10^3/uL (1.0-4.8) Monocytes # (Auto) 1.2 x10^3/uL (0.0-1.1) Eosinophils # (Auto) 0.0 x10^3/uL (0.0-0.7) Basophils # (Auto) 0.1 x10^3/uL (0.0-0.2) Sodium Level 138 mmol/L (136-145) Potassium Level 4.2 mmol/L (3.5-5.1) Chloride Level 101 mmol/L (98-107) Carbon Dioxide Level 31 mmol/L (21-32) Anion Gap 6 (6-14) Blood Urea Nitrogen 22 mg/dL (7-20) Creatinine 1.4 mg/dL (0.6-1.0) Estimated GFR (Cockcroft-Gault) 36.5 Glucose Level 293 mg/dL (70-99) Calcium Level 7.8 mg/dL (8.5-10.1) Lactic Acid Level 1.0 mmol/L (0.4-2.0) Glucose (Fingerstick) 276 mg/dL (70-99) Notes Doesn't verbalize any complaint in bed RUE in sling, dressing intact doesn't follow commands Assessment and Plan fever, ID following, discussed with Dr. Keen no new recs per FOUZIA Parekh II, MD Jun 07, 2017 09:50
--- NOTE | 2017-06-07 10:57 | RAD ---
Examination: Single frontal view the chest History: History of fever. Comparison: 06/04/2017 Findings: Low lung volume and technique accentuate heart size and pulmonary vascularity. There is minimal prominent appearing interstitial lung markings likely chronic interstitial changes. Mild left lung base airspace opacity likely atelectasis or infiltrate. Trace left pleural effusion. Hardware transfixing the proximal right humerus. Impression: 1. Mild left lung base airspace opacity likely atelectasis or infiltrate. Trace left pleural effusion. 2. Minimal prominent appearing bilateral interstitial lung markings likely chronic interstitial changes.
[2017-06-07 11:00] VITALS: BP 115/49
[2017-06-07] MEDS: MEROPENEM 500 MG in IV NORMAL SALINE 50ML 50 ML IV SCH ×3 (11:07→18:03)
--- NOTE | 2017-06-07 12:17 | PDOC ---
PROGRESS NOTES Chief Complaint Chief Complaint 1. Severe comminuted fracture of the R humerus 2. HTN 3. HLP 4. COPD 5. Dementia 6. Falll risk 7. OA 8. DM type 2 9. Urinary incontinence 10. Depression History of Present Illness History of Present Illness pt resting in bed comfortably this morning, she has no complaints, she had a fever overnight and ID consulted to add meropenem and zyvox, she denies feeling fevers and chills Vitals Vitals Vital Signs Date Time Temp Pulse Resp B/P (MAP) Pulse Ox O2 Delivery O2 Flow Rate FiO2 06/07/17 11:15 Nasal Cannula 3.0 06/07/17 11:00 98.7 78 22 115/49 (71) 95 98.7 Physical Exam General: Alert, Oriented X3 Heart: Regular rate, No murmurs, Other (radial pulse 2+) Lungs: Wheezing (b/l lower lobes) Abdomen: Normal bowel sounds, Soft Extremities: No clubbing, No cyanosis Skin: No breakdown Labs LABS Laboratory Tests Test 06/06/17 16:55 06/06/17 20:38 06/07/17 04:00 06/07/17 06:00 Glucose (Fingerstick) 221 mg/dL (70-99) 258 mg/dL (70-99) White Blood Count 11.4 x10^3/uL (4.0-11.0) Red Blood Count 3.38 x10^6/uL (3.50-5.40) Hemoglobin 10.6 g/dL (12.0-15.5) Hematocrit 32.5 % (36.0-47.0) Mean Corpuscular Volume 96 fL (79-100) Mean Corpuscular Hemoglobin 31 pg (25-35) Mean Corpuscular Hemoglobin Concent 33 g/dL (31-37) Red Cell Distribution Width 16.0 % (11.5-14.5) Platelet Count 140 x10^3/uL (140-400) Neutrophils (%) (Auto) 77 % (31-73) Lymphocytes (%) (Auto) 12 % (24-48) Monocytes (%) (Auto) 11 % (0-9) Eosinophils (%) (Auto) 0 % (0-3) Basophils (%) (Auto) 1 % (0-3) Neutrophils # (Auto) 8.7 x10^3uL (1.8-7.7) Lymphocytes # (Auto) 1.4 x10^3/uL (1.0-4.8) Monocytes # (Auto) 1.2 x10^3/uL (0.0-1.1) Eosinophils # (Auto) 0.0 x10^3/uL (0.0-0.7) Basophils # (Auto) 0.1 x10^3/uL (0.0-0.2) Sodium Level 138 mmol/L (136-145) Potassium Level 4.2 mmol/L (3.5-5.1) Chloride Level 101 mmol/L (98-107) Carbon Dioxide Level 31 mmol/L (21-32) Anion Gap 6 (6-14) Blood Urea Nitrogen 22 mg/dL (7-20) Creatinine 1.4 mg/dL (0.6-1.0) Estimated GFR (Cockcroft-Gault) 36.5 Glucose Level 293 mg/dL (70-99) Calcium Level 7.8 mg/dL (8.5-10.1) Lactic Acid Level 1.0 mmol/L (0.4-2.0) Test 06/07/17 07:21 06/07/17 11:50 Glucose (Fingerstick) 276 mg/dL (70-99) 240 mg/dL (70-99) Review of Systems Review of Systems denies nausea, vomiting, and BELLO denies fever and chills Assessment and Plan Assessmemt and Plan Assessment 1. Severe comminuted fracture of the R humerus, POD #2 R arm ORIF 2. HTN 3. HLP 4. COPD 5. Dementia 6. Falll risk 7. OA 8. DM type 2 9. Urinary incontinence 10. Depression Plan 1. Added flexeril 2. Increased MSO4 3. Wound care 4. PT/OT 5. Recheck labs and vital tomorrow 6. Cont home meds 7. SNU eval 8. Meropenem and zyvox per ID Problems: Comment Review of Relevant I have reviewed the following items juan (where applicable) has been applied. Labs Laboratory Tests Test 06/05/17 16:15 06/05/17 20:39 06/06/17 03:55 06/06/17 07:11 Glucose (Fingerstick) 199 mg/dL (70-99) 228 mg/dL (70-99) 188 mg/dL (70-99) White Blood Count 8.9 x10^3/uL (4.0-11.0) Red Blood Count 3.34 x10^6/uL (3.50-5.40) Hemoglobin 10.5 g/dL (12.0-15.5) Hematocrit 32.2 % (36.0-47.0) Mean Corpuscular Volume 96 fL (79-100) Mean Corpuscular Hemoglobin 32 pg (25-35) Mean Corpuscular Hemoglobin Concent 33 g/dL (31-37) Red Cell Distribution Width 16.0 % (11.5-14.5) Platelet Count 133 x10^3/uL (140-400) Neutrophils (%) (Auto) 65 % (31-73) Lymphocytes (%) (Auto) 19 % (24-48) Monocytes (%) (Auto) 13 % (0-9) Eosinophils (%) (Auto) 2 % (0-3) Basophils (%) (Auto) 1 % (0-3) Neutrophils # (Auto) 5.8 x10^3uL (1.8-7.7) Lymphocytes # (Auto) 1.7 x10^3/uL (1.0-4.8) Monocytes # (Auto) 1.2 x10^3/uL (0.0-1.1) Eosinophils # (Auto) 0.1 x10^3/uL (0.0-0.7) Basophils # (Auto) 0.1 x10^3/uL (0.0-0.2) Sodium Level 142 mmol/L (136-145) Potassium Level 4.2 mmol/L (3.5-5.1) Chloride Level 105 mmol/L (98-107) Carbon Dioxide Level 34 mmol/L (21-32) Anion Gap 3 (6-14) Blood Urea Nitrogen 16 mg/dL (7-20) Creatinine 1.0 mg/dL (0.6-1.0) Estimated GFR (Cockcroft-Gault) 53.8 Glucose Level 202 mg/dL (70-99) Calcium Level 7.7 mg/dL (8.5-10.1) Test 06/06/17 10:53 06/06/17 12:10 06/06/17 16:55 06/06/17 20:38 Glucose (Fingerstick) 224 mg/dL (70-99) 258 mg/dL (70-99) 221 mg/dL (70-99) 258 mg/dL (70-99) Test 06/07/17 04:00 06/07/17 06:00 06/07/17 07:21 06/07/17 11:50 White Blood Count 11.4 x10^3/uL (4.0-11.0) Red Blood Count 3.38 x10^6/uL (3.50-5.40) Hemoglobin 10.6 g/dL (12.0-15.5) Hematocrit 32.5 % (36.0-47.0) Mean Corpuscular Volume 96 fL (79-100) Mean Corpuscular Hemoglobin 31 pg (25-35) Mean Corpuscular Hemoglobin Concent 33 g/dL (31-37) Red Cell Distribution Width 16.0 % (11.5-14.5) Platelet Count 140 x10^3/uL (140-400) Neutrophils (%) (Auto) 77 % (31-73) Lymphocytes (%) (Auto) 12 % (24-48) Monocytes (%) (Auto) 11 % (0-9) Eosinophils (%) (Auto) 0 % (0-3) Basophils (%) (Auto) 1 % (0-3) Neutrophils # (Auto) 8.7 x10^3uL (1.8-7.7) Lymphocytes # (Auto) 1.4 x10^3/uL (1.0-4.8) Monocytes # (Auto) 1.2 x10^3/uL (0.0-1.1) Eosinophils # (Auto) 0.0 x10^3/uL (0.0-0.7) Basophils # (Auto) 0.1 x10^3/uL (0.0-0.2) Sodium Level 138 mmol/L (136-145) Potassium Level 4.2 mmol/L (3.5-5.1) Chloride Level 101 mmol/L (98-107) Carbon Dioxide Level 31 mmol/L (21-32) Anion Gap 6 (6-14) Blood Urea Nitrogen 22 mg/dL (7-20) Creatinine 1.4 mg/dL (0.6-1.0) Estimated GFR (Cockcroft-Gault) 36.5 Glucose Level 293 mg/dL (70-99) Calcium Level 7.8 mg/dL (8.5-10.1) Lactic Acid Level 1.0 mmol/L (0.4-2.0) Glucose (Fingerstick) 276 mg/dL (70-99) 240 mg/dL (70-99) Laboratory Tests Test 06/06/17 16:55 06/06/17 20:38 06/07/17 04:00 06/07/17 06:00 Glucose (Fingerstick) 221 mg/dL (70-99) 258 mg/dL (70-99) White Blood Count 11.4 x10^3/uL (4.0-11.0) Red Blood Count 3.38 x10^6/uL (3.50-5.40) Hemoglobin 10.6 g/dL (12.0-15.5) Hematocrit 32.5 % (36.0-47.0) Mean Corpuscular Volume 96 fL (79-100) Mean Corpuscular Hemoglobin 31 pg (25-35) Mean Corpuscular Hemoglobin Concent 33 g/dL (31-37) Red Cell Distribution Width 16.0 % (11.5-14.5) Platelet Count 140 x10^3/uL (140-400) Neutrophils (%) (Auto) 77 % (31-73) Lymphocytes (%) (Auto) 12 % (24-48) Monocytes (%) (Auto) 11 % (0-9) Eosinophils (%) (Auto) 0 % (0-3) Basophils (%) (Auto) 1 % (0-3) Neutrophils # (Auto) 8.7 x10^3uL (1.8-7.7) Lymphocytes # (Auto) 1.4 x10^3/uL (1.0-4.8) Monocytes # (Auto) 1.2 x10^3/uL (0.0-1.1) Eosinophils # (Auto) 0.0 x10^3/uL (0.0-0.7) Basophils # (Auto) 0.1 x10^3/uL (0.0-0.2) Sodium Level 138 mmol/L (136-145) Potassium Level 4.2 mmol/L (3.5-5.1) Chloride Level 101 mmol/L (98-107) Carbon Dioxide Level 31 mmol/L (21-32) Anion Gap 6 (6-14) Blood Urea Nitrogen 22 mg/dL (7-20) Creatinine 1.4 mg/dL (0.6-1.0) Estimated GFR (Cockcroft-Gault) 36.5 Glucose Level 293 mg/dL (70-99) Calcium Level 7.8 mg/dL (8.5-10.1) Lactic Acid Level 1.0 mmol/L (0.4-2.0) Test 06/07/17 07:21 06/07/17 11:50 Glucose (Fingerstick) 276 mg/dL (70-99) 240 mg/dL (70-99) Medications Current Medications Hydromorphone HCl (Dilaudid) 0.5 mg 1X ONCE IV Last administered on 06/04/17 18:32; Start 06/04/17 at 18:30; Stop 06/04/17 at 18:31; Status DC Hydromorphone HCl (Dilaudid) 1 mg 1X ONCE IV Last administered on 06/04/17 19: 47; Start 06/04/17 at 19:45; Stop 06/04/17 at 19:46; Status DC Morphine Sulfate 2 mg PRN Q2HR PRN IV SEVERE PAIN Last administered on 20:42; Start 06/04/17 at 21:15; Stop 06/05/17 at 21:14; Status DC Aspirin (Children'S Aspirin) 81 mg DAILY PO ; Start 06/05/17 at 09:00 Atorvastatin Calcium (Lipitor) 20 mg QHS PO Last administered on 06/06/17 21:19 ; Start 06/05/17 at 21:00 Diltiazem HCl (Cardizem 24hr Cd) 240 mg DAILY PO Last administered on 06/06/17 17:01; Start 06/05/17 at 09:00 Docusate Sodium (Colace) 100 mg BID PO Last administered on 06/06/17 17:00; Start 06/05/17 at 09:00 Furosemide (Lasix) 40 mg DAILY PO Last administered on 06/06/17 17:01; Start at 09:00 Levofloxacin (Levaquin) 500 mg DAILY PO ; Start 06/05/17 at 09:00; Status UNV Losartan Potassium (Cozaar) 50 mg DAILY PO Last administered on 06/06/17 17:00 ; Start 06/05/17 at 09:00 Mirtazapine (Remeron) 15 mg QHS PO Last administered on 06/06/17 21:19; Start 06/05/17 at 21:00 Pantoprazole Sodium (Protonix) 40 mg DAILYAC PO ; Start 06/05/17 at 07:30 Potassium Chloride (Klor-Con) 20 meq DAILY PO ; Start 06/05/17 at 09:00 Sertraline HCl (Zoloft) 50 mg DAILY PO ; Start 06/05/17 at 09:00 Trazodone HCl (Desyrel) 50 mg QHS PO Last administered on 06/06/17 21:19; Start 06/05/17 at 21:00 Hydromorphone HCl (Dilaudid) 1 mg 1X ONCE IV Last administered on 06/04/17 22: 57; Start 06/04/17 at 23:00; Stop 06/04/17 at 23:01; Status DC Pneumococcal Polyvalent Vaccine (Do NOT chart on this placeholder) 1 each PRN DAILY PRN [facility] UNABLE TO RESPOND; Start 06/05/17 at 01:45; Status Cancel Clindamycin Phosphate 50 ml @ 100 mls/hr 1X ONCE IV Last administered on 08:44; Start 06/06/17 at 07:30; Stop 06/06/17 at 07:59; Status DC Albuterol Sulfate (Ventolin Neb Soln) 2.5 mg RTQID NEB Last administered on 06/07 11:14; Start 06/05/17 at 17:00 Albuterol Sulfate (Ventolin Neb Soln) 2.5 mg PRN Q2HR PRN NEB DYSPNEA Last administered on 06/06/17 10:48; Start 06/05/17 at 17:00 Ondansetron HCl (Zofran) 4 mg PRN Q6HRS PRN IV NAUSEA/VOMITING; Start 06/06/17 at 07:00; Stop 06/06/17 at 18:00; Status DC Fentanyl Citrate (Fentanyl 2ml Vial) 25 mcg PRN Q5MIN PRN IV MILD PAIN Last administered on 06/06/17 11:36; Start 06/06/17 at 07:00; Stop 06/06/17 at 18:00; Status DC Fentanyl Citrate (Fentanyl 2ml Vial) 50 mcg PRN Q5MIN PRN IV MODERATE PAIN; Start 06/06/17 at 07:00; Stop 06/06/17 at 18:00; Status DC Morphine Sulfate 1 mg PRN Q10MIN PRN IV SEVERE PAIN; Start 06/06/17 at 07:00; Stop 06/06/17 at 18:00; Status DC Ringer's Solution 1,000 ml @ 30 mls/hr Q24H IV ; Start 06/06/17 at 07:00; Stop 06/06/17 at 18:59; Status DC Lidocaine HCl 2 ml PRN 1X PRN ID PRIOR TO IV START; Start 06/06/17 at 07:00; Stop 06/06/17 at 18:00; Status DC Hydromorphone HCl (Dilaudid) 0.5 mg PRN Q10MIN PRN IV SEV PAIN, Second choice; Start 06/06/17 at 07:00; Stop 06/06/17 at 18:00; Status DC Prochlorperazine Edisylate (Compazine) 5 mg PACU PRN PRN IV NAUSEA, MRX1; Start 06/06/17 at 07:00; Stop 06/06/17 at 18:00; Status DC Morphine Sulfate 2 mg PRN Q2HR PRN IV MODERATE PAIN Last administered on 20:02; Start 06/05/17 at 21:30 Lidocaine HCl 30 ml STK-MED ONCE .ROUTE Last administered on 06/06/17 09:06; Start 06/06/17 at 07:31; Stop 06/06/17 at 07:32; Status DC Bupivacaine HCl (Sensorcaine Mpf 0.5%) 30 ml STK-MED ONCE .ROUTE Last administered on 06/06/17 09:06; Start 06/06/17 at 07:31; Stop 06/06/17 at 07:32; Status DC Dexamethasone Sodium Phosphate (Decadron) 20 mg STK-MED ONCE .ROUTE ; Start 06/06 at 07:54; Stop 06/06/17 at 07:55; Status DC Propofol 20 ml @ As Directed STK-MED ONCE IV ; Start 06/06/17 at 07:54; Stop 06/06 at 07:55; Status DC Midazolam HCl (Versed) 2 mg STK-MED ONCE .ROUTE ; Start 06/06/17 at 07:55; Stop 06/06/17 at 07:56; Status DC Fentanyl Citrate (Fentanyl 5ml Vial) 250 mcg STK-MED ONCE .ROUTE ; Start at 07:55; Stop 06/06/17 at 07:56; Status DC Rocuronium [place] (Zemuron) 100 mg STK-MED ONCE .ROUTE ; Start 06/06/17 at 07:55 ; Stop 06/06/17 at 07:56; Status DC Glycopyrrolate (Robinul) 1 mg STK-MED ONCE .ROUTE ; Start 06/06/17 at 10:04; Stop 06/06/17 at 10:05; Status DC Neostigmine Methylsulfate 5 mg STK-MED ONCE .ROUTE ; Start 06/06/17 at 10:04; Stop 06/06/17 at 10:05; Status DC Clindamycin Phosphate 50 ml @ 100 mls/hr Q8H IV Last administered on 06/06/17 23:53; Start 06/06/17 at 16:00; Stop 06/07/17 at 08:33; Status DC Insulin Aspart (NovoLOG VIAL) 6 unit 1X ONCE SQ Last administered on 06/06/17 11:53; Start 06/06/17 at 12:00; Stop 06/06/17 at 12:01; Status DC Insulin Detemir (Levemir) 24 units QHS SQ Last administered on 06/07/17 00:01; Start 06/06/17 at 21:00 Insulin Aspart (NovoLOG) 0-7 UNITS TIDWMEALS SQ Last administered on 06/06/17 17:33; Start 06/06/17 at 17:00 Dextrose (Dextrose 50%-Water Syringe) 12.5 gm PRN Q15MIN PRN IV SEE COMMENTS; Start 06/06/17 at 16:00 Cyclobenzaprine HCl (Flexeril) 10 mg PRN Q6HRS PRN PO MUSCLE SPASMS Last administered on 06/06/17 20:02; Start 06/06/17 at 19:45 Morphine Sulfate 4 mg PRN Q2HR PRN IV SEVERE PAIN Last administered on 23:54; Start 06/06/17 at 21:15 Lorazepam (Ativan) 1 mg PRN Q4HRS PRN IV ANXIETY / AGITATION; Start 06/06/17 at 23:15 Lorazepam (Ativan) 2 mg PRN Q4HRS PRN IV SEVERE ANXIETY / AGITATION; Start 06/06 at 23:15 Acetaminophen (Tylenol) 650 mg PRN Q6HRS PRN PO FEVER Last administered on 23:53; Start 06/06/17 at 23:30 Ibuprofen (Motrin) 400 mg 1X ONCE PO Last administered on 06/07/17 06:15; Start 06/07/17 at 05:00; Stop 06/07/17 at 05:01; Status DC Meropenem 500 mg/ Sodium Chloride 50 ml @ 100 mls/hr Q6HRS IV Last administered on 06/07/17 11:07; Start 06/07/17 at 09:00 Linezolid 300 ml @ 300 mls/hr Q12HR IV ; Start 06/07/17 at 09:00 Alprazolam (Xanax) 0.5 mg DAILY16 PO ; Start 06/07/17 at 16:00 Active Scripts Active Reported Levofloxacin 500 Mg Tablet 1 Tab PO DAILY Vitamin E (Vitamin E (Dl,Tocopheryl Acet)) 100 Unit Capsule 400 Unit PO Symbicort 160-4.5 Mcg Inhaler (Budesonide/Formoterol Fumarate) 10.2 Gm Hfa.aer.ad 2 Puff IH BID Risperidone 0.5 Mg Tablet 1 Tab PO BID Potassium Chloride 10 Meq Tablet.er 20 Meq PO DAILY Multivitamins (Multivitamin) 1 Each Tablet 1 Tab PO DAILY Remeron (Mirtazapine) 15 Mg Tablet 1 Tab PO QHS Lantus Solostar (Insulin Glargine,Hum.rec.anlog) 100 Unit/1 Ml Insuln.pen 40 Unit SQ QHS Gabapentin 300 Mg Capsule 300 Mg PO TID Furosemide 40 Mg Tablet 1 Tab PO DAILY Flonase Allergy Relief (Fluticasone Propionate) 9.9 Ml [place].susp 2 Sprays NS DAILY Colace (Docusate Sodium) 100 Mg Capsule 1 Cap PO BID Cartia Xt (Diltiazem Hcl) 240 Mg Cap.er.24h 240 Mg PO Aspirin 81 Mg Tab.chew 1 Tab PO DAILY Proair Hfa Inhaler (Albuterol Sulfate) 8.5 Gm Hfa.aer.ad 1 Puff INH PRN Q6HRS PRN Atorvastatin Calcium 20 Mg Tablet 1 Tab PO DAILY Trazodone Hcl 50 Mg Tablet 1 Tab PO QHS Pantoprazole Sodium 40 Mg Tablet.dr 1 Tab PO DAILY Sertraline Hcl 50 Mg Tablet 50 Mg PO DAILY Losartan Potassium 50 Mg Tablet 50 Mg PO DAILY Vitals/I & O Vital Sign - Last 24 Hours 06/06/17 06/06/17 06/06/17 06/06/17 12:18 12:33 12:48 13:03 Pulse 98 99 101 102 Resp B/P (MAP) 147/66 (93) 156/66 (96) 169/67 (101) 163/68 (99) Pulse Ox 93 91 93 93 O2 Delivery Nasal Cannula Nasal Cannula Nasal Cannula Nasal Cannula O2 Flow Rate 3.0 3.0 3.0 3.0 06/06/17 06/06/17 06/06/17 06/06/17 13:08 13:33 14:03 14:33 Pulse 101 99 102 Resp B/P (MAP) 167/74 (105) 173/70 (104) 166/78 (107) Pulse Ox 97 94 96 O2 Delivery Nasal Cannula Nasal Cannula Nasal Cannula Nasal Cannula O2 Flow Rate 3.0 3.0 3.0 3.0 06/06/17 06/06/17 06/06/17 06/06/17 14:43 15:33 16:59 17:00 Pulse 107 107 B/P (MAP) 170/68 (102) 170/68 Pulse Ox 95 89 O2 Delivery Nasal Cannula Nasal Cannula Nasal Cannula O2 Flow Rate 3.0 3.0 3.0 06/06/17 06/06/17 06/06/17 06/06/17 17:01 18:38 19:00 19:08 Temp 100.0 100.0 Pulse 107 110 Resp 22 B/P (MAP) 170/68 145/80 (101) Pulse Ox 91 O2 Delivery Nasal Cannula Nasal Cannula O2 Flow Rate 3.0 3.0 06/06/17 06/06/17 06/06/17 06/06/17 19:50 20:00 20:32 23:00 Temp 102.1 102.1 Pulse 112 Resp 20 B/P (MAP) 179/76 (110) Pulse Ox 92 94 90 O2 Delivery Nasal Cannula Nasal Cannula Nasal Cannula Nasal Cannula O2 Flow Rate 3.0 3.0 3.0 3.0 06/07/17 06/07/17 06/07/17 06/07/17 02:05 07:00 07:12 11:00 Temp 103.0 98.7 98.7 103.0 98.7 98.7 Pulse 106 96 78 Resp 28 22 22 B/P (MAP) 124/61 (82) 110/54 (72) 115/49 (71) Pulse Ox 94 93 98 95 O2 Delivery Nasal Cannula Nasal Cannula Nasal Cannula Nasal Cannula O2 Flow Rate 3.0 3.0 3.0 3.0 06/07/17 11:15 O2 Delivery Nasal Cannula O2 Flow Rate 3.0 Intake and Output 06/06/17 06/06/17 06/07/17 15:00 23:00 07:00 Intake Total 600 ml 300 ml Balance 600 ml 300 ml ABDULAZIZ KELSEY III DO Jun 07, 2017 12:17
[2017-06-07] MEDS: FUROSEMIDE 40 MG TABLET. PO SCH (12:32)
[2017-06-07] MEDS: SERTRALINE 50 MG TABLET. PO SCH (12:32)
[2017-06-07] MEDS: ASPIRIN CHEWABLE 81 MG TABLET. PO SCH (12:33)
[2017-06-07] MEDS: DOCUSATE SODIUM 100 MG CAPSULE. PO SCH ×2 (12:34→21:06)
[2017-06-07] MEDS: POTASSIUM CHLORIDE 10 MEQ TABLET.ER. PO SCH (12:34)
[2017-06-07] MEDS: PANTOPRAZOLE 40 MG TABLET.DR. PO SCH (12:34)
[2017-06-07] MEDS: LOSARTAN POTASSIUM 50 MG TABLET. PO SCH (12:35)
[2017-06-07] MEDS: MORPHINE SULFATE 2 MG/ML DISP.SYRIN. IV PRN (12:51)
[2017-06-07] MEDS: MORPHINE SULFATE 4 MG/ML DISP.SYRIN. IV PRN ×2 (13:56→16:18)
[2017-06-07 15:00] VITALS: BP 114/51
[2017-06-07] MEDS ORDERED: ALPR0.254 PO (15:32)
[2017-06-07] MEDS ORDERED: DIAZ5TAB4 PO (15:50)
[2017-06-07] MEDS ORDERED: INSU100C SQ (15:50)
[2017-06-07] MEDS ORDERED: HALO0.5T PO (15:50)
[2017-06-07] MEDS ORDERED: PROM25TA10 PO (15:50)
[2017-06-07] MEDS ORDERED: POTASSIUM CHLO10 MEQ PO (15:50)
[2017-06-07] MEDS ORDERED: ATOR20TA PO (15:50)
[2017-06-07] MEDS ORDERED: OXYC-328 PO (15:50)
[2017-06-07] MEDS ORDERED: ALPR0.5T6 PO (15:50)
[2017-06-07] MEDS ORDERED: SERT50TA PO (15:50)
[2017-06-07] MEDS ORDERED: LOSA100T6 PO (15:50)
[2017-06-07] MEDS ORDERED: ALPRAZolam 0.5 MG TABLET PO SCH (16:00)
[2017-06-07] MEDS: ACETAMINOPHEN 325 MG TABLET. PO PRN (16:13)
[2017-06-07] MEDS: AMINO AC 3%/ELECTROLYTE/GLYCER 1,000 ML IV SCH (16:17)
--- NOTE | 2017-06-07 16:18 | PDOC ---
PULMONARY PROGRESS NOTES Subjective NO RESP COMPLAINTS NO INCREASE SOA Vitals Vital Signs Date Time Temp Pulse Resp B/P (MAP) Pulse Ox O2 Delivery O2 Flow Rate FiO2 06/07/17 15:00 98.6 85 22 114/51 (72) 90 Nasal Cannula 3.0 98.6 ROS: No Chest Pain General: Alert Lungs: Wheezing (b/l lower lobes) Cardiovascular: S1, S2 Abdomen: Soft Neuro Exam: Alert Extremities: No Edema, Other (SURGERY RU EXT) Labs Laboratory Tests Test 06/05/17 20:39 06/06/17 03:55 06/06/17 07:11 06/06/17 10:53 Glucose (Fingerstick) 228 mg/dL (70-99) 188 mg/dL (70-99) 224 mg/dL (70-99) White Blood Count 8.9 x10^3/uL (4.0-11.0) Red Blood Count 3.34 x10^6/uL (3.50-5.40) Hemoglobin 10.5 g/dL (12.0-15.5) Hematocrit 32.2 % (36.0-47.0) Mean Corpuscular Volume 96 fL (79-100) Mean Corpuscular Hemoglobin 32 pg (25-35) Mean Corpuscular Hemoglobin Concent 33 g/dL (31-37) Red Cell Distribution Width 16.0 % (11.5-14.5) Platelet Count 133 x10^3/uL (140-400) Neutrophils (%) (Auto) 65 % (31-73) Lymphocytes (%) (Auto) 19 % (24-48) Monocytes (%) (Auto) 13 % (0-9) Eosinophils (%) (Auto) 2 % (0-3) Basophils (%) (Auto) 1 % (0-3) Neutrophils # (Auto) 5.8 x10^3uL (1.8-7.7) Lymphocytes # (Auto) 1.7 x10^3/uL (1.0-4.8) Monocytes # (Auto) 1.2 x10^3/uL (0.0-1.1) Eosinophils # (Auto) 0.1 x10^3/uL (0.0-0.7) Basophils # (Auto) 0.1 x10^3/uL (0.0-0.2) Sodium Level 142 mmol/L (136-145) Potassium Level 4.2 mmol/L (3.5-5.1) Chloride Level 105 mmol/L (98-107) Carbon Dioxide Level 34 mmol/L (21-32) Anion Gap 3 (6-14) Blood Urea Nitrogen 16 mg/dL (7-20) Creatinine 1.0 mg/dL (0.6-1.0) Estimated GFR (Cockcroft-Gault) 53.8 Glucose Level 202 mg/dL (70-99) Calcium Level 7.7 mg/dL (8.5-10.1) Test 06/06/17 12:10 06/06/17 16:55 06/06/17 20:38 06/07/17 04:00 Glucose (Fingerstick) 258 mg/dL (70-99) 221 mg/dL (70-99) 258 mg/dL (70-99) White Blood Count 11.4 x10^3/uL (4.0-11.0) Red Blood Count 3.38 x10^6/uL (3.50-5.40) Hemoglobin 10.6 g/dL (12.0-15.5) Hematocrit 32.5 % (36.0-47.0) Mean Corpuscular Volume 96 fL (79-100) Mean Corpuscular Hemoglobin 31 pg (25-35) Mean Corpuscular Hemoglobin Concent 33 g/dL (31-37) Red Cell Distribution Width 16.0 % (11.5-14.5) Platelet Count 140 x10^3/uL (140-400) Neutrophils (%) (Auto) 77 % (31-73) Lymphocytes (%) (Auto) 12 % (24-48) Monocytes (%) (Auto) 11 % (0-9) Eosinophils (%) (Auto) 0 % (0-3) Basophils (%) (Auto) 1 % (0-3) Neutrophils # (Auto) 8.7 x10^3uL (1.8-7.7) Lymphocytes # (Auto) 1.4 x10^3/uL (1.0-4.8) Monocytes # (Auto) 1.2 x10^3/uL (0.0-1.1) Eosinophils # (Auto) 0.0 x10^3/uL (0.0-0.7) Basophils # (Auto) 0.1 x10^3/uL (0.0-0.2) Sodium Level 138 mmol/L (136-145) Potassium Level 4.2 mmol/L (3.5-5.1) Chloride Level 101 mmol/L (98-107) Carbon Dioxide Level 31 mmol/L (21-32) Anion Gap 6 (6-14) Blood Urea Nitrogen 22 mg/dL (7-20) Creatinine 1.4 mg/dL (0.6-1.0) Estimated GFR (Cockcroft-Gault) 36.5 Glucose Level 293 mg/dL (70-99) Calcium Level 7.8 mg/dL (8.5-10.1) Test 06/07/17 06:00 06/07/17 07:21 06/07/17 11:50 Lactic Acid Level 1.0 mmol/L (0.4-2.0) Glucose (Fingerstick) 276 mg/dL (70-99) 240 mg/dL (70-99) Laboratory Tests Test 06/06/17 16:55 06/06/17 20:38 06/07/17 04:00 06/07/17 06:00 Glucose (Fingerstick) 221 mg/dL (70-99) 258 mg/dL (70-99) White Blood Count 11.4 x10^3/uL (4.0-11.0) Red Blood Count 3.38 x10^6/uL (3.50-5.40) Hemoglobin 10.6 g/dL (12.0-15.5) Hematocrit 32.5 % (36.0-47.0) Mean Corpuscular Volume 96 fL (79-100) Mean Corpuscular Hemoglobin 31 pg (25-35) Mean Corpuscular Hemoglobin Concent 33 g/dL (31-37) Red Cell Distribution Width 16.0 % (11.5-14.5) Platelet Count 140 x10^3/uL (140-400) Neutrophils (%) (Auto) 77 % (31-73) Lymphocytes (%) (Auto) 12 % (24-48) Monocytes (%) (Auto) 11 % (0-9) Eosinophils (%) (Auto) 0 % (0-3) Basophils (%) (Auto) 1 % (0-3) Neutrophils # (Auto) 8.7 x10^3uL (1.8-7.7) Lymphocytes # (Auto) 1.4 x10^3/uL (1.0-4.8) Monocytes # (Auto) 1.2 x10^3/uL (0.0-1.1) Eosinophils # (Auto) 0.0 x10^3/uL (0.0-0.7) Basophils # (Auto) 0.1 x10^3/uL (0.0-0.2) Sodium Level 138 mmol/L (136-145) Potassium Level 4.2 mmol/L (3.5-5.1) Chloride Level 101 mmol/L (98-107) Carbon Dioxide Level 31 mmol/L (21-32) Anion Gap 6 (6-14) Blood Urea Nitrogen 22 mg/dL (7-20) Creatinine 1.4 mg/dL (0.6-1.0) Estimated GFR (Cockcroft-Gault) 36.5 Glucose Level 293 mg/dL (70-99) Calcium Level 7.8 mg/dL (8.5-10.1) Lactic Acid Level 1.0 mmol/L (0.4-2.0) Test 06/07/17 07:21 06/07/17 11:50 Glucose (Fingerstick) 276 mg/dL (70-99) 240 mg/dL (70-99) Medications Active Scripts Medications Dose Route/Sig Max Daily Dose Days Date Category Levofloxacin 500 Mg Tablet 1 Tab PO DAILY 01/05/17 Reported Vitamin E (Vitamin E (Dl,Tocopheryl Acet)) 100 Unit Capsule 400 Unit PO 09/10/16 Reported Symbicort 160-4.5 Mcg Inhaler (Budesonide/Formoterol Fumarate) 10.2 Gm Hfa.aer.ad 2 Puff IH BID 09/10/16 Reported Risperidone 0.5 Mg Tablet 1 Tab PO BID 09/10/16 Reported Potassium Chloride 10 Meq Tablet.er 20 Meq PO DAILY 09/10/16 Reported Multivitamins (Multivitamin) 1 Each Tablet 1 Tab PO DAILY 09/10/16 Reported Remeron (Mirtazapine) 15 Mg Tablet 1 Tab PO QHS 09/10/16 Reported Lantus Solostar (Insulin Glargine,Hum.rec.anlog) 100 Unit/1 Ml Insuln.pen 40 Unit SQ QHS 09/10/16 Reported Gabapentin 300 Mg Capsule 300 Mg PO TID 09/10/16 Reported Furosemide 40 Mg Tablet 1 Tab PO DAILY 09/10/16 Reported Flonase Allergy Relief (Fluticasone Propionate) 9.9 Ml [place].susp 2 Sprays NS DAILY 09/10/16 Reported Colace (Docusate Sodium) 100 Mg Capsule 1 Cap PO BID 09/10/16 Reported Cartia Xt (Diltiazem Hcl) 240 Mg Cap.er.24h 240 Mg PO 09/10/16 Reported Aspirin 81 Mg Tab.chew 1 Tab PO DAILY 09/10/16 Reported Proair Hfa Inhaler (Albuterol Sulfate) 8.5 Gm Hfa.aer.ad 1 Puff INH PRN Q6HRS PRN 09/10/16 Reported Atorvastatin Calcium 20 Mg Tablet 1 Tab PO DAILY 09/10/16 Reported Trazodone Hcl 50 Mg Tablet 1 Tab PO QHS 09/10/16 Reported Pantoprazole Sodium 40 Mg Tablet.dr 1 Tab PO DAILY 09/10/16 Reported Sertraline Hcl 50 Mg Tablet 50 Mg PO DAILY 09/10/16 Reported Losartan Potassium 50 Mg Tablet 50 Mg PO DAILY 09/10/16 Reported Impression . 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 RESP STATUS IS COMPENSATED CONTINUE THE SAME PAIN MANAGEMENT AGGRESSIVE PULMONARY HYGIENE IS NEBS CXR REVIEWED NO INFILTRATES LICHA BURNS MD Jun 07, 2017 16:18
[2017-06-07 19:00] VITALS: BP 109/63
[2017-06-07] MEDS: ALPRAZolam 0.5 MG TABLET PO SCH (21:00)
[2017-06-07] MEDS: MIRTAZAPINE 15 MG TABLET PO SCH (21:06)
[2017-06-07] MEDS: ATORVASTATIN CALCIUM 20 MG TABLET PO SCH (21:06)
[2017-06-07] MEDS: traZODone 50 MG TABLET. PO SCH (21:06)
[2017-06-07] MEDS: INSULIN DETEMIR 300 UNITS/3 ML INSULN.PEN. SQ SCH (21:14)
[2017-06-07 23:00] VITALS: BP 110/46
[2017-06-08] MEDS: MEROPENEM 500 MG in IV NORMAL SALINE 50ML 50 ML IV SCH ×4 (00:12→18:09)
[2017-06-08] MEDS: AMINO AC 3%/ELECTROLYTE/GLYCER 1,000 ML IV SCH ×2 (01:50→15:10)
[2017-06-08 03:00] VITALS: BP 112/44
[2017-06-08 04:06] LABS: BASO # 0.1 x10^3/uL (0.0-0.2); BASO % 1 % (0-3); EOS % 2 % (0-3); HEMATOCRIT 29.4 % (36.0-47.0); HEMOGLOBIN 9.5 g/dL (12.0-15.5); LYMPH # 1.3 x10^3/uL (1.0-4.8); LYMPH % 8 % (24-48); MEAN CORPUSCULAR HEMOGLOBIN 32 pg (25-35); MEAN CORPUSCULAR HGB CONC 32 g/dL (31-37); MEAN CORPUSCULAR VOLUME 98 fL (79-100); MONO % 7 % (0-9); NEUT % 82 % (31-73); PLATELET COUNT 113 x10^3/uL (140-400); RED BLOOD COUNT 3.01 x10^6/uL (3.50-5.40); RED CELL DISTRIBUTION WIDTH 16.4 % (11.5-14.5); WHITE BLOOD COUNT 16.3 x10^3/uL (4.0-11.0)
[2017-06-08 05:02] LABS: CALCIUM 7.6 mg/dL (8.5-10.1); CREATININE 2.5 mg/dL (0.6-1.0); GFR 18.7; POTASSIUM 4.6 mmol/L (3.5-5.1)
[2017-06-08 06:58] LABS: % EOS 2 % (0-5); ANISOCYTOSIS SLIGHT; PLT ESTIMATE DECREASED (ADEQUATE)
[2017-06-08 07:00] VITALS: BP 111/39
[2017-06-08] MEDS: ALBUTEROL SULFATE 2.5 MG/3 ML NEBU. NEB SCH ×4 (07:33→19:40)
[2017-06-08] MEDS: FUROSEMIDE 40 MG TABLET. PO SCH (08:04)
[2017-06-08] MEDS: DOCUSATE SODIUM 100 MG CAPSULE. PO SCH ×2 (08:04→20:54)
[2017-06-08] MEDS: POTASSIUM CHLORIDE 10 MEQ TABLET.ER. PO SCH (08:04)
[2017-06-08] MEDS: PANTOPRAZOLE 40 MG TABLET.DR. PO SCH (08:05)
[2017-06-08] MEDS: ASPIRIN CHEWABLE 81 MG TABLET. PO SCH (08:05)
[2017-06-08] MEDS: SERTRALINE 50 MG TABLET. PO SCH (08:05)
[2017-06-08] MEDS: LOSARTAN POTASSIUM 50 MG TABLET. PO SCH (08:06)
[2017-06-08] MEDS: INSULIN ASPART 300 UNITS/3 ML INSULN.PEN SQ SCH ×3 (08:10→18:21)
[2017-06-08] MEDS: ACETAMINOPHEN 325 MG TABLET. PO PRN (10:43)
[2017-06-08 11:00] VITALS: BP 115/44
--- NOTE | 2017-06-08 11:46 | PDOC ---
MEHNAZALBERT HERNANDEZ Christoph FIELD ADJUSTER 06/08/17 1146: ORTHO PROGRESS NOTES Subjective Patient is awake and alert but confused. Patient seems to be resting well. She is taking her medication and following some simple commands. Post-op Day: 2 (Left proximal humerus fracture IM nail) Vitals Vital Signs Date Time Temp Pulse Resp B/P (MAP) Pulse Ox O2 Delivery O2 Flow Rate FiO2 06/08/17 08:06 92 112/44 06/08/17 08:00 Nasal Cannula 3.0 06/08/17 07:00 100.0 22 94 100.0 Labs Laboratory Tests Test 06/06/17 12:10 06/06/17 16:55 06/06/17 20:38 06/07/17 04:00 Glucose (Fingerstick) 258 mg/dL (70-99) 221 mg/dL (70-99) 258 mg/dL (70-99) White Blood Count 11.4 x10^3/uL (4.0-11.0) Red Blood Count 3.38 x10^6/uL (3.50-5.40) Hemoglobin 10.6 g/dL (12.0-15.5) Hematocrit 32.5 % (36.0-47.0) Mean Corpuscular Volume 96 fL (79-100) Mean Corpuscular Hemoglobin 31 pg (25-35) Mean Corpuscular Hemoglobin Concent 33 g/dL (31-37) Red Cell Distribution Width 16.0 % (11.5-14.5) Platelet Count 140 x10^3/uL (140-400) Neutrophils (%) (Auto) 77 % (31-73) Lymphocytes (%) (Auto) 12 % (24-48) Monocytes (%) (Auto) 11 % (0-9) Eosinophils (%) (Auto) 0 % (0-3) Basophils (%) (Auto) 1 % (0-3) Neutrophils # (Auto) 8.7 x10^3uL (1.8-7.7) Lymphocytes # (Auto) 1.4 x10^3/uL (1.0-4.8) Monocytes # (Auto) 1.2 x10^3/uL (0.0-1.1) Eosinophils # (Auto) 0.0 x10^3/uL (0.0-0.7) Basophils # (Auto) 0.1 x10^3/uL (0.0-0.2) Sodium Level 138 mmol/L (136-145) Potassium Level 4.2 mmol/L (3.5-5.1) Chloride Level 101 mmol/L (98-107) Carbon Dioxide Level 31 mmol/L (21-32) Anion Gap 6 (6-14) Blood Urea Nitrogen 22 mg/dL (7-20) Creatinine 1.4 mg/dL (0.6-1.0) Estimated GFR (Cockcroft-Gault) 36.5 Glucose Level 293 mg/dL (70-99) Calcium Level 7.8 mg/dL (8.5-10.1) Test 06/07/17 06:00 06/07/17 07:21 06/07/17 11:50 06/07/17 16:57 Lactic Acid Level 1.0 mmol/L (0.4-2.0) Glucose (Fingerstick) 276 mg/dL (70-99) 240 mg/dL (70-99) 236 mg/dL (70-99) Test 06/07/17 20:44 06/08/17 03:02 06/08/17 03:05 06/08/17 07:26 Glucose (Fingerstick) 196 mg/dL (70-99) 194 mg/dL (70-99) Sodium Level 135 mmol/L (136-145) Potassium Level 4.6 mmol/L (3.5-5.1) Chloride Level 100 mmol/L (98-107) Carbon Dioxide Level 26 mmol/L (21-32) Anion Gap 9 (6-14) Blood Urea Nitrogen 45 mg/dL (7-20) Creatinine 2.5 mg/dL (0.6-1.0) Estimated GFR (Cockcroft-Gault) 18.7 Glucose Level 196 mg/dL (70-99) Calcium Level 7.6 mg/dL (8.5-10.1) White Blood Count 16.3 x10^3/uL (4.0-11.0) Red Blood Count 3.01 x10^6/uL (3.50-5.40) Hemoglobin 9.5 g/dL (12.0-15.5) Hematocrit 29.4 % (36.0-47.0) Mean Corpuscular Volume 98 fL (79-100) Mean Corpuscular Hemoglobin 32 pg (25-35) Mean Corpuscular Hemoglobin Concent 32 g/dL (31-37) Red Cell Distribution Width 16.4 % (11.5-14.5) Platelet Count 113 x10^3/uL (140-400) Neutrophils (%) (Auto) 82 % (31-73) Lymphocytes (%) (Auto) 8 % (24-48) Monocytes (%) (Auto) 7 % (0-9) Eosinophils (%) (Auto) 2 % (0-3) Basophils (%) (Auto) 1 % (0-3) Neutrophils # (Auto) 13.3 x10^3uL (1.8-7.7) Lymphocytes # (Auto) 1.3 x10^3/uL (1.0-4.8) Monocytes # (Auto) 1.2 x10^3/uL (0.0-1.1) Eosinophils # (Auto) 0.4 x10^3/uL (0.0-0.7) Basophils # (Auto) 0.1 x10^3/uL (0.0-0.2) Segmented Neutrophils % 68 % (35-66) Band Neutrophils % 12 % (0-9) Lymphocytes % 14 % (24-48) Monocytes % 4 % (0-10) Eosinophils % 2 % (0-5) Platelet Estimate Decreased (ADEQUATE) Giant Platelets Occ Anisocytosis Slight Test 06/08/17 11:10 Glucose (Fingerstick) 242 mg/dL (70-99) Laboratory Tests Test 06/07/17 11:50 06/07/17 16:57 06/07/17 20:44 06/08/17 03:02 Glucose (Fingerstick) 240 mg/dL (70-99) 236 mg/dL (70-99) 196 mg/dL (70-99) Sodium Level 135 mmol/L (136-145) Potassium Level 4.6 mmol/L (3.5-5.1) Chloride Level 100 mmol/L (98-107) Carbon Dioxide Level 26 mmol/L (21-32) Anion Gap 9 (6-14) Blood Urea Nitrogen 45 mg/dL (7-20) Creatinine 2.5 mg/dL (0.6-1.0) Estimated GFR (Cockcroft-Gault) 18.7 Glucose Level 196 mg/dL (70-99) Calcium Level 7.6 mg/dL (8.5-10.1) Test 06/08/17 03:05 06/08/17 07:26 06/08/17 11:10 White Blood Count 16.3 x10^3/uL (4.0-11.0) Red Blood Count 3.01 x10^6/uL (3.50-5.40) Hemoglobin 9.5 g/dL (12.0-15.5) Hematocrit 29.4 % (36.0-47.0) Mean Corpuscular Volume 98 fL (79-100) Mean Corpuscular Hemoglobin 32 pg (25-35) Mean Corpuscular Hemoglobin Concent 32 g/dL (31-37) Red Cell Distribution Width 16.4 % (11.5-14.5) Platelet Count 113 x10^3/uL (140-400) Neutrophils (%) (Auto) 82 % (31-73) Lymphocytes (%) (Auto) 8 % (24-48) Monocytes (%) (Auto) 7 % (0-9) Eosinophils (%) (Auto) 2 % (0-3) Basophils (%) (Auto) 1 % (0-3) Neutrophils # (Auto) 13.3 x10^3uL (1.8-7.7) Lymphocytes # (Auto) 1.3 x10^3/uL (1.0-4.8) Monocytes # (Auto) 1.2 x10^3/uL (0.0-1.1) Eosinophils # (Auto) 0.4 x10^3/uL (0.0-0.7) Basophils # (Auto) 0.1 x10^3/uL (0.0-0.2) Segmented Neutrophils % 68 % (35-66) Band Neutrophils % 12 % (0-9) Lymphocytes % 14 % (24-48) Monocytes % 4 % (0-10) Eosinophils % 2 % (0-5) Platelet Estimate Decreased (ADEQUATE) Giant Platelets Occ Anisocytosis Slight Glucose (Fingerstick) 194 mg/dL (70-99) 242 mg/dL (70-99) Notes Patient is awake and alert, not following commands this morning. He grimaces when moving right arm. Moderate to severe edema right arm. Fingers are warm and good cap refill. Palpable radial pulse 2+. Incisions are well approximated, no drainage. Problems: (1) Right humeral fracture FOUZIA MCDOWELL II, MD 06/09/17 0852: Problem Qualifiers (1) Right humeral fracture: Encounter type: subsequent encounter Humerus Location: proximal Fracture type: closed Fracture alignment: displaced Fracture healing: with routine healing ALBERT ROBISON APRN Jun 08, 2017 11:46 FOUZIA MCDOWELL II, MD Jun 09, 2017 08:52
--- NOTE | 2017-06-08 11:57 | RAD ---
Single view of the Chest 06/08/2017 1:18 PM Indication: pos sepsis screen Comparison: Chest radiograph June 07, 2017 Findings: There is blunting of the bilateral costophrenic angles likely representing small pleural effusions with underlying atelectasis. No pneumothorax is seen. There is central vascular congestion and interstitial thickening. Favor pulmonary edema over atypical infectious process. No acute osseous changes are seen. Impression: 1. Probable small bilateral pleural effusions with underlying atelectasis 2. Central vascular congestion and interstitial thickening. Favor pulmonary edema over an atypical infectious process
--- NOTE | 2017-06-08 12:07 | PDOC ---
Infectious Disease Note Subjective Subjective States she is ok. Pain ROS ROS GEN: Denies fevers, chills, sweats HEENT: Denies blurred vision, sore throat CV: Denies chest pain RESP: Denies shortness of air, cough GI: Denies n/v/d NEURO: Denies confusion, dizziness MSK: Denies weakness, joint pain/swelling Vital Sign Vital Signs Vital Signs Date Time Temp Pulse Resp B/P (MAP) Pulse Ox O2 Delivery O2 Flow Rate FiO2 06/08/17 11:00 100.7 89 22 115/44 (67) 100 Nasal Cannula 3.0 100.7 Physical Exam PHYSICAL EXAM GENERAL: NAD, Alert. looks better but is still confused ome HEENT: PERRL, OC/OP - dry NECK: Supple, no JVD, no LN LUNGS: Clear HEART: S1S2, no gallop, no murmur ABD: Soft, NT, no organomegaly, no rebound EXT: No edema, no cyanosis. RUE sling CAMPUS MANAGER: Alert, oriented to name, no focal neurologic deficit SKIN: No rash IV: ok Labs Lab Laboratory Tests Test 06/07/17 16:57 06/07/17 20:44 06/08/17 03:02 06/08/17 03:05 Glucose (Fingerstick) 236 mg/dL (70-99) 196 mg/dL (70-99) Sodium Level 135 mmol/L (136-145) Potassium Level 4.6 mmol/L (3.5-5.1) Chloride Level 100 mmol/L (98-107) Carbon Dioxide Level 26 mmol/L (21-32) Anion Gap 9 (6-14) Blood Urea Nitrogen 45 mg/dL (7-20) Creatinine 2.5 mg/dL (0.6-1.0) Estimated GFR (Cockcroft-Gault) 18.7 Glucose Level 196 mg/dL (70-99) Calcium Level 7.6 mg/dL (8.5-10.1) White Blood Count 16.3 x10^3/uL (4.0-11.0) Red Blood Count 3.01 x10^6/uL (3.50-5.40) Hemoglobin 9.5 g/dL (12.0-15.5) Hematocrit 29.4 % (36.0-47.0) Mean Corpuscular Volume 98 fL (79-100) Mean Corpuscular Hemoglobin 32 pg (25-35) Mean Corpuscular Hemoglobin Concent 32 g/dL (31-37) Red Cell Distribution Width 16.4 % (11.5-14.5) Platelet Count 113 x10^3/uL (140-400) Neutrophils (%) (Auto) 82 % (31-73) Lymphocytes (%) (Auto) 8 % (24-48) Monocytes (%) (Auto) 7 % (0-9) Eosinophils (%) (Auto) 2 % (0-3) Basophils (%) (Auto) 1 % (0-3) Neutrophils # (Auto) 13.3 x10^3uL (1.8-7.7) Lymphocytes # (Auto) 1.3 x10^3/uL (1.0-4.8) Monocytes # (Auto) 1.2 x10^3/uL (0.0-1.1) Eosinophils # (Auto) 0.4 x10^3/uL (0.0-0.7) Basophils # (Auto) 0.1 x10^3/uL (0.0-0.2) Segmented Neutrophils % 68 % (35-66) Band Neutrophils % 12 % (0-9) Lymphocytes % 14 % (24-48) Monocytes % 4 % (0-10) Eosinophils % 2 % (0-5) Platelet Estimate Decreased (ADEQUATE) Giant Platelets Occ Anisocytosis Slight Test 06/08/17 07:26 06/08/17 11:10 Glucose (Fingerstick) 194 mg/dL (70-99) 242 mg/dL (70-99) Objective Assessment Fever Leukocytosis - increased Encephalopathy - better MADDY - worse Right humerous fracture S/p Procedure performed: Closed reduction and intramedullary nailing of right proximal humerus fracture 06/06 PCN allergy - ? reaction Plan Plan of Care F/u cults Cnt Meropenem/Zyvox (Avoid Vanc with MADDY) F/u CXR - ? fluid labs in am Notes reviewed D/w DEBO Man MD Jun 08, 2017 12:07
--- NOTE | 2017-06-08 12:13 | PDOC ---
PULMONARY PROGRESS NOTES Subjective NO RESP COMPLAINTS NO INCREASE SOA FEVER TODAY Vitals Vital Signs Date Time Temp Pulse Resp B/P (MAP) Pulse Ox O2 Delivery O2 Flow Rate FiO2 06/08/17 11:00 100.7 89 22 115/44 (67) 100 Nasal Cannula 3.0 100.7 General: Lethargic Lungs: Other (decrease bs) Cardiovascular: S1, S2 Abdomen: Soft Extremities: Other (mild edema) Labs Laboratory Tests Test 06/06/17 12:10 06/06/17 16:55 06/06/17 20:38 06/07/17 04:00 Glucose (Fingerstick) 258 mg/dL (70-99) 221 mg/dL (70-99) 258 mg/dL (70-99) White Blood Count 11.4 x10^3/uL (4.0-11.0) Red Blood Count 3.38 x10^6/uL (3.50-5.40) Hemoglobin 10.6 g/dL (12.0-15.5) Hematocrit 32.5 % (36.0-47.0) Mean Corpuscular Volume 96 fL (79-100) Mean Corpuscular Hemoglobin 31 pg (25-35) Mean Corpuscular Hemoglobin Concent 33 g/dL (31-37) Red Cell Distribution Width 16.0 % (11.5-14.5) Platelet Count 140 x10^3/uL (140-400) Neutrophils (%) (Auto) 77 % (31-73) Lymphocytes (%) (Auto) 12 % (24-48) Monocytes (%) (Auto) 11 % (0-9) Eosinophils (%) (Auto) 0 % (0-3) Basophils (%) (Auto) 1 % (0-3) Neutrophils # (Auto) 8.7 x10^3uL (1.8-7.7) Lymphocytes # (Auto) 1.4 x10^3/uL (1.0-4.8) Monocytes # (Auto) 1.2 x10^3/uL (0.0-1.1) Eosinophils # (Auto) 0.0 x10^3/uL (0.0-0.7) Basophils # (Auto) 0.1 x10^3/uL (0.0-0.2) Sodium Level 138 mmol/L (136-145) Potassium Level 4.2 mmol/L (3.5-5.1) Chloride Level 101 mmol/L (98-107) Carbon Dioxide Level 31 mmol/L (21-32) Anion Gap 6 (6-14) Blood Urea Nitrogen 22 mg/dL (7-20) Creatinine 1.4 mg/dL (0.6-1.0) Estimated GFR (Cockcroft-Gault) 36.5 Glucose Level 293 mg/dL (70-99) Calcium Level 7.8 mg/dL (8.5-10.1) Test 06/07/17 06:00 06/07/17 07:21 06/07/17 11:50 06/07/17 16:57 Lactic Acid Level 1.0 mmol/L (0.4-2.0) Glucose (Fingerstick) 276 mg/dL (70-99) 240 mg/dL (70-99) 236 mg/dL (70-99) Test 06/07/17 20:44 06/08/17 03:02 06/08/17 03:05 06/08/17 07:26 Glucose (Fingerstick) 196 mg/dL (70-99) 194 mg/dL (70-99) Sodium Level 135 mmol/L (136-145) Potassium Level 4.6 mmol/L (3.5-5.1) Chloride Level 100 mmol/L (98-107) Carbon Dioxide Level 26 mmol/L (21-32) Anion Gap 9 (6-14) Blood Urea Nitrogen 45 mg/dL (7-20) Creatinine 2.5 mg/dL (0.6-1.0) Estimated GFR (Cockcroft-Gault) 18.7 Glucose Level 196 mg/dL (70-99) Calcium Level 7.6 mg/dL (8.5-10.1) White Blood Count 16.3 x10^3/uL (4.0-11.0) Red Blood Count 3.01 x10^6/uL (3.50-5.40) Hemoglobin 9.5 g/dL (12.0-15.5) Hematocrit 29.4 % (36.0-47.0) Mean Corpuscular Volume 98 fL (79-100) Mean Corpuscular Hemoglobin 32 pg (25-35) Mean Corpuscular Hemoglobin Concent 32 g/dL (31-37) Red Cell Distribution Width 16.4 % (11.5-14.5) Platelet Count 113 x10^3/uL (140-400) Neutrophils (%) (Auto) 82 % (31-73) Lymphocytes (%) (Auto) 8 % (24-48) Monocytes (%) (Auto) 7 % (0-9) Eosinophils (%) (Auto) 2 % (0-3) Basophils (%) (Auto) 1 % (0-3) Neutrophils # (Auto) 13.3 x10^3uL (1.8-7.7) Lymphocytes # (Auto) 1.3 x10^3/uL (1.0-4.8) Monocytes # (Auto) 1.2 x10^3/uL (0.0-1.1) Eosinophils # (Auto) 0.4 x10^3/uL (0.0-0.7) Basophils # (Auto) 0.1 x10^3/uL (0.0-0.2) Segmented Neutrophils % 68 % (35-66) Band Neutrophils % 12 % (0-9) Lymphocytes % 14 % (24-48) Monocytes % 4 % (0-10) Eosinophils % 2 % (0-5) Platelet Estimate Decreased (ADEQUATE) Giant Platelets Occ Anisocytosis Slight Test 06/08/17 11:10 Glucose (Fingerstick) 242 mg/dL (70-99) Laboratory Tests Test 06/07/17 16:57 06/07/17 20:44 06/08/17 03:02 06/08/17 03:05 Glucose (Fingerstick) 236 mg/dL (70-99) 196 mg/dL (70-99) Sodium Level 135 mmol/L (136-145) Potassium Level 4.6 mmol/L (3.5-5.1) Chloride Level 100 mmol/L (98-107) Carbon Dioxide Level 26 mmol/L (21-32) Anion Gap 9 (6-14) Blood Urea Nitrogen 45 mg/dL (7-20) Creatinine 2.5 mg/dL (0.6-1.0) Estimated GFR (Cockcroft-Gault) 18.7 Glucose Level 196 mg/dL (70-99) Calcium Level 7.6 mg/dL (8.5-10.1) White Blood Count 16.3 x10^3/uL (4.0-11.0) Red Blood Count 3.01 x10^6/uL (3.50-5.40) Hemoglobin 9.5 g/dL (12.0-15.5) Hematocrit 29.4 % (36.0-47.0) Mean Corpuscular Volume 98 fL (79-100) Mean Corpuscular Hemoglobin 32 pg (25-35) Mean Corpuscular Hemoglobin Concent 32 g/dL (31-37) Red Cell Distribution Width 16.4 % (11.5-14.5) Platelet Count 113 x10^3/uL (140-400) Neutrophils (%) (Auto) 82 % (31-73) Lymphocytes (%) (Auto) 8 % (24-48) Monocytes (%) (Auto) 7 % (0-9) Eosinophils (%) (Auto) 2 % (0-3) Basophils (%) (Auto) 1 % (0-3) Neutrophils # (Auto) 13.3 x10^3uL (1.8-7.7) Lymphocytes # (Auto) 1.3 x10^3/uL (1.0-4.8) Monocytes # (Auto) 1.2 x10^3/uL (0.0-1.1) Eosinophils # (Auto) 0.4 x10^3/uL (0.0-0.7) Basophils # (Auto) 0.1 x10^3/uL (0.0-0.2) Segmented Neutrophils % 68 % (35-66) Band Neutrophils % 12 % (0-9) Lymphocytes % 14 % (24-48) Monocytes % 4 % (0-10) Eosinophils % 2 % (0-5) Platelet Estimate Decreased (ADEQUATE) Giant Platelets Occ Anisocytosis Slight Test 06/08/17 07:26 06/08/17 11:10 Glucose (Fingerstick) 194 mg/dL (70-99) 242 mg/dL (70-99) Medications Active Scripts Medications Dose Route/Sig Max Daily Dose Days Date Category Levofloxacin 500 Mg Tablet 1 Tab PO DAILY 01/05/17 Reported Vitamin E (Vitamin E (Dl,Tocopheryl Acet)) 100 Unit Capsule 400 Unit PO 09/10/16 Reported Symbicort 160-4.5 Mcg Inhaler (Budesonide/Formoterol Fumarate) 10.2 Gm Hfa.aer.ad 2 Puff IH BID 09/10/16 Reported Risperidone 0.5 Mg Tablet 1 Tab PO BID 09/10/16 Reported Potassium Chloride 10 Meq Tablet.er 20 Meq PO DAILY 09/10/16 Reported Multivitamins (Multivitamin) 1 Each Tablet 1 Tab PO DAILY 09/10/16 Reported Remeron (Mirtazapine) 15 Mg Tablet 1 Tab PO QHS 09/10/16 Reported Lantus Solostar (Insulin Glargine,Hum.rec.anlog) 100 Unit/1 Ml Insuln.pen 40 Unit SQ QHS 09/10/16 Reported Gabapentin 300 Mg Capsule 300 Mg PO TID 09/10/16 Reported Furosemide 40 Mg Tablet 1 Tab PO DAILY 09/10/16 Reported Flonase Allergy Relief (Fluticasone Propionate) 9.9 Ml [place].susp 2 Sprays NS DAILY 09/10/16 Reported Colace (Docusate Sodium) 100 Mg Capsule 1 Cap PO BID 09/10/16 Reported Cartia Xt (Diltiazem Hcl) 240 Mg Cap.er.24h 240 Mg PO 09/10/16 Reported Aspirin 81 Mg Tab.chew 1 Tab PO DAILY 09/10/16 Reported Proair Hfa Inhaler (Albuterol Sulfate) 8.5 Gm Hfa.aer.ad 1 Puff INH PRN Q6HRS PRN 09/10/16 Reported Atorvastatin Calcium 20 Mg Tablet 1 Tab PO DAILY 09/10/16 Reported Trazodone Hcl 50 Mg Tablet 1 Tab PO QHS 09/10/16 Reported Pantoprazole Sodium 40 Mg Tablet.dr 1 Tab PO DAILY 09/10/16 Reported Sertraline Hcl 50 Mg Tablet 50 Mg PO DAILY 09/10/16 Reported Losartan Potassium 50 Mg Tablet 50 Mg PO DAILY 09/10/16 Reported Comments CXR 06/08 mild CHF Impression . Assessment/Plan CHRONIC RESP FAILURE COPD TOBACCO DEPENDENCE IN REMISSION FALL FRACTURE OF R HUMERUS POST -OP FEVER CXR WITH MILD CHF/ ? PNEUMONIA Plan . RESP STATUS IS COMPENSATED FOLLOW ID RECOMMENDATIONS CXR MORE SUGGESTIVE OF CHF/ AVOID DIURESIS DUE TO RENAL FAILURE PAIN MANAGEMENT AGGRESSIVE PULMONARY HYGIENE IS DARÍO BURKS MD Jun 08, 2017 12:12
--- NOTE | 2017-06-08 13:53 | PDOC ---
PROGRESS NOTES Chief Complaint Chief Complaint 1. Severe comminuted fracture of R humerus: s/p closed reduction and intramedullary nailing of right proximal humerus fracture 06/06 2. MADDY: significantly worse. renal consult 3. Fever: recurrent today. appreciate Dr Keen's input. on merrem and linezolid. cult, CXR repeated today 4. Leukocytosis: worsening. 5. ?CHF: vascular congestion, pleural effusions on CXR. obtain echo. lasix IV x2 with worsening CXR 5. DM2: on insulin, incl ISS 6. HTN: Borderline low but stable. monitor 7. HLD: on statin 8. COPD: nebs PRN 9. Urinary incontinence 10. Depression: cont home meds 11. Dementia/ ?encephalopathy: currently nonverbal, catatonic. by report, family thinks she is at baseline, which does fluctuate some 12. OA History of Present Illness History of Present Illness nonverbal Vitals Vitals Vital Signs Date Time Temp Pulse Resp B/P (MAP) Pulse Ox O2 Delivery O2 Flow Rate FiO2 06/08/17 11:00 100.7 89 22 115/44 (67) 100 Nasal Cannula 3.0 100.7 Physical Exam General: Alert, Oriented X3 Heart: Regular rate, No murmurs, Other (radial pulse 2+) Lungs: Other (decrease bs) Abdomen: Normal bowel sounds, Soft Extremities: No clubbing, No cyanosis Skin: No breakdown Labs LABS Laboratory Tests Test 06/07/17 16:57 06/07/17 20:44 06/08/17 03:02 06/08/17 03:05 Glucose (Fingerstick) 236 mg/dL (70-99) 196 mg/dL (70-99) Sodium Level 135 mmol/L (136-145) Potassium Level 4.6 mmol/L (3.5-5.1) Chloride Level 100 mmol/L (98-107) Carbon Dioxide Level 26 mmol/L (21-32) Anion Gap 9 (6-14) Blood Urea Nitrogen 45 mg/dL (7-20) Creatinine 2.5 mg/dL (0.6-1.0) Estimated GFR (Cockcroft-Gault) 18.7 Glucose Level 196 mg/dL (70-99) Calcium Level 7.6 mg/dL (8.5-10.1) White Blood Count 16.3 x10^3/uL (4.0-11.0) Red Blood Count 3.01 x10^6/uL (3.50-5.40) Hemoglobin 9.5 g/dL (12.0-15.5) Hematocrit 29.4 % (36.0-47.0) Mean Corpuscular Volume 98 fL (79-100) Mean Corpuscular Hemoglobin 32 pg (25-35) Mean Corpuscular Hemoglobin Concent 32 g/dL (31-37) Red Cell Distribution Width 16.4 % (11.5-14.5) Platelet Count 113 x10^3/uL (140-400) Neutrophils (%) (Auto) 82 % (31-73) Lymphocytes (%) (Auto) 8 % (24-48) Monocytes (%) (Auto) 7 % (0-9) Eosinophils (%) (Auto) 2 % (0-3) Basophils (%) (Auto) 1 % (0-3) Neutrophils # (Auto) 13.3 x10^3uL (1.8-7.7) Lymphocytes # (Auto) 1.3 x10^3/uL (1.0-4.8) Monocytes # (Auto) 1.2 x10^3/uL (0.0-1.1) Eosinophils # (Auto) 0.4 x10^3/uL (0.0-0.7) Basophils # (Auto) 0.1 x10^3/uL (0.0-0.2) Segmented Neutrophils % 68 % (35-66) Band Neutrophils % 12 % (0-9) Lymphocytes % 14 % (24-48) Monocytes % 4 % (0-10) Eosinophils % 2 % (0-5) Platelet Estimate Decreased (ADEQUATE) Giant Platelets Occ Anisocytosis Slight Test 06/08/17 07:26 06/08/17 11:10 06/08/17 11:30 Glucose (Fingerstick) 194 mg/dL (70-99) 242 mg/dL (70-99) Lactic Acid Level 1.0 mmol/L (0.4-2.0) KIKO VAZQUEZ MD Jun 08, 2017 13:53
[2017-06-08 15:00] VITALS: BP 124/40
[2017-06-08] MEDS ORDERED: FUROSEMIDE 20 MG/2 ML VIAL. IVP ONE (15:45)
--- NOTE | 2017-06-08 15:56 | PDOC2 ---
CAMILA DE LA CRUZ LINING FELLER 06/08/17 1556: CARDIAC CONSULT DATE OF CONSULT Date of Consult DATE: 06/08/17 TIME: 15:44 REASON FOR CONSULT Reason for Consult: Echo, suspected CHF REFERRING PHYSICIAN Referring Physician: Dr. Horn SOURCE Source: Chart review, Patient HISTORY OF PRESENT ILLNESS HISTORY OF PRESENT ILLNESS This is a 76 yo female who presented with right shoulder pain secondary to fall ; sustained right proximal humerus fracture. Underwent surgical repair 06/06/17. CXR today with possible vascular congestion; concern for CHF, which prompted this consult. HPI obtained from chart review as patient is presently non-verbal. PAST MEDICAL HISTORY Past Medical History Cardiovascular: HTN, Hyperlipidemia, CHF, valvular insufficiency Pulmonary: COPD CENTRAL NERVOUS SYSTEM: Dementia GI: Constipation Heme/Onc: Anemia NOS, DVT Hepatobiliary: No pertinent hx Psych: Anxiety, bipolar, depression Musculoskeletal: low back pain, Osteoarthritis Rheumatologic: No pertinent hx Infectious disease: No pertinent hx ENT: No pertinent hx Renal/: Urinary Incontinence, CKD3 Endocrine: Diabetes (2) Dermatology: No pertinent hx PAST SURGICAL HISTORY Past Surgical History Hysterectomy FAMILY HISTORY Family History: Coronary Artery Disease (father ) SOCIAL HISTORY Social History Smoke: No (quit/ hx of 50 pk/yr) ALCOHOL: none Drugs: None Lives: with Family CURRENT MEDICATIONS CURRENT MEDICATIONS Current Medications Medications (Trade) Dose Ordered Sig/Talita Route PRN Reason Start Time Stop Time Status Last Admin Dose Admin Insulin Detemir (Levemir) 40 units QHS SQ 06/07/17 21:00 06/07/17 21:14 ALLERGIES ALLERGIES: Coded Allergies: Penicillins (Verified Allergy, Intermediate, AMS, 09/10/16) aripiprazole (Verified Adverse Reaction, Mild, agitation, 10/28/16) bupropion (Verified Adverse Reaction, Mild, headache, 10/28/16) metformin (Verified Adverse Reaction, Mild, diarrhea, 10/28/16) ROS Review of System unobtainable as patient is non-verbal PHYSICAL EXAM PHYSICAL EXAM General: alert. non-verbal, no acute distress HEENT: Atraumatic, Mucous membr. moist/pink Lungs: Other (diminished throughout) Heart: Regular rate, Normal S1, Normal S2, other (3/6 systolic murmur) Abdomen: Soft, No tenderness, obese Extremities: No cyanosis, Other (trace bilateral LE edema ) Skin: No breakdown, No significant lesion Neuro: Sensation intact Psych/Mental Status: flat affect MUSCULOSKELETAL: Osteoarthritic changes both hands VITALS VITALS Vital Signs Date Time Temp Pulse Resp B/P (MAP) Pulse Ox O2 Delivery O2 Flow Rate FiO2 06/08/17 15:00 100.4 88 22 124/40 (68) 97 Nasal Cannula 3.0 100.4 LABS Lab: Laboratory Tests Test 06/07/17 16:57 06/07/17 20:44 06/08/17 03:02 06/08/17 03:05 Glucose (Fingerstick) 236 mg/dL (70-99) 196 mg/dL (70-99) Sodium Level 135 mmol/L (136-145) Potassium Level 4.6 mmol/L (3.5-5.1) Chloride Level 100 mmol/L (98-107) Carbon Dioxide Level 26 mmol/L (21-32) Anion Gap 9 (6-14) Blood Urea Nitrogen 45 mg/dL (7-20) Creatinine 2.5 mg/dL (0.6-1.0) Estimated GFR (Cockcroft-Gault) 18.7 Glucose Level 196 mg/dL (70-99) Calcium Level 7.6 mg/dL (8.5-10.1) White Blood Count 16.3 x10^3/uL (4.0-11.0) Red Blood Count 3.01 x10^6/uL (3.50-5.40) Hemoglobin 9.5 g/dL (12.0-15.5) Hematocrit 29.4 % (36.0-47.0) Mean Corpuscular Volume 98 fL (79-100) Mean Corpuscular Hemoglobin 32 pg (25-35) Mean Corpuscular Hemoglobin Concent 32 g/dL (31-37) Red Cell Distribution Width 16.4 % (11.5-14.5) Platelet Count 113 x10^3/uL (140-400) Neutrophils (%) (Auto) 82 % (31-73) Lymphocytes (%) (Auto) 8 % (24-48) Monocytes (%) (Auto) 7 % (0-9) Eosinophils (%) (Auto) 2 % (0-3) Basophils (%) (Auto) 1 % (0-3) Neutrophils # (Auto) 13.3 x10^3uL (1.8-7.7) Lymphocytes # (Auto) 1.3 x10^3/uL (1.0-4.8) Monocytes # (Auto) 1.2 x10^3/uL (0.0-1.1) Eosinophils # (Auto) 0.4 x10^3/uL (0.0-0.7) Basophils # (Auto) 0.1 x10^3/uL (0.0-0.2) Segmented Neutrophils % 68 % (35-66) Band Neutrophils % 12 % (0-9) Lymphocytes % 14 % (24-48) Monocytes % 4 % (0-10) Eosinophils % 2 % (0-5) Platelet Estimate Decreased (ADEQUATE) Giant Platelets Occ Anisocytosis Slight Test 06/08/17 07:26 06/08/17 11:10 06/08/17 11:30 Glucose (Fingerstick) 194 mg/dL (70-99) 242 mg/dL (70-99) Lactic Acid Level 1.0 mmol/L (0.4-2.0) ECHOCARDIOGRAM ECHOCARDIOGRAM <Conclusion> The left ventricular systolic function is normal. The Ejection Fraction is 55-60%. There is normal LV segmental wall motion. The left atrium is mildly dilated. Trace mitral regurgitation. Mild tricuspid regurgitation. The pulmonary artery systolic pressure is estimated at 47 mmHg. There is moderate pulmonary hypertension. There is no evidence of significant pericardial effusion. DATE: 01/25/17 151 ASSESSMENT/PLAN ASSESSMENT/PLAN 1. Mechanical fall with right proximal humerus fracture; s/p repair 2. Acute on chronic diastolic CHF 3. Hypertension 4. Hyperlipidemia 5. Diabetes 6. MADDY on CKD3 7. Leukocytosis with fevers 8. Encephalopathy versus dementia? 9. Debility Recommendations Low-dose IV Lasix administered. Incontinent; consider [place] for accurate I and O. Monitor renal function; am labs. Avoid aggressive diuresis with MADDY Supportive care from CV perspective. Problems: PETE MONTERO MD 06/08/172042: CARDIAC CONSULT ALLERGIES ALLERGIES: Coded Allergies: Penicillins (Verified Allergy, Intermediate, AMS, 09/10/16) aripiprazole (Verified Adverse Reaction, Mild, agitation, 10/28/16) bupropion (Verified Adverse Reaction, Mild, headache, 10/28/16) metformin (Verified Adverse Reaction, Mild, diarrhea, 10/28/16) ASSESSMENT/PLAN ASSESSMENT/PLAN Pt. seen and examined. Agree with above ATTRACTION ATTENDANT note with following comments: 76 y.o debilitated woman presenting with fall and recent surgery. On exam she appears intravascularly volume deplete. She has renal failure and a normal recent echo. Would not diurese based on xray findings. Supportive care. Will stop oral lasix and ok to give fluids She might benefit from transfusion to help draw fluid intravascularly but will defer to PCP. Problems: CAMILA DE LA CRUZ APRN Jun 08, 2017 15:56 PETE MONTERO MD Jun 08, 2017 20:43
[2017-06-08 19:32] VITALS: BP 124/51
[2017-06-08 20:35] LABS: BILIRUBIN,URINE NEGATIVE (NEG); GLUCOSE,URINE NEGATIVE (NEG); NITRITE,URINE NEGATIVE (NEG); PH,URINE 5.5; PROTEIN,URINE NEGATIVE (NEG-TRACE); UROBILINOGEN,URINE 0.2 mg/dL (0.2 mg/dL)
[2017-06-08 20:49] LABS: BACTERIA,URINE FEW /HPF (0-FEW); SQUAMOUS EPITHELIAL CELL,UR MOD /LPF; WBC,URINE TNTC /HPF (0-4); YEAST,URINE PRESENT /HPF
[2017-06-08] MEDS: MIRTAZAPINE 15 MG TABLET PO SCH (20:53)
[2017-06-08] MEDS: traZODone 50 MG TABLET. PO SCH (20:54)
[2017-06-08] MEDS: ATORVASTATIN CALCIUM 20 MG TABLET PO SCH (20:54)
[2017-06-08] MEDS: INSULIN DETEMIR 300 UNITS/3 ML INSULN.PEN. SQ SCH (20:56)
[2017-06-08] MEDS: ALPRAZolam 0.5 MG TABLET PO SCH (20:56)
[2017-06-08 23:14] VITALS: BP 128/50
[2017-06-09] MEDS: MEROPENEM 500 MG in IV NORMAL SALINE 50ML 50 ML IV SCH ×4 (00:37→22:12)
[2017-06-09 03:18] VITALS: BP 137/54
[2017-06-09 04:30] LABS: BASO # 0.1 x10^3/uL (0.0-0.2); BASO % 1 % (0-3); EOS % 4 % (0-3); HEMATOCRIT 29.4 % (36.0-47.0); HEMOGLOBIN 9.6 g/dL (12.0-15.5); LYMPH # 1.6 x10^3/uL (1.0-4.8); LYMPH % 12 % (24-48); MEAN CORPUSCULAR HEMOGLOBIN 31 pg (25-35); MEAN CORPUSCULAR HGB CONC 33 g/dL (31-37); MEAN CORPUSCULAR VOLUME 96 fL (79-100); MONO % 10 % (0-9); NEUT % 74 % (31-73); PLATELET COUNT 164 x10^3/uL (140-400); RED BLOOD COUNT 3.08 x10^6/uL (3.50-5.40); RED CELL DISTRIBUTION WIDTH 15.6 % (11.5-14.5); WHITE BLOOD COUNT 13.7 x10^3/uL (4.0-11.0)
[2017-06-09] MEDS: AMINO AC 3%/ELECTROLYTE/GLYCER 1,000 ML IV SCH ×2 (04:30→17:50)
[2017-06-09 04:46] LABS: CALCIUM 7.8 mg/dL (8.5-10.1); CREATININE 2.9 mg/dL (0.6-1.0); GFR 15.7; POTASSIUM 4.8 mmol/L (3.5-5.1)
[2017-06-09] MEDS: ACETAMINOPHEN 325 MG TABLET. PO PRN (05:47)
[2017-06-09 07:00] VITALS: BP 127/83
--- NOTE | 2017-06-09 07:45 | PDOC ---
Infectious Disease Note Subjective Subjective Lethargic ROS ROS Unobtainable Vital Sign Vital Signs Vital Signs Date Time Temp Pulse Resp B/P (MAP) Pulse Ox O2 Delivery O2 Flow Rate FiO2 06/09/17 03:18 100.0 95 18 137/54 (81) 98 Nasal Cannula 100.0 06/08/17 20:00 3.0 Physical Exam PHYSICAL EXAM GENERAL: NAD, Lethargic HEENT: PERRL, OC/OP - dry NECK: Supple, no JVD, no LN LUNGS: Clear HEART: S1S2, no gallop, no murmur ABD: Soft, NT, no organomegaly, no rebound. right sided fullness. No erythema /warmth/tenderness EXT: No edema, no cyanosis. RUE sling- incision clean. Arm bruised BACKROOM ASSOCIATE: Alert, oriented to name, no focal neurologic deficit SKIN: No rash IV: ok Labs Lab Laboratory Tests Test 06/08/17 11:10 06/08/17 11:30 06/08/17 16:14 06/08/17 16:55 Glucose (Fingerstick) 242 mg/dL (70-99) 245 mg/dL (70-99) Lactic Acid Level 1.0 mmol/L (0.4-2.0) Urine Collection Type Unknown Urine Color Yellow Urine Clarity Turbid Urine pH 5.5 Urine Specific [place] 1.015 Urine Protein Negative mg/dL (NEG-TRACE) Urine Glucose (UA) Negative mg/dL (NEG) Urine Ketones (Stick) Negative mg/dL (NEG) Urine Blood Moderate (NEG) Urine Nitrite Negative (NEG) Urine Bilirubin Negative (NEG) Urine Urobilinogen Dipstick 0.2 mg/dL (0.2 mg/dL) Urine Leukocyte Esterase Large (NEG) Urine RBC 11-20 /HPF (0-2) Urine WBC Tntc /HPF (0-4) Urine Squamous Epithelial Cells Mod /LPF Urine Bacteria Few /HPF (0-FEW) Urine Mucus Slight /LPF Urine Yeast Present /HPF Test 06/08/17 20:51 06/09/17 03:20 Glucose (Fingerstick) 215 mg/dL (70-99) White Blood Count 13.7 x10^3/uL (4.0-11.0) Red Blood Count 3.08 x10^6/uL (3.50-5.40) Hemoglobin 9.6 g/dL (12.0-15.5) Hematocrit 29.4 % (36.0-47.0) Mean Corpuscular Volume 96 fL (79-100) Mean Corpuscular Hemoglobin 31 pg (25-35) Mean Corpuscular Hemoglobin Concent 33 g/dL (31-37) Red Cell Distribution Width 15.6 % (11.5-14.5) Platelet Count 164 x10^3/uL (140-400) Neutrophils (%) (Auto) 74 % (31-73) Lymphocytes (%) (Auto) 12 % (24-48) Monocytes (%) (Auto) 10 % (0-9) Eosinophils (%) (Auto) 4 % (0-3) Basophils (%) (Auto) 1 % (0-3) Neutrophils # (Auto) 10.2 x10^3uL (1.8-7.7) Lymphocytes # (Auto) 1.6 x10^3/uL (1.0-4.8) Monocytes # (Auto) 1.4 x10^3/uL (0.0-1.1) Eosinophils # (Auto) 0.5 x10^3/uL (0.0-0.7) Basophils # (Auto) 0.1 x10^3/uL (0.0-0.2) Sodium Level 134 mmol/L (136-145) Potassium Level 4.8 mmol/L (3.5-5.1) Chloride Level 99 mmol/L (98-107) Carbon Dioxide Level 28 mmol/L (21-32) Anion Gap 7 (6-14) Blood Urea Nitrogen 70 mg/dL (7-20) Creatinine 2.9 mg/dL (0.6-1.0) Estimated GFR (Cockcroft-Gault) 15.7 Glucose Level 229 mg/dL (70-99) Calcium Level 7.8 mg/dL (8.5-10.1) Objective Assessment Fever -again Right sided abd fullness ? from previous injection. ? hematoma - no warmth/ erythema Leukocytosis - better Encephalopathy - worse - ? with fever/MADDY MADDY - worse Right humerous fracture CHF S/p Procedure performed: Closed reduction and intramedullary nailing of right proximal humerus fracture 06/06 PCN allergy - ? reaction Plan Plan of Care CT abd/pel- with right sided fullnss F/u cults Cont Meropenem (adjust dose today with worsening MADDY)/Zyvox (Avoid Vanc with MADDY ) labs in am Notes reviewed DEBO BURGESS MD Jun 09, 2017 07:45
[2017-06-09] MEDS: ALBUTEROL SULFATE 2.5 MG/3 ML NEBU. NEB SCH ×4 (07:50→21:05)
[2017-06-09] MEDS: DOCUSATE SODIUM 100 MG CAPSULE. PO SCH ×2 (08:59→21:03)
[2017-06-09] MEDS: PANTOPRAZOLE 40 MG TABLET.DR. PO SCH (08:59)
[2017-06-09] MEDS: ASPIRIN CHEWABLE 81 MG TABLET. PO SCH (08:59)
[2017-06-09] MEDS: SERTRALINE 50 MG TABLET. PO SCH (08:59)
--- NOTE | 2017-06-09 09:00 | PDOC ---
ORTHO PROGRESS NOTES Subjective No acute events. Patient does not verbalize any complaints Vitals Vital Signs Date Time Temp Pulse Resp B/P (MAP) Pulse Ox O2 Delivery O2 Flow Rate FiO2 06/09/17 07:53 100 Nasal Cannula 3.0 06/09/17 07:01 101.5 101.5 06/09/17 07:00 77 22 127/83 (98) Labs Laboratory Tests Test 06/07/17 11:50 06/07/17 16:57 06/07/17 20:44 06/08/17 03:02 Glucose (Fingerstick) 240 mg/dL (70-99) 236 mg/dL (70-99) 196 mg/dL (70-99) Sodium Level 135 mmol/L (136-145) Potassium Level 4.6 mmol/L (3.5-5.1) Chloride Level 100 mmol/L (98-107) Carbon Dioxide Level 26 mmol/L (21-32) Anion Gap 9 (6-14) Blood Urea Nitrogen 45 mg/dL (7-20) Creatinine 2.5 mg/dL (0.6-1.0) Estimated GFR (Cockcroft-Gault) 18.7 Glucose Level 196 mg/dL (70-99) Calcium Level 7.6 mg/dL (8.5-10.1) Test 06/08/17 03:05 06/08/17 07:26 06/08/17 11:10 06/08/17 11:30 White Blood Count 16.3 x10^3/uL (4.0-11.0) Red Blood Count 3.01 x10^6/uL (3.50-5.40) Hemoglobin 9.5 g/dL (12.0-15.5) Hematocrit 29.4 % (36.0-47.0) Mean Corpuscular Volume 98 fL (79-100) Mean Corpuscular Hemoglobin 32 pg (25-35) Mean Corpuscular Hemoglobin Concent 32 g/dL (31-37) Red Cell Distribution Width 16.4 % (11.5-14.5) Platelet Count 113 x10^3/uL (140-400) Neutrophils (%) (Auto) 82 % (31-73) Lymphocytes (%) (Auto) 8 % (24-48) Monocytes (%) (Auto) 7 % (0-9) Eosinophils (%) (Auto) 2 % (0-3) Basophils (%) (Auto) 1 % (0-3) Neutrophils # (Auto) 13.3 x10^3uL (1.8-7.7) Lymphocytes # (Auto) 1.3 x10^3/uL (1.0-4.8) Monocytes # (Auto) 1.2 x10^3/uL (0.0-1.1) Eosinophils # (Auto) 0.4 x10^3/uL (0.0-0.7) Basophils # (Auto) 0.1 x10^3/uL (0.0-0.2) Segmented Neutrophils % 68 % (35-66) Band Neutrophils % 12 % (0-9) Lymphocytes % 14 % (24-48) Monocytes % 4 % (0-10) Eosinophils % 2 % (0-5) Platelet Estimate Decreased (ADEQUATE) Giant Platelets Occ Anisocytosis Slight Glucose (Fingerstick) 194 mg/dL (70-99) 242 mg/dL (70-99) Lactic Acid Level 1.0 mmol/L (0.4-2.0) Test 06/08/17 16:14 06/08/17 16:55 06/08/17 20:51 06/09/17 03:20 Glucose (Fingerstick) 245 mg/dL (70-99) 215 mg/dL (70-99) Urine Collection Type Unknown Urine Color Yellow Urine Clarity Turbid Urine pH 5.5 Urine Specific [place] 1.015 Urine Protein Negative mg/dL (NEG-TRACE) Urine Glucose (UA) Negative mg/dL (NEG) Urine Ketones (Stick) Negative mg/dL (NEG) Urine Blood Moderate (NEG) Urine Nitrite Negative (NEG) Urine Bilirubin Negative (NEG) Urine Urobilinogen Dipstick 0.2 mg/dL (0.2 mg/dL) Urine Leukocyte Esterase Large (NEG) Urine RBC 11-20 /HPF (0-2) Urine WBC Tntc /HPF (0-4) Urine Squamous Epithelial Cells Mod /LPF Urine Bacteria Few /HPF (0-FEW) Urine Mucus Slight /LPF Urine Yeast Present /HPF White Blood Count 13.7 x10^3/uL (4.0-11.0) Red Blood Count 3.08 x10^6/uL (3.50-5.40) Hemoglobin 9.6 g/dL (12.0-15.5) Hematocrit 29.4 % (36.0-47.0) Mean Corpuscular Volume 96 fL (79-100) Mean Corpuscular Hemoglobin 31 pg (25-35) Mean Corpuscular Hemoglobin Concent 33 g/dL (31-37) Red Cell Distribution Width 15.6 % (11.5-14.5) Platelet Count 164 x10^3/uL (140-400) Neutrophils (%) (Auto) 74 % (31-73) Lymphocytes (%) (Auto) 12 % (24-48) Monocytes (%) (Auto) 10 % (0-9) Eosinophils (%) (Auto) 4 % (0-3) Basophils (%) (Auto) 1 % (0-3) Neutrophils # (Auto) 10.2 x10^3uL (1.8-7.7) Lymphocytes # (Auto) 1.6 x10^3/uL (1.0-4.8) Monocytes # (Auto) 1.4 x10^3/uL (0.0-1.1) Eosinophils # (Auto) 0.5 x10^3/uL (0.0-0.7) Basophils # (Auto) 0.1 x10^3/uL (0.0-0.2) Sodium Level 134 mmol/L (136-145) Potassium Level 4.8 mmol/L (3.5-5.1) Chloride Level 99 mmol/L (98-107) Carbon Dioxide Level 28 mmol/L (21-32) Anion Gap 7 (6-14) Blood Urea Nitrogen 70 mg/dL (7-20) Creatinine 2.9 mg/dL (0.6-1.0) Estimated GFR (Cockcroft-Gault) 15.7 Glucose Level 229 mg/dL (70-99) Calcium Level 7.8 mg/dL (8.5-10.1) Test 06/09/17 07:30 Glucose (Fingerstick) 229 mg/dL (70-99) Laboratory Tests Test 06/08/17 11:10 06/08/17 11:30 06/08/17 16:14 06/08/17 16:55 Glucose (Fingerstick) 242 mg/dL (70-99) 245 mg/dL (70-99) Lactic Acid Level 1.0 mmol/L (0.4-2.0) Urine Collection Type Unknown Urine Color Yellow Urine Clarity Turbid Urine pH 5.5 Urine Specific [place] 1.015 Urine Protein Negative mg/dL (NEG-TRACE) Urine Glucose (UA) Negative mg/dL (NEG) Urine Ketones (Stick) Negative mg/dL (NEG) Urine Blood Moderate (NEG) Urine Nitrite Negative (NEG) Urine Bilirubin Negative (NEG) Urine Urobilinogen Dipstick 0.2 mg/dL (0.2 mg/dL) Urine Leukocyte Esterase Large (NEG) Urine RBC 11-20 /HPF (0-2) Urine WBC Tntc /HPF (0-4) Urine Squamous Epithelial Cells Mod /LPF Urine Bacteria Few /HPF (0-FEW) Urine Mucus Slight /LPF Urine Yeast Present /HPF Test 06/08/17 20:51 06/09/17 03:20 06/09/17 07:30 Glucose (Fingerstick) 215 mg/dL (70-99) 229 mg/dL (70-99) White Blood Count 13.7 x10^3/uL (4.0-11.0) Red Blood Count 3.08 x10^6/uL (3.50-5.40) Hemoglobin 9.6 g/dL (12.0-15.5) Hematocrit 29.4 % (36.0-47.0) Mean Corpuscular Volume 96 fL (79-100) Mean Corpuscular Hemoglobin 31 pg (25-35) Mean Corpuscular Hemoglobin Concent 33 g/dL (31-37) Red Cell Distribution Width 15.6 % (11.5-14.5) Platelet Count 164 x10^3/uL (140-400) Neutrophils (%) (Auto) 74 % (31-73) Lymphocytes (%) (Auto) 12 % (24-48) Monocytes (%) (Auto) 10 % (0-9) Eosinophils (%) (Auto) 4 % (0-3) Basophils (%) (Auto) 1 % (0-3) Neutrophils # (Auto) 10.2 x10^3uL (1.8-7.7) Lymphocytes # (Auto) 1.6 x10^3/uL (1.0-4.8) Monocytes # (Auto) 1.4 x10^3/uL (0.0-1.1) Eosinophils # (Auto) 0.5 x10^3/uL (0.0-0.7) Basophils # (Auto) 0.1 x10^3/uL (0.0-0.2) Sodium Level 134 mmol/L (136-145) Potassium Level 4.8 mmol/L (3.5-5.1) Chloride Level 99 mmol/L (98-107) Carbon Dioxide Level 28 mmol/L (21-32) Anion Gap 7 (6-14) Blood Urea Nitrogen 70 mg/dL (7-20) Creatinine 2.9 mg/dL (0.6-1.0) Estimated GFR (Cockcroft-Gault) 15.7 Glucose Level 229 mg/dL (70-99) Calcium Level 7.8 mg/dL (8.5-10.1) X-Rays Chest x-ray report reviewed Notes She is lying in bed, she opens her eyes but does not follow commands. Right upper extremity is in a sling. Incision has a small amount of bloody drainage around it. Assessment and Plan She underwent intramedullary nailing of her proximal humerus fracture. She can participate in PT and OT when she is able to. FOUZIA MCDOWELL II, MD Jun 09, 2017 09:00
[2017-06-09] MEDS: INSULIN ASPART 300 UNITS/3 ML INSULN.PEN SQ SCH ×3 (09:08→18:32)
[2017-06-09 09:35] LABS: HCO3 ABG 25 mmol/L (21-28); PCO2 ABG 37 mmHg (35-46); PH ABG 7.46 (7.35-7.45); PO2 ABG 91 mmHg (65-108); SAT O2 ABG 97 % (92-99)
[2017-06-09 09:37] LABS: FIO2 ABG 32
--- NOTE | 2017-06-09 10:49 | RAD ---
[facility]2017: History: Condition deterioration, rapid response Comparison is made to yesterday's study. The heart is mildly enlarged. There is calcific plaquing of the aorta. The pulmonary vascularity is at the upper limits of normal. No pulmonary consolidation is seen. There is an intramedullary lavinia transfixing a right humeral fracture. IMPRESSION: No significant change since yesterday's study. MTDD
[2017-06-09 11:00] VITALS: BP 136/51
--- NOTE | 2017-06-09 11:11 | PDOC2 ---
CONSULT Date of Consult Date of Consult DATE: 06/09/17 TIME: 11:04 Reason for Consult Reason for Consult: RENAL FAILURE Referring Physician Referring Physician: LAURE Identification/Chief Complaint Chief Complaint FALL Problems: Source Source: Chart review History of Present Illness Reason for Visit: THIS IS A 76 YR OLD ADMITTED WITH A FALL AND SHE HAS A RIGHT PROXIMAL HUMERUS FX. THIS HAS BEEN FIXED SURGICALLY. POST OP SHE NOW HAS CONFUSION. SHE IS NOT EATING. HER CXRAY IS CONCERNING FOR SOME VASCULAR CONGESTION AND SHE IS NOTED TO HAVE A PROGRESSIVE INCREASE IN HER CR LEVEL. IT WAS NORMAL ON ADMIT AND NOW UP TO 2.9. SHE CANNOT GIVE ANY HX. SHE HAS LEUCOCYTOSIS AND AN UTI Past Medical History Cardiovascular: HTN, Hyperlipidemia Pulmonary: COPD CENTRAL NERVOUS SYSTEM: Dementia GI: Constipation Heme/Onc: Anemia NOS Hepatobiliary: No pertinent hx Psych: Anxiety Musculoskeletal: low back pain, Osteoarthritis Rheumatologic: No pertinent hx Infectious disease: No pertinent hx Renal/: Urinary Incontinence Endocrine: Diabetes Past Surgical History Past Surgical History: Hysterectomy Family History Family History: Coronary Artery Disease (father ) Social History ALCOHOL: none Drugs: None Lives: with Family Current Medications Current Medications Current Medications Hydromorphone HCl (Dilaudid) 0.5 mg 1X ONCE IV Last administered on 06/04/17 18:32; Start 06/04/17 at 18:30; Stop 06/04/17 at 18:31; Status DC Hydromorphone HCl (Dilaudid) 1 mg 1X ONCE IV Last administered on 06/04/17 19: 47; Start 06/04/17 at 19:45; Stop 06/04/17 at 19:46; Status DC Morphine Sulfate 2 mg PRN Q2HR PRN IV SEVERE PAIN Last administered on 20:42; Start 06/04/17 at 21:15; Stop 06/05/17 at 21:14; Status DC Aspirin (Children'S Aspirin) 81 mg DAILY PO Last administered on 06/09/17 08: 59; Start 06/05/17 at 09:00 Atorvastatin Calcium (Lipitor) 20 mg QHS PO Last administered on 06/08/17 20: 54; Start 06/05/17 at 21:00 Diltiazem HCl (Cardizem 24hr Cd) 240 mg DAILY PO Last administered on 08:59; Start 06/05/17 at 09:00 Docusate Sodium (Colace) 100 mg BID PO Last administered on 06/09/17 08:59; Start 06/05/17 at 09:00 Furosemide (Lasix) 40 mg DAILY PO Last administered on 06/08/17 08:04; Start 06/05/17 at 09:00; Stop 06/08/17 at 20:44; Status DC Levofloxacin (Levaquin) 500 mg DAILY PO ; Start 06/05/17 at 09:00; Status UNV Losartan Potassium (Cozaar) 50 mg DAILY PO Last administered on 06/08/17 08:06 ; Start 06/05/17 at 09:00; Stop 06/09/17 at 08:54; Status DC Mirtazapine (Remeron) 15 mg QHS PO Last administered on 06/08/17 20:53; Start 06/05/17 at 21:00 Pantoprazole Sodium (Protonix) 40 mg DAILYAC PO Last administered on 06/09/17 08:59; Start 06/05/17 at 07:30 Potassium Chloride (Klor-Con) 20 meq DAILY PO Last administered on 06/08/17 08 :04; Start 06/05/17 at 09:00; Stop 06/09/17 at 08:54; Status DC Sertraline HCl (Zoloft) 50 mg DAILY PO Last administered on 06/09/17 08:59; Start 06/05/17 at 09:00 Trazodone HCl (Desyrel) 50 mg QHS PO Last administered on 06/08/17 20:54; Start 06/05/17 at 21:00 Hydromorphone HCl (Dilaudid) 1 mg 1X ONCE IV Last administered on 06/04/17 22: 57; Start 06/04/17 at 23:00; Stop 06/04/17 at 23:01; Status DC Pneumococcal Polyvalent Vaccine (Do NOT chart on this placeholder) 1 each PRN DAILY PRN [facility] UNABLE TO RESPOND; Start 06/05/17 at 01:45; Status Cancel Clindamycin Phosphate 50 ml @ 100 mls/hr 1X ONCE IV Last administered on 08:44; Start 06/06/17 at 07:30; Stop 06/06/17 at 07:59; Status DC Albuterol Sulfate (Ventolin Neb Soln) 2.5 mg RTQID NEB Last administered on 07:50; Start 06/05/17 at 17:00 Albuterol Sulfate (Ventolin Neb Soln) 2.5 mg PRN Q2HR PRN NEB DYSPNEA Last administered on 06/06/17 10:48; Start 06/05/17 at 17:00 Ondansetron HCl (Zofran) 4 mg PRN Q6HRS PRN IV NAUSEA/VOMITING; Start 06/06/17 at 07:00; Stop 06/06/17 at 18:00; Status DC Fentanyl Citrate (Fentanyl 2ml Vial) 25 mcg PRN Q5MIN PRN IV MILD PAIN Last administered on 06/06/17 11:36; Start 06/06/17 at 07:00; Stop 06/06/17 at 18:00; Status DC Fentanyl Citrate (Fentanyl 2ml Vial) 50 mcg PRN Q5MIN PRN IV MODERATE PAIN; Start 06/06/17 at 07:00; Stop 06/06/17 at 18:00; Status DC Morphine Sulfate 1 mg PRN Q10MIN PRN IV SEVERE PAIN; Start 06/06/17 at 07:00; Stop 06/06/17 at 18:00; Status DC Ringer's Solution 1,000 ml @ 30 mls/hr Q24H IV ; Start 06/06/17 at 07:00; Stop 06/06/17 at 18:59; Status DC Lidocaine HCl 2 ml PRN 1X PRN ID PRIOR TO IV START; Start 06/06/17 at 07:00; Stop 06/06/17 at 18:00; Status DC Hydromorphone HCl (Dilaudid) 0.5 mg PRN Q10MIN PRN IV SEV PAIN, Second choice; Start 06/06/17 at 07:00; Stop 06/06/17 at 18:00; Status DC Prochlorperazine Edisylate (Compazine) 5 mg PACU PRN PRN IV NAUSEA, MRX1; Start 06/06/17 at 07:00; Stop 06/06/17 at 18:00; Status DC Morphine Sulfate 2 mg PRN Q2HR PRN IV MODERATE PAIN Last administered on 12:51; Start 06/05/17 at 21:30; Stop 06/07/17 at 13:21; Status DC Lidocaine HCl 30 ml STK-MED ONCE .ROUTE Last administered on 06/06/17 09:06; Start 06/06/17 at 07:31; Stop 06/06/17 at 07:32; Status DC Bupivacaine HCl (Sensorcaine Mpf 0.5%) 30 ml STK-MED ONCE .ROUTE Last administered on 06/06/17 09:06; Start 06/06/17 at 07:31; Stop 06/06/17 at 07:32; Status DC Dexamethasone Sodium Phosphate (Decadron) 20 mg STK-MED ONCE .ROUTE ; Start 06/06 at 07:54; Stop 06/06/17 at 07:55; Status DC Propofol 20 ml @ As Directed STK-MED ONCE IV ; Start 06/06/17 at 07:54; Stop 06/06 at 07:55; Status DC Midazolam HCl (Versed) 2 mg STK-MED ONCE .ROUTE ; Start 06/06/17 at 07:55; Stop 06/06/17 at 07:56; Status DC Fentanyl Citrate (Fentanyl 5ml Vial) 250 mcg STK-MED ONCE .ROUTE ; Start at 07:55; Stop 06/06/17 at 07:56; Status DC Rocuronium [place] (Zemuron) 100 mg STK-MED ONCE .ROUTE ; Start 06/06/17 at 07:55 ; Stop 06/06/17 at 07:56; Status DC Glycopyrrolate (Robinul) 1 mg STK-MED ONCE .ROUTE ; Start 06/06/17 at 10:04; Stop 06/06/17 at 10:05; Status DC Neostigmine Methylsulfate 5 mg STK-MED ONCE .ROUTE ; Start 06/06/17 at 10:04; Stop 06/06/17 at 10:05; Status DC Clindamycin Phosphate 50 ml @ 100 mls/hr Q8H IV Last administered on 06/06/17 23:53; Start 06/06/17 at 16:00; Stop 06/07/17 at 08:33; Status DC Insulin Aspart (NovoLOG VIAL) 6 unit 1X ONCE SQ Last administered on 06/06/17 11:53; Start 06/06/17 at 12:00; Stop 06/06/17 at 12:01; Status DC Insulin Detemir (Levemir) 24 units QHS SQ Last administered on 06/07/17 00:01; Start 06/06/17 at 21:00; Stop 06/07/17 at 15:56; Status DC Insulin Aspart (NovoLOG) 0-7 UNITS TIDWMEALS SQ Last administered on 06/09/17 09:08; Start 06/06/17 at 17:00 Dextrose (Dextrose 50%-Water Syringe) 12.5 gm PRN Q15MIN PRN IV SEE COMMENTS; Start 06/06/17 at 16:00 Cyclobenzaprine HCl (Flexeril) 10 mg PRN Q6HRS PRN PO MUSCLE SPASMS Last administered on 06/06/17 20:02; Start 06/06/17 at 19:45 Morphine Sulfate 4 mg PRN Q2HR PRN IV SEVERE PAIN Last administered on 16:18; Start 06/06/17 at 21:15; Stop 06/08/17 at 15:33; Status DC Lorazepam (Ativan) 1 mg PRN Q4HRS PRN IV ANXIETY / AGITATION; Start 06/06/17 at 23:15; Stop 06/08/17 at 15:33; Status DC Lorazepam (Ativan) 2 mg PRN Q4HRS PRN IV SEVERE ANXIETY / AGITATION; Start 06/06 at 23:15; Stop 06/08/17 at 15:33; Status DC Acetaminophen (Tylenol) 650 mg PRN Q6HRS PRN PO FEVER Last administered on 06/09 05:47; Start 06/06/17 at 23:30 Ibuprofen (Motrin) 400 mg 1X ONCE PO Last administered on 06/07/17 06:15; Start 06/07/17 at 05:00; Stop 06/07/17 at 05:01; Status DC Meropenem 500 mg/ Sodium Chloride 50 ml @ 100 mls/hr Q6HRS IV Last administered on 06/09/17 05:47; Start 06/07/17 at 09:00; Stop 06/09/17 at 07:38 ; Status DC Linezolid 300 ml @ 300 mls/hr Q12HR IV Last administered on 06/09/17 09:00; Start 06/07/17 at 09:00 Alprazolam (Xanax) 0.5 mg DAILY16 PO ; Start 06/07/17 at 16:00; Stop 06/07/17 at 16:00; Status DC Amino Acids/ Glycerin/ Electrolytes 1,000 ml @ 75 mls/hr [id number] IV Last administered on 06/08/17 15:10; Start 06/07/17 at 12:30 Insulin Detemir (Levemir) 40 units QHS SQ Last administered on 06/08/17 20:56 ; Start 06/07/17 at 21:00 Alprazolam (Xanax) 0.5 mg QHS PO ; Start 06/07/17 at 21:00 Morphine Sulfate 1 mg PRN Q2HR PRN IV SEVERE PAIN; Start 06/08/17 at 15:30 Furosemide (Lasix) 20 mg 1X ONCE IVP Last administered on 06/08/17 18:09; Start 06/08/17 at 15:45; Stop 06/08/17 at 15:46; Status DC Meropenem 500 mg/ Sodium Chloride 50 ml @ 100 mls/hr Q8HRS IV ; Start 06/09/17 at 14:00 Active Scripts Active Reported Zoloft (Sertraline Hcl) 50 Mg Tablet 1 Tab PO TID Potassium Chloride 10 Meq Capsule.er 10 Meq PO DAILY Percocet 10-325 Mg Tablet (Oxycodone/Acetaminophen) 1 Each Tablet 1 Tab PO Q4HRS PRN Losartan Potassium 100 Mg Tablet 100 Mg PO DAILY Lipitor (Atorvastatin Calcium) 20 Mg Tablet 1 Tab PO QHS Humalog (Insulin Lispro) 100 Unit/1 Ml Cartridge 10 Unit SQ TIDWMEALS Promethazine Hcl 25 Mg Tablet 1 Tab PO PRN Q4HRS PRN Haloperidol 0.5 Mg Tablet 0.5 Mg PO Q4HRS PRN Diazepam 5 Mg Tablet 5 Mg PO QID Alprazolam 0.5 Mg Tablet 1 Tab PO QHS Alprazolam 0.25 Mg Tablet 1 Tab PO BID PRN Levofloxacin 500 Mg Tablet 1 Tab PO DAILY Vitamin E (Vitamin E (Dl,Tocopheryl Acet)) 100 Unit Capsule 400 Unit PO Symbicort 160-4.5 Mcg Inhaler (Budesonide/Formoterol Fumarate) 10.2 Gm Hfa.aer.ad 2 Puff IH BID Risperidone 0.5 Mg Tablet 1 Tab PO BID Multivitamins (Multivitamin) 1 Each Tablet 1 Tab PO DAILY Remeron (Mirtazapine) 15 Mg Tablet 1 Tab PO QHS Lantus Solostar (Insulin Glargine,Hum.rec.anlog) 100 Unit/1 Ml Insuln.pen 40 Unit SQ QHS Gabapentin 300 Mg Capsule 300 Mg PO TID Furosemide 40 Mg Tablet 1 Tab PO DAILY Flonase Allergy Relief (Fluticasone Propionate) 9.9 Ml [place].susp 2 Sprays NS DAILY Colace (Docusate Sodium) 100 Mg Capsule 1 Cap PO BID Cartia Xt (Diltiazem Hcl) 240 Mg Cap.er.24h 240 Mg PO Aspirin 81 Mg Tab.chew 1 Tab PO DAILY Proair Hfa Inhaler (Albuterol Sulfate) 8.5 Gm Hfa.aer.ad 1 Puff INH PRN Q6HRS PRN Atorvastatin Calcium 20 Mg Tablet 1 Tab PO DAILY Trazodone Hcl 50 Mg Tablet 1 Tab PO QHS Pantoprazole Sodium 40 Mg Tablet.dr 1 Tab PO DAILY Allergies Allergies: Coded Allergies: Penicillins (Verified Allergy, Intermediate, AMS, 09/10/16) aripiprazole (Verified Adverse Reaction, Mild, agitation, 10/28/16) bupropion (Verified Adverse Reaction, Mild, headache, 10/28/16) metformin (Verified Adverse Reaction, Mild, diarrhea, 10/28/16) ROS Review of System UNABLE TO OBTAIN Physical Exam General: Cooperative, No acute distress HEENT: Atraumatic, EOMI, Other (DRY MUCOSA) Lungs: Other (DECREASED AIR FLOW) Abdomen: Normal bowel sounds, Soft Extremities: No clubbing Skin: No rashes Neuro: Other (CONFUSED) Psych/Mental Status: Other (CONFUSED BUT NO ASYMMETRY) MUSCULOSKELETAL: No swelling Vitals VITALS Vital Signs Date Time Temp Pulse Resp B/P (MAP) Pulse Ox O2 Delivery O2 Flow Rate FiO2 06/09/17 08:59 77 127/83 06/09/17 08:45 100.5 100.5 06/09/17 07:53 100 Nasal Cannula 3.0 06/09/17 07:00 22 Labs Labs Laboratory Tests Test 06/07/17 11:50 06/07/17 16:57 06/07/17 20:44 06/08/17 03:02 Glucose (Fingerstick) 240 mg/dL (70-99) 236 mg/dL (70-99) 196 mg/dL (70-99) Sodium Level 135 mmol/L (136-145) Potassium Level 4.6 mmol/L (3.5-5.1) Chloride Level 100 mmol/L (98-107) Carbon Dioxide Level 26 mmol/L (21-32) Anion Gap 9 (6-14) Blood Urea Nitrogen 45 mg/dL (7-20) Creatinine 2.5 mg/dL (0.6-1.0) Estimated GFR (Cockcroft-Gault) 18.7 Glucose Level 196 mg/dL (70-99) Calcium Level 7.6 mg/dL (8.5-10.1) Test 06/08/17 03:05 06/08/17 07:26 06/08/17 11:10 06/08/17 11:30 White Blood Count 16.3 x10^3/uL (4.0-11.0) Red Blood Count 3.01 x10^6/uL (3.50-5.40) Hemoglobin 9.5 g/dL (12.0-15.5) Hematocrit 29.4 % (36.0-47.0) Mean Corpuscular Volume 98 fL (79-100) Mean Corpuscular Hemoglobin 32 pg (25-35) Mean Corpuscular Hemoglobin Concent 32 g/dL (31-37) Red Cell Distribution Width 16.4 % (11.5-14.5) Platelet Count 113 x10^3/uL (140-400) Neutrophils (%) (Auto) 82 % (31-73) Lymphocytes (%) (Auto) 8 % (24-48) Monocytes (%) (Auto) 7 % (0-9) Eosinophils (%) (Auto) 2 % (0-3) Basophils (%) (Auto) 1 % (0-3) Neutrophils # (Auto) 13.3 x10^3uL (1.8-7.7) Lymphocytes # (Auto) 1.3 x10^3/uL (1.0-4.8) Monocytes # (Auto) 1.2 x10^3/uL (0.0-1.1) Eosinophils # (Auto) 0.4 x10^3/uL (0.0-0.7) Basophils # (Auto) 0.1 x10^3/uL (0.0-0.2) Segmented Neutrophils % 68 % (35-66) Band Neutrophils % 12 % (0-9) Lymphocytes % 14 % (24-48) Monocytes % 4 % (0-10) Eosinophils % 2 % (0-5) Platelet Estimate Decreased (ADEQUATE) Giant Platelets Occ Anisocytosis Slight Glucose (Fingerstick) 194 mg/dL (70-99) 242 mg/dL (70-99) Lactic Acid Level 1.0 mmol/L (0.4-2.0) Test 06/08/17 16:14 06/08/17 16:55 06/08/17 20:51 06/09/17 03:20 Glucose (Fingerstick) 245 mg/dL (70-99) 215 mg/dL (70-99) Urine Collection Type Unknown Urine Color Yellow Urine Clarity Turbid Urine pH 5.5 Urine Specific [place] 1.015 Urine Protein Negative mg/dL (NEG-TRACE) Urine Glucose (UA) Negative mg/dL (NEG) Urine Ketones (Stick) Negative mg/dL (NEG) Urine Blood Moderate (NEG) Urine Nitrite Negative (NEG) Urine Bilirubin Negative (NEG) Urine Urobilinogen Dipstick 0.2 mg/dL (0.2 mg/dL) Urine Leukocyte Esterase Large (NEG) Urine RBC 11-20 /HPF (0-2) Urine WBC Tntc /HPF (0-4) Urine Squamous Epithelial Cells Mod /LPF Urine Bacteria Few /HPF (0-FEW) Urine Mucus Slight /LPF Urine Yeast Present /HPF White Blood Count 13.7 x10^3/uL (4.0-11.0) Red Blood Count 3.08 x10^6/uL (3.50-5.40) Hemoglobin 9.6 g/dL (12.0-15.5) Hematocrit 29.4 % (36.0-47.0) Mean Corpuscular Volume 96 fL (79-100) Mean Corpuscular Hemoglobin 31 pg (25-35) Mean Corpuscular Hemoglobin Concent 33 g/dL (31-37) Red Cell Distribution Width 15.6 % (11.5-14.5) Platelet Count 164 x10^3/uL (140-400) Neutrophils (%) (Auto) 74 % (31-73) Lymphocytes (%) (Auto) 12 % (24-48) Monocytes (%) (Auto) 10 % (0-9) Eosinophils (%) (Auto) 4 % (0-3) Basophils (%) (Auto) 1 % (0-3) Neutrophils # (Auto) 10.2 x10^3uL (1.8-7.7) Lymphocytes # (Auto) 1.6 x10^3/uL (1.0-4.8) Monocytes # (Auto) 1.4 x10^3/uL (0.0-1.1) Eosinophils # (Auto) 0.5 x10^3/uL (0.0-0.7) Basophils # (Auto) 0.1 x10^3/uL (0.0-0.2) Sodium Level 134 mmol/L (136-145) Potassium Level 4.8 mmol/L (3.5-5.1) Chloride Level 99 mmol/L (98-107) Carbon Dioxide Level 28 mmol/L (21-32) Anion Gap 7 (6-14) Blood Urea Nitrogen 70 mg/dL (7-20) Creatinine 2.9 mg/dL (0.6-1.0) Estimated GFR (Cockcroft-Gault) 15.7 Glucose Level 229 mg/dL (70-99) Calcium Level 7.8 mg/dL (8.5-10.1) Test 06/09/17 07:30 06/09/17 09:20 Glucose (Fingerstick) 229 mg/dL (70-99) O2 Saturation 97 % (92-99) Arterial Blood pH 7.46 (7.35-7.45) Arterial Blood pCO2 at Patient Temp 37 mmHg (35-46) Arterial Blood pO2 at Patient Temp 91 mmHg (65-108) Arterial Blood HCO3 25 mmol/L (21-28) Arterial Blood Base Excess 2 mmol/L (-3-3) FiO2 32 Laboratory Tests Test 06/08/17 11:10 06/08/17 11:30 06/08/17 16:14 06/08/17 16:55 Glucose (Fingerstick) 242 mg/dL (70-99) 245 mg/dL (70-99) Lactic Acid Level 1.0 mmol/L (0.4-2.0) Urine Collection Type Unknown Urine Color Yellow Urine Clarity Turbid Urine pH 5.5 Urine Specific [place] 1.015 Urine Protein Negative mg/dL (NEG-TRACE) Urine Glucose (UA) Negative mg/dL (NEG) Urine Ketones (Stick) Negative mg/dL (NEG) Urine Blood Moderate (NEG) Urine Nitrite Negative (NEG) Urine Bilirubin Negative (NEG) Urine Urobilinogen Dipstick 0.2 mg/dL (0.2 mg/dL) Urine Leukocyte Esterase Large (NEG) Urine RBC 11-20 /HPF (0-2) Urine WBC Tntc /HPF (0-4) Urine Squamous Epithelial Cells Mod /LPF Urine Bacteria Few /HPF (0-FEW) Urine Mucus Slight /LPF Urine Yeast Present /HPF Test 06/08/17 20:51 06/09/17 03:20 06/09/17 07:30 06/09/17 09:20 Glucose (Fingerstick) 215 mg/dL (70-99) 229 mg/dL (70-99) White Blood Count 13.7 x10^3/uL (4.0-11.0) Red Blood Count 3.08 x10^6/uL (3.50-5.40) Hemoglobin 9.6 g/dL (12.0-15.5) Hematocrit 29.4 % (36.0-47.0) Mean Corpuscular Volume 96 fL (79-100) Mean Corpuscular Hemoglobin 31 pg (25-35) Mean Corpuscular Hemoglobin Concent 33 g/dL (31-37) Red Cell Distribution Width 15.6 % (11.5-14.5) Platelet Count 164 x10^3/uL (140-400) Neutrophils (%) (Auto) 74 % (31-73) Lymphocytes (%) (Auto) 12 % (24-48) Monocytes (%) (Auto) 10 % (0-9) Eosinophils (%) (Auto) 4 % (0-3) Basophils (%) (Auto) 1 % (0-3) Neutrophils # (Auto) 10.2 x10^3uL (1.8-7.7) Lymphocytes # (Auto) 1.6 x10^3/uL (1.0-4.8) Monocytes # (Auto) 1.4 x10^3/uL (0.0-1.1) Eosinophils # (Auto) 0.5 x10^3/uL (0.0-0.7) Basophils # (Auto) 0.1 x10^3/uL (0.0-0.2) Sodium Level 134 mmol/L (136-145) Potassium Level 4.8 mmol/L (3.5-5.1) Chloride Level 99 mmol/L (98-107) Carbon Dioxide Level 28 mmol/L (21-32) Anion Gap 7 (6-14) Blood Urea Nitrogen 70 mg/dL (7-20) Creatinine 2.9 mg/dL (0.6-1.0) Estimated GFR (Cockcroft-Gault) 15.7 Glucose Level 229 mg/dL (70-99) Calcium Level 7.8 mg/dL (8.5-10.1) O2 Saturation 97 % (92-99) Arterial Blood pH 7.46 (7.35-7.45) Arterial Blood pCO2 at Patient Temp 37 mmHg (35-46) Arterial Blood pO2 at Patient Temp 91 mmHg (65-108) Arterial Blood HCO3 25 mmol/L (21-28) Arterial Blood Base Excess 2 mmol/L (-3-3) FiO2 32 Assessment/Plan Assessment/Plan IMP MADDY CLOSED REDUCTION OF R HUMERUS FX MET ENCEPHALOPATHY LEUCOCYTOSIS UTI ANEMIA PLAN PLACE GUTIÉRREZ CONT PPN RENAL SONOGRAM HOLD HIS LASIX AND COZAAR ANTIBIOTICS VINNY BROUSSARD MD Jun 09, 2017 11:11
--- NOTE | 2017-06-09 11:40 | EKG ---
[facility] [address] [place] [address] Test Date: 2017-06-09 Test Time: 09:19:12 Pat Name: OZZIE GALEAS Department: Room: 402 1 Gender: F Curriculum Advisory Teacher: : 1940 Requested By: ABDULAZIZ KELSEY Order Number: [id number] Reading MD: Jaci Alcazar Measurements Intervals [place] Rate: 91 P: 42 VT: 178 QRS: 1 QRSD: 82 T: 43 QT: 324 QTc: 400 Interpretive Statements SINUS RHYTHM NO SPECIFIC ECG ABNORMALITIES Electronically Signed On 06-09-2017 20:05:34 CDT by Jaci Alcazar
--- NOTE | 2017-06-09 12:10 | PDOC ---
PROGRESS NOTES Chief Complaint Chief Complaint 1. Severe comminuted fracture of R humerus: s/p closed reduction and intramedullary nailing of right proximal humerus fracture 06/06 2. MADDY: worsening. appreciate Dr Zee's input. arnaldo albert 3. Fever: recurrent today. appreciate Dr Keen's input. on merrem and linezolid. cult, CXR repeated 06/08. UA positive for infect. awaiting culture and sens. 4. Leukocytosis: sl improved 5. CHF: vascular congestion, pleural effusions on CXR. echo in 12/2016 with nl EF, pAP 47. appreciate Dr Mccabe's input: appears intravascularly volume depleted 6. DM2: on insulin, incl ISS 7. HTN: Borderline low but stable. monitor 8. HLD: on statin 9. COPD: nebs PRN 11 Urinary incontinence: blankenship placed to accurate I&O 12. Depression: cont home meds 13. Dementia/ ?encephalopathy: currently nonverbal, catatonic. by report, family thinks she is at baseline, which does fluctuate some 14. Nutrition: not feeding herself, remains on PPN, with PO assistance History of Present Illness History of Present Illness responds "yes" to question if she is ok, no other verbal responses Vitals Vitals Vital Signs Date Time Temp Pulse Resp B/P (MAP) Pulse Ox O2 Delivery O2 Flow Rate FiO2 06/09/17 11:54 98 Nasal Cannula 3.0 06/09/17 08:59 77 127/83 06/09/17 08:45 100.5 100.5 06/09/17 07:00 22 Physical Exam General: Cooperative, No acute distress Heart: Regular rate, No murmurs, Other (radial pulse 2+) Lungs: Other (decrease bs) Abdomen: Normal bowel sounds, Soft Extremities: No clubbing Skin: No rashes Labs LABS Laboratory Tests Test 06/08/17 16:14 06/08/17 16:55 06/08/17 20:51 06/09/17 03:20 Glucose (Fingerstick) 245 mg/dL (70-99) 215 mg/dL (70-99) Urine Collection Type Unknown Urine Color Yellow Urine Clarity Turbid Urine pH 5.5 Urine Specific [place] 1.015 Urine Protein Negative mg/dL (NEG-TRACE) Urine Glucose (UA) Negative mg/dL (NEG) Urine Ketones (Stick) Negative mg/dL (NEG) Urine Blood Moderate (NEG) Urine Nitrite Negative (NEG) Urine Bilirubin Negative (NEG) Urine Urobilinogen Dipstick 0.2 mg/dL (0.2 mg/dL) Urine Leukocyte Esterase Large (NEG) Urine RBC 11-20 /HPF (0-2) Urine WBC Tntc /HPF (0-4) Urine Squamous Epithelial Cells Mod /LPF Urine Bacteria Few /HPF (0-FEW) Urine Mucus Slight /LPF Urine Yeast Present /HPF White Blood Count 13.7 x10^3/uL (4.0-11.0) Red Blood Count 3.08 x10^6/uL (3.50-5.40) Hemoglobin 9.6 g/dL (12.0-15.5) Hematocrit 29.4 % (36.0-47.0) Mean Corpuscular Volume 96 fL (79-100) Mean Corpuscular Hemoglobin 31 pg (25-35) Mean Corpuscular Hemoglobin Concent 33 g/dL (31-37) Red Cell Distribution Width 15.6 % (11.5-14.5) Platelet Count 164 x10^3/uL (140-400) Neutrophils (%) (Auto) 74 % (31-73) Lymphocytes (%) (Auto) 12 % (24-48) Monocytes (%) (Auto) 10 % (0-9) Eosinophils (%) (Auto) 4 % (0-3) Basophils (%) (Auto) 1 % (0-3) Neutrophils # (Auto) 10.2 x10^3uL (1.8-7.7) Lymphocytes # (Auto) 1.6 x10^3/uL (1.0-4.8) Monocytes # (Auto) 1.4 x10^3/uL (0.0-1.1) Eosinophils # (Auto) 0.5 x10^3/uL (0.0-0.7) Basophils # (Auto) 0.1 x10^3/uL (0.0-0.2) Sodium Level 134 mmol/L (136-145) Potassium Level 4.8 mmol/L (3.5-5.1) Chloride Level 99 mmol/L (98-107) Carbon Dioxide Level 28 mmol/L (21-32) Anion Gap 7 (6-14) Blood Urea Nitrogen 70 mg/dL (7-20) Creatinine 2.9 mg/dL (0.6-1.0) Estimated GFR (Cockcroft-Gault) 15.7 Glucose Level 229 mg/dL (70-99) Calcium Level 7.8 mg/dL (8.5-10.1) Test 06/09/17 07:30 06/09/17 09:20 Glucose (Fingerstick) 229 mg/dL (70-99) O2 Saturation 97 % (92-99) Arterial Blood pH 7.46 (7.35-7.45) Arterial Blood pCO2 at Patient Temp 37 mmHg (35-46) Arterial Blood pO2 at Patient Temp 91 mmHg (65-108) Arterial Blood HCO3 25 mmol/L (21-28) Arterial Blood Base Excess 2 mmol/L (-3-3) FiO2 32 KIKO VAZQUEZ MD Jun 09, 2017 12:10
--- NOTE | 2017-06-09 12:41 | PDOC ---
PULMONARY PROGRESS NOTES Subjective HAD A RAPID RESPONSE EARLIER FOR ALTERED MS AND LOW SATS AND HIGH FEVERS MORE AWAKE, ON 3 LITRES, 98%SATS Vitals Vital Signs Date Time Temp Pulse Resp B/P (MAP) Pulse Ox O2 Delivery O2 Flow Rate FiO2 06/09/17 11:54 98 Nasal Cannula 3.0 06/09/17 08:59 77 127/83 06/09/17 08:45 100.5 100.5 06/09/17 07:00 22 General: Alert, No acute distress Lungs: Other (decrease bs) Cardiovascular: S1, S2 Abdomen: Soft Extremities: Other (mild edema) Labs Laboratory Tests Test 06/07/17 16:57 06/07/17 20:44 06/08/17 03:02 06/08/17 03:05 Glucose (Fingerstick) 236 mg/dL (70-99) 196 mg/dL (70-99) Sodium Level 135 mmol/L (136-145) Potassium Level 4.6 mmol/L (3.5-5.1) Chloride Level 100 mmol/L (98-107) Carbon Dioxide Level 26 mmol/L (21-32) Anion Gap 9 (6-14) Blood Urea Nitrogen 45 mg/dL (7-20) Creatinine 2.5 mg/dL (0.6-1.0) Estimated GFR (Cockcroft-Gault) 18.7 Glucose Level 196 mg/dL (70-99) Calcium Level 7.6 mg/dL (8.5-10.1) White Blood Count 16.3 x10^3/uL (4.0-11.0) Red Blood Count 3.01 x10^6/uL (3.50-5.40) Hemoglobin 9.5 g/dL (12.0-15.5) Hematocrit 29.4 % (36.0-47.0) Mean Corpuscular Volume 98 fL (79-100) Mean Corpuscular Hemoglobin 32 pg (25-35) Mean Corpuscular Hemoglobin Concent 32 g/dL (31-37) Red Cell Distribution Width 16.4 % (11.5-14.5) Platelet Count 113 x10^3/uL (140-400) Neutrophils (%) (Auto) 82 % (31-73) Lymphocytes (%) (Auto) 8 % (24-48) Monocytes (%) (Auto) 7 % (0-9) Eosinophils (%) (Auto) 2 % (0-3) Basophils (%) (Auto) 1 % (0-3) Neutrophils # (Auto) 13.3 x10^3uL (1.8-7.7) Lymphocytes # (Auto) 1.3 x10^3/uL (1.0-4.8) Monocytes # (Auto) 1.2 x10^3/uL (0.0-1.1) Eosinophils # (Auto) 0.4 x10^3/uL (0.0-0.7) Basophils # (Auto) 0.1 x10^3/uL (0.0-0.2) Segmented Neutrophils % 68 % (35-66) Band Neutrophils % 12 % (0-9) Lymphocytes % 14 % (24-48) Monocytes % 4 % (0-10) Eosinophils % 2 % (0-5) Platelet Estimate Decreased (ADEQUATE) Giant Platelets Occ Anisocytosis Slight Test 06/08/17 07:26 06/08/17 11:10 06/08/17 11:30 06/08/17 16:14 Glucose (Fingerstick) 194 mg/dL (70-99) 242 mg/dL (70-99) 245 mg/dL (70-99) Lactic Acid Level 1.0 mmol/L (0.4-2.0) Test 06/08/17 16:55 06/08/17 20:51 06/09/17 03:20 06/09/17 07:30 Urine Collection Type Unknown Urine Color Yellow Urine Clarity Turbid Urine pH 5.5 Urine Specific [place] 1.015 Urine Protein Negative mg/dL (NEG-TRACE) Urine Glucose (UA) Negative mg/dL (NEG) Urine Ketones (Stick) Negative mg/dL (NEG) Urine Blood Moderate (NEG) Urine Nitrite Negative (NEG) Urine Bilirubin Negative (NEG) Urine Urobilinogen Dipstick 0.2 mg/dL (0.2 mg/dL) Urine Leukocyte Esterase Large (NEG) Urine RBC 11-20 /HPF (0-2) Urine WBC Tntc /HPF (0-4) Urine Squamous Epithelial Cells Mod /LPF Urine Bacteria Few /HPF (0-FEW) Urine Mucus Slight /LPF Urine Yeast Present /HPF Glucose (Fingerstick) 215 mg/dL (70-99) 229 mg/dL (70-99) White Blood Count 13.7 x10^3/uL (4.0-11.0) Red Blood Count 3.08 x10^6/uL (3.50-5.40) Hemoglobin 9.6 g/dL (12.0-15.5) Hematocrit 29.4 % (36.0-47.0) Mean Corpuscular Volume 96 fL (79-100) Mean Corpuscular Hemoglobin 31 pg (25-35) Mean Corpuscular Hemoglobin Concent 33 g/dL (31-37) Red Cell Distribution Width 15.6 % (11.5-14.5) Platelet Count 164 x10^3/uL (140-400) Neutrophils (%) (Auto) 74 % (31-73) Lymphocytes (%) (Auto) 12 % (24-48) Monocytes (%) (Auto) 10 % (0-9) Eosinophils (%) (Auto) 4 % (0-3) Basophils (%) (Auto) 1 % (0-3) Neutrophils # (Auto) 10.2 x10^3uL (1.8-7.7) Lymphocytes # (Auto) 1.6 x10^3/uL (1.0-4.8) Monocytes # (Auto) 1.4 x10^3/uL (0.0-1.1) Eosinophils # (Auto) 0.5 x10^3/uL (0.0-0.7) Basophils # (Auto) 0.1 x10^3/uL (0.0-0.2) Sodium Level 134 mmol/L (136-145) Potassium Level 4.8 mmol/L (3.5-5.1) Chloride Level 99 mmol/L (98-107) Carbon Dioxide Level 28 mmol/L (21-32) Anion Gap 7 (6-14) Blood Urea Nitrogen 70 mg/dL (7-20) Creatinine 2.9 mg/dL (0.6-1.0) Estimated GFR (Cockcroft-Gault) 15.7 Glucose Level 229 mg/dL (70-99) Calcium Level 7.8 mg/dL (8.5-10.1) Test 06/09/17 09:20 O2 Saturation 97 % (92-99) Arterial Blood pH 7.46 (7.35-7.45) Arterial Blood pCO2 at Patient Temp 37 mmHg (35-46) Arterial Blood pO2 at Patient Temp 91 mmHg (65-108) Arterial Blood HCO3 25 mmol/L (21-28) Arterial Blood Base Excess 2 mmol/L (-3-3) FiO2 32 Laboratory Tests Test 06/08/17 16:14 06/08/17 16:55 06/08/17 20:51 06/09/17 03:20 Glucose (Fingerstick) 245 mg/dL (70-99) 215 mg/dL (70-99) Urine Collection Type Unknown Urine Color Yellow Urine Clarity Turbid Urine pH 5.5 Urine Specific [place] 1.015 Urine Protein Negative mg/dL (NEG-TRACE) Urine Glucose (UA) Negative mg/dL (NEG) Urine Ketones (Stick) Negative mg/dL (NEG) Urine Blood Moderate (NEG) Urine Nitrite Negative (NEG) Urine Bilirubin Negative (NEG) Urine Urobilinogen Dipstick 0.2 mg/dL (0.2 mg/dL) Urine Leukocyte Esterase Large (NEG) Urine RBC 11-20 /HPF (0-2) Urine WBC Tntc /HPF (0-4) Urine Squamous Epithelial Cells Mod /LPF Urine Bacteria Few /HPF (0-FEW) Urine Mucus Slight /LPF Urine Yeast Present /HPF White Blood Count 13.7 x10^3/uL (4.0-11.0) Red Blood Count 3.08 x10^6/uL (3.50-5.40) Hemoglobin 9.6 g/dL (12.0-15.5) Hematocrit 29.4 % (36.0-47.0) Mean Corpuscular Volume 96 fL (79-100) Mean Corpuscular Hemoglobin 31 pg (25-35) Mean Corpuscular Hemoglobin Concent 33 g/dL (31-37) Red Cell Distribution Width 15.6 % (11.5-14.5) Platelet Count 164 x10^3/uL (140-400) Neutrophils (%) (Auto) 74 % (31-73) Lymphocytes (%) (Auto) 12 % (24-48) Monocytes (%) (Auto) 10 % (0-9) Eosinophils (%) (Auto) 4 % (0-3) Basophils (%) (Auto) 1 % (0-3) Neutrophils # (Auto) 10.2 x10^3uL (1.8-7.7) Lymphocytes # (Auto) 1.6 x10^3/uL (1.0-4.8) Monocytes # (Auto) 1.4 x10^3/uL (0.0-1.1) Eosinophils # (Auto) 0.5 x10^3/uL (0.0-0.7) Basophils # (Auto) 0.1 x10^3/uL (0.0-0.2) Sodium Level 134 mmol/L (136-145) Potassium Level 4.8 mmol/L (3.5-5.1) Chloride Level 99 mmol/L (98-107) Carbon Dioxide Level 28 mmol/L (21-32) Anion Gap 7 (6-14) Blood Urea Nitrogen 70 mg/dL (7-20) Creatinine 2.9 mg/dL (0.6-1.0) Estimated GFR (Cockcroft-Gault) 15.7 Glucose Level 229 mg/dL (70-99) Calcium Level 7.8 mg/dL (8.5-10.1) Test 06/09/17 07:30 06/09/17 09:20 Glucose (Fingerstick) 229 mg/dL (70-99) O2 Saturation 97 % (92-99) Arterial Blood pH 7.46 (7.35-7.45) Arterial Blood pCO2 at Patient Temp 37 mmHg (35-46) Arterial Blood pO2 at Patient Temp 91 mmHg (65-108) Arterial Blood HCO3 25 mmol/L (21-28) Arterial Blood Base Excess 2 mmol/L (-3-3) FiO2 32 Medications Active Scripts Medications Dose Route/Sig Max Daily Dose Days Date Category Levofloxacin 500 Mg Tablet 1 Tab PO DAILY 01/05/17 Reported Vitamin E (Vitamin E (Dl,Tocopheryl Acet)) 100 Unit Capsule 400 Unit PO 09/10/16 Reported Symbicort 160-4.5 Mcg Inhaler (Budesonide/Formoterol Fumarate) 10.2 Gm Hfa.aer.ad 2 Puff IH BID 09/10/16 Reported Risperidone 0.5 Mg Tablet 1 Tab PO BID 09/10/16 Reported Potassium Chloride 10 Meq Tablet.er 20 Meq PO DAILY 09/10/16 Reported Multivitamins (Multivitamin) 1 Each Tablet 1 Tab PO DAILY 09/10/16 Reported Remeron (Mirtazapine) 15 Mg Tablet 1 Tab PO QHS 09/10/16 Reported Lantus Solostar (Insulin Glargine,Hum.rec.anlog) 100 Unit/1 Ml Insuln.pen 40 Unit SQ QHS 09/10/16 Reported Gabapentin 300 Mg Capsule 300 Mg PO TID 09/10/16 Reported Furosemide 40 Mg Tablet 1 Tab PO DAILY 09/10/16 Reported Flonase Allergy Relief (Fluticasone Propionate) 9.9 Ml [place].susp 2 Sprays NS DAILY 09/10/16 Reported Colace (Docusate Sodium) 100 Mg Capsule 1 Cap PO BID 09/10/16 Reported Cartia Xt (Diltiazem Hcl) 240 Mg Cap.er.24h 240 Mg PO 09/10/16 Reported Aspirin 81 Mg Tab.chew 1 Tab PO DAILY 09/10/16 Reported Proair Hfa Inhaler (Albuterol Sulfate) 8.5 Gm Hfa.aer.ad 1 Puff INH PRN Q6HRS PRN 09/10/16 Reported Atorvastatin Calcium 20 Mg Tablet 1 Tab PO DAILY 09/10/16 Reported Trazodone Hcl 50 Mg Tablet 1 Tab PO QHS 09/10/16 Reported Pantoprazole Sodium 40 Mg Tablet.dr 1 Tab PO DAILY 09/10/16 Reported Sertraline Hcl 50 Mg Tablet 50 Mg PO DAILY 09/10/16 Reported Losartan Potassium 50 Mg Tablet 50 Mg PO DAILY 09/10/16 Reported Comments CXR 06/09 improving LLL mild atelectasis Impression . PERSISTENT HIGH FEVERS, NO OBVIOUS PATHOLOGY IN LUNGS, TENDER ABDOMEN/ CLOUDY URINE (POSSIBLE SOURCES) ENCEPHALOPATHY DUE TO EARLY SEPSIS CHRONIC RESP FAILURE COPD TOBACCO DEPENDENCE IN REMISSION FALL FRACTURE OF R HUMERUS POST -OP FEVER WORSENING RENAL FAILURE Plan . RESP STATUS IS COMPENSATED ON 3 LITRES FOLLOW ID RECOMMENDATIONS CHECK ALL CULTURES RENAL RECOMMENDATIONS PAIN MANAGEMENT AGGRESSIVE PULMONARY HYGIENE IS NEBS D/W DARÍO MATHIAS MD Jun 09, 2017 12:41
[2017-06-09 13:09] LABS: BILIRUBIN,URINE NEGATIVE (NEG); GLUCOSE,URINE NEGATIVE (NEG); NITRITE,URINE NEGATIVE (NEG); PROTEIN,URINE 100 mg/dL (NEG-TRACE); UROBILINOGEN,URINE 0.2 mg/dL (0.2 mg/dL)
[2017-06-09 13:19] LABS: BACTERIA,URINE MANY /HPF (0-FEW); RBC,URINE FOBS /HPF (0-2); WBC,URINE TNTC /HPF (0-4)
--- NOTE | 2017-06-09 13:50 | RAD ---
CT of the abdomen and pelvis without contrast, 06/09/2017: History: Right-sided abdominal fullness Noncontrast scans were obtained due to the patient's known renal insufficiency. No oral contrast material was administered. Comparison is made to a study from 01/23/2017. The urinary bladder is distended. There is mild associated distention of both ureters and both renal collecting systems. This was not evident on the previous study. There is mild streaky perinephric edema bilaterally. No urinary tract calculus is identified. There is mild streaky atelectasis and/or scarring in the lung bases. There is a trace amount of left-sided pleural fluid. The unopacified liver shows no abnormality. There is a small gallstone in the neck of the gallbladder. The gallbladder is not distended and no pericholecystic edema is seen. The pancreas is atrophic. The spleen is unremarkable. Both glands are enlarged and of low density. This is unchanged since 01/23/2017. The findings suggest adrenal hyperplasia versus bilateral adenomas. There is moderate aortoiliac calcific plaquing without evidence of aneurysm. No abdominal or pelvic adenopathy is seen. The uterus is surgically absent. Scattered colonic diverticula are present. Most prominent in the descending and proximal sigmoid colon. No paracolonic inflammatory mass is seen. No bowel dilatation is evident. No free air or significant free fluid is evident in the abdomen or pelvis. Again noted are prominent vessels in the prepubic soft tissues compatible with dilated collateral veins/varices. There is a chronic calcification the left iliac vein. The inferior vena cava is collapsed, presumably related to the state of hydration of the patient. There are moderate scattered degenerative changes in the spine. There is an old T9 vertebral compression fracture, unchanged. IMPRESSION: 1. Mild bilateral hydronephrosis, hydroureter and perinephric edema probably related to the obstructive effect of a distended urinary bladder. 2. Colonic diverticulosis. 3. Cholelithiasis 4. Mild bibasilar atelectasis and/or scarring with a trace amount left-sided pleural fluid. 5. Other chronic findings as described. PQRS Compliance Statement: One or more of the following individualized dose reduction techniques were utilized for this examination: 1. Automated exposure control 2. Adjustment of the mA and/or kV according to patient size 3. Use of iterative reconstruction technique
[2017-06-09 15:00] VITALS: BP 107/33
[2017-06-09 19:00] VITALS: BP 108/42
[2017-06-09] MEDS: ATORVASTATIN CALCIUM 20 MG TABLET PO SCH (21:02)
[2017-06-09] MEDS: traZODone 50 MG TABLET. PO SCH (21:02)
[2017-06-09] MEDS: MIRTAZAPINE 15 MG TABLET PO SCH (21:02)
[2017-06-09] MEDS: ALPRAZolam 0.5 MG TABLET PO SCH (21:03)
[2017-06-09] MEDS: INSULIN DETEMIR 300 UNITS/3 ML INSULN.PEN. SQ SCH (21:13)
[2017-06-09 23:20] VITALS: BP 127/50
[2017-06-10 03:25] VITALS: BP 112/42
[2017-06-10 05:16] LABS: BASO # 0.1 x10^3/uL (0.0-0.2); BASO % 1 % (0-3); EOS % 8 % (0-3); HEMATOCRIT 26.5 % (36.0-47.0); HEMOGLOBIN 8.9 g/dL (12.0-15.5); LYMPH # 1.6 x10^3/uL (1.0-4.8); LYMPH % 17 % (24-48); MEAN CORPUSCULAR HEMOGLOBIN 32 pg (25-35); MEAN CORPUSCULAR HGB CONC 34 g/dL (31-37); MEAN CORPUSCULAR VOLUME 95 fL (79-100); MONO % 11 % (0-9); NEUT % 64 % (31-73); PLATELET COUNT 151 x10^3/uL (140-400); RED BLOOD COUNT 2.79 x10^6/uL (3.50-5.40); RED CELL DISTRIBUTION WIDTH 15.8 % (11.5-14.5); WHITE BLOOD COUNT 9.8 x10^3/uL (4.0-11.0)
[2017-06-10 05:36] LABS: CALCIUM 7.7 mg/dL (8.5-10.1); CREATININE 2.3 mg/dL (0.6-1.0); GFR 20.6; POTASSIUM 4.9 mmol/L (3.5-5.1)
[2017-06-10] MEDS: MEROPENEM 500 MG in IV NORMAL SALINE 50ML 50 ML IV SCH ×3 (06:08→22:37)
[2017-06-10 07:00] VITALS: BP 130/58
[2017-06-10] MEDS: ALBUTEROL SULFATE 2.5 MG/3 ML NEBU. NEB SCH ×4 (07:31→19:39)
[2017-06-10] MEDS: INSULIN ASPART 300 UNITS/3 ML INSULN.PEN SQ SCH ×3 (08:00→18:38)
[2017-06-10] MEDS: ASPIRIN CHEWABLE 81 MG TABLET. PO SCH (08:13)
[2017-06-10] MEDS: PANTOPRAZOLE 40 MG TABLET.DR. PO SCH (08:13)
[2017-06-10] MEDS: SERTRALINE 50 MG TABLET. PO SCH (08:13)
[2017-06-10] MEDS: DOCUSATE SODIUM 100 MG CAPSULE. PO SCH ×2 (08:13→21:11)
--- NOTE | 2017-06-10 09:18 | PDOC ---
Infectious Disease Note Subjective Subjective More alert but min verbal response. Said ok ROS ROS Min verbal response Vital Sign Vital Signs Vital Signs Date Time Temp Pulse Resp B/P (MAP) Pulse Ox O2 Delivery O2 Flow Rate FiO2 06/10/17 08:13 80 130/58 06/10/17 07:31 99 Nasal Cannula 3.0 06/10/17 07:00 98.9 20 98.9 Physical Exam PHYSICAL EXAM GENERAL: NAD, Alert HEENT: PERRL, OC/OP- dry - blue colored NECK: Supple, no JVD, no LN LUNGS: Clear HEART: S1S2, no gallop, no murmur ABD: Soft, NT, no organomegaly, no rebound, Obese, No R mid quad fullness [place] EXT: No edema, no cyanosis. Sling. Arm ok REGISTERED NURSE NURSERY: Alert, , no focal neurologic deficit SKIN: No rash IV: ok Labs Lab Laboratory Tests Test 06/09/17 09:20 06/09/17 10:39 06/09/17 12:30 06/09/17 16:47 O2 Saturation 97 % (92-99) Arterial Blood pH 7.46 (7.35-7.45) Arterial Blood pCO2 at Patient Temp 37 mmHg (35-46) Arterial Blood pO2 at Patient Temp 91 mmHg (65-108) Arterial Blood HCO3 25 mmol/L (21-28) Arterial Blood Base Excess 2 mmol/L (-3-3) FiO2 32 Glucose (Fingerstick) 260 mg/dL (70-99) 251 mg/dL (70-99) Urine Collection Type Unknown Urine Color [place] Urine Clarity Turbid Urine pH 6.0 Urine Specific [place] 1.015 Urine Protein 100 mg/dL (NEG-TRACE) Urine Glucose (UA) Negative mg/dL (NEG) Urine Ketones (Stick) Trace mg/dL (NEG) Urine Blood Moderate (NEG) Urine Nitrite Negative (NEG) Urine Bilirubin Negative (NEG) Urine Urobilinogen Dipstick 0.2 mg/dL (0.2 mg/dL) Urine Leukocyte Esterase Large (NEG) Urine RBC Fobs /HPF (0-2) Urine WBC Tntc /HPF (0-4) Urine Bacteria Many /HPF (0-FEW) Test 06/09/17 21:00 06/10/17 04:40 06/10/17 07:00 Glucose (Fingerstick) 237 mg/dL (70-99) 144 mg/dL (70-99) White Blood Count 9.8 x10^3/uL (4.0-11.0) Red Blood Count 2.79 x10^6/uL (3.50-5.40) Hemoglobin 8.9 g/dL (12.0-15.5) Hematocrit 26.5 % (36.0-47.0) Mean Corpuscular Volume 95 fL (79-100) Mean Corpuscular Hemoglobin 32 pg (25-35) Mean Corpuscular Hemoglobin Concent 34 g/dL (31-37) Red Cell Distribution Width 15.8 % (11.5-14.5) Platelet Count 151 x10^3/uL (140-400) Neutrophils (%) (Auto) 64 % (31-73) Lymphocytes (%) (Auto) 17 % (24-48) Monocytes (%) (Auto) 11 % (0-9) Eosinophils (%) (Auto) 8 % (0-3) Basophils (%) (Auto) 1 % (0-3) Neutrophils # (Auto) 6.2 x10^3uL (1.8-7.7) Lymphocytes # (Auto) 1.6 x10^3/uL (1.0-4.8) Monocytes # (Auto) 1.0 x10^3/uL (0.0-1.1) Eosinophils # (Auto) 0.7 x10^3/uL (0.0-0.7) Basophils # (Auto) 0.1 x10^3/uL (0.0-0.2) Sodium Level 137 mmol/L (136-145) Potassium Level 4.9 mmol/L (3.5-5.1) Chloride Level 103 mmol/L (98-107) Carbon Dioxide Level 28 mmol/L (21-32) Anion Gap 6 (6-14) Blood Urea Nitrogen 79 mg/dL (7-20) Creatinine 2.3 mg/dL (0.6-1.0) Estimated GFR (Cockcroft-Gault) 20.6 Glucose Level 168 mg/dL (70-99) Calcium Level 7.7 mg/dL (8.5-10.1) Objective Assessment Urinary retention on CT - d/w Ai (nursing 06/09) Possible UTI Fever - improved ? related to post op and urinary retention Right sided abd fullness - unusual presentation of urinary retention Leukocytosis - better Encephalopathy - some better - ? with fever/MADDY - MADDY - better Right humerous fracture CHF S/p Procedure performed: Closed reduction and intramedullary nailing of right proximal humerus fracture 06/06 PCN allergy - ? reaction Plan Plan of Care F/u cults Cont Meropenem - may need to adjust dose/Zyvox (Avoid Vanc with MADDY). Will begin to wean abx 06/11 if improving and cults neg labs in am Notes reviewed DEBO BURGESS MD Jun 10, 2017 09:18
[2017-06-10 11:00] VITALS: BP 131/51
--- NOTE | 2017-06-10 11:33 | PDOC ---
Renal-Progress Notes Subjective Notes Notes CONFUSED History of Present Illness Hx of present illness NO CHANGE Vitals Vitals Vital Signs Date Time Temp Pulse Resp B/P (MAP) Pulse Ox O2 Delivery O2 Flow Rate FiO2 06/10/17 11:20 Nasal Cannula 3.0 06/10/17 11:00 98.9 89 20 131/51 (77) 99 98.9 Weight Weight [ ] I.O. Intake and Output Intake and Output 06/10/17 07:00 Intake Total 1255 ml Output Total 4175 ml Balance -2920 ml Intake Oral 280 ml IV Total 350 ml Other 625 ml Output Urine Total 4175 ml Labs Labs Laboratory Tests Test 06/09/17 12:30 06/09/17 16:47 06/09/17 21:00 06/10/17 04:40 Urine Collection Type Unknown Urine Color [place] Urine Clarity Turbid Urine pH 6.0 Urine Specific [place] 1.015 Urine Protein 100 mg/dL (NEG-TRACE) Urine Glucose (UA) Negative mg/dL (NEG) Urine Ketones (Stick) Trace mg/dL (NEG) Urine Blood Moderate (NEG) Urine Nitrite Negative (NEG) Urine Bilirubin Negative (NEG) Urine Urobilinogen Dipstick 0.2 mg/dL (0.2 mg/dL) Urine Leukocyte Esterase Large (NEG) Urine RBC Fobs /HPF (0-2) Urine WBC Tntc /HPF (0-4) Urine Bacteria Many /HPF (0-FEW) Glucose (Fingerstick) 251 mg/dL (70-99) 237 mg/dL (70-99) White Blood Count 9.8 x10^3/uL (4.0-11.0) Red Blood Count 2.79 x10^6/uL (3.50-5.40) Hemoglobin 8.9 g/dL (12.0-15.5) Hematocrit 26.5 % (36.0-47.0) Mean Corpuscular Volume 95 fL (79-100) Mean Corpuscular Hemoglobin 32 pg (25-35) Mean Corpuscular Hemoglobin Concent 34 g/dL (31-37) Red Cell Distribution Width 15.8 % (11.5-14.5) Platelet Count 151 x10^3/uL (140-400) Neutrophils (%) (Auto) 64 % (31-73) Lymphocytes (%) (Auto) 17 % (24-48) Monocytes (%) (Auto) 11 % (0-9) Eosinophils (%) (Auto) 8 % (0-3) Basophils (%) (Auto) 1 % (0-3) Neutrophils # (Auto) 6.2 x10^3uL (1.8-7.7) Lymphocytes # (Auto) 1.6 x10^3/uL (1.0-4.8) Monocytes # (Auto) 1.0 x10^3/uL (0.0-1.1) Eosinophils # (Auto) 0.7 x10^3/uL (0.0-0.7) Basophils # (Auto) 0.1 x10^3/uL (0.0-0.2) Sodium Level 137 mmol/L (136-145) Potassium Level 4.9 mmol/L (3.5-5.1) Chloride Level 103 mmol/L (98-107) Carbon Dioxide Level 28 mmol/L (21-32) Anion Gap 6 (6-14) Blood Urea Nitrogen 79 mg/dL (7-20) Creatinine 2.3 mg/dL (0.6-1.0) Estimated GFR (Cockcroft-Gault) 20.6 Glucose Level 168 mg/dL (70-99) Calcium Level 7.7 mg/dL (8.5-10.1) Test 06/10/17 07:00 06/10/17 11:08 Glucose (Fingerstick) 144 mg/dL (70-99) 238 mg/dL (70-99) Micro Micro Microbiology 06/08/17 Blood Culture - Preliminary, Resulted NO GROWTH AFTER 1 DAY Review of Systems Constitutional: yes: no symptom reported Physical Exam General Appearance: no apparent distress Skin: warm Respiratory: decreased breath sounds Heart: S1S2, RRR Abdomen: soft, bowel sounds present Genitourinary: bladder flat Extremities: pulses present Neurology: confused Assessment Assessment IMP ENCEPHALOPATHY DEMENTIA UTI URINARY RETENTION-MORE THAN ONE LITER OUT WITH GUTIÉRREZ MADDY DUE TO ABOVE-CR BETTER AT 2.3 LEUCOCYTOSIS S/P REPAIR OF RIGHT HUMERUS FX PLAN PPN CONT GUTIÉRREZ ANTIBIOTICS LABS IN AM VINNY BROUSSARD MD Jun 10, 2017 11:33
--- NOTE | 2017-06-10 12:51 | PDOC ---
PULMONARY PROGRESS NOTES Subjective MORE AWAKE, ON 3 LITRES, 98%SATS Vitals Vital Signs Date Time Temp Pulse Resp B/P (MAP) Pulse Ox O2 Delivery O2 Flow Rate FiO2 06/10/17 11:20 Nasal Cannula 3.0 06/10/17 11:00 98.9 89 20 131/51 (77) 99 98.9 General: Alert, No acute distress Lungs: Other (decrease bs) Cardiovascular: S1, S2 Abdomen: Soft Extremities: Other (mild edema) Labs Laboratory Tests Test 06/08/17 16:14 06/08/17 16:55 06/08/17 20:51 06/09/17 03:20 Glucose (Fingerstick) 245 mg/dL (70-99) 215 mg/dL (70-99) Urine Collection Type Unknown Urine Color Yellow Urine Clarity Turbid Urine pH 5.5 Urine Specific [place] 1.015 Urine Protein Negative mg/dL (NEG-TRACE) Urine Glucose (UA) Negative mg/dL (NEG) Urine Ketones (Stick) Negative mg/dL (NEG) Urine Blood Moderate (NEG) Urine Nitrite Negative (NEG) Urine Bilirubin Negative (NEG) Urine Urobilinogen Dipstick 0.2 mg/dL (0.2 mg/dL) Urine Leukocyte Esterase Large (NEG) Urine RBC 11-20 /HPF (0-2) Urine WBC Tntc /HPF (0-4) Urine Squamous Epithelial Cells Mod /LPF Urine Bacteria Few /HPF (0-FEW) Urine Mucus Slight /LPF Urine Yeast Present /HPF White Blood Count 13.7 x10^3/uL (4.0-11.0) Red Blood Count 3.08 x10^6/uL (3.50-5.40) Hemoglobin 9.6 g/dL (12.0-15.5) Hematocrit 29.4 % (36.0-47.0) Mean Corpuscular Volume 96 fL (79-100) Mean Corpuscular Hemoglobin 31 pg (25-35) Mean Corpuscular Hemoglobin Concent 33 g/dL (31-37) Red Cell Distribution Width 15.6 % (11.5-14.5) Platelet Count 164 x10^3/uL (140-400) Neutrophils (%) (Auto) 74 % (31-73) Lymphocytes (%) (Auto) 12 % (24-48) Monocytes (%) (Auto) 10 % (0-9) Eosinophils (%) (Auto) 4 % (0-3) Basophils (%) (Auto) 1 % (0-3) Neutrophils # (Auto) 10.2 x10^3uL (1.8-7.7) Lymphocytes # (Auto) 1.6 x10^3/uL (1.0-4.8) Monocytes # (Auto) 1.4 x10^3/uL (0.0-1.1) Eosinophils # (Auto) 0.5 x10^3/uL (0.0-0.7) Basophils # (Auto) 0.1 x10^3/uL (0.0-0.2) Sodium Level 134 mmol/L (136-145) Potassium Level 4.8 mmol/L (3.5-5.1) Chloride Level 99 mmol/L (98-107) Carbon Dioxide Level 28 mmol/L (21-32) Anion Gap 7 (6-14) Blood Urea Nitrogen 70 mg/dL (7-20) Creatinine 2.9 mg/dL (0.6-1.0) Estimated GFR (Cockcroft-Gault) 15.7 Glucose Level 229 mg/dL (70-99) Calcium Level 7.8 mg/dL (8.5-10.1) Test 06/09/17 07:30 06/09/17 09:20 06/09/17 10:39 06/09/17 12:30 Glucose (Fingerstick) 229 mg/dL (70-99) 260 mg/dL (70-99) O2 Saturation 97 % (92-99) Arterial Blood pH 7.46 (7.35-7.45) Arterial Blood pCO2 at Patient Temp 37 mmHg (35-46) Arterial Blood pO2 at Patient Temp 91 mmHg (65-108) Arterial Blood HCO3 25 mmol/L (21-28) Arterial Blood Base Excess 2 mmol/L (-3-3) FiO2 32 Urine Collection Type Unknown Urine Color [place] Urine Clarity Turbid Urine pH 6.0 Urine Specific [place] 1.015 Urine Protein 100 mg/dL (NEG-TRACE) Urine Glucose (UA) Negative mg/dL (NEG) Urine Ketones (Stick) Trace mg/dL (NEG) Urine Blood Moderate (NEG) Urine Nitrite Negative (NEG) Urine Bilirubin Negative (NEG) Urine Urobilinogen Dipstick 0.2 mg/dL (0.2 mg/dL) Urine Leukocyte Esterase Large (NEG) Urine RBC Fobs /HPF (0-2) Urine WBC Tntc /HPF (0-4) Urine Bacteria Many /HPF (0-FEW) Test 06/09/17 16:47 06/09/17 21:00 06/10/17 04:40 06/10/17 07:00 Glucose (Fingerstick) 251 mg/dL (70-99) 237 mg/dL (70-99) 144 mg/dL (70-99) White Blood Count 9.8 x10^3/uL (4.0-11.0) Red Blood Count 2.79 x10^6/uL (3.50-5.40) Hemoglobin 8.9 g/dL (12.0-15.5) Hematocrit 26.5 % (36.0-47.0) Mean Corpuscular Volume 95 fL (79-100) Mean Corpuscular Hemoglobin 32 pg (25-35) Mean Corpuscular Hemoglobin Concent 34 g/dL (31-37) Red Cell Distribution Width 15.8 % (11.5-14.5) Platelet Count 151 x10^3/uL (140-400) Neutrophils (%) (Auto) 64 % (31-73) Lymphocytes (%) (Auto) 17 % (24-48) Monocytes (%) (Auto) 11 % (0-9) Eosinophils (%) (Auto) 8 % (0-3) Basophils (%) (Auto) 1 % (0-3) Neutrophils # (Auto) 6.2 x10^3uL (1.8-7.7) Lymphocytes # (Auto) 1.6 x10^3/uL (1.0-4.8) Monocytes # (Auto) 1.0 x10^3/uL (0.0-1.1) Eosinophils # (Auto) 0.7 x10^3/uL (0.0-0.7) Basophils # (Auto) 0.1 x10^3/uL (0.0-0.2) Sodium Level 137 mmol/L (136-145) Potassium Level 4.9 mmol/L (3.5-5.1) Chloride Level 103 mmol/L (98-107) Carbon Dioxide Level 28 mmol/L (21-32) Anion Gap 6 (6-14) Blood Urea Nitrogen 79 mg/dL (7-20) Creatinine 2.3 mg/dL (0.6-1.0) Estimated GFR (Cockcroft-Gault) 20.6 Glucose Level 168 mg/dL (70-99) Calcium Level 7.7 mg/dL (8.5-10.1) Test 06/10/17 11:08 Glucose (Fingerstick) 238 mg/dL (70-99) Laboratory Tests Test 06/09/17 16:47 06/09/17 21:00 06/10/17 04:40 06/10/17 07:00 Glucose (Fingerstick) 251 mg/dL (70-99) 237 mg/dL (70-99) 144 mg/dL (70-99) White Blood Count 9.8 x10^3/uL (4.0-11.0) Red Blood Count 2.79 x10^6/uL (3.50-5.40) Hemoglobin 8.9 g/dL (12.0-15.5) Hematocrit 26.5 % (36.0-47.0) Mean Corpuscular Volume 95 fL (79-100) Mean Corpuscular Hemoglobin 32 pg (25-35) Mean Corpuscular Hemoglobin Concent 34 g/dL (31-37) Red Cell Distribution Width 15.8 % (11.5-14.5) Platelet Count 151 x10^3/uL (140-400) Neutrophils (%) (Auto) 64 % (31-73) Lymphocytes (%) (Auto) 17 % (24-48) Monocytes (%) (Auto) 11 % (0-9) Eosinophils (%) (Auto) 8 % (0-3) Basophils (%) (Auto) 1 % (0-3) Neutrophils # (Auto) 6.2 x10^3uL (1.8-7.7) Lymphocytes # (Auto) 1.6 x10^3/uL (1.0-4.8) Monocytes # (Auto) 1.0 x10^3/uL (0.0-1.1) Eosinophils # (Auto) 0.7 x10^3/uL (0.0-0.7) Basophils # (Auto) 0.1 x10^3/uL (0.0-0.2) Sodium Level 137 mmol/L (136-145) Potassium Level 4.9 mmol/L (3.5-5.1) Chloride Level 103 mmol/L (98-107) Carbon Dioxide Level 28 mmol/L (21-32) Anion Gap 6 (6-14) Blood Urea Nitrogen 79 mg/dL (7-20) Creatinine 2.3 mg/dL (0.6-1.0) Estimated GFR (Cockcroft-Gault) 20.6 Glucose Level 168 mg/dL (70-99) Calcium Level 7.7 mg/dL (8.5-10.1) Test 06/10/17 11:08 Glucose (Fingerstick) 238 mg/dL (70-99) Medications Active Scripts Medications Dose Route/Sig Max Daily Dose Days Date Category Levofloxacin 500 Mg Tablet 1 Tab PO DAILY 01/05/17 Reported Vitamin E (Vitamin E (Dl,Tocopheryl Acet)) 100 Unit Capsule 400 Unit PO 09/10/16 Reported Symbicort 160-4.5 Mcg Inhaler (Budesonide/Formoterol Fumarate) 10.2 Gm Hfa.aer.ad 2 Puff IH BID 09/10/16 Reported Risperidone 0.5 Mg Tablet 1 Tab PO BID 09/10/16 Reported Potassium Chloride 10 Meq Tablet.er 20 Meq PO DAILY 09/10/16 Reported Multivitamins (Multivitamin) 1 Each Tablet 1 Tab PO DAILY 09/10/16 Reported Remeron (Mirtazapine) 15 Mg Tablet 1 Tab PO QHS 09/10/16 Reported Lantus Solostar (Insulin Glargine,Hum.rec.anlog) 100 Unit/1 Ml Insuln.pen 40 Unit SQ QHS 09/10/16 Reported Gabapentin 300 Mg Capsule 300 Mg PO TID 09/10/16 Reported Furosemide 40 Mg Tablet 1 Tab PO DAILY 09/10/16 Reported Flonase Allergy Relief (Fluticasone Propionate) 9.9 Ml [place].susp 2 Sprays NS DAILY 09/10/16 Reported Colace (Docusate Sodium) 100 Mg Capsule 1 Cap PO BID 09/10/16 Reported Cartia Xt (Diltiazem Hcl) 240 Mg Cap.er.24h 240 Mg PO 09/10/16 Reported Aspirin 81 Mg Tab.chew 1 Tab PO DAILY 09/10/16 Reported Proair Hfa Inhaler (Albuterol Sulfate) 8.5 Gm Hfa.aer.ad 1 Puff INH PRN Q6HRS PRN 09/10/16 Reported Atorvastatin Calcium 20 Mg Tablet 1 Tab PO DAILY 09/10/16 Reported Trazodone Hcl 50 Mg Tablet 1 Tab PO QHS 09/10/16 Reported Pantoprazole Sodium 40 Mg Tablet.dr 1 Tab PO DAILY 09/10/16 Reported Sertraline Hcl 50 Mg Tablet 50 Mg PO DAILY 09/10/16 Reported Losartan Potassium 50 Mg Tablet 50 Mg PO DAILY 09/10/16 Reported Comments CXR 06/09 improving LLL mild atelectasis Impression . HIGH FEVERS,IMPROVING. 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 RESP STATUS IS COMPENSATED ON 3 LITRES FOLLOW ID RECOMMENDATIONS CHECK ALL CULTURES RENAL RECOMMENDATIONS PAIN MANAGEMENT AGGRESSIVE PULMONARY HYGIENE IS DARÍO BURKS MD Jun 10, 2017 12:51
--- NOTE | 2017-06-10 13:57 | PDOC ---
PROGRESS NOTES Chief Complaint Chief Complaint 1. Severe comminuted fracture of R humerus: s/p closed reduction and intramedullary nailing of right proximal humerus fracture 06/06 2. MADDY: obstructive, appreciate Dr Zee's input. hold arnaldo stringer 3. Fever: recurrent today. appreciate Dr Keen's input. on merrem and linezolid. cult, CXR repeated 06/08. UA positive for infect. awaiting culture and sens. 4. Leukocytosis: sl improved 5. CHF: vascular congestion, pleural effusions on CXR. echo in 12/2016 with nl EF, pAP 47. appreciate Dr Mccabe's input: appears intravascularly volume depleted 6. DM2: on insulin, incl ISS 7. HTN: Borderline low but stable. monitor 8. HLD: on statin 9. COPD: nebs PRN 11 Urinary incontinence: blankenship placed to accurate I&O 12. Depression: cont home meds 13. Dementia/ ?encephalopathy: currently nonverbal, catatonic. by report, family thinks she is at baseline, which does fluctuate some 14. Nutrition: not feeding herself, remains on PPN, with PO assistance plan: fu with pulm, renal, cont blankenship hospice facility fu, SW fu fu with ortho check swallow eval, now on GI soft diet cont on meropenum as per ID, wean soon on PPN dvt ppx History of Present Illness History of Present Illness follow my commands by squeezing my hands, but not answer my questions wbc better, no fever today but looks so weak, and mental status is not good to me at all, not sure how worse it is compared to her baseline, pt was in a facility with hospice Vitals Vitals Vital Signs Date Time Temp Pulse Resp B/P (MAP) Pulse Ox O2 Delivery O2 Flow Rate FiO2 06/10/17 11:20 Nasal Cannula 3.0 06/10/17 11:00 98.9 89 20 131/51 (77) 99 98.9 Physical Exam Physical Exam follow my commands by squeezing my hands, but not answer my questions General: Cooperative, No acute distress Heart: Regular rate, No murmurs, Other (radial pulse 2+) Lungs: Other (decrease bs) Abdomen: Normal bowel sounds, Soft Extremities: No clubbing Skin: No rashes Labs LABS Laboratory Tests Test 06/09/17 16:47 06/09/17 21:00 06/10/17 04:40 06/10/17 07:00 Glucose (Fingerstick) 251 mg/dL (70-99) 237 mg/dL (70-99) 144 mg/dL (70-99) White Blood Count 9.8 x10^3/uL (4.0-11.0) Red Blood Count 2.79 x10^6/uL (3.50-5.40) Hemoglobin 8.9 g/dL (12.0-15.5) Hematocrit 26.5 % (36.0-47.0) Mean Corpuscular Volume 95 fL (79-100) Mean Corpuscular Hemoglobin 32 pg (25-35) Mean Corpuscular Hemoglobin Concent 34 g/dL (31-37) Red Cell Distribution Width 15.8 % (11.5-14.5) Platelet Count 151 x10^3/uL (140-400) Neutrophils (%) (Auto) 64 % (31-73) Lymphocytes (%) (Auto) 17 % (24-48) Monocytes (%) (Auto) 11 % (0-9) Eosinophils (%) (Auto) 8 % (0-3) Basophils (%) (Auto) 1 % (0-3) Neutrophils # (Auto) 6.2 x10^3uL (1.8-7.7) Lymphocytes # (Auto) 1.6 x10^3/uL (1.0-4.8) Monocytes # (Auto) 1.0 x10^3/uL (0.0-1.1) Eosinophils # (Auto) 0.7 x10^3/uL (0.0-0.7) Basophils # (Auto) 0.1 x10^3/uL (0.0-0.2) Sodium Level 137 mmol/L (136-145) Potassium Level 4.9 mmol/L (3.5-5.1) Chloride Level 103 mmol/L (98-107) Carbon Dioxide Level 28 mmol/L (21-32) Anion Gap 6 (6-14) Blood Urea Nitrogen 79 mg/dL (7-20) Creatinine 2.3 mg/dL (0.6-1.0) Estimated GFR (Cockcroft-Gault) 20.6 Glucose Level 168 mg/dL (70-99) Calcium Level 7.7 mg/dL (8.5-10.1) Test 06/10/17 11:08 Glucose (Fingerstick) 238 mg/dL (70-99) Review of Systems Review of Systems no fever, chills, chest pain or sob Comment Review of Relevant I have reviewed the following items juan (where applicable) has been applied. Labs Laboratory Tests Test 06/08/17 16:14 06/08/17 16:55 06/08/17 20:51 06/09/17 03:20 Glucose (Fingerstick) 245 mg/dL (70-99) 215 mg/dL (70-99) Urine Collection Type Unknown Urine Color Yellow Urine Clarity Turbid Urine pH 5.5 Urine Specific [place] 1.015 Urine Protein Negative mg/dL (NEG-TRACE) Urine Glucose (UA) Negative mg/dL (NEG) Urine Ketones (Stick) Negative mg/dL (NEG) Urine Blood Moderate (NEG) Urine Nitrite Negative (NEG) Urine Bilirubin Negative (NEG) Urine Urobilinogen Dipstick 0.2 mg/dL (0.2 mg/dL) Urine Leukocyte Esterase Large (NEG) Urine RBC 11-20 /HPF (0-2) Urine WBC Tntc /HPF (0-4) Urine Squamous Epithelial Cells Mod /LPF Urine Bacteria Few /HPF (0-FEW) Urine Mucus Slight /LPF Urine Yeast Present /HPF White Blood Count 13.7 x10^3/uL (4.0-11.0) Red Blood Count 3.08 x10^6/uL (3.50-5.40) Hemoglobin 9.6 g/dL (12.0-15.5) Hematocrit 29.4 % (36.0-47.0) Mean Corpuscular Volume 96 fL (79-100) Mean Corpuscular Hemoglobin 31 pg (25-35) Mean Corpuscular Hemoglobin Concent 33 g/dL (31-37) Red Cell Distribution Width 15.6 % (11.5-14.5) Platelet Count 164 x10^3/uL (140-400) Neutrophils (%) (Auto) 74 % (31-73) Lymphocytes (%) (Auto) 12 % (24-48) Monocytes (%) (Auto) 10 % (0-9) Eosinophils (%) (Auto) 4 % (0-3) Basophils (%) (Auto) 1 % (0-3) Neutrophils # (Auto) 10.2 x10^3uL (1.8-7.7) Lymphocytes # (Auto) 1.6 x10^3/uL (1.0-4.8) Monocytes # (Auto) 1.4 x10^3/uL (0.0-1.1) Eosinophils # (Auto) 0.5 x10^3/uL (0.0-0.7) Basophils # (Auto) 0.1 x10^3/uL (0.0-0.2) Sodium Level 134 mmol/L (136-145) Potassium Level 4.8 mmol/L (3.5-5.1) Chloride Level 99 mmol/L (98-107) Carbon Dioxide Level 28 mmol/L (21-32) Anion Gap 7 (6-14) Blood Urea Nitrogen 70 mg/dL (7-20) Creatinine 2.9 mg/dL (0.6-1.0) Estimated GFR (Cockcroft-Gault) 15.7 Glucose Level 229 mg/dL (70-99) Calcium Level 7.8 mg/dL (8.5-10.1) Test 06/09/17 07:30 06/09/17 09:20 06/09/17 10:39 06/09/17 12:30 Glucose (Fingerstick) 229 mg/dL (70-99) 260 mg/dL (70-99) O2 Saturation 97 % (92-99) Arterial Blood pH 7.46 (7.35-7.45) Arterial Blood pCO2 at Patient Temp 37 mmHg (35-46) Arterial Blood pO2 at Patient Temp 91 mmHg (65-108) Arterial Blood HCO3 25 mmol/L (21-28) Arterial Blood Base Excess 2 mmol/L (-3-3) FiO2 32 Urine Collection Type Unknown Urine Color Yaneth Urine Clarity Turbid Urine pH 6.0 Urine Specific [place] 1.015 Urine Protein 100 mg/dL (NEG-TRACE) Urine Glucose (UA) Negative mg/dL (NEG) Urine Ketones (Stick) Trace mg/dL (NEG) Urine Blood Moderate (NEG) Urine Nitrite Negative (NEG) Urine Bilirubin Negative (NEG) Urine Urobilinogen Dipstick 0.2 mg/dL (0.2 mg/dL) Urine Leukocyte Esterase Large (NEG) Urine RBC Fobs /HPF (0-2) Urine WBC Tntc /HPF (0-4) Urine Bacteria Many /HPF (0-FEW) Test 06/09/17 16:47 06/09/17 21:00 06/10/17 04:40 06/10/17 07:00 Glucose (Fingerstick) 251 mg/dL (70-99) 237 mg/dL (70-99) 144 mg/dL (70-99) White Blood Count 9.8 x10^3/uL (4.0-11.0) Red Blood Count 2.79 x10^6/uL (3.50-5.40) Hemoglobin 8.9 g/dL (12.0-15.5) Hematocrit 26.5 % (36.0-47.0) Mean Corpuscular Volume 95 fL (79-100) Mean Corpuscular Hemoglobin 32 pg (25-35) Mean Corpuscular Hemoglobin Concent 34 g/dL (31-37) Red Cell Distribution Width 15.8 % (11.5-14.5) Platelet Count 151 x10^3/uL (140-400) Neutrophils (%) (Auto) 64 % (31-73) Lymphocytes (%) (Auto) 17 % (24-48) Monocytes (%) (Auto) 11 % (0-9) Eosinophils (%) (Auto) 8 % (0-3) Basophils (%) (Auto) 1 % (0-3) Neutrophils # (Auto) 6.2 x10^3uL (1.8-7.7) Lymphocytes # (Auto) 1.6 x10^3/uL (1.0-4.8) Monocytes # (Auto) 1.0 x10^3/uL (0.0-1.1) Eosinophils # (Auto) 0.7 x10^3/uL (0.0-0.7) Basophils # (Auto) 0.1 x10^3/uL (0.0-0.2) Sodium Level 137 mmol/L (136-145) Potassium Level 4.9 mmol/L (3.5-5.1) Chloride Level 103 mmol/L (98-107) Carbon Dioxide Level 28 mmol/L (21-32) Anion Gap 6 (6-14) Blood Urea Nitrogen 79 mg/dL (7-20) Creatinine 2.3 mg/dL (0.6-1.0) Estimated GFR (Cockcroft-Gault) 20.6 Glucose Level 168 mg/dL (70-99) Calcium Level 7.7 mg/dL (8.5-10.1) Test 06/10/17 11:08 Glucose (Fingerstick) 238 mg/dL (70-99) Laboratory Tests Test 06/09/17 16:47 06/09/17 21:00 06/10/17 04:40 06/10/17 07:00 Glucose (Fingerstick) 251 mg/dL (70-99) 237 mg/dL (70-99) 144 mg/dL (70-99) White Blood Count 9.8 x10^3/uL (4.0-11.0) Red Blood Count 2.79 x10^6/uL (3.50-5.40) Hemoglobin 8.9 g/dL (12.0-15.5) Hematocrit 26.5 % (36.0-47.0) Mean Corpuscular Volume 95 fL (79-100) Mean Corpuscular Hemoglobin 32 pg (25-35) Mean Corpuscular Hemoglobin Concent 34 g/dL (31-37) Red Cell Distribution Width 15.8 % (11.5-14.5) Platelet Count 151 x10^3/uL (140-400) Neutrophils (%) (Auto) 64 % (31-73) Lymphocytes (%) (Auto) 17 % (24-48) Monocytes (%) (Auto) 11 % (0-9) Eosinophils (%) (Auto) 8 % (0-3) Basophils (%) (Auto) 1 % (0-3) Neutrophils # (Auto) 6.2 x10^3uL (1.8-7.7) Lymphocytes # (Auto) 1.6 x10^3/uL (1.0-4.8) Monocytes # (Auto) 1.0 x10^3/uL (0.0-1.1) Eosinophils # (Auto) 0.7 x10^3/uL (0.0-0.7) Basophils # (Auto) 0.1 x10^3/uL (0.0-0.2) Sodium Level 137 mmol/L (136-145) Potassium Level 4.9 mmol/L (3.5-5.1) Chloride Level 103 mmol/L (98-107) Carbon Dioxide Level 28 mmol/L (21-32) Anion Gap 6 (6-14) Blood Urea Nitrogen 79 mg/dL (7-20) Creatinine 2.3 mg/dL (0.6-1.0) Estimated GFR (Cockcroft-Gault) 20.6 Glucose Level 168 mg/dL (70-99) Calcium Level 7.7 mg/dL (8.5-10.1) Test 06/10/17 11:08 Glucose (Fingerstick) 238 mg/dL (70-99) Microbiology 06/08/17 Blood Culture - Preliminary, Resulted NO GROWTH AFTER 2 DAYS 06/09/17 Urine Culture - Preliminary, Resulted 06/09/17 Urine Culture Result 1 (DEJA) - Preliminary, Resulted Medications Current Medications Hydromorphone HCl (Dilaudid) 0.5 mg 1X ONCE IV Last administered on 06/04/17 18:32; Start 06/04/17 at 18:30; Stop 06/04/17 at 18:31; Status DC Hydromorphone HCl (Dilaudid) 1 mg 1X ONCE IV Last administered on 06/04/17 19: 47; Start 06/04/17 at 19:45; Stop 06/04/17 at 19:46; Status DC Morphine Sulfate 2 mg PRN Q2HR PRN IV SEVERE PAIN Last administered on 20:42; Start 06/04/17 at 21:15; Stop 06/05/17 at 21:14; Status DC Aspirin (Children'S Aspirin) 81 mg DAILY PO Last administered on 06/10/17 08: 13; Start 06/05/17 at 09:00 Atorvastatin Calcium (Lipitor) 20 mg QHS PO Last administered on 06/09/17 21: 02; Start 06/05/17 at 21:00 Diltiazem HCl (Cardizem 24hr Cd) 240 mg DAILY PO Last administered on 08:13; Start 06/05/17 at 09:00 Docusate Sodium (Colace) 100 mg BID PO Last administered on 06/10/17 08:13; Start 06/05/17 at 09:00 Furosemide (Lasix) 40 mg DAILY PO Last administered on 06/08/17 08:04; Start 06/05/17 at 09:00; Stop 06/08/17 at 20:44; Status DC Levofloxacin (Levaquin) 500 mg DAILY PO ; Start 06/05/17 at 09:00; Status UNV Losartan Potassium (Cozaar) 50 mg DAILY PO Last administered on 06/08/17 08:06 ; Start 06/05/17 at 09:00; Stop 06/09/17 at 08:54; Status DC Mirtazapine (Remeron) 15 mg QHS PO Last administered on 06/09/17 21:02; Start 06/05/17 at 21:00 Pantoprazole Sodium (Protonix) 40 mg DAILYAC PO Last administered on 06/10/17 08:13; Start 06/05/17 at 07:30 Potassium Chloride (Klor-Con) 20 meq DAILY PO Last administered on 06/08/17 08 :04; Start 06/05/17 at 09:00; Stop 06/09/17 at 08:54; Status DC Sertraline HCl (Zoloft) 50 mg DAILY PO Last administered on 06/10/17 08:13; Start 06/05/17 at 09:00 Trazodone HCl (Desyrel) 50 mg QHS PO Last administered on 06/09/17 21:02; Start 06/05/17 at 21:00 Hydromorphone HCl (Dilaudid) 1 mg 1X ONCE IV Last administered on 06/04/17 22: 57; Start 06/04/17 at 23:00; Stop 06/04/17 at 23:01; Status DC Pneumococcal Polyvalent Vaccine (Do NOT chart on this placeholder) 1 each PRN DAILY PRN [facility] UNABLE TO RESPOND; Start 06/05/17 at 01:45; Status Cancel Clindamycin Phosphate 50 ml @ 100 mls/hr 1X ONCE IV Last administered on 08:44; Start 06/06/17 at 07:30; Stop 06/06/17 at 07:59; Status DC Albuterol Sulfate (Ventolin Neb Soln) 2.5 mg RTQID NEB Last administered on 11:19; Start 06/05/17 at 17:00 Albuterol Sulfate (Ventolin Neb Soln) 2.5 mg PRN Q2HR PRN NEB DYSPNEA Last administered on 06/06/17 10:48; Start 06/05/17 at 17:00 Ondansetron HCl (Zofran) 4 mg PRN Q6HRS PRN IV NAUSEA/VOMITING; Start 06/06/17 at 07:00; Stop 06/06/17 at 18:00; Status DC Fentanyl Citrate (Fentanyl 2ml Vial) 25 mcg PRN Q5MIN PRN IV MILD PAIN Last administered on 06/06/17 11:36; Start 06/06/17 at 07:00; Stop 06/06/17 at 18:00; Status DC Fentanyl Citrate (Fentanyl 2ml Vial) 50 mcg PRN Q5MIN PRN IV MODERATE PAIN; Start 06/06/17 at 07:00; Stop 06/06/17 at 18:00; Status DC Morphine Sulfate 1 mg PRN Q10MIN PRN IV SEVERE PAIN; Start 06/06/17 at 07:00; Stop 06/06/17 at 18:00; Status DC Ringer's Solution 1,000 ml @ 30 mls/hr Q24H IV ; Start 06/06/17 at 07:00; Stop 06/06/17 at 18:59; Status DC Lidocaine HCl 2 ml PRN 1X PRN ID PRIOR TO IV START; Start 06/06/17 at 07:00; Stop 06/06/17 at 18:00; Status DC Hydromorphone HCl (Dilaudid) 0.5 mg PRN Q10MIN PRN IV SEV PAIN, Second choice; Start 06/06/17 at 07:00; Stop 06/06/17 at 18:00; Status DC Prochlorperazine Edisylate (Compazine) 5 mg PACU PRN PRN IV NAUSEA, MRX1; Start 06/06/17 at 07:00; Stop 06/06/17 at 18:00; Status DC Morphine Sulfate 2 mg PRN Q2HR PRN IV MODERATE PAIN Last administered on 12:51; Start 06/05/17 at 21:30; Stop 06/07/17 at 13:21; Status DC Lidocaine HCl 30 ml STK-MED ONCE .ROUTE Last administered on 06/06/17 09:06; Start 06/06/17 at 07:31; Stop 06/06/17 at 07:32; Status DC Bupivacaine HCl (Sensorcaine Mpf 0.5%) 30 ml STK-MED ONCE .ROUTE Last administered on 06/06/17 09:06; Start 06/06/17 at 07:31; Stop 06/06/17 at 07:32; Status DC Dexamethasone Sodium Phosphate (Decadron) 20 mg STK-MED ONCE .ROUTE ; Start 06/06 at 07:54; Stop 06/06/17 at 07:55; Status DC Propofol 20 ml @ As Directed STK-MED ONCE IV ; Start 06/06/17 at 07:54; Stop 06/06 at 07:55; Status DC Midazolam HCl (Versed) 2 mg STK-MED ONCE .ROUTE ; Start 06/06/17 at 07:55; Stop 06/06/17 at 07:56; Status DC Fentanyl Citrate (Fentanyl 5ml Vial) 250 mcg STK-MED ONCE .ROUTE ; Start at 07:55; Stop 06/06/17 at 07:56; Status DC Rocuronium Fortuna (Zemuron) 100 mg STK-MED ONCE .ROUTE ; Start 06/06/17 at 07:55 ; Stop 06/06/17 at 07:56; Status DC Glycopyrrolate (Robinul) 1 mg STK-MED ONCE .ROUTE ; Start 06/06/17 at 10:04; Stop 06/06/17 at 10:05; Status DC Neostigmine Methylsulfate 5 mg STK-MED ONCE .ROUTE ; Start 06/06/17 at 10:04; Stop 06/06/17 at 10:05; Status DC Clindamycin Phosphate 50 ml @ 100 mls/hr Q8H IV Last administered on 06/06/17 23:53; Start 06/06/17 at 16:00; Stop 06/07/17 at 08:33; Status DC Insulin Aspart (NovoLOG VIAL) 6 unit 1X ONCE SQ Last administered on 06/06/17 11:53; Start 06/06/17 at 12:00; Stop 06/06/17 at 12:01; Status DC Insulin Detemir (Levemir) 24 units QHS SQ Last administered on 06/07/17 00:01; Start 06/06/17 at 21:00; Stop 06/07/17 at 15:56; Status DC Insulin Aspart (NovoLOG) 0-7 UNITS TIDWMEALS SQ Last administered on 06/09/17 18:32; Start 06/06/17 at 17:00 Dextrose (Dextrose 50%-Water Syringe) 12.5 gm PRN Q15MIN PRN IV SEE COMMENTS; Start 06/06/17 at 16:00 Cyclobenzaprine HCl (Flexeril) 10 mg PRN Q6HRS PRN PO MUSCLE SPASMS Last administered on 06/06/17 20:02; Start 06/06/17 at 19:45; Stop 06/09/17 at 15:23; Status DC Morphine Sulfate 4 mg PRN Q2HR PRN IV SEVERE PAIN Last administered on 16:18; Start 06/06/17 at 21:15; Stop 06/08/17 at 15:33; Status DC Lorazepam (Ativan) 1 mg PRN Q4HRS PRN IV ANXIETY / AGITATION; Start 06/06/17 at 23:15; Stop 06/08/17 at 15:33; Status DC Lorazepam (Ativan) 2 mg PRN Q4HRS PRN IV SEVERE ANXIETY / AGITATION; Start 06/06 at 23:15; Stop 06/08/17 at 15:33; Status DC Acetaminophen (Tylenol) 650 mg PRN Q6HRS PRN PO FEVER Last administered on 06/09 05:47; Start 06/06/17 at 23:30 Ibuprofen (Motrin) 400 mg 1X ONCE PO Last administered on 06/07/17 06:15; Start 06/07/17 at 05:00; Stop 06/07/17 at 05:01; Status DC Meropenem 500 mg/ Sodium Chloride 50 ml @ 100 mls/hr Q6HRS IV Last administered on 06/09/17 05:47; Start 06/07/17 at 09:00; Stop 06/09/17 at 07:38 ; Status DC Linezolid 300 ml @ 300 mls/hr Q12HR IV Last administered on 06/10/17 08:14; Start 06/07/17 at 09:00 Alprazolam (Xanax) 0.5 mg DAILY16 PO ; Start 06/07/17 at 16:00; Stop 06/07/17 at 16:00; Status DC Amino Acids/ Glycerin/ Electrolytes 1,000 ml @ 75 mls/hr [id number] IV Last administered on 06/09/17 17:50; Start 06/07/17 at 12:30 Insulin Detemir (Levemir) 40 units QHS SQ Last administered on 06/09/17 21:13 ; Start 06/07/17 at 21:00 Alprazolam (Xanax) 0.5 mg QHS PO Last administered on 06/09/17 21:03; Start at 21:00 Morphine Sulfate 1 mg PRN Q2HR PRN IV SEVERE PAIN; Start 06/08/17 at 15:30 Furosemide (Lasix) 20 mg 1X ONCE IVP Last administered on 06/08/17 18:09; Start 06/08/17 at 15:45; Stop 06/08/17 at 15:46; Status DC Meropenem 500 mg/ Sodium Chloride 50 ml @ 100 mls/hr Q8HRS IV Last administered on 06/10/17 06:08; Start 06/09/17 at 14:00 Active Scripts Active Reported Zoloft (Sertraline Hcl) 50 Mg Tablet 1 Tab PO TID Potassium Chloride 10 Meq Capsule.er 10 Meq PO DAILY Percocet 10-325 Mg Tablet (Oxycodone/Acetaminophen) 1 Each Tablet 1 Tab PO Q4HRS PRN Losartan Potassium 100 Mg Tablet 100 Mg PO DAILY Lipitor (Atorvastatin Calcium) 20 Mg Tablet 1 Tab PO QHS Humalog (Insulin Lispro) 100 Unit/1 Ml Cartridge 10 Unit SQ TIDWMEALS Promethazine Hcl 25 Mg Tablet 1 Tab PO PRN Q4HRS PRN Haloperidol 0.5 Mg Tablet 0.5 Mg PO Q4HRS PRN Diazepam 5 Mg Tablet 5 Mg PO QID Alprazolam 0.5 Mg Tablet 1 Tab PO QHS Alprazolam 0.25 Mg Tablet 1 Tab PO BID PRN Levofloxacin 500 Mg Tablet 1 Tab PO DAILY Vitamin E (Vitamin E (Dl,Tocopheryl Acet)) 100 Unit Capsule 400 Unit PO Symbicort 160-4.5 Mcg Inhaler (Budesonide/Formoterol Fumarate) 10.2 Gm Hfa.aer.ad 2 Puff IH BID Risperidone 0.5 Mg Tablet 1 Tab PO BID Multivitamins (Multivitamin) 1 Each Tablet 1 Tab PO DAILY Remeron (Mirtazapine) 15 Mg Tablet 1 Tab PO QHS Lantus Solostar (Insulin Glargine,Hum.rec.anlog) 100 Unit/1 Ml Insuln.pen 40 Unit SQ QHS Gabapentin 300 Mg Capsule 300 Mg PO TID Furosemide 40 Mg Tablet 1 Tab PO DAILY Flonase Allergy Relief (Fluticasone Propionate) 9.9 Ml [place].susp 2 Sprays NS DAILY Colace (Docusate Sodium) 100 Mg Capsule 1 Cap PO BID Cartia Xt (Diltiazem Hcl) 240 Mg Cap.er.24h 240 Mg PO Aspirin 81 Mg Tab.chew 1 Tab PO DAILY Proair Hfa Inhaler (Albuterol Sulfate) 8.5 Gm Hfa.aer.ad 1 Puff INH PRN Q6HRS PRN Atorvastatin Calcium 20 Mg Tablet 1 Tab PO DAILY Trazodone Hcl 50 Mg Tablet 1 Tab PO QHS Pantoprazole Sodium 40 Mg Tablet.dr 1 Tab PO DAILY Vitals/I & O Vital Sign - Last 24 Hours 06/09/17 06/09/17 06/09/17 06/09/17 15:00 15:35 19:00 19:30 Temp 98.7 98.1 98.7 98.1 Pulse 79 86 Resp 20 20 B/P (MAP) 107/33 (57) 108/42 (64) Pulse Ox 95 98 O2 Delivery Nasal Cannula Nasal Cannula Nasal Cannula Nasal Cannula O2 Flow Rate 3.0 3.0 3.0 3.0 06/09/17 06/09/17 06/10/17 06/10/17 21:06 23:20 03:25 07:00 Temp 97.6 97.7 98.9 97.6 97.7 98.9 Pulse 78 79 80 Resp 18 18 20 B/P (MAP) 127/50 (75) 112/42 (65) 130/58 (82) Pulse Ox 92 90 99 O2 Delivery Nasal Cannula Nasal Cannula Nasal Cannula Nasal Cannula O2 Flow Rate 3.0 3.0 3.0 06/10/17 06/10/17 06/10/17 06/10/17 07:31 08:13 11:00 11:20 Temp 98.9 98.9 Pulse 80 89 Resp 20 B/P (MAP) 130/58 131/51 (77) Pulse Ox 99 99 O2 Delivery Nasal Cannula Nasal Cannula Nasal Cannula O2 Flow Rate 3.0 3.0 3.0 Intake and Output 06/09/17 06/09/17 06/10/17 15:00 23:00 07:00 Intake Total 1255 ml Output Total 1250 ml 1225 ml 1700 ml Balance -1250 ml -1225 ml -445 ml BEN SUAZO MD Jun 10, 2017 13:56
[2017-06-10] MEDS: AMINO AC 3%/ELECTROLYTE/GLYCER 1,000 ML IV SCH ×2 (14:23→19:45)
[2017-06-10] MEDS: MORPHINE SULFATE 4 MG/ML DISP.SYRIN. IV PRN ×2 (14:43→22:01)
[2017-06-10 15:00] VITALS: BP 118/40
[2017-06-10 19:05] VITALS: BP 133/47
--- NOTE | 2017-06-10 20:30 | PDOC ---
ORTHO PROGRESS NOTES Subjective Febrile recently. C/o pain, but doesnt localize further Vitals Vital Signs Date Time Temp Pulse Resp B/P (MAP) Pulse Ox O2 Delivery O2 Flow Rate FiO2 06/10/17 19:40 98 Nasal Cannula 3.0 06/10/17 19:05 98.1 83 16 133/47 (75) 98.1 Labs Laboratory Tests Test 06/08/17 20:51 06/09/17 03:20 06/09/17 07:30 06/09/17 09:20 Glucose (Fingerstick) 215 mg/dL (70-99) 229 mg/dL (70-99) White Blood Count 13.7 x10^3/uL (4.0-11.0) Red Blood Count 3.08 x10^6/uL (3.50-5.40) Hemoglobin 9.6 g/dL (12.0-15.5) Hematocrit 29.4 % (36.0-47.0) Mean Corpuscular Volume 96 fL (79-100) Mean Corpuscular Hemoglobin 31 pg (25-35) Mean Corpuscular Hemoglobin Concent 33 g/dL (31-37) Red Cell Distribution Width 15.6 % (11.5-14.5) Platelet Count 164 x10^3/uL (140-400) Neutrophils (%) (Auto) 74 % (31-73) Lymphocytes (%) (Auto) 12 % (24-48) Monocytes (%) (Auto) 10 % (0-9) Eosinophils (%) (Auto) 4 % (0-3) Basophils (%) (Auto) 1 % (0-3) Neutrophils # (Auto) 10.2 x10^3uL (1.8-7.7) Lymphocytes # (Auto) 1.6 x10^3/uL (1.0-4.8) Monocytes # (Auto) 1.4 x10^3/uL (0.0-1.1) Eosinophils # (Auto) 0.5 x10^3/uL (0.0-0.7) Basophils # (Auto) 0.1 x10^3/uL (0.0-0.2) Sodium Level 134 mmol/L (136-145) Potassium Level 4.8 mmol/L (3.5-5.1) Chloride Level 99 mmol/L (98-107) Carbon Dioxide Level 28 mmol/L (21-32) Anion Gap 7 (6-14) Blood Urea Nitrogen 70 mg/dL (7-20) Creatinine 2.9 mg/dL (0.6-1.0) Estimated GFR (Cockcroft-Gault) 15.7 Glucose Level 229 mg/dL (70-99) Calcium Level 7.8 mg/dL (8.5-10.1) O2 Saturation 97 % (92-99) Arterial Blood pH 7.46 (7.35-7.45) Arterial Blood pCO2 at Patient Temp 37 mmHg (35-46) Arterial Blood pO2 at Patient Temp 91 mmHg (65-108) Arterial Blood HCO3 25 mmol/L (21-28) Arterial Blood Base Excess 2 mmol/L (-3-3) FiO2 32 Test 06/09/17 10:39 06/09/17 12:30 06/09/17 16:47 06/09/17 21:00 Glucose (Fingerstick) 260 mg/dL (70-99) 251 mg/dL (70-99) 237 mg/dL (70-99) Urine Collection Type Unknown Urine Color Yaneth Urine Clarity Turbid Urine pH 6.0 Urine Specific [place] 1.015 Urine Protein 100 mg/dL (NEG-TRACE) Urine Glucose (UA) Negative mg/dL (NEG) Urine Ketones (Stick) Trace mg/dL (NEG) Urine Blood Moderate (NEG) Urine Nitrite Negative (NEG) Urine Bilirubin Negative (NEG) Urine Urobilinogen Dipstick 0.2 mg/dL (0.2 mg/dL) Urine Leukocyte Esterase Large (NEG) Urine RBC Fobs /HPF (0-2) Urine WBC Tntc /HPF (0-4) Urine Bacteria Many /HPF (0-FEW) Test 06/10/17 04:40 06/10/17 07:00 06/10/17 11:08 06/10/17 16:37 White Blood Count 9.8 x10^3/uL (4.0-11.0) Red Blood Count 2.79 x10^6/uL (3.50-5.40) Hemoglobin 8.9 g/dL (12.0-15.5) Hematocrit 26.5 % (36.0-47.0) Mean Corpuscular Volume 95 fL (79-100) Mean Corpuscular Hemoglobin 32 pg (25-35) Mean Corpuscular Hemoglobin Concent 34 g/dL (31-37) Red Cell Distribution Width 15.8 % (11.5-14.5) Platelet Count 151 x10^3/uL (140-400) Neutrophils (%) (Auto) 64 % (31-73) Lymphocytes (%) (Auto) 17 % (24-48) Monocytes (%) (Auto) 11 % (0-9) Eosinophils (%) (Auto) 8 % (0-3) Basophils (%) (Auto) 1 % (0-3) Neutrophils # (Auto) 6.2 x10^3uL (1.8-7.7) Lymphocytes # (Auto) 1.6 x10^3/uL (1.0-4.8) Monocytes # (Auto) 1.0 x10^3/uL (0.0-1.1) Eosinophils # (Auto) 0.7 x10^3/uL (0.0-0.7) Basophils # (Auto) 0.1 x10^3/uL (0.0-0.2) Sodium Level 137 mmol/L (136-145) Potassium Level 4.9 mmol/L (3.5-5.1) Chloride Level 103 mmol/L (98-107) Carbon Dioxide Level 28 mmol/L (21-32) Anion Gap 6 (6-14) Blood Urea Nitrogen 79 mg/dL (7-20) Creatinine 2.3 mg/dL (0.6-1.0) Estimated GFR (Cockcroft-Gault) 20.6 Glucose Level 168 mg/dL (70-99) Calcium Level 7.7 mg/dL (8.5-10.1) Glucose (Fingerstick) 144 mg/dL (70-99) 238 mg/dL (70-99) 180 mg/dL (70-99) Laboratory Tests Test 06/09/17 21:00 06/10/17 04:40 06/10/17 07:00 06/10/17 11:08 Glucose (Fingerstick) 237 mg/dL (70-99) 144 mg/dL (70-99) 238 mg/dL (70-99) White Blood Count 9.8 x10^3/uL (4.0-11.0) Red Blood Count 2.79 x10^6/uL (3.50-5.40) Hemoglobin 8.9 g/dL (12.0-15.5) Hematocrit 26.5 % (36.0-47.0) Mean Corpuscular Volume 95 fL (79-100) Mean Corpuscular Hemoglobin 32 pg (25-35) Mean Corpuscular Hemoglobin Concent 34 g/dL (31-37) Red Cell Distribution Width 15.8 % (11.5-14.5) Platelet Count 151 x10^3/uL (140-400) Neutrophils (%) (Auto) 64 % (31-73) Lymphocytes (%) (Auto) 17 % (24-48) Monocytes (%) (Auto) 11 % (0-9) Eosinophils (%) (Auto) 8 % (0-3) Basophils (%) (Auto) 1 % (0-3) Neutrophils # (Auto) 6.2 x10^3uL (1.8-7.7) Lymphocytes # (Auto) 1.6 x10^3/uL (1.0-4.8) Monocytes # (Auto) 1.0 x10^3/uL (0.0-1.1) Eosinophils # (Auto) 0.7 x10^3/uL (0.0-0.7) Basophils # (Auto) 0.1 x10^3/uL (0.0-0.2) Sodium Level 137 mmol/L (136-145) Potassium Level 4.9 mmol/L (3.5-5.1) Chloride Level 103 mmol/L (98-107) Carbon Dioxide Level 28 mmol/L (21-32) Anion Gap 6 (6-14) Blood Urea Nitrogen 79 mg/dL (7-20) Creatinine 2.3 mg/dL (0.6-1.0) Estimated GFR (Cockcroft-Gault) 20.6 Glucose Level 168 mg/dL (70-99) Calcium Level 7.7 mg/dL (8.5-10.1) Test 06/10/17 16:37 Glucose (Fingerstick) 180 mg/dL (70-99) Notes Resting, opens eyes, answers some yes/no questions, doesn't follow commands RUE: min dried bloody drainage at incisions some spont movement at fingers Assessment and Plan no new recs per Ortho placement FOUZIA MCDOWELL II, MD Jun 10, 2017 20:30
[2017-06-10] MEDS: INSULIN DETEMIR 300 UNITS/3 ML INSULN.PEN. SQ SCH (21:00)
[2017-06-10] MEDS: MIRTAZAPINE 15 MG TABLET PO SCH (21:11)
[2017-06-10] MEDS: traZODone 50 MG TABLET. PO SCH (21:11)
[2017-06-10] MEDS: ALPRAZolam 0.25 MG TABLET PO PRN (21:11)
[2017-06-10] MEDS: ATORVASTATIN CALCIUM 20 MG TABLET PO SCH (21:11)
[2017-06-10 23:29] VITALS: BP 146/53
[2017-06-11 03:00] VITALS: BP 157/60
[2017-06-11 04:42] LABS: BASO # 0.1 x10^3/uL (0.0-0.2); BASO % 1 % (0-3); EOS % 6 % (0-3); HEMATOCRIT 26.9 % (36.0-47.0); HEMOGLOBIN 8.8 g/dL (12.0-15.5); LYMPH # 1.2 x10^3/uL (1.0-4.8); LYMPH % 15 % (24-48); MEAN CORPUSCULAR HEMOGLOBIN 32 pg (25-35); MEAN CORPUSCULAR HGB CONC 33 g/dL (31-37); MEAN CORPUSCULAR VOLUME 97 fL (79-100); MONO % 10 % (0-9); NEUT % 68 % (31-73); PLATELET COUNT 164 x10^3/uL (140-400); RED BLOOD COUNT 2.78 x10^6/uL (3.50-5.40); RED CELL DISTRIBUTION WIDTH 15.3 % (11.5-14.5); WHITE BLOOD COUNT 8.3 x10^3/uL (4.0-11.0)
[2017-06-11 05:12] LABS: CALCIUM 8.1 mg/dL (8.5-10.1); CREATININE 1.4 mg/dL (0.6-1.0); GFR 36.5; POTASSIUM 4.6 mmol/L (3.5-5.1)
[2017-06-11] MEDS: MEROPENEM 500 MG in IV NORMAL SALINE 50ML 50 ML IV SCH (05:54)
[2017-06-11 06:07] LABS: MAGNESIUM 1.8 mg/dL (1.8-2.4); PHOSPHORUS 3.1 mg/dL (2.6-4.7)
[2017-06-11 07:00] VITALS: BP_SYST 111; BP_SYST 144; BP_DIAS 50; BP_DIAS 63
[2017-06-11] MEDS: ALBUTEROL SULFATE 2.5 MG/3 ML NEBU. NEB SCH ×4 (07:04→20:07)
--- NOTE | 2017-06-11 07:35 | PDOC ---
Infectious Disease Note Subjective Subjective More alert. Doing "well" Wants to go home ROS ROS Difficult to ascertain. Slow to respond but she is improved Vital Sign Vital Signs Vital Signs Date Time Temp Pulse Resp B/P (MAP) Pulse Ox O2 Delivery O2 Flow Rate FiO2 06/11/17 07:11 95 Nasal Cannula 3.0 06/11/17 03:00 98.7 86 18 157/60 (92) 98.7 Physical Exam PHYSICAL EXAM GENERAL: NAD, Alert, coop. smiled HEENT: PERRL, OC/OP - clear NECK: Supple, no JVD, no LN LUNGS: Clear HEART: S1S2, no gallop, no murmur ABD: Soft, NT, no organomegaly, no rebound Blankenship EXT: No edema, no cyanosis. Arm in sling. 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 x 3, no focal neurologic deficit SKIN: No rash IV: ok Labs Lab Laboratory Tests Test 06/10/17 11:08 06/10/17 16:37 06/10/17 20:40 06/11/17 04:00 Glucose (Fingerstick) 238 mg/dL (70-99) 180 mg/dL (70-99) 246 mg/dL (70-99) White Blood Count 8.3 x10^3/uL (4.0-11.0) Red Blood Count 2.78 x10^6/uL (3.50-5.40) Hemoglobin 8.8 g/dL (12.0-15.5) Hematocrit 26.9 % (36.0-47.0) Mean Corpuscular Volume 97 fL (79-100) Mean Corpuscular Hemoglobin 32 pg (25-35) Mean Corpuscular Hemoglobin Concent 33 g/dL (31-37) Red Cell Distribution Width 15.3 % (11.5-14.5) Platelet Count 164 x10^3/uL (140-400) Neutrophils (%) (Auto) 68 % (31-73) Lymphocytes (%) (Auto) 15 % (24-48) Monocytes (%) (Auto) 10 % (0-9) Eosinophils (%) (Auto) 6 % (0-3) Basophils (%) (Auto) 1 % (0-3) Neutrophils # (Auto) 5.7 x10^3uL (1.8-7.7) Lymphocytes # (Auto) 1.2 x10^3/uL (1.0-4.8) Monocytes # (Auto) 0.9 x10^3/uL (0.0-1.1) Eosinophils # (Auto) 0.5 x10^3/uL (0.0-0.7) Basophils # (Auto) 0.1 x10^3/uL (0.0-0.2) Sodium Level 143 mmol/L (136-145) Potassium Level 4.6 mmol/L (3.5-5.1) Chloride Level 107 mmol/L (98-107) Carbon Dioxide Level 31 mmol/L (21-32) Anion Gap 5 (6-14) Blood Urea Nitrogen 60 mg/dL (7-20) Creatinine 1.4 mg/dL (0.6-1.0) Estimated GFR (Cockcroft-Gault) 36.5 Glucose Level 168 mg/dL (70-99) Calcium Level 8.1 mg/dL (8.5-10.1) Phosphorus Level 3.1 mg/dL (2.6-4.7) Magnesium Level 1.8 mg/dL (1.8-2.4) Objective Assessment Urinary retention on CT - d/w Ai (nursing 06/09) blankenship placed Possible UTI -cult neg Fever - improved ? related to post op and urinary retention Right sided abd fullness - unusual presentation of urinary retention Leukocytosis - better Encephalopathy - some better - ? with fever/MADDY - MADDY - better Right humerous fracture CHF S/p Procedure performed: Closed reduction and intramedullary nailing of right proximal humerus fracture 06/06 PCN allergy - ? reaction Plan Plan of Care F/u cults Discont Meropenem /Zyvox and monitor Notes reviewed DEBO BURGESS MD Jun 11, 2017 07:35
--- NOTE | 2017-06-11 09:04 | PDOC ---
ORTHO PROGRESS NOTES Subjective More alert lately, c/o R shoulder pain Vitals Vital Signs Date Time Temp Pulse Resp B/P (MAP) Pulse Ox O2 Delivery O2 Flow Rate FiO2 06/11/17 07:11 95 Nasal Cannula 3.0 06/11/17 07:00 98.6 93 20 144/63 (90) 98.6 Labs Laboratory Tests Test 06/09/17 09:20 06/09/17 10:39 06/09/17 12:30 06/09/17 16:47 O2 Saturation 97 % (92-99) Arterial Blood pH 7.46 (7.35-7.45) Arterial Blood pCO2 at Patient Temp 37 mmHg (35-46) Arterial Blood pO2 at Patient Temp 91 mmHg (65-108) Arterial Blood HCO3 25 mmol/L (21-28) Arterial Blood Base Excess 2 mmol/L (-3-3) FiO2 32 Glucose (Fingerstick) 260 mg/dL (70-99) 251 mg/dL (70-99) Urine Collection Type Unknown Urine Color Yaneth Urine Clarity Turbid Urine pH 6.0 Urine Specific Bishop 1.015 Urine Protein 100 mg/dL (NEG-TRACE) Urine Glucose (UA) Negative mg/dL (NEG) Urine Ketones (Stick) Trace mg/dL (NEG) Urine Blood Moderate (NEG) Urine Nitrite Negative (NEG) Urine Bilirubin Negative (NEG) Urine Urobilinogen Dipstick 0.2 mg/dL (0.2 mg/dL) Urine Leukocyte Esterase Large (NEG) Urine RBC Fobs /HPF (0-2) Urine WBC Tntc /HPF (0-4) Urine Bacteria Many /HPF (0-FEW) Test 06/09/17 21:00 06/10/17 04:40 06/10/17 07:00 06/10/17 11:08 Glucose (Fingerstick) 237 mg/dL (70-99) 144 mg/dL (70-99) 238 mg/dL (70-99) White Blood Count 9.8 x10^3/uL (4.0-11.0) Red Blood Count 2.79 x10^6/uL (3.50-5.40) Hemoglobin 8.9 g/dL (12.0-15.5) Hematocrit 26.5 % (36.0-47.0) Mean Corpuscular Volume 95 fL (79-100) Mean Corpuscular Hemoglobin 32 pg (25-35) Mean Corpuscular Hemoglobin Concent 34 g/dL (31-37) Red Cell Distribution Width 15.8 % (11.5-14.5) Platelet Count 151 x10^3/uL (140-400) Neutrophils (%) (Auto) 64 % (31-73) Lymphocytes (%) (Auto) 17 % (24-48) Monocytes (%) (Auto) 11 % (0-9) Eosinophils (%) (Auto) 8 % (0-3) Basophils (%) (Auto) 1 % (0-3) Neutrophils # (Auto) 6.2 x10^3uL (1.8-7.7) Lymphocytes # (Auto) 1.6 x10^3/uL (1.0-4.8) Monocytes # (Auto) 1.0 x10^3/uL (0.0-1.1) Eosinophils # (Auto) 0.7 x10^3/uL (0.0-0.7) Basophils # (Auto) 0.1 x10^3/uL (0.0-0.2) Sodium Level 137 mmol/L (136-145) Potassium Level 4.9 mmol/L (3.5-5.1) Chloride Level 103 mmol/L (98-107) Carbon Dioxide Level 28 mmol/L (21-32) Anion Gap 6 (6-14) Blood Urea Nitrogen 79 mg/dL (7-20) Creatinine 2.3 mg/dL (0.6-1.0) Estimated GFR (Cockcroft-Gault) 20.6 Glucose Level 168 mg/dL (70-99) Calcium Level 7.7 mg/dL (8.5-10.1) Test 06/10/17 16:37 06/10/17 20:40 06/11/17 04:00 06/11/17 07:01 Glucose (Fingerstick) 180 mg/dL (70-99) 246 mg/dL (70-99) 158 mg/dL (70-99) White Blood Count 8.3 x10^3/uL (4.0-11.0) Red Blood Count 2.78 x10^6/uL (3.50-5.40) Hemoglobin 8.8 g/dL (12.0-15.5) Hematocrit 26.9 % (36.0-47.0) Mean Corpuscular Volume 97 fL (79-100) Mean Corpuscular Hemoglobin 32 pg (25-35) Mean Corpuscular Hemoglobin Concent 33 g/dL (31-37) Red Cell Distribution Width 15.3 % (11.5-14.5) Platelet Count 164 x10^3/uL (140-400) Neutrophils (%) (Auto) 68 % (31-73) Lymphocytes (%) (Auto) 15 % (24-48) Monocytes (%) (Auto) 10 % (0-9) Eosinophils (%) (Auto) 6 % (0-3) Basophils (%) (Auto) 1 % (0-3) Neutrophils # (Auto) 5.7 x10^3uL (1.8-7.7) Lymphocytes # (Auto) 1.2 x10^3/uL (1.0-4.8) Monocytes # (Auto) 0.9 x10^3/uL (0.0-1.1) Eosinophils # (Auto) 0.5 x10^3/uL (0.0-0.7) Basophils # (Auto) 0.1 x10^3/uL (0.0-0.2) Sodium Level 143 mmol/L (136-145) Potassium Level 4.6 mmol/L (3.5-5.1) Chloride Level 107 mmol/L (98-107) Carbon Dioxide Level 31 mmol/L (21-32) Anion Gap 5 (6-14) Blood Urea Nitrogen 60 mg/dL (7-20) Creatinine 1.4 mg/dL (0.6-1.0) Estimated GFR (Cockcroft-Gault) 36.5 Glucose Level 168 mg/dL (70-99) Calcium Level 8.1 mg/dL (8.5-10.1) Phosphorus Level 3.1 mg/dL (2.6-4.7) Magnesium Level 1.8 mg/dL (1.8-2.4) Laboratory Tests Test 06/10/17 11:08 06/10/17 16:37 06/10/17 20:40 06/11/17 04:00 Glucose (Fingerstick) 238 mg/dL (70-99) 180 mg/dL (70-99) 246 mg/dL (70-99) White Blood Count 8.3 x10^3/uL (4.0-11.0) Red Blood Count 2.78 x10^6/uL (3.50-5.40) Hemoglobin 8.8 g/dL (12.0-15.5) Hematocrit 26.9 % (36.0-47.0) Mean Corpuscular Volume 97 fL (79-100) Mean Corpuscular Hemoglobin 32 pg (25-35) Mean Corpuscular Hemoglobin Concent 33 g/dL (31-37) Red Cell Distribution Width 15.3 % (11.5-14.5) Platelet Count 164 x10^3/uL (140-400) Neutrophils (%) (Auto) 68 % (31-73) Lymphocytes (%) (Auto) 15 % (24-48) Monocytes (%) (Auto) 10 % (0-9) Eosinophils (%) (Auto) 6 % (0-3) Basophils (%) (Auto) 1 % (0-3) Neutrophils # (Auto) 5.7 x10^3uL (1.8-7.7) Lymphocytes # (Auto) 1.2 x10^3/uL (1.0-4.8) Monocytes # (Auto) 0.9 x10^3/uL (0.0-1.1) Eosinophils # (Auto) 0.5 x10^3/uL (0.0-0.7) Basophils # (Auto) 0.1 x10^3/uL (0.0-0.2) Sodium Level 143 mmol/L (136-145) Potassium Level 4.6 mmol/L (3.5-5.1) Chloride Level 107 mmol/L (98-107) Carbon Dioxide Level 31 mmol/L (21-32) Anion Gap 5 (6-14) Blood Urea Nitrogen 60 mg/dL (7-20) Creatinine 1.4 mg/dL (0.6-1.0) Estimated GFR (Cockcroft-Gault) 36.5 Glucose Level 168 mg/dL (70-99) Calcium Level 8.1 mg/dL (8.5-10.1) Phosphorus Level 3.1 mg/dL (2.6-4.7) Magnesium Level 1.8 mg/dL (1.8-2.4) Test 06/11/17 07:01 Glucose (Fingerstick) 158 mg/dL (70-99) Notes Awake in bed, slow to respond incision ok arm in sling Assessment and Plan IMN R prox humerus fx UTI, delerium FOUZIA MCDOWELL II, MD Jun 11, 2017 09:04
[2017-06-11] MEDS: ASPIRIN CHEWABLE 81 MG TABLET. PO SCH (09:42)
[2017-06-11] MEDS: PANTOPRAZOLE 40 MG TABLET.DR. PO SCH (09:42)
[2017-06-11] MEDS: SERTRALINE 50 MG TABLET. PO SCH (09:42)
[2017-06-11] MEDS: DOCUSATE SODIUM 100 MG CAPSULE. PO SCH ×2 (09:42→21:16)
[2017-06-11] MEDS: INSULIN ASPART 300 UNITS/3 ML INSULN.PEN SQ SCH ×3 (09:46→18:16)
[2017-06-11 11:00] VITALS: BP 149/57
--- NOTE | 2017-06-11 11:08 | PDOC ---
PROGRESS NOTES Chief Complaint Chief Complaint 1. Severe comminuted fracture of the R humerus, s/p R arm ORIF 2. HTN 3. HLP 4. COPD 5. Dementia 6. Falll risk 7. OA 8. DM type 2 9. Urinary incontinence 10. Depression 11. MADDY: obstructive 12. Altered mental status: possible encephalopathy History of Present Illness History of Present Illness pt resting comfortably in bed this morning, she smiled when we entered the room , no acute events overnight per nursing Vitals Vitals Vital Signs Date Time Temp Pulse Resp B/P (MAP) Pulse Ox O2 Delivery O2 Flow Rate FiO2 06/11/17 09:41 93 144/63 06/11/17 07:11 95 Nasal Cannula 3.0 06/11/17 07:00 98.6 20 98.6 Physical Exam Physical Exam follow my commands by squeezing my hands, but not answer my questions General: Alert, Cooperative, No acute distress Heart: Regular rate, No murmurs, Other (radial pulse 2+) Lungs: Other (decrease bs b/l) Abdomen: Normal bowel sounds, Soft, No tenderness Extremities: No clubbing, No cyanosis Skin: No rashes, No significant lesion Labs LABS Laboratory Tests Test 06/10/17 11:08 06/10/17 16:37 06/10/17 20:40 06/11/17 04:00 Glucose (Fingerstick) 238 mg/dL (70-99) 180 mg/dL (70-99) 246 mg/dL (70-99) White Blood Count 8.3 x10^3/uL (4.0-11.0) Red Blood Count 2.78 x10^6/uL (3.50-5.40) Hemoglobin 8.8 g/dL (12.0-15.5) Hematocrit 26.9 % (36.0-47.0) Mean Corpuscular Volume 97 fL (79-100) Mean Corpuscular Hemoglobin 32 pg (25-35) Mean Corpuscular Hemoglobin Concent 33 g/dL (31-37) Red Cell Distribution Width 15.3 % (11.5-14.5) Platelet Count 164 x10^3/uL (140-400) Neutrophils (%) (Auto) 68 % (31-73) Lymphocytes (%) (Auto) 15 % (24-48) Monocytes (%) (Auto) 10 % (0-9) Eosinophils (%) (Auto) 6 % (0-3) Basophils (%) (Auto) 1 % (0-3) Neutrophils # (Auto) 5.7 x10^3uL (1.8-7.7) Lymphocytes # (Auto) 1.2 x10^3/uL (1.0-4.8) Monocytes # (Auto) 0.9 x10^3/uL (0.0-1.1) Eosinophils # (Auto) 0.5 x10^3/uL (0.0-0.7) Basophils # (Auto) 0.1 x10^3/uL (0.0-0.2) Sodium Level 143 mmol/L (136-145) Potassium Level 4.6 mmol/L (3.5-5.1) Chloride Level 107 mmol/L (98-107) Carbon Dioxide Level 31 mmol/L (21-32) Anion Gap 5 (6-14) Blood Urea Nitrogen 60 mg/dL (7-20) Creatinine 1.4 mg/dL (0.6-1.0) Estimated GFR (Cockcroft-Gault) 36.5 Glucose Level 168 mg/dL (70-99) Calcium Level 8.1 mg/dL (8.5-10.1) Phosphorus Level 3.1 mg/dL (2.6-4.7) Magnesium Level 1.8 mg/dL (1.8-2.4) Test 06/11/17 07:01 Glucose (Fingerstick) 158 mg/dL (70-99) Review of Systems Review of Systems pt smiles but not very responsive to verbal commands or questions, does nod a bit, no problems per nursing Assessment and Plan Assessmemt and Plan Assessment 1. Severe comminuted fracture of the R humerus, s/p R arm ORIF 2. HTN 3. HLP 4. COPD 5. Dementia 6. Falll risk 7. OA 8. DM type 2 9. Urinary incontinence 10. Depression 11. MADDY: obstructive 12. Altered mental status: possible encephalopathy Plan 1. S/p closed reduction and intramedullary nailing of right proximal humerus fracture on 06/06 2. Held lasix and cozaar 3. Wound care 4. PT/OT 5. Recheck labs and vital tomorrow 6. Cont home meds 7. ISS 8. Finished meropenem and zyvox per ID 9. Reviwed imaging: abd/pelv CT showed hydronephrosis and hydroureter 10. Soft diet with PPN per GI 11. Urine culture negative from 06/09 12. Probable discharge today to home with hospice Problems: Comment Review of Relevant I have reviewed the following items juan (where applicable) has been applied. Labs Laboratory Tests Test 06/09/17 12:30 06/09/17 16:47 06/09/17 21:00 06/10/17 04:40 Urine Collection Type Unknown Urine Color Yaneth Urine Clarity Turbid Urine pH 6.0 Urine Specific [place] 1.015 Urine Protein 100 mg/dL (NEG-TRACE) Urine Glucose (UA) Negative mg/dL (NEG) Urine Ketones (Stick) Trace mg/dL (NEG) Urine Blood Moderate (NEG) Urine Nitrite Negative (NEG) Urine Bilirubin Negative (NEG) Urine Urobilinogen Dipstick 0.2 mg/dL (0.2 mg/dL) Urine Leukocyte Esterase Large (NEG) Urine RBC Fobs /HPF (0-2) Urine WBC Tntc /HPF (0-4) Urine Bacteria Many /HPF (0-FEW) Glucose (Fingerstick) 251 mg/dL (70-99) 237 mg/dL (70-99) White Blood Count 9.8 x10^3/uL (4.0-11.0) Red Blood Count 2.79 x10^6/uL (3.50-5.40) Hemoglobin 8.9 g/dL (12.0-15.5) Hematocrit 26.5 % (36.0-47.0) Mean Corpuscular Volume 95 fL (79-100) Mean Corpuscular Hemoglobin 32 pg (25-35) Mean Corpuscular Hemoglobin Concent 34 g/dL (31-37) Red Cell Distribution Width 15.8 % (11.5-14.5) Platelet Count 151 x10^3/uL (140-400) Neutrophils (%) (Auto) 64 % (31-73) Lymphocytes (%) (Auto) 17 % (24-48) Monocytes (%) (Auto) 11 % (0-9) Eosinophils (%) (Auto) 8 % (0-3) Basophils (%) (Auto) 1 % (0-3) Neutrophils # (Auto) 6.2 x10^3uL (1.8-7.7) Lymphocytes # (Auto) 1.6 x10^3/uL (1.0-4.8) Monocytes # (Auto) 1.0 x10^3/uL (0.0-1.1) Eosinophils # (Auto) 0.7 x10^3/uL (0.0-0.7) Basophils # (Auto) 0.1 x10^3/uL (0.0-0.2) Sodium Level 137 mmol/L (136-145) Potassium Level 4.9 mmol/L (3.5-5.1) Chloride Level 103 mmol/L (98-107) Carbon Dioxide Level 28 mmol/L (21-32) Anion Gap 6 (6-14) Blood Urea Nitrogen 79 mg/dL (7-20) Creatinine 2.3 mg/dL (0.6-1.0) Estimated GFR (Cockcroft-Gault) 20.6 Glucose Level 168 mg/dL (70-99) Calcium Level 7.7 mg/dL (8.5-10.1) Test 06/10/17 07:00 06/10/17 11:08 06/10/17 16:37 06/10/17 20:40 Glucose (Fingerstick) 144 mg/dL (70-99) 238 mg/dL (70-99) 180 mg/dL (70-99) 246 mg/dL (70-99) Test 06/11/17 04:00 06/11/17 07:01 White Blood Count 8.3 x10^3/uL (4.0-11.0) Red Blood Count 2.78 x10^6/uL (3.50-5.40) Hemoglobin 8.8 g/dL (12.0-15.5) Hematocrit 26.9 % (36.0-47.0) Mean Corpuscular Volume 97 fL (79-100) Mean Corpuscular Hemoglobin 32 pg (25-35) Mean Corpuscular Hemoglobin Concent 33 g/dL (31-37) Red Cell Distribution Width 15.3 % (11.5-14.5) Platelet Count 164 x10^3/uL (140-400) Neutrophils (%) (Auto) 68 % (31-73) Lymphocytes (%) (Auto) 15 % (24-48) Monocytes (%) (Auto) 10 % (0-9) Eosinophils (%) (Auto) 6 % (0-3) Basophils (%) (Auto) 1 % (0-3) Neutrophils # (Auto) 5.7 x10^3uL (1.8-7.7) Lymphocytes # (Auto) 1.2 x10^3/uL (1.0-4.8) Monocytes # (Auto) 0.9 x10^3/uL (0.0-1.1) Eosinophils # (Auto) 0.5 x10^3/uL (0.0-0.7) Basophils # (Auto) 0.1 x10^3/uL (0.0-0.2) Sodium Level 143 mmol/L (136-145) Potassium Level 4.6 mmol/L (3.5-5.1) Chloride Level 107 mmol/L (98-107) Carbon Dioxide Level 31 mmol/L (21-32) Anion Gap 5 (6-14) Blood Urea Nitrogen 60 mg/dL (7-20) Creatinine 1.4 mg/dL (0.6-1.0) Estimated GFR (Cockcroft-Gault) 36.5 Glucose Level 168 mg/dL (70-99) Calcium Level 8.1 mg/dL (8.5-10.1) Phosphorus Level 3.1 mg/dL (2.6-4.7) Magnesium Level 1.8 mg/dL (1.8-2.4) Glucose (Fingerstick) 158 mg/dL (70-99) Laboratory Tests Test 06/10/17 11:08 06/10/17 16:37 06/10/17 20:40 06/11/17 04:00 Glucose (Fingerstick) 238 mg/dL (70-99) 180 mg/dL (70-99) 246 mg/dL (70-99) White Blood Count 8.3 x10^3/uL (4.0-11.0) Red Blood Count 2.78 x10^6/uL (3.50-5.40) Hemoglobin 8.8 g/dL (12.0-15.5) Hematocrit 26.9 % (36.0-47.0) Mean Corpuscular Volume 97 fL (79-100) Mean Corpuscular Hemoglobin 32 pg (25-35) Mean Corpuscular Hemoglobin Concent 33 g/dL (31-37) Red Cell Distribution Width 15.3 % (11.5-14.5) Platelet Count 164 x10^3/uL (140-400) Neutrophils (%) (Auto) 68 % (31-73) Lymphocytes (%) (Auto) 15 % (24-48) Monocytes (%) (Auto) 10 % (0-9) Eosinophils (%) (Auto) 6 % (0-3) Basophils (%) (Auto) 1 % (0-3) Neutrophils # (Auto) 5.7 x10^3uL (1.8-7.7) Lymphocytes # (Auto) 1.2 x10^3/uL (1.0-4.8) Monocytes # (Auto) 0.9 x10^3/uL (0.0-1.1) Eosinophils # (Auto) 0.5 x10^3/uL (0.0-0.7) Basophils # (Auto) 0.1 x10^3/uL (0.0-0.2) Sodium Level 143 mmol/L (136-145) Potassium Level 4.6 mmol/L (3.5-5.1) Chloride Level 107 mmol/L (98-107) Carbon Dioxide Level 31 mmol/L (21-32) Anion Gap 5 (6-14) Blood Urea Nitrogen 60 mg/dL (7-20) Creatinine 1.4 mg/dL (0.6-1.0) Estimated GFR (Cockcroft-Gault) 36.5 Glucose Level 168 mg/dL (70-99) Calcium Level 8.1 mg/dL (8.5-10.1) Phosphorus Level 3.1 mg/dL (2.6-4.7) Magnesium Level 1.8 mg/dL (1.8-2.4) Test 06/11/17 07:01 Glucose (Fingerstick) 158 mg/dL (70-99) Microbiology 06/08/17 Blood Culture - Preliminary, Resulted NO GROWTH AFTER 2 DAYS 06/09/17 Urine Culture - Preliminary, Resulted 06/09/17 Urine Culture Result 1 (DEJA) - Preliminary, Resulted Medications Current Medications Hydromorphone HCl (Dilaudid) 0.5 mg 1X ONCE IV Last administered on 06/04/17t 18:32; Start 06/04/17 at 18:30; Stop 06/04/17 at 18:31; Status DC Hydromorphone HCl (Dilaudid) 1 mg 1X ONCE IV Last administered on 06/04/17 19: 47; Start 06/04/17 at 19:45; Stop 06/04/17 at 19:46; Status DC Morphine Sulfate 2 mg PRN Q2HR PRN IV SEVERE PAIN Last administered on 20:42; Start 06/04/17 at 21:15; Stop 06/05/17 at 21:14; Status DC Aspirin (Children'S Aspirin) 81 mg DAILY PO Last administered on 06/11/17 09: 42; Start 06/05/17 at 09:00 Atorvastatin Calcium (Lipitor) 20 mg QHS PO Last administered on 06/10/17 21: 11; Start 06/05/17 at 21:00 Diltiazem HCl (Cardizem 24hr Cd) 240 mg DAILY PO Last administered on 09:41; Start 06/05/17 at 09:00 Docusate Sodium (Colace) 100 mg BID PO Last administered on 06/11/17 09:42; Start 06/05/17 at 09:00 Furosemide (Lasix) 40 mg DAILY PO Last administered on 06/08/17 08:04; Start 06/05/17 at 09:00; Stop 06/08/17 at 20:44; Status DC Levofloxacin (Levaquin) 500 mg DAILY PO ; Start 06/05/17 at 09:00; Status UNV Losartan Potassium (Cozaar) 50 mg DAILY PO Last administered on 06/08/17 08:06 ; Start 06/05/17 at 09:00; Stop 06/09/17 at 08:54; Status DC Mirtazapine (Remeron) 15 mg QHS PO Last administered on 06/10/17 21:11; Start 06/05/17 at 21:00 Pantoprazole Sodium (Protonix) 40 mg DAILYAC PO Last administered on 06/11/17 09:42; Start 06/05/17 at 07:30 Potassium Chloride (Klor-Con) 20 meq DAILY PO Last administered on 06/08/17 08 :04; Start 06/05/17 at 09:00; Stop 06/09/17 at 08:54; Status DC Sertraline HCl (Zoloft) 50 mg DAILY PO Last administered on 06/11/17 09:42; Start 06/05/17 at 09:00 Trazodone HCl (Desyrel) 50 mg QHS PO Last administered on 06/10/17 21:11; Start 06/05/17 at 21:00 Hydromorphone HCl (Dilaudid) 1 mg 1X ONCE IV Last administered on 06/04/17 22: 57; Start 06/04/17 at 23:00; Stop 06/04/17 at 23:01; Status DC Pneumococcal Polyvalent Vaccine (Do NOT chart on this placeholder) 1 each PRN DAILY PRN [facility] UNABLE TO RESPOND; Start 06/05/17 at 01:45; Status Cancel Clindamycin Phosphate 50 ml @ 100 mls/hr 1X ONCE IV Last administered on 08:44; Start 06/06/17 at 07:30; Stop 06/06/17 at 07:59; Status DC Albuterol Sulfate (Ventolin Neb Soln) 2.5 mg RTQID NEB Last administered on 11:00; Start 06/05/17 at 17:00 Albuterol Sulfate (Ventolin Neb Soln) 2.5 mg PRN Q2HR PRN NEB DYSPNEA Last administered on 06/06/17 10:48; Start 06/05/17 at 17:00 Ondansetron HCl (Zofran) 4 mg PRN Q6HRS PRN IV NAUSEA/VOMITING; Start 06/06/17 at 07:00; Stop 06/06/17 at 18:00; Status DC Fentanyl Citrate (Fentanyl 2ml Vial) 25 mcg PRN Q5MIN PRN IV MILD PAIN Last administered on 06/06/17 11:36; Start 06/06/17 at 07:00; Stop 06/06/17 at 18:00; Status DC Fentanyl Citrate (Fentanyl 2ml Vial) 50 mcg PRN Q5MIN PRN IV MODERATE PAIN; Start 06/06/17 at 07:00; Stop 06/06/17 at 18:00; Status DC Morphine Sulfate 1 mg PRN Q10MIN PRN IV SEVERE PAIN; Start 06/06/17 at 07:00; Stop 06/06/17 at 18:00; Status DC Ringer's Solution 1,000 ml @ 30 mls/hr Q24H IV ; Start 06/06/17 at 07:00; Stop 06/06/17 at 18:59; Status DC Lidocaine HCl 2 ml PRN 1X PRN ID PRIOR TO IV START; Start 06/06/17 at 07:00; Stop 06/06/17 at 18:00; Status DC Hydromorphone HCl (Dilaudid) 0.5 mg PRN Q10MIN PRN IV SEV PAIN, Second choice; Start 06/06/17 at 07:00; Stop 06/06/17 at 18:00; Status DC Prochlorperazine Edisylate (Compazine) 5 mg PACU PRN PRN IV NAUSEA, MRX1; Start 06/06/17 at 07:00; Stop 06/06/17 at 18:00; Status DC Morphine Sulfate 2 mg PRN Q2HR PRN IV MODERATE PAIN Last administered on 12:51; Start 06/05/17 at 21:30; Stop 06/07/17 at 13:21; Status DC Lidocaine HCl 30 ml STK-MED ONCE .ROUTE Last administered on 06/06/17 09:06; Start 06/06/17 at 07:31; Stop 06/06/17 at 07:32; Status DC Bupivacaine HCl (Sensorcaine Mpf 0.5%) 30 ml STK-MED ONCE .ROUTE Last administered on 06/06/17 09:06; Start 06/06/17 at 07:31; Stop 06/06/17 at 07:32; Status DC Dexamethasone Sodium Phosphate (Decadron) 20 mg STK-MED ONCE .ROUTE ; Start 06/06 at 07:54; Stop 06/06/17 at 07:55; Status DC Propofol 20 ml @ As Directed STK-MED ONCE IV ; Start 06/06/17 at 07:54; Stop 06/06 at 07:55; Status DC Midazolam HCl (Versed) 2 mg STK-MED ONCE .ROUTE ; Start 06/06/17 at 07:55; Stop 06/06/17 at 07:56; Status DC Fentanyl Citrate (Fentanyl 5ml Vial) 250 mcg STK-MED ONCE .ROUTE ; Start at 07:55; Stop 06/06/17 at 07:56; Status DC Rocuronium [place] (Zemuron) 100 mg STK-MED ONCE .ROUTE ; Start 06/06/17 at 07:55 ; Stop 06/06/17 at 07:56; Status DC Glycopyrrolate (Robinul) 1 mg STK-MED ONCE .ROUTE ; Start 06/06/17 at 10:04; Stop 06/06/17 at 10:05; Status DC Neostigmine Methylsulfate 5 mg STK-MED ONCE .ROUTE ; Start 06/06/17 at 10:04; Stop 06/06/17 at 10:05; Status DC Clindamycin Phosphate 50 ml @ 100 mls/hr Q8H IV Last administered on 06/06/17 23:53; Start 06/06/17 at 16:00; Stop 06/07/17 at 08:33; Status DC Insulin Aspart (NovoLOG VIAL) 6 unit 1X ONCE SQ Last administered on 06/06/17 11:53; Start 06/06/17 at 12:00; Stop 06/06/17 at 12:01; Status DC Insulin Detemir (Levemir) 24 units QHS SQ Last administered on 06/07/17 00:01; Start 06/06/17 at 21:00; Stop 06/07/17 at 15:56; Status DC Insulin Aspart (NovoLOG) 0-7 UNITS TIDWMEALS SQ Last administered on 06/11/17 09:46; Start 06/06/17 at 17:00 Dextrose (Dextrose 50%-Water Syringe) 12.5 gm PRN Q15MIN PRN IV SEE COMMENTS; Start 06/06/17 at 16:00 Cyclobenzaprine HCl (Flexeril) 10 mg PRN Q6HRS PRN PO MUSCLE SPASMS Last administered on 06/06/17 20:02; Start 06/06/17 at 19:45; Stop 06/09/17 at 15:23; Status DC Morphine Sulfate 4 mg PRN Q2HR PRN IV SEVERE PAIN Last administered on 16:18; Start 06/06/17 at 21:15; Stop 06/08/17 at 15:33; Status DC Lorazepam (Ativan) 1 mg PRN Q4HRS PRN IV ANXIETY / AGITATION; Start 06/06/17 at 23:15; Stop 06/08/17 at 15:33; Status DC Lorazepam (Ativan) 2 mg PRN Q4HRS PRN IV SEVERE ANXIETY / AGITATION; Start 06/06 at 23:15; Stop 06/08/17 at 15:33; Status DC Acetaminophen (Tylenol) 650 mg PRN Q6HRS PRN PO FEVER Last administered on 06/09 05:47; Start 06/06/17 at 23:30 Ibuprofen (Motrin) 400 mg 1X ONCE PO Last administered on 06/07/17 06:15; Start 06/07/17 at 05:00; Stop 06/07/17 at 05:01; Status DC Meropenem 500 mg/ Sodium Chloride 50 ml @ 100 mls/hr Q6HRS IV Last administered on 06/09/17 05:47; Start 06/07/17 at 09:00; Stop 06/09/17 at 07:38 ; Status DC Linezolid 300 ml @ 300 mls/hr Q12HR IV Last administered on 06/10/17 21:11; Start 06/07/17 at 09:00; Stop 06/11/17 at 07:35; Status DC Alprazolam (Xanax) 0.5 mg DAILY16 PO ; Start 06/07/17 at 16:00; Stop 06/07/17 at 16:00; Status DC Amino Acids/ Glycerin/ Electrolytes 1,000 ml @ 75 mls/hr [id number] IV Last administered on 06/10/17 19:45; Start 06/07/17 at 12:30 Insulin Detemir (Levemir) 40 units QHS SQ Last administered on 06/10/17 21:00 ; Start 06/07/17 at 21:00 Alprazolam (Xanax) 0.5 mg QHS PO Last administered on 06/09/17 21:03; Start at 21:00; Stop 06/10/17 at 13:53; Status DC Morphine Sulfate 1 mg PRN Q2HR PRN IV SEVERE PAIN Last administered on 22:01; Start 06/08/17 at 15:30 Furosemide (Lasix) 20 mg 1X ONCE IVP Last administered on 06/08/17 18:09; Start 06/08/17 at 15:45; Stop 06/08/17 at 15:46; Status DC Meropenem 500 mg/ Sodium Chloride 50 ml @ 100 mls/hr Q8HRS IV Last administered on 06/11/17 05:54; Start 06/09/17 at 14:00; Stop 06/11/17 at 07:35 ; Status DC Alprazolam (Xanax) 0.25 mg PRN QHS PRN PO ANXIETY / AGITATION Last administered on 06/10/17 21:11; Start 06/10/17 at 14:00 Active Scripts Active Reported Zoloft (Sertraline Hcl) 50 Mg Tablet 1 Tab PO TID Potassium Chloride 10 Meq Capsule.er 10 Meq PO DAILY Percocet 10-325 Mg Tablet (Oxycodone/Acetaminophen) 1 Each Tablet 1 Tab PO Q4HRS PRN Losartan Potassium 100 Mg Tablet 100 Mg PO DAILY Lipitor (Atorvastatin Calcium) 20 Mg Tablet 1 Tab PO QHS Humalog (Insulin Lispro) 100 Unit/1 Ml Cartridge 10 Unit SQ TIDWMEALS Promethazine Hcl 25 Mg Tablet 1 Tab PO PRN Q4HRS PRN Haloperidol 0.5 Mg Tablet 0.5 Mg PO Q4HRS PRN Diazepam 5 Mg Tablet 5 Mg PO QID Alprazolam 0.5 Mg Tablet 1 Tab PO QHS Alprazolam 0.25 Mg Tablet 1 Tab PO BID PRN Levofloxacin 500 Mg Tablet 1 Tab PO DAILY Vitamin E (Vitamin E (Dl,Tocopheryl Acet)) 100 Unit Capsule 400 Unit PO Symbicort 160-4.5 Mcg Inhaler (Budesonide/Formoterol Fumarate) 10.2 Gm Hfa.aer.ad 2 Puff IH BID Risperidone 0.5 Mg Tablet 1 Tab PO BID Multivitamins (Multivitamin) 1 Each Tablet 1 Tab PO DAILY Remeron (Mirtazapine) 15 Mg Tablet 1 Tab PO QHS Lantus Solostar (Insulin Glargine,Hum.rec.anlog) 100 Unit/1 Ml Insuln.pen 40 Unit SQ QHS Gabapentin 300 Mg Capsule 300 Mg PO TID Furosemide 40 Mg Tablet 1 Tab PO DAILY Flonase Allergy Relief (Fluticasone Propionate) 9.9 Ml [place].susp 2 Sprays NS DAILY Colace (Docusate Sodium) 100 Mg Capsule 1 Cap PO BID Cartia Xt (Diltiazem Hcl) 240 Mg Cap.er.24h 240 Mg PO Aspirin 81 Mg Tab.chew 1 Tab PO DAILY Proair Hfa Inhaler (Albuterol Sulfate) 8.5 Gm Hfa.aer.ad 1 Puff INH PRN Q6HRS PRN Atorvastatin Calcium 20 Mg Tablet 1 Tab PO DAILY Trazodone Hcl 50 Mg Tablet 1 Tab PO QHS Pantoprazole Sodium 40 Mg Tablet.dr 1 Tab PO DAILY Vitals/I & O Vital Sign - Last 24 Hours 06/10/17 06/10/17 06/10/17 06/10/17 11:20 14:43 15:00 15:13 Temp 98.9 98.9 Pulse 76 Resp 22 20 B/P (MAP) 118/40 (66) Pulse Ox 97 100 O2 Delivery Nasal Cannula Nasal Cannula Nasal Cannula O2 Flow Rate 3.0 3.0 3.0 3.0 06/10/17 06/10/17 06/10/17 06/10/17 16:59 19:05 19:40 19:40 Temp 98.1 98.1 Pulse 83 Resp 16 B/P (MAP) 133/47 (75) Pulse Ox 100 98 98 O2 Delivery Nasal Cannula Nasal Cannula Room Air Nasal Cannula O2 Flow Rate 3.0 3.0 3.0 06/10/17 06/10/17 06/10/17 06/11/17 22:01 22:31 23:29 03:00 Temp 97.9 98.7 97.9 98.7 Pulse 86 86 Resp 20 20 18 18 B/P (MAP) 146/53 (84) 157/60 (92) Pulse Ox 91 91 O2 Delivery Room Air Room Air Room Air Room Air 06/11/17 06/11/17 06/11/17 07:00 07:11 09:41 Temp 98.6 98.6 Pulse 93 93 Resp 20 B/P (MAP) 144/63 (90) 144/63 Pulse Ox 97 95 O2 Delivery Nasal Cannula Nasal Cannula O2 Flow Rate 3.0 3.0 Intake and Output 06/10/17 06/10/17 06/11/17 15:00 23:00 07:00 Intake Total 1600 ml Output Total 1800 ml 1250 ml Balance -1800 ml 350 ml ABDULAZIZ KELSEY III DO Jun 11, 2017 11:08
--- NOTE | 2017-06-11 11:22 | PDOC ---
PULMONARY PROGRESS NOTES Subjective FULLY AWAKE, NO SOA Vitals Vital Signs Date Time Temp Pulse Resp B/P (MAP) Pulse Ox O2 Delivery O2 Flow Rate FiO2 06/11/17 11:05 Nasal Cannula 3.0 06/11/17 09:41 93 144/63 06/11/17 07:11 95 06/11/17 07:00 98.6 20 98.6 General: Alert, No acute distress Lungs: Other (decrease bs b/l) Cardiovascular: S1, S2 Abdomen: Soft Neuro Exam: Alert Extremities: Other (mild edema) Skin: Warm Labs Laboratory Tests Test 06/09/17 12:30 06/09/17 16:47 06/09/17 21:00 06/10/17 04:40 Urine Collection Type Unknown Urine Color Yaneth Urine Clarity Turbid Urine pH 6.0 Urine Specific [place] 1.015 Urine Protein 100 mg/dL (NEG-TRACE) Urine Glucose (UA) Negative mg/dL (NEG) Urine Ketones (Stick) Trace mg/dL (NEG) Urine Blood Moderate (NEG) Urine Nitrite Negative (NEG) Urine Bilirubin Negative (NEG) Urine Urobilinogen Dipstick 0.2 mg/dL (0.2 mg/dL) Urine Leukocyte Esterase Large (NEG) Urine RBC Fobs /HPF (0-2) Urine WBC Tntc /HPF (0-4) Urine Bacteria Many /HPF (0-FEW) Glucose (Fingerstick) 251 mg/dL (70-99) 237 mg/dL (70-99) White Blood Count 9.8 x10^3/uL (4.0-11.0) Red Blood Count 2.79 x10^6/uL (3.50-5.40) Hemoglobin 8.9 g/dL (12.0-15.5) Hematocrit 26.5 % (36.0-47.0) Mean Corpuscular Volume 95 fL (79-100) Mean Corpuscular Hemoglobin 32 pg (25-35) Mean Corpuscular Hemoglobin Concent 34 g/dL (31-37) Red Cell Distribution Width 15.8 % (11.5-14.5) Platelet Count 151 x10^3/uL (140-400) Neutrophils (%) (Auto) 64 % (31-73) Lymphocytes (%) (Auto) 17 % (24-48) Monocytes (%) (Auto) 11 % (0-9) Eosinophils (%) (Auto) 8 % (0-3) Basophils (%) (Auto) 1 % (0-3) Neutrophils # (Auto) 6.2 x10^3uL (1.8-7.7) Lymphocytes # (Auto) 1.6 x10^3/uL (1.0-4.8) Monocytes # (Auto) 1.0 x10^3/uL (0.0-1.1) Eosinophils # (Auto) 0.7 x10^3/uL (0.0-0.7) Basophils # (Auto) 0.1 x10^3/uL (0.0-0.2) Sodium Level 137 mmol/L (136-145) Potassium Level 4.9 mmol/L (3.5-5.1) Chloride Level 103 mmol/L (98-107) Carbon Dioxide Level 28 mmol/L (21-32) Anion Gap 6 (6-14) Blood Urea Nitrogen 79 mg/dL (7-20) Creatinine 2.3 mg/dL (0.6-1.0) Estimated GFR (Cockcroft-Gault) 20.6 Glucose Level 168 mg/dL (70-99) Calcium Level 7.7 mg/dL (8.5-10.1) Test 06/10/17 07:00 06/10/17 11:08 06/10/17 16:37 06/10/17 20:40 Glucose (Fingerstick) 144 mg/dL (70-99) 238 mg/dL (70-99) 180 mg/dL (70-99) 246 mg/dL (70-99) Test 06/11/17 04:00 06/11/17 07:01 White Blood Count 8.3 x10^3/uL (4.0-11.0) Red Blood Count 2.78 x10^6/uL (3.50-5.40) Hemoglobin 8.8 g/dL (12.0-15.5) Hematocrit 26.9 % (36.0-47.0) Mean Corpuscular Volume 97 fL (79-100) Mean Corpuscular Hemoglobin 32 pg (25-35) Mean Corpuscular Hemoglobin Concent 33 g/dL (31-37) Red Cell Distribution Width 15.3 % (11.5-14.5) Platelet Count 164 x10^3/uL (140-400) Neutrophils (%) (Auto) 68 % (31-73) Lymphocytes (%) (Auto) 15 % (24-48) Monocytes (%) (Auto) 10 % (0-9) Eosinophils (%) (Auto) 6 % (0-3) Basophils (%) (Auto) 1 % (0-3) Neutrophils # (Auto) 5.7 x10^3uL (1.8-7.7) Lymphocytes # (Auto) 1.2 x10^3/uL (1.0-4.8) Monocytes # (Auto) 0.9 x10^3/uL (0.0-1.1) Eosinophils # (Auto) 0.5 x10^3/uL (0.0-0.7) Basophils # (Auto) 0.1 x10^3/uL (0.0-0.2) Sodium Level 143 mmol/L (136-145) Potassium Level 4.6 mmol/L (3.5-5.1) Chloride Level 107 mmol/L (98-107) Carbon Dioxide Level 31 mmol/L (21-32) Anion Gap 5 (6-14) Blood Urea Nitrogen 60 mg/dL (7-20) Creatinine 1.4 mg/dL (0.6-1.0) Estimated GFR (Cockcroft-Gault) 36.5 Glucose Level 168 mg/dL (70-99) Calcium Level 8.1 mg/dL (8.5-10.1) Phosphorus Level 3.1 mg/dL (2.6-4.7) Magnesium Level 1.8 mg/dL (1.8-2.4) Glucose (Fingerstick) 158 mg/dL (70-99) Laboratory Tests Test 06/10/17 16:37 06/10/17 20:40 06/11/17 04:00 06/11/17 07:01 Glucose (Fingerstick) 180 mg/dL (70-99) 246 mg/dL (70-99) 158 mg/dL (70-99) White Blood Count 8.3 x10^3/uL (4.0-11.0) Red Blood Count 2.78 x10^6/uL (3.50-5.40) Hemoglobin 8.8 g/dL (12.0-15.5) Hematocrit 26.9 % (36.0-47.0) Mean Corpuscular Volume 97 fL (79-100) Mean Corpuscular Hemoglobin 32 pg (25-35) Mean Corpuscular Hemoglobin Concent 33 g/dL (31-37) Red Cell Distribution Width 15.3 % (11.5-14.5) Platelet Count 164 x10^3/uL (140-400) Neutrophils (%) (Auto) 68 % (31-73) Lymphocytes (%) (Auto) 15 % (24-48) Monocytes (%) (Auto) 10 % (0-9) Eosinophils (%) (Auto) 6 % (0-3) Basophils (%) (Auto) 1 % (0-3) Neutrophils # (Auto) 5.7 x10^3uL (1.8-7.7) Lymphocytes # (Auto) 1.2 x10^3/uL (1.0-4.8) Monocytes # (Auto) 0.9 x10^3/uL (0.0-1.1) Eosinophils # (Auto) 0.5 x10^3/uL (0.0-0.7) Basophils # (Auto) 0.1 x10^3/uL (0.0-0.2) Sodium Level 143 mmol/L (136-145) Potassium Level 4.6 mmol/L (3.5-5.1) Chloride Level 107 mmol/L (98-107) Carbon Dioxide Level 31 mmol/L (21-32) Anion Gap 5 (6-14) Blood Urea Nitrogen 60 mg/dL (7-20) Creatinine 1.4 mg/dL (0.6-1.0) Estimated GFR (Cockcroft-Gault) 36.5 Glucose Level 168 mg/dL (70-99) Calcium Level 8.1 mg/dL (8.5-10.1) Phosphorus Level 3.1 mg/dL (2.6-4.7) Magnesium Level 1.8 mg/dL (1.8-2.4) Medications Active Scripts Medications Dose Route/Sig Max Daily Dose Days Date Category Levofloxacin 500 Mg Tablet 1 Tab PO DAILY 01/05/17 Reported Vitamin E (Vitamin E (Dl,Tocopheryl Acet)) 100 Unit Capsule 400 Unit PO 09/10/16 Reported Symbicort 160-4.5 Mcg Inhaler (Budesonide/Formoterol Fumarate) 10.2 Gm Hfa.aer.ad 2 Puff IH BID 09/10/16 Reported Risperidone 0.5 Mg Tablet 1 Tab PO BID 09/10/16 Reported Potassium Chloride 10 Meq Tablet.er 20 Meq PO DAILY 09/10/16 Reported Multivitamins (Multivitamin) 1 Each Tablet 1 Tab PO DAILY 09/10/16 Reported Remeron (Mirtazapine) 15 Mg Tablet 1 Tab PO QHS 09/10/16 Reported Lantus Solostar (Insulin Glargine,Hum.rec.anlog) 100 Unit/1 Ml Insuln.pen 40 Unit SQ QHS 09/10/16 Reported Gabapentin 300 Mg Capsule 300 Mg PO TID 09/10/16 Reported Furosemide 40 Mg Tablet 1 Tab PO DAILY 09/10/16 Reported Flonase Allergy Relief (Fluticasone Propionate) 9.9 Ml [place].susp 2 Sprays NS DAILY 09/10/16 Reported Colace (Docusate Sodium) 100 Mg Capsule 1 Cap PO BID 09/10/16 Reported Cartia Xt (Diltiazem Hcl) 240 Mg Cap.er.24h 240 Mg PO 09/10/16 Reported Aspirin 81 Mg Tab.chew 1 Tab PO DAILY 09/10/16 Reported Proair Hfa Inhaler (Albuterol Sulfate) 8.5 Gm Hfa.aer.ad 1 Puff INH PRN Q6HRS PRN 09/10/16 Reported Atorvastatin Calcium 20 Mg Tablet 1 Tab PO DAILY 09/10/16 Reported Trazodone Hcl 50 Mg Tablet 1 Tab PO QHS 09/10/16 Reported Pantoprazole Sodium 40 Mg Tablet.dr 1 Tab PO DAILY 09/10/16 Reported Sertraline Hcl 50 Mg Tablet 50 Mg PO DAILY 09/10/16 Reported Losartan Potassium 50 Mg Tablet 50 Mg PO DAILY 09/10/16 Reported Comments CXR 06/09 improving LLL mild atelectasis Impression . HIGH FEVERS,IMPROVING. 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 RESP STATUS IS COMPENSATED ON 3 LITRES FOLLOW ID RECOMMENDATIONS CHECK ALL CULTURES RENAL RECOMMENDATIONS PAIN MANAGEMENT AGGRESSIVE PULMONARY HYGIENE IS NEBS CLINICALLY IMPROVING DARÍO HI MD Jun 11, 2017 11:21
--- NOTE | 2017-06-11 12:09 | PDOC ---
Renal-Progress Notes Subjective Notes Notes CONFUSED History of Present Illness Hx of present illness BETTER Vitals Vitals Vital Signs Date Time Temp Pulse Resp B/P (MAP) Pulse Ox O2 Delivery O2 Flow Rate FiO2 06/11/17 11:05 Nasal Cannula 3.0 06/11/17 09:41 93 144/63 06/11/17 07:11 95 06/11/17 07:00 98.6 20 98.6 Weight Weight [ ] I.O. Intake and Output Intake and Output 06/11/17 07:00 Intake Total 1600 ml Output Total 3050 ml Balance -1450 ml Intake Oral 100 ml IV Total 450 ml Other 1050 ml Output Urine Total 3050 ml # Bowel Movements 1 Labs Labs Laboratory Tests Test 06/10/17 16:37 06/10/17 20:40 06/11/17 04:00 06/11/17 07:01 Glucose (Fingerstick) 180 mg/dL (70-99) 246 mg/dL (70-99) 158 mg/dL (70-99) White Blood Count 8.3 x10^3/uL (4.0-11.0) Red Blood Count 2.78 x10^6/uL (3.50-5.40) Hemoglobin 8.8 g/dL (12.0-15.5) Hematocrit 26.9 % (36.0-47.0) Mean Corpuscular Volume 97 fL (79-100) Mean Corpuscular Hemoglobin 32 pg (25-35) Mean Corpuscular Hemoglobin Concent 33 g/dL (31-37) Red Cell Distribution Width 15.3 % (11.5-14.5) Platelet Count 164 x10^3/uL (140-400) Neutrophils (%) (Auto) 68 % (31-73) Lymphocytes (%) (Auto) 15 % (24-48) Monocytes (%) (Auto) 10 % (0-9) Eosinophils (%) (Auto) 6 % (0-3) Basophils (%) (Auto) 1 % (0-3) Neutrophils # (Auto) 5.7 x10^3uL (1.8-7.7) Lymphocytes # (Auto) 1.2 x10^3/uL (1.0-4.8) Monocytes # (Auto) 0.9 x10^3/uL (0.0-1.1) Eosinophils # (Auto) 0.5 x10^3/uL (0.0-0.7) Basophils # (Auto) 0.1 x10^3/uL (0.0-0.2) Sodium Level 143 mmol/L (136-145) Potassium Level 4.6 mmol/L (3.5-5.1) Chloride Level 107 mmol/L (98-107) Carbon Dioxide Level 31 mmol/L (21-32) Anion Gap 5 (6-14) Blood Urea Nitrogen 60 mg/dL (7-20) Creatinine 1.4 mg/dL (0.6-1.0) Estimated GFR (Cockcroft-Gault) 36.5 Glucose Level 168 mg/dL (70-99) Calcium Level 8.1 mg/dL (8.5-10.1) Phosphorus Level 3.1 mg/dL (2.6-4.7) Magnesium Level 1.8 mg/dL (1.8-2.4) Test 06/11/17 11:09 Glucose (Fingerstick) 171 mg/dL (70-99) Micro Micro Microbiology 06/08/17 Blood Culture - Preliminary, Resulted NO GROWTH AFTER 3 DAYS 06/09/17 Urine Culture - Preliminary, Resulted 06/09/17 Urine Culture Result 1 (DEJA) - Preliminary, Resulted Review of Systems Constitutional: yes: no symptom reported Physical Exam General Appearance: no apparent distress Skin: warm Respiratory: decreased breath sounds Heart: S1S2, RRR Abdomen: soft, bowel sounds present Genitourinary: bladder flat Extremities: pulses present Neurology: confused Assessment Assessment IMP ENCEPHALOPATHY DEMENTIA UTI URINARY RETENTION-MORE THAN ONE LITER OUT WITH GUTIÉRREZ MADDY DUE TO ABOVE-CR BETTER AT 1.4 LEUCOCYTOSIS S/P REPAIR OF RIGHT HUMERUS FX PLAN PPN CONT GUTIÉRREZ [facility] IN [facility] BROUSSARD MD Jun 11, 2017 12:09
[2017-06-11 15:00] VITALS: BP 155/61
--- NOTE | 2017-06-11 15:13 | CARD ---
APPROVED REPORT EXAM: LIMITED Two-dimensional and M-mode echocardiogram. Other Information Quality : GoodHR: 79bpm Rhythm : NSR INDICATION SOA 2D DIMENSIONS IVSd1.0 (0.7-1.1cm)LVDd4.4 (3.9-5.9cm) PWd1.0 (0.7-1.1cm)LVDs2.8 (2.5-4.0cm) FS (%) 36.8 %SV59.9 ml LVEF(%)66.8 (>50%) LEFT VENTRICLE Limited echo for left ventricular ejection fraction. The left ventricle is normal size. There is norm al left ventricular wall thickness. The left ventricular systolic function is normal and the ejection fraction is within normal range. The Ejection Fraction is 60-65%. There is normal LV segmental wall motion. Limited echo, the cardiac valves were not assessed. Please see recent echocardiographic repor t from 01/25/2017 for comparison/ valvular details. There is no evidence of significant pericardial ef fusion. RIGHT VENTRICLE The right ventricle is normal size. There is normal right ventricular wall thickness. The right ventr icular systolic function is normal. Critical Notification Critical Value: No <Conclusion> Limited echo for left ventricular ejection fraction. The left ventricle is normal size. The left ventricular systolic function is normal and the ejection fraction is within normal range. The Ejection Fraction is 60-65%.
[2017-06-11] MEDS: MORPHINE SULFATE 4 MG/ML DISP.SYRIN. IV PRN (18:06)
[2017-06-11] MEDS: AMINO AC 3%/ELECTROLYTE/GLYCER 1,000 ML IV SCH (18:21)
[2017-06-11 19:00] VITALS: BP 162/63
[2017-06-11] MEDS: traZODone 50 MG TABLET. PO SCH (21:16)
[2017-06-11] MEDS: ATORVASTATIN CALCIUM 20 MG TABLET PO SCH (21:16)
[2017-06-11] MEDS: MIRTAZAPINE 15 MG TABLET PO SCH (21:16)
[2017-06-11] MEDS: ALPRAZolam 0.25 MG TABLET PO PRN (21:17)
[2017-06-11] MEDS: INSULIN DETEMIR 300 UNITS/3 ML INSULN.PEN. SQ SCH (21:20)
[2017-06-11 23:00] VITALS: BP 169/68
[2017-06-12 03:00] VITALS: BP 174/57
[2017-06-12] MEDS: AMINO AC 3%/ELECTROLYTE/GLYCER 1,000 ML IV SCH (05:37)
[2017-06-12] MEDS: PANTOPRAZOLE 40 MG TABLET.DR. PO SCH (05:37)
[2017-06-12] MEDS: ALBUTEROL SULFATE 2.5 MG/3 ML NEBU. NEB SCH ×3 (06:57→14:56)
[2017-06-12 07:00] VITALS: BP 148/63
[2017-06-12 07:17] LABS: CALCIUM 8.5 mg/dL (8.5-10.1); CREATININE 0.8 mg/dL (0.6-1.0); GFR 69.6; POTASSIUM 4.7 mmol/L (3.5-5.1)
[2017-06-12] MEDS: INSULIN ASPART 300 UNITS/3 ML INSULN.PEN SQ SCH ×3 (08:00→17:00)
--- NOTE | 2017-06-12 09:15 | PDOC ---
ORTHO PROGRESS NOTES Subjective She is drowsy, she is resting, she does respond to some questions. Vitals Vital Signs Date Time Temp Pulse Resp B/P (MAP) Pulse Ox O2 Delivery O2 Flow Rate FiO2 06/12/17 07:00 99.7 76 20 148/63 (91) 97 Nasal Cannula 3.0 99.7 Labs Laboratory Tests Test 06/10/17 11:08 06/10/17 16:37 06/10/17 20:40 06/11/17 04:00 Glucose (Fingerstick) 238 mg/dL (70-99) 180 mg/dL (70-99) 246 mg/dL (70-99) White Blood Count 8.3 x10^3/uL (4.0-11.0) Red Blood Count 2.78 x10^6/uL (3.50-5.40) Hemoglobin 8.8 g/dL (12.0-15.5) Hematocrit 26.9 % (36.0-47.0) Mean Corpuscular Volume 97 fL (79-100) Mean Corpuscular Hemoglobin 32 pg (25-35) Mean Corpuscular Hemoglobin Concent 33 g/dL (31-37) Red Cell Distribution Width 15.3 % (11.5-14.5) Platelet Count 164 x10^3/uL (140-400) Neutrophils (%) (Auto) 68 % (31-73) Lymphocytes (%) (Auto) 15 % (24-48) Monocytes (%) (Auto) 10 % (0-9) Eosinophils (%) (Auto) 6 % (0-3) Basophils (%) (Auto) 1 % (0-3) Neutrophils # (Auto) 5.7 x10^3uL (1.8-7.7) Lymphocytes # (Auto) 1.2 x10^3/uL (1.0-4.8) Monocytes # (Auto) 0.9 x10^3/uL (0.0-1.1) Eosinophils # (Auto) 0.5 x10^3/uL (0.0-0.7) Basophils # (Auto) 0.1 x10^3/uL (0.0-0.2) Sodium Level 143 mmol/L (136-145) Potassium Level 4.6 mmol/L (3.5-5.1) Chloride Level 107 mmol/L (98-107) Carbon Dioxide Level 31 mmol/L (21-32) Anion Gap 5 (6-14) Blood Urea Nitrogen 60 mg/dL (7-20) Creatinine 1.4 mg/dL (0.6-1.0) Estimated GFR (Cockcroft-Gault) 36.5 Glucose Level 168 mg/dL (70-99) Calcium Level 8.1 mg/dL (8.5-10.1) Phosphorus Level 3.1 mg/dL (2.6-4.7) Magnesium Level 1.8 mg/dL (1.8-2.4) Test 06/11/17 07:01 06/11/17 11:09 06/11/17 16:13 06/11/17 20:50 Glucose (Fingerstick) 158 mg/dL (70-99) 171 mg/dL (70-99) 175 mg/dL (70-99) 169 mg/dL (70-99) Test 06/12/17 05:50 06/12/17 07:19 White Blood Count 9.9 x10^3/uL (4.0-11.0) Red Blood Count 3.00 x10^6/uL (3.50-5.40) Hemoglobin 9.6 g/dL (12.0-15.5) Hematocrit 28.6 % (36.0-47.0) Mean Corpuscular Volume 95 fL (79-100) Mean Corpuscular Hemoglobin 32 pg (25-35) Mean Corpuscular Hemoglobin Concent 34 g/dL (31-37) Red Cell Distribution Width 15.7 % (11.5-14.5) Platelet Count 132 x10^3/uL (140-400) Neutrophils (%) (Auto) 67 % (31-73) Lymphocytes (%) (Auto) 18 % (24-48) Monocytes (%) (Auto) 9 % (0-9) Eosinophils (%) (Auto) 5 % (0-3) Basophils (%) (Auto) 1 % (0-3) Neutrophils # (Auto) 6.6 x10^3uL (1.8-7.7) Lymphocytes # (Auto) 1.8 x10^3/uL (1.0-4.8) Monocytes # (Auto) 0.9 x10^3/uL (0.0-1.1) Eosinophils # (Auto) 0.5 x10^3/uL (0.0-0.7) Basophils # (Auto) 0.1 x10^3/uL (0.0-0.2) Sodium Level 142 mmol/L (136-145) Potassium Level 4.7 mmol/L (3.5-5.1) Chloride Level 106 mmol/L (98-107) Carbon Dioxide Level 28 mmol/L (21-32) Anion Gap 8 (6-14) Blood Urea Nitrogen 37 mg/dL (7-20) Creatinine 0.8 mg/dL (0.6-1.0) Estimated GFR (Cockcroft-Gault) 69.6 Glucose Level 84 mg/dL (70-99) Calcium Level 8.5 mg/dL (8.5-10.1) Glucose (Fingerstick) 106 mg/dL (70-99) Laboratory Tests Test 06/11/17 11:09 06/11/17 16:13 06/11/17 20:50 06/12/17 05:50 Glucose (Fingerstick) 171 mg/dL (70-99) 175 mg/dL (70-99) 169 mg/dL (70-99) White Blood Count 9.9 x10^3/uL (4.0-11.0) Red Blood Count 3.00 x10^6/uL (3.50-5.40) Hemoglobin 9.6 g/dL (12.0-15.5) Hematocrit 28.6 % (36.0-47.0) Mean Corpuscular Volume 95 fL (79-100) Mean Corpuscular Hemoglobin 32 pg (25-35) Mean Corpuscular Hemoglobin Concent 34 g/dL (31-37) Red Cell Distribution Width 15.7 % (11.5-14.5) Platelet Count 132 x10^3/uL (140-400) Neutrophils (%) (Auto) 67 % (31-73) Lymphocytes (%) (Auto) 18 % (24-48) Monocytes (%) (Auto) 9 % (0-9) Eosinophils (%) (Auto) 5 % (0-3) Basophils (%) (Auto) 1 % (0-3) Neutrophils # (Auto) 6.6 x10^3uL (1.8-7.7) Lymphocytes # (Auto) 1.8 x10^3/uL (1.0-4.8) Monocytes # (Auto) 0.9 x10^3/uL (0.0-1.1) Eosinophils # (Auto) 0.5 x10^3/uL (0.0-0.7) Basophils # (Auto) 0.1 x10^3/uL (0.0-0.2) Sodium Level 142 mmol/L (136-145) Potassium Level 4.7 mmol/L (3.5-5.1) Chloride Level 106 mmol/L (98-107) Carbon Dioxide Level 28 mmol/L (21-32) Anion Gap 8 (6-14) Blood Urea Nitrogen 37 mg/dL (7-20) Creatinine 0.8 mg/dL (0.6-1.0) Estimated GFR (Cockcroft-Gault) 69.6 Glucose Level 84 mg/dL (70-99) Calcium Level 8.5 mg/dL (8.5-10.1) Test 06/12/17 07:19 Glucose (Fingerstick) 106 mg/dL (70-99) Notes She is resting, she has responded voice. She does not follow commands. Her incisions appear clean and dry. She has edema and ecchymosis around her arm, expected Assessment and Plan Nonweightbearing right upper extremity. She should continue the sling. Okay for active wrist and elbow range of motion. Okay for pendulums and passive range of motion at shoulder. Okay to transfer per primary. She should follow up in 2 weeks FOUZIA MCDOWELL II, MD Jun 12, 2017 09:15
--- NOTE | 2017-06-12 10:15 | PDOC ---
PULMONARY PROGRESS NOTES Subjective FULLY AWAKE, NO SOA Vitals Vital Signs Date Time Temp Pulse Resp B/P (MAP) Pulse Ox O2 Delivery O2 Flow Rate FiO2 06/12/17 07:00 99.7 76 20 148/63 (91) 97 Nasal Cannula 3.0 99.7 General: Alert, No acute distress Lungs: Other (decrease bs b/l) Cardiovascular: S1, S2 Abdomen: Soft Neuro Exam: Alert Extremities: Other (mild edema) Skin: Warm Labs Laboratory Tests Test 06/10/17 11:08 06/10/17 16:37 06/10/17 20:40 06/11/17 04:00 Glucose (Fingerstick) 238 mg/dL (70-99) 180 mg/dL (70-99) 246 mg/dL (70-99) White Blood Count 8.3 x10^3/uL (4.0-11.0) Red Blood Count 2.78 x10^6/uL (3.50-5.40) Hemoglobin 8.8 g/dL (12.0-15.5) Hematocrit 26.9 % (36.0-47.0) Mean Corpuscular Volume 97 fL (79-100) Mean Corpuscular Hemoglobin 32 pg (25-35) Mean Corpuscular Hemoglobin Concent 33 g/dL (31-37) Red Cell Distribution Width 15.3 % (11.5-14.5) Platelet Count 164 x10^3/uL (140-400) Neutrophils (%) (Auto) 68 % (31-73) Lymphocytes (%) (Auto) 15 % (24-48) Monocytes (%) (Auto) 10 % (0-9) Eosinophils (%) (Auto) 6 % (0-3) Basophils (%) (Auto) 1 % (0-3) Neutrophils # (Auto) 5.7 x10^3uL (1.8-7.7) Lymphocytes # (Auto) 1.2 x10^3/uL (1.0-4.8) Monocytes # (Auto) 0.9 x10^3/uL (0.0-1.1) Eosinophils # (Auto) 0.5 x10^3/uL (0.0-0.7) Basophils # (Auto) 0.1 x10^3/uL (0.0-0.2) Sodium Level 143 mmol/L (136-145) Potassium Level 4.6 mmol/L (3.5-5.1) Chloride Level 107 mmol/L (98-107) Carbon Dioxide Level 31 mmol/L (21-32) Anion Gap 5 (6-14) Blood Urea Nitrogen 60 mg/dL (7-20) Creatinine 1.4 mg/dL (0.6-1.0) Estimated GFR (Cockcroft-Gault) 36.5 Glucose Level 168 mg/dL (70-99) Calcium Level 8.1 mg/dL (8.5-10.1) Phosphorus Level 3.1 mg/dL (2.6-4.7) Magnesium Level 1.8 mg/dL (1.8-2.4) Test 06/11/17 07:01 06/11/17 11:09 06/11/17 16:13 06/11/17 20:50 Glucose (Fingerstick) 158 mg/dL (70-99) 171 mg/dL (70-99) 175 mg/dL (70-99) 169 mg/dL (70-99) Test 06/12/17 05:50 06/12/17 07:19 Sodium Level 142 mmol/L (136-145) Potassium Level 4.7 mmol/L (3.5-5.1) Chloride Level 106 mmol/L (98-107) Carbon Dioxide Level 28 mmol/L (21-32) Anion Gap 8 (6-14) Blood Urea Nitrogen 37 mg/dL (7-20) Creatinine 0.8 mg/dL (0.6-1.0) Estimated GFR (Cockcroft-Gault) 69.6 Glucose Level 84 mg/dL (70-99) Calcium Level 8.5 mg/dL (8.5-10.1) Glucose (Fingerstick) 106 mg/dL (70-99) Laboratory Tests Test 06/11/17 11:09 06/11/17 16:13 06/11/17 20:50 06/12/17 05:50 Glucose (Fingerstick) 171 mg/dL (70-99) 175 mg/dL (70-99) 169 mg/dL (70-99) Sodium Level 142 mmol/L (136-145) Potassium Level 4.7 mmol/L (3.5-5.1) Chloride Level 106 mmol/L (98-107) Carbon Dioxide Level 28 mmol/L (21-32) Anion Gap 8 (6-14) Blood Urea Nitrogen 37 mg/dL (7-20) Creatinine 0.8 mg/dL (0.6-1.0) Estimated GFR (Cockcroft-Gault) 69.6 Glucose Level 84 mg/dL (70-99) Calcium Level 8.5 mg/dL (8.5-10.1) Test 06/12/17 07:19 Glucose (Fingerstick) 106 mg/dL (70-99) Medications Active Scripts Medications Dose Route/Sig Max Daily Dose Days Date Category Levofloxacin 500 Mg Tablet 1 Tab PO DAILY 01/05/17 Reported Vitamin E (Vitamin E (Dl,Tocopheryl Acet)) 100 Unit Capsule 400 Unit PO 09/10/16 Reported Symbicort 160-4.5 Mcg Inhaler (Budesonide/Formoterol Fumarate) 10.2 Gm Hfa.aer.ad 2 Puff IH BID 09/10/16 Reported Risperidone 0.5 Mg Tablet 1 Tab PO BID 09/10/16 Reported Potassium Chloride 10 Meq Tablet.er 20 Meq PO DAILY 09/10/16 Reported Multivitamins (Multivitamin) 1 Each Tablet 1 Tab PO DAILY 09/10/16 Reported Remeron (Mirtazapine) 15 Mg Tablet 1 Tab PO QHS 09/10/16 Reported Lantus Solostar (Insulin Glargine,Hum.rec.anlog) 100 Unit/1 Ml Insuln.pen 40 Unit SQ QHS 09/10/16 Reported Gabapentin 300 Mg Capsule 300 Mg PO TID 09/10/16 Reported Furosemide 40 Mg Tablet 1 Tab PO DAILY 09/10/16 Reported Flonase Allergy Relief (Fluticasone Propionate) 9.9 Ml [place].susp 2 Sprays NS DAILY 09/10/16 Reported Colace (Docusate Sodium) 100 Mg Capsule 1 Cap PO BID 09/10/16 Reported Cartia Xt (Diltiazem Hcl) 240 Mg Cap.er.24h 240 Mg PO 09/10/16 Reported Aspirin 81 Mg Tab.chew 1 Tab PO DAILY 09/10/16 Reported Proair Hfa Inhaler (Albuterol Sulfate) 8.5 Gm Hfa.aer.ad 1 Puff INH PRN Q6HRS PRN 09/10/16 Reported Atorvastatin Calcium 20 Mg Tablet 1 Tab PO DAILY 09/10/16 Reported Trazodone Hcl 50 Mg Tablet 1 Tab PO QHS 09/10/16 Reported Pantoprazole Sodium 40 Mg Tablet.dr 1 Tab PO DAILY 09/10/16 Reported Sertraline Hcl 50 Mg Tablet 50 Mg PO DAILY 09/10/16 Reported Losartan Potassium 50 Mg Tablet 50 Mg PO DAILY 09/10/16 Reported Comments CXR 06/09 improving LLL mild atelectasis Impression . HIGH FEVERS,IMPROVING. 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 RESP STATUS IS COMPENSATED FOLLOW ID RECOMMENDATIONS CHECK ALL CULTURES RENAL RECOMMENDATIONS PAIN MANAGEMENT AGGRESSIVE PULMONARY HYGIENE IS NEBS CLINICALLY IMPROVING DARÍO HI MD Jun 12, 2017 10:15
[2017-06-12] MEDS: DOCUSATE SODIUM 100 MG CAPSULE. PO SCH (10:33)
[2017-06-12] MEDS: SERTRALINE 50 MG TABLET. PO SCH (10:33)
[2017-06-12] MEDS: ASPIRIN CHEWABLE 81 MG TABLET. PO SCH (10:33)
[2017-06-12 11:00] VITALS: BP 126/45
[2017-06-12] MEDS: MORPHINE SULFATE 4 MG/ML DISP.SYRIN. IV PRN ×2 (11:25→15:52)
--- NOTE | 2017-06-12 11:42 | PDOC ---
PROGRESS NOTES Chief Complaint Chief Complaint 1. Severe comminuted fracture of the R humerus, s/p R arm ORIF 2. HTN 3. HLP 4. COPD 5. Dementia 6. Falll risk 7. OA 8. DM type 2 9. Urinary incontinence 10. Depression 11. MADDY: obstructive 12. Altered mental status: possible encephalopathy History of Present Illness History of Present Illness pt is resting in bed today, she smiles when entering the room but no verbal response to questions or commands Vitals Vitals Vital Signs Date Time Temp Pulse Resp B/P (MAP) Pulse Ox O2 Delivery O2 Flow Rate FiO2 06/12/17 11:25 16 94 Room Air 06/12/17 11:00 97.9 83 126/45 (72) 97.9 06/12/17 07:00 3.0 Physical Exam Physical Exam follow my commands by squeezing my hands, but not answer my questions General: Alert, Cooperative, No acute distress Heart: Regular rate, No murmurs, Other (radial pulse 2+) Lungs: Other (decrease bs b/l) Abdomen: Normal bowel sounds, Soft, No tenderness Extremities: No clubbing, No cyanosis Skin: No rashes, No significant lesion Labs LABS Laboratory Tests Test 06/11/17 16:13 06/11/17 20:50 06/12/17 05:50 06/12/17 07:19 Glucose (Fingerstick) 175 mg/dL (70-99) 169 mg/dL (70-99) 106 mg/dL (70-99) Sodium Level 142 mmol/L (136-145) Potassium Level 4.7 mmol/L (3.5-5.1) Chloride Level 106 mmol/L (98-107) Carbon Dioxide Level 28 mmol/L (21-32) Anion Gap 8 (6-14) Blood Urea Nitrogen 37 mg/dL (7-20) Creatinine 0.8 mg/dL (0.6-1.0) Estimated GFR (Cockcroft-Gault) 69.6 Glucose Level 84 mg/dL (70-99) Calcium Level 8.5 mg/dL (8.5-10.1) Review of Systems Review of Systems pt follows verbal commands but no verbal output Assessment and Plan Assessmemt and Plan Assessment 1. Severe comminuted fracture of the R humerus, s/p R arm ORIF 2. HTN 3. HLP 4. COPD 5. Dementia 6. Falll risk 7. OA 8. DM type 2 9. Urinary incontinence 10. Depression 11. MADDY: obstructive 12. Altered mental status: possible encephalopathy Plan 1. S/p closed reduction and intramedullary nailing of right proximal humerus fracture on 06/06 2. Held lasix and cozaar 3. Wound care 4. PT/OT 5. Recheck labs and vital tomorrow 6. Cont home meds 7. ISS 8. Finished meropenem and zyvox per ID 9. Reviwed imaging: abd/pelv CT showed hydronephrosis and hydroureter 10. Soft diet with PPN per GI 11. Urine culture negative from 06/09 12. Probable discharge today to home with [facility] Problems: Comment Review of Relevant I have reviewed the following items juan (where applicable) has been applied. Labs Laboratory Tests Test 06/10/17 16:37 06/10/17 20:40 06/11/17 04:00 06/11/17 07:01 Glucose (Fingerstick) 180 mg/dL (70-99) 246 mg/dL (70-99) 158 mg/dL (70-99) White Blood Count 8.3 x10^3/uL (4.0-11.0) Red Blood Count 2.78 x10^6/uL (3.50-5.40) Hemoglobin 8.8 g/dL (12.0-15.5) Hematocrit 26.9 % (36.0-47.0) Mean Corpuscular Volume 97 fL (79-100) Mean Corpuscular Hemoglobin 32 pg (25-35) Mean Corpuscular Hemoglobin Concent 33 g/dL (31-37) Red Cell Distribution Width 15.3 % (11.5-14.5) Platelet Count 164 x10^3/uL (140-400) Neutrophils (%) (Auto) 68 % (31-73) Lymphocytes (%) (Auto) 15 % (24-48) Monocytes (%) (Auto) 10 % (0-9) Eosinophils (%) (Auto) 6 % (0-3) Basophils (%) (Auto) 1 % (0-3) Neutrophils # (Auto) 5.7 x10^3uL (1.8-7.7) Lymphocytes # (Auto) 1.2 x10^3/uL (1.0-4.8) Monocytes # (Auto) 0.9 x10^3/uL (0.0-1.1) Eosinophils # (Auto) 0.5 x10^3/uL (0.0-0.7) Basophils # (Auto) 0.1 x10^3/uL (0.0-0.2) Sodium Level 143 mmol/L (136-145) Potassium Level 4.6 mmol/L (3.5-5.1) Chloride Level 107 mmol/L (98-107) Carbon Dioxide Level 31 mmol/L (21-32) Anion Gap 5 (6-14) Blood Urea Nitrogen 60 mg/dL (7-20) Creatinine 1.4 mg/dL (0.6-1.0) Estimated GFR (Cockcroft-Gault) 36.5 Glucose Level 168 mg/dL (70-99) Calcium Level 8.1 mg/dL (8.5-10.1) Phosphorus Level 3.1 mg/dL (2.6-4.7) Magnesium Level 1.8 mg/dL (1.8-2.4) Test 06/11/17 11:09 06/11/17 16:13 06/11/17 20:50 06/12/17 05:50 Glucose (Fingerstick) 171 mg/dL (70-99) 175 mg/dL (70-99) 169 mg/dL (70-99) Sodium Level 142 mmol/L (136-145) Potassium Level 4.7 mmol/L (3.5-5.1) Chloride Level 106 mmol/L (98-107) Carbon Dioxide Level 28 mmol/L (21-32) Anion Gap 8 (6-14) Blood Urea Nitrogen 37 mg/dL (7-20) Creatinine 0.8 mg/dL (0.6-1.0) Estimated GFR (Cockcroft-Gault) 69.6 Glucose Level 84 mg/dL (70-99) Calcium Level 8.5 mg/dL (8.5-10.1) Test 06/12/17 07:19 Glucose (Fingerstick) 106 mg/dL (70-99) Laboratory Tests Test 06/11/17 16:13 06/11/17 20:50 06/12/17 05:50 06/12/17 07:19 Glucose (Fingerstick) 175 mg/dL (70-99) 169 mg/dL (70-99) 106 mg/dL (70-99) Sodium Level 142 mmol/L (136-145) Potassium Level 4.7 mmol/L (3.5-5.1) Chloride Level 106 mmol/L (98-107) Carbon Dioxide Level 28 mmol/L (21-32) Anion Gap 8 (6-14) Blood Urea Nitrogen 37 mg/dL (7-20) Creatinine 0.8 mg/dL (0.6-1.0) Estimated GFR (Cockcroft-Gault) 69.6 Glucose Level 84 mg/dL (70-99) Calcium Level 8.5 mg/dL (8.5-10.1) Microbiology 06/08/17 Blood Culture - Preliminary, Resulted NO GROWTH AFTER 3 DAYS 06/09/17 Urine Culture - Final, Complete 06/09/17 Urine Culture Result 1 (DEJA) - Final, Complete Medications Current Medications Hydromorphone HCl (Dilaudid) 0.5 mg 1X ONCE IV Last administered on 06/04/17 18:32; Start 06/04/17 at 18:30; Stop 06/04/17 at 18:31; Status DC Hydromorphone HCl (Dilaudid) 1 mg 1X ONCE IV Last administered on 06/04/17 19: 47; Start 06/04/17 at 19:45; Stop 06/04/17 at 19:46; Status DC Morphine Sulfate 2 mg PRN Q2HR PRN IV SEVERE PAIN Last administered on 20:42; Start 06/04/17 at 21:15; Stop 06/05/17 at 21:14; Status DC Aspirin (Children'S Aspirin) 81 mg DAILY PO Last administered on 06/12/17 10: 33; Start 06/05/17 at 09:00 Atorvastatin Calcium (Lipitor) 20 mg QHS PO Last administered on 06/11/17 21: 16; Start 06/05/17 at 21:00 Diltiazem HCl (Cardizem 24hr Cd) 240 mg DAILY PO Last administered on 10:32; Start 06/05/17 at 09:00 Docusate Sodium (Colace) 100 mg BID PO Last administered on 06/12/17 10:33; Start 06/05/17 at 09:00 Furosemide (Lasix) 40 mg DAILY PO Last administered on 06/08/17 08:04; Start 06/05/17 at 09:00; Stop 06/08/17 at 20:44; Status DC Levofloxacin (Levaquin) 500 mg DAILY PO ; Start 06/05/17 at 09:00; Status UNV Losartan Potassium (Cozaar) 50 mg DAILY PO Last administered on 06/08/17 08:06 ; Start 06/05/17 at 09:00; Stop 06/09/17 at 08:54; Status DC Mirtazapine (Remeron) 15 mg QHS PO Last administered on 06/11/17 21:16; Start 06/05/17 at 21:00 Pantoprazole Sodium (Protonix) 40 mg DAILYAC PO Last administered on 06/12/17 05:37; Start 06/05/17 at 07:30 Potassium Chloride (Klor-Con) 20 meq DAILY PO Last administered on 06/08/17 08 :04; Start 06/05/17 at 09:00; Stop 06/09/17 at 08:54; Status DC Sertraline HCl (Zoloft) 50 mg DAILY PO Last administered on 06/12/17 10:33; Start 06/05/17 at 09:00 Trazodone HCl (Desyrel) 50 mg QHS PO Last administered on 06/11/17 21:16; Start 06/05/17 at 21:00 Hydromorphone HCl (Dilaudid) 1 mg 1X ONCE IV Last administered on 06/04/17 22: 57; Start 06/04/17 at 23:00; Stop 06/04/17 at 23:01; Status DC Pneumococcal Polyvalent Vaccine (Do NOT chart on this placeholder) 1 each PRN DAILY PRN [facility] UNABLE TO RESPOND; Start 06/05/17 at 01:45; Status Cancel Clindamycin Phosphate 50 ml @ 100 mls/hr 1X ONCE IV Last administered on 08:44; Start 06/06/17 at 07:30; Stop 06/06/17 at 07:59; Status DC Albuterol Sulfate (Ventolin Neb Soln) 2.5 mg RTQID NEB Last administered on 11:07; Start 06/05/17 at 17:00 Albuterol Sulfate (Ventolin Neb Soln) 2.5 mg PRN Q2HR PRN NEB DYSPNEA Last administered on 06/06/17 10:48; Start 06/05/17 at 17:00 Ondansetron HCl (Zofran) 4 mg PRN Q6HRS PRN IV NAUSEA/VOMITING; Start 06/06/17 at 07:00; Stop 06/06/17 at 18:00; Status DC Fentanyl Citrate (Fentanyl 2ml Vial) 25 mcg PRN Q5MIN PRN IV MILD PAIN Last administered on 06/06/17 11:36; Start 06/06/17 at 07:00; Stop 06/06/17 at 18:00; Status DC Fentanyl Citrate (Fentanyl 2ml Vial) 50 mcg PRN Q5MIN PRN IV MODERATE PAIN; Start 06/06/17 at 07:00; Stop 06/06/17 at 18:00; Status DC Morphine Sulfate 1 mg PRN Q10MIN PRN IV SEVERE PAIN; Start 06/06/17 at 07:00; Stop 06/06/17 at 18:00; Status DC Ringer's Solution 1,000 ml @ 30 mls/hr Q24H IV ; Start 06/06/17 at 07:00; Stop 06/06/17 at 18:59; Status DC Lidocaine HCl 2 ml PRN 1X PRN ID PRIOR TO IV START; Start 06/06/17 at 07:00; Stop 06/06/17 at 18:00; Status DC Hydromorphone HCl (Dilaudid) 0.5 mg PRN Q10MIN PRN IV SEV PAIN, Second choice; Start 06/06/17 at 07:00; Stop 06/06/17 at 18:00; Status DC Prochlorperazine Edisylate (Compazine) 5 mg PACU PRN PRN IV NAUSEA, MRX1; Start 06/06/17 at 07:00; Stop 06/06/17 at 18:00; Status DC Morphine Sulfate 2 mg PRN Q2HR PRN IV MODERATE PAIN Last administered on 12:51; Start 06/05/17 at 21:30; Stop 06/07/17 at 13:21; Status DC Lidocaine HCl 30 ml Code for [place] ONCE .ROUTE Last administered on 06/06/17 09:06; Start 06/06/17 at 07:31; Stop 06/06/17 at 07:32; Status DC Bupivacaine HCl (Sensorcaine Mpf 0.5%) 30 ml STK-MED ONCE .ROUTE Last administered on 06/06/17 09:06; Start 06/06/17 at 07:31; Stop 06/06/17 at 07:32; Status DC Dexamethasone Sodium Phosphate (Decadron) 20 mg STK-MED ONCE .ROUTE ; Start 06/06 at 07:54; Stop 06/06/17 at 07:55; Status DC Propofol 20 ml @ As Directed STK-MED ONCE IV ; Start 06/06/17 at 07:54; Stop 06/06 at 07:55; Status DC Midazolam HCl (Versed) 2 mg STK-MED ONCE .ROUTE ; Start 06/06/17 at 07:55; Stop 06/06/17 at 07:56; Status DC Fentanyl Citrate (Fentanyl 5ml Vial) 250 mcg STK-MED ONCE .ROUTE ; Start at 07:55; Stop 06/06/17 at 07:56; Status DC Rocuronium [place] (Zemuron) 100 mg STK-MED ONCE .ROUTE ; Start 06/06/17 at 07:55 ; Stop 06/06/17 at 07:56; Status DC Glycopyrrolate (Robinul) 1 mg STK-MED ONCE .ROUTE ; Start 06/06/17 at 10:04; Stop 06/06/17 at 10:05; Status DC Neostigmine Methylsulfate 5 mg STK-MED ONCE .ROUTE ; Start 06/06/17 at 10:04; Stop 06/06/17 at 10:05; Status DC Clindamycin Phosphate 50 ml @ 100 mls/hr Q8H IV Last administered on 06/06/17 23:53; Start 06/06/17 at 16:00; Stop 06/07/17 at 08:33; Status DC Insulin Aspart (NovoLOG VIAL) 6 unit 1X ONCE SQ Last administered on 06/06/17 11:53; Start 06/06/17 at 12:00; Stop 06/06/17 at 12:01; Status DC Insulin Detemir (Levemir) 24 units QHS SQ Last administered on 06/07/17 00:01; Start 06/06/17 at 21:00; Stop 06/07/17 at 15:56; Status DC Insulin Aspart (NovoLOG) 0-7 UNITS TIDWMEALS SQ Last administered on 06/11/17 18:16; Start 06/06/17 at 17:00 Dextrose (Dextrose 50%-Water Syringe) 12.5 gm PRN Q15MIN PRN IV SEE COMMENTS; Start 06/06/17 at 16:00 Cyclobenzaprine HCl (Flexeril) 10 mg PRN Q6HRS PRN PO MUSCLE SPASMS Last administered on 06/06/17 20:02; Start 06/06/17 at 19:45; Stop 06/09/17 at 15:23; Status DC Morphine Sulfate 4 mg PRN Q2HR PRN IV SEVERE PAIN Last administered on 16:18; Start 06/06/17 at 21:15; Stop 06/08/17 at 15:33; Status DC Lorazepam (Ativan) 1 mg PRN Q4HRS PRN IV ANXIETY / AGITATION; Start 06/06/17 at 23:15; Stop 06/08/17 at 15:33; Status DC Lorazepam (Ativan) 2 mg PRN Q4HRS PRN IV SEVERE ANXIETY / AGITATION; Start 06/06 at 23:15; Stop 06/08/17 at 15:33; Status DC Acetaminophen (Tylenol) 650 mg PRN Q6HRS PRN PO FEVER Last administered on 06/09 05:47; Start 06/06/17 at 23:30 Ibuprofen (Motrin) 400 mg 1X ONCE PO Last administered on 06/07/17 06:15; Start 06/07/17 at 05:00; Stop 06/07/17 at 05:01; Status DC Meropenem 500 mg/ Sodium Chloride 50 ml @ 100 mls/hr Q6HRS IV Last administered on 06/09/17 05:47; Start 06/07/17 at 09:00; Stop 06/09/17 at 07:38 ; Status DC Linezolid 300 ml @ 300 mls/hr Q12HR IV Last administered on 06/10/17 21:11; Start 06/07/17 at 09:00; Stop 06/11/17 at 07:35; Status DC Alprazolam (Xanax) 0.5 mg DAILY16 PO ; Start 06/07/17 at 16:00; Stop 06/07/17 at 16:00; Status DC Amino Acids/ Glycerin/ Electrolytes 1,000 ml @ 75 mls/hr [id number] IV Last administered on 06/12/17 05:37; Start 06/07/17 at 12:30 Insulin Detemir (Levemir) 40 units QHS SQ Last administered on 06/11/17 21:20 ; Start 06/07/17 at 21:00 Alprazolam (Xanax) 0.5 mg QHS PO Last administered on 06/09/17 21:03; Start at 21:00; Stop 06/10/17 at 13:53; Status DC Morphine Sulfate 1 mg PRN Q2HR PRN IV SEVERE PAIN Last administered on 11:25; Start 06/08/17 at 15:30 Furosemide (Lasix) 20 mg 1X ONCE IVP Last administered on 06/08/17 18:09; Start 06/08/17 at 15:45; Stop 06/08/17 at 15:46; Status DC Meropenem 500 mg/ Sodium Chloride 50 ml @ 100 mls/hr Q8HRS IV Last administered on 06/11/17 05:54; Start 06/09/17 at 14:00; Stop 06/11/17 at 07:35 ; Status DC Alprazolam (Xanax) 0.25 mg PRN QHS PRN PO ANXIETY / AGITATION Last administered on 06/11/17 21:17; Start 06/10/17 at 14:00 Active Scripts Active Reported Zoloft (Sertraline Hcl) 50 Mg Tablet 1 Tab PO TID Potassium Chloride 10 Meq Capsule.er 10 Meq PO DAILY Percocet 10-325 Mg Tablet (Oxycodone/Acetaminophen) 1 Each Tablet 1 Tab PO Q4HRS PRN Losartan Potassium 100 Mg Tablet 100 Mg PO DAILY Lipitor (Atorvastatin Calcium) 20 Mg Tablet 1 Tab PO QHS Humalog (Insulin Lispro) 100 Unit/1 Ml Cartridge 10 Unit SQ TIDWMEALS Promethazine Hcl 25 Mg Tablet 1 Tab PO PRN Q4HRS PRN Haloperidol 0.5 Mg Tablet 0.5 Mg PO Q4HRS PRN Diazepam 5 Mg Tablet 5 Mg PO QID Alprazolam 0.5 Mg Tablet 1 Tab PO QHS Alprazolam 0.25 Mg Tablet 1 Tab PO BID PRN Levofloxacin 500 Mg Tablet 1 Tab PO DAILY Vitamin E (Vitamin E (Dl,Tocopheryl Acet)) 100 Unit Capsule 400 Unit PO Symbicort 160-4.5 Mcg Inhaler (Budesonide/Formoterol Fumarate) 10.2 Gm Hfa.aer.ad 2 Puff IH BID Risperidone 0.5 Mg Tablet 1 Tab PO BID Multivitamins (Multivitamin) 1 Each Tablet 1 Tab PO DAILY Remeron (Mirtazapine) 15 Mg Tablet 1 Tab PO QHS Lantus Solostar (Insulin Glargine,Hum.rec.anlog) 100 Unit/1 Ml Insuln.pen 40 Unit SQ QHS Gabapentin 300 Mg Capsule 300 Mg PO TID Furosemide 40 Mg Tablet 1 Tab PO DAILY Flonase Allergy Relief (Fluticasone Propionate) 9.9 Ml [place].susp 2 Sprays NS DAILY Colace (Docusate Sodium) 100 Mg Capsule 1 Cap PO BID Cartia Xt (Diltiazem Hcl) 240 Mg Cap.er.24h 240 Mg PO Aspirin 81 Mg Tab.chew 1 Tab PO DAILY Proair Hfa Inhaler (Albuterol Sulfate) 8.5 Gm Hfa.aer.ad 1 Puff INH PRN Q6HRS PRN Atorvastatin Calcium 20 Mg Tablet 1 Tab PO DAILY Trazodone Hcl 50 Mg Tablet 1 Tab PO QHS Pantoprazole Sodium 40 Mg Tablet. 1 Tab PO DAILY Vitals/I & O Vital Sign - Last 24 Hours 06/11/17 06/11/17 06/11/17 06/11/17 15:00 15:20 18:06 18:36 Temp 98.5 98.5 Pulse 80 Resp 20 16 16 B/P (MAP) 155/61 (92) Pulse Ox 95 95 95 O2 Delivery Nasal Cannula Nasal Cannula Room Air Room Air O2 Flow Rate 3.0 3.0 06/11/17 06/11/17 06/11/17 06/11/17 19:00 19:39 20:01 23:00 Temp 97.9 97.5 97.9 97.5 Pulse 85 88 Resp 22 20 B/P (MAP) 162/63 (96) 169/68 (101) Pulse Ox 95 96 94 O2 Delivery Nasal Cannula Room Air Nasal Cannula Nasal Cannula O2 Flow Rate 3.0 3.0 3.0 06/12/17 06/12/17 06/12/17 06/12/17 03:00 06:57 07:00 10:32 Temp 99.3 99.7 99.3 99.7 Pulse 77 76 76 Resp 20 20 B/P (MAP) 174/57 (96) 148/63 (91) 148/63 Pulse Ox 93 94 97 O2 Delivery Nasal Cannula Room Air Nasal Cannula O2 Flow Rate 3.0 3.0 06/12/17 06/12/17 11:00 11:25 Temp 97.9 97.9 Pulse 83 Resp 20 16 B/P (MAP) 126/45 (72) Pulse Ox 90 94 O2 Delivery Room Air Room Air Intake and Output 06/11/17 06/11/17 06/12/17 15:00 23:00 07:00 Intake Total 1360 ml Output Total 1150 ml 850 ml Balance -1150 ml 510 ml ABDULAZIZ KELSEY III DO Jun 12, 2017 11:42
--- NOTE | 2017-06-12 11:51 | PDOC ---
Renal-Progress Notes Subjective Notes Notes NONE History of Present Illness Hx of present illness NO CHANGE Vitals Vitals Vital Signs Date Time Temp Pulse Resp B/P (MAP) Pulse Ox O2 Delivery O2 Flow Rate FiO2 06/12/17 11:25 16 94 Room Air 06/12/17 11:00 97.9 83 126/45 (72) 97.9 06/12/17 07:00 3.0 Weight Weight [ ] I.O. Intake and Output Intake and Output 06/12/17 07:00 Intake Total 1360 ml Output Total 2000 ml Balance -640 ml Intake Oral 360 ml IV Total 1000 ml Output Urine Total 2000 ml # Bowel Movements 2 Labs Labs Laboratory Tests Test 06/11/17 16:13 06/11/17 20:50 06/12/17 05:50 06/12/17 07:19 Glucose (Fingerstick) 175 mg/dL (70-99) 169 mg/dL (70-99) 106 mg/dL (70-99) Sodium Level 142 mmol/L (136-145) Potassium Level 4.7 mmol/L (3.5-5.1) Chloride Level 106 mmol/L (98-107) Carbon Dioxide Level 28 mmol/L (21-32) Anion Gap 8 (6-14) Blood Urea Nitrogen 37 mg/dL (7-20) Creatinine 0.8 mg/dL (0.6-1.0) Estimated GFR (Cockcroft-Gault) 69.6 Glucose Level 84 mg/dL (70-99) Calcium Level 8.5 mg/dL (8.5-10.1) Micro Micro Microbiology 06/08/17 Blood Culture - Preliminary, Resulted NO GROWTH AFTER 3 DAYS 06/09/17 Urine Culture - Final, Complete 06/09/17 Urine Culture Result 1 (DEJA) - Final, Complete Review of Systems Constitutional: yes: no symptom reported Physical Exam General Appearance: no apparent distress Skin: warm Respiratory: decreased breath sounds Heart: S1S2, RRR Abdomen: soft, bowel sounds present Genitourinary: bladder flat Extremities: pulses present Neurology: confused Assessment Assessment IMP MADDY-RESOLVED S/P REPAIR OF RIGHT HUMERUS FX PLAN STOP PPN WILL SIGN OFF VINNY BROUSSARD MD Jun 12, 2017 11:51
[2017-06-12 15:00] VITALS: BP 159/75
== END 2017-06-12 18:50 | disposition hospice, home (50) | DRG 492 ==
LOC: ER 17:40 → 4 NORTH 21:00
PROVIDERS: ADMIT Internal Medicine; ATTEND Internal Medicine
PROC: 0PSC06Z Reposition Right Humeral Head with Intramedullary Internal Fixation Device, Open Approach (ICD-10-PCS; principal; 2017-06-06 08:00)
DX: S42.201A Unspecified fracture of upper end of right humerus, initial encounter for closed fracture (principal); A41.9 Sepsis, unspecified organism; G93.41 Metabolic encephalopathy; I50.33 Acute on chronic diastolic (congestive) heart failure; J96.10 Chronic respiratory failure, unspecified whether with hypoxia or hypercapnia; I13.0 Hypertensive heart and chronic kidney disease with heart failure and stage 1 through stage 4 chronic kidney disease, or unspecified chronic kidney disease; J44.0 Chronic obstructive pulmonary disease with (acute) lower respiratory infection; N17.9 Acute kidney failure, unspecified; N39.0 Urinary tract infection, site not specified; D64.9 Anemia, unspecified; E11.22 Type 2 diabetes mellitus with diabetic chronic kidney disease; E78.00 Pure hypercholesterolemia, unspecified; F03.90 Unspecified dementia, unspecified severity, without behavioral disturbance, psychotic disturbance, mood disturbance, and anxiety; E78.5 Hyperlipidemia, unspecified; F17.201 Nicotine dependence, unspecified, in remission; F32.9 Major depressive disorder, single episode, unspecified; M19.90 Unspecified osteoarthritis, unspecified site; N18.3 Chronic kidney disease, stage 3 (moderate); R32 Unspecified urinary incontinence; W07.XXXA Fall from chair, initial encounter; Y92.009 Unspecified place in unspecified non-institutional (private) residence as the place of occurrence of the external cause; Z79.4 Long term (current) use of insulin; Z82.49 Family history of ischemic heart disease and other diseases of the circulatory system; Z90.710 Acquired absence of both cervix and uterus; Z79.899 Other long term (current) drug therapy; Z88.0 Allergy status to penicillin; Z88.8 Allergy status to other drugs, medicaments and biological substances; Y99.8 Other external cause status; R50.9 Fever, unspecified
CPT/HCPCS: 36415; 36600; 51701; 71010; 73060; 73200; 74176; 76000; 80048; 80053; 81001; 82805; 82962; 83605; 83735; 84100; 84484; 85007; 85027; 87040; 87086; 93005; 93308; 94250; 94640; 94760; 96374; 96375; 96376; A6539; C1713; G0238; J1100; J1170; J1815; J2020; J2185; J2250; J2270; J2704; J2710; J3010; J3490; J7120; J7613; 92526; 92610; 97110; 97530; 97535; 99285-25

== ENCOUNTER 2017-06-23 19:26 | Emergency (ER) | payer MEDICARE, OTHER ==
[~2017-06-23] VITALS: Ht 165.1 cm; Wt 81.6 kg
[~2017-06-23 19:26] MED LIST changes: +ALPR0.5T6 PO; +ATOR20TA PO; +DIAZ5TAB4 PO; +HALO0.5T PO; +INSU100C SQ; +LOSA100T6 PO; +OXYC-328 PO; +POTASSIUM CHLO10 MEQ PO; +PROM25TA10 PO
[2017-06-23 19:35] VITALS: BP 140/82
--- NOTE | 2017-06-23 19:52 | PHYS DOC ---
Past Medical History Past Medical History: Bronchitis, CHF, COPD, Dementia, Diabetes-Type II, High Cholesterol, Hypertension, Renal Disease, Other Additional Past Medical Histor: resp failure; AMS; pulmonary edema; right knee pain Past Surgical History: Hysterectomy Additional Past Surgical Histo: R HUMERUS FX Alcohol Use: None Drug Use: None Adult General Chief Complaint Chief Complaint: URINE CATHETER PROBLEM HPI HPI Patient is a 76 year old female who presents due to accidental removal of Blankenship catheter. No other complaints. Caregivers everything was fine until approximately 1530 this afternoon when they went back to check on her the Blankenship was out, patient stated that she felt like removing it just because he was there. Patient has dementia at baseline Review of Systems Review of Systems Constitutional: Denies fever or chills [] Respiratory: Denies cough or shortness of breath [] GI: Denies abdominal pain, nausea, vomiting, bloody stools or diarrhea [] : saw some blood after blankenship pulled out. Musculoskeletal: Denies back pain or joint pain [] Integument: Denies rash or skin lesions [] Neurologic: Denies headache, focal weakness or sensory changes [] Endocrine: Denies polyuria or polydipsia [] Allergies Allergies Allergies Coded Allergies Type Severity Reaction Last Updated Verified Penicillins Allergy Intermediate AMS 06/11/17 Yes aripiprazole Adverse Reaction Mild agitation 10/28/16 Yes bupropion Adverse Reaction Mild headache 10/28/16 Yes metformin Adverse Reaction Mild diarrhea 10/28/16 Yes Physical Exam Physical Exam Constitutional: Well developed, well nourished, no acute distress, non-toxic appearance. [] HENT: Normocephalic, atraumatic, Eyes: EOMI, conjunctiva normal, no discharge. [] Neck: Normal range of motion, trachea midline Cardiovascular:Heart rate regular rhythm, Lungs & Thorax: Bilateral breath sounds clear to auscultation [] Abdomen: Bowel sounds normal, soft, no tenderness, no masses, no pulsatile masses. [] Skin: Warm, dry, no erythema, no rash. [] : no signs of trauma, no active bleeding Back: No tenderness, no CVA tenderness. [] Extremities: No tenderness, no cyanosis, no clubbing, ROM intact, no edema. [] Neurologic: Alert , no focal deficits Psychologic: Cooperative, nonviolent Current Patient Data Vital Signs Vital Signs Date Time Temp Pulse Resp B/P (MAP) Pulse Ox O2 Delivery O2 Flow Rate FiO2 06/23/17 19:35 98.5 82 18 96 Room Air 98.5 EKG EKG [] Radiology/Procedures Radiology/Procedures [] Course & Med Decision Making Course & Med Decision Making Pertinent Labs and Imaging studies reviewed. (See chart for details) succesful placement of blaknenship by nursing without complications [] Dragon Disclaimer Dragon Disclaimer This electronic medical record was generated, in whole or in part, using a voice recognition dictation system. Departure Departure Impression: Primary Impression: Dislodged Blankenship catheter Disposition: HOME, SELF-CARE Condition: STABLE Referrals: MONAE RUBIO (PCP) please follow up with your pcp and discuss possible need for removal of your blankenship. Follow up within one week Patient Instructions: Blankenship Catheter Care, Adult Kat CANDELARIA MD Jun 23, 2017 19:52
== END 2017-06-23 20:39 | disposition home or self-care (01) ==
LOC: ER 19:26
DX: T83.028A Displacement of other urinary catheter, initial encounter (principal); I13.0 Hypertensive heart and chronic kidney disease with heart failure and stage 1 through stage 4 chronic kidney disease, or unspecified chronic kidney disease; I50.9 Heart failure, unspecified; N18.9 Chronic kidney disease, unspecified; E11.22 Type 2 diabetes mellitus with diabetic chronic kidney disease; J44.9 Chronic obstructive pulmonary disease, unspecified; E78.00 Pure hypercholesterolemia, unspecified; F03.90 Unspecified dementia, unspecified severity, without behavioral disturbance, psychotic disturbance, mood disturbance, and anxiety; Z88.0 Allergy status to penicillin; Z88.8 Allergy status to other drugs, medicaments and biological substances
CPT/HCPCS: 51702; 99284-25

== ENCOUNTER 2017-06-30 15:51 | Emergency (ER) | payer MEDICARE, OTHER ==
[~2017-06-30] VITALS: Ht 165.1 cm; Wt 81.6 kg
[2017-06-30 16:00] VITALS: BP 119/56
--- NOTE | 2017-06-30 16:29 | PHYS DOC ---
Past Medical History Past Medical History: Bronchitis, CHF, COPD, Dementia, Diabetes-Type II, High Cholesterol, Hypertension, Renal Disease, Other Additional Past Medical Histor: resp failure; AMS; pulmonary edema; right knee pain Past Surgical History: Hysterectomy Additional Past Surgical Histo: R HUMERUS FX Alcohol Use: None Drug Use: None Adult General Chief Complaint Chief Complaint: OTHER COMPLAINTS HPI HPI Patient is a 76 year old female with a history of dementia hypertension and kidney disease diabetes type 2 who presents today for catheter replacement. Caregiver states patient pulled out her urinary catheter yesterday morning and has been voiding everywhere though they state she has chronic incontinence and the blankenship helps so that she does not void everywhere. caregivers state patient was given a Blankenship catheter on June 04, 2017 after fracturing her right humerus, caregivers state they called the primary care doctor who requested them to come to the ED to be evaluated. Caregivers denies patient having any other symptoms, Review of Systems Review of Systems Constitutional: Denies fever or chills [] Eyes: Denies change in visual acuity, redness, or eye pain [] HENT: Denies nasal congestion or sore throat [] Respiratory: Denies cough or shortness of breath [] Cardiovascular: No additional information not addressed in HPI [] GI: Denies abdominal pain, nausea, vomiting, bloody stools or diarrhea [] : Blankenship catheter replacement Musculoskeletal: Right upper extremity in a splint Integument: Denies rash or skin lesions [] Neurologic: Denies headache, focal weakness or sensory changes [] Endocrine: Denies polyuria or polydipsia [] Current Medications Current Medications Current Medications Medications (Trade) Dose Ordered Sig/[facility] Start Time Stop Time Status Last Admin Dose Admin Acetaminophen (Tylenol) 500 mg 1X ONCE 06/30/17 16:45 06/30/17 16:46 DC 06/30/17 16:39 500 MG Allergies Allergies Allergies Coded Allergies Type Severity Reaction Last Updated Verified Penicillins Allergy Intermediate AMS 06/11/17 Yes aripiprazole Adverse Reaction Mild agitation 10/28/16 Yes bupropion Adverse Reaction Mild headache 10/28/16 Yes metformin Adverse Reaction Mild diarrhea 10/28/16 Yes Physical Exam Physical Exam Constitutional: Well developed, well nourished, no acute distress, non-toxic appearance. [] HENT: Normocephalic, atraumatic, bilateral external ears normal, oropharynx moist, no oral exudates, nose normal. [] Eyes: PERRLA, EOMI, conjunctiva normal, no discharge. [] Neck: Normal range of motion, no tenderness, supple, no stridor. [] Cardiovascular:Heart rate regular rhythm, no murmur [] Lungs & Thorax: Bilateral breath sounds clear to auscultation [] Abdomen: Bowel sounds normal, soft, no tenderness, no masses, no pulsatile masses. [] Skin: Warm, dry, no erythema, no rash. [] Back: No tenderness, no CVA tenderness. [] Extremities: RUE in a immobilizer, no cyanosis, no clubbing, neurovascular exam intact to the RUE. Neurologic: Alert and oriented X 2, normal motor function, normal sensory function, no focal deficits noted. [] Psychologic: Affect normal, judgement normal, mood normal. [] Current Patient Data Vital Signs Vital Signs Date Time Temp Pulse Resp B/P (MAP) Pulse Ox O2 Delivery O2 Flow Rate FiO2 06/30/17 16:00 98.0 86 18 100 Room Air 98.0 EKG EKG [] Radiology/Procedures Radiology/Procedures [] Course & Med Decision Making Course & Med Decision Making Pertinent Labs and Imaging studies reviewed. (See chart for details) This is a 76-year-old female patient with history of dementia who is in the ED today for catheter replacement. This patient appears to have had a catheter on and off since June 04, 2017 after right humerus fracture where she was hospitalized and discharged with a catheter. The catheter appears to be for convenience. The caregivers state patient has removed it couple times including June 23, 2017 and they came to the ED to have it replaced. 16:52 I contacted the PCP Dr. Paty Rubio at her phone number is [phone]. She stated if there is no indication for this catheter patient should go home without it. The caregivers were concerned about patient chronic incontinence. I talked to the caregivers on the dangers off catheters including sepsis infection and informed them they are no for connivence. I recommended they have a routine bathroom scheduled for this patient to help manage her chronic urinary incontinence. I also recommended she wears depends. Patient has no other symptoms. She'll follow-up with her own PCP. Dragon Disclaimer Dragon Disclaimer This electronic medical record was generated, in whole or in part, using a voice recognition dictation system. Departure Departure Impression: Primary Impression: Encounter for Blankenship catheter replacement Additional Impression: Urinary incontinence Disposition: 01 HOME, SELF-CARE Condition: STABLE Referrals: PATY RUBIO (PCP) Call the office tomorrow and set up a follow up appointment. Patient Instructions: Urinary Tract Infection Additional Instructions: We spoke with Dr. Rubio, we can not find any indication for the blankenship catheter at this time. Blankenship catheters are not for convenience. We prefer she does not have the catheter because she can easily develop sepsis infection which is a very serious infection that can arise from the use of catheters and lead to . Urinary incontinence can be managed in other ways including having a routine schedule on when patient can use the bathroom. She can also wear depends. You can also remind patient to try and use the bathroom. We understand this is an inconvenience to the caregivers but it's manageable we do not want her to have sepsis infection from unnecessary catheters. Problem Qualifiers Additional Impression: Urinary incontinence Urinary Incontinence type: other incontinence Qualified Codes: N39.498 - Other specified urinary incontinence ANDREWS FISHMAN [employer] Jun 30, 2017 16:29
[2017-06-30] MEDS ORDERED: ACETAMINOPHEN 500 MG TABLET PO ONE (16:45)
== END 2017-06-30 17:11 | disposition home or self-care (01) ==
LOC: ER 15:51
DX: T83.028A Displacement of other urinary catheter, initial encounter (principal); N39.498 Other specified urinary incontinence; I13.0 Hypertensive heart and chronic kidney disease with heart failure and stage 1 through stage 4 chronic kidney disease, or unspecified chronic kidney disease; E11.22 Type 2 diabetes mellitus with diabetic chronic kidney disease; N18.9 Chronic kidney disease, unspecified; I50.9 Heart failure, unspecified; E78.00 Pure hypercholesterolemia, unspecified; F03.90 Unspecified dementia, unspecified severity, without behavioral disturbance, psychotic disturbance, mood disturbance, and anxiety; J44.9 Chronic obstructive pulmonary disease, unspecified; Z90.710 Acquired absence of both cervix and uterus; Z88.0 Allergy status to penicillin; Z88.2 Allergy status to sulfonamides; Z88.8 Allergy status to other drugs, medicaments and biological substances; Z86.711 Personal history of pulmonary embolism; Y84.6 Urinary catheterization as the cause of abnormal reaction of the patient, or of later complication, without mention of misadventure at the time of the procedure; Y92.89 Other specified places as the place of occurrence of the external cause
CPT/HCPCS: 99282; A4314; 99281